=== PATIENT | male | born 1965 | race Caucasian/White ===

== ENCOUNTER 2016-11-30 09:11 | Inpatient (IN) | payer OTHER ==
--- NOTE | 2016-11-30 10:42 | C.PDOC ---
History Of Present Illness 51 year old male presents to the ED after being sent by his PMD for possible active TB. Patient has been seen several times by his PMD for cough and easy fatigue and had a cxr that showed left upper lobe lesions and a CT showing infiltrate with cavities. Patient denies night sweats, change in appetite, but has lost weight, is easly fatigued and cough continues Time Seen by Provider: 11/30/16 09:48 Chief Complaint (Nursing): Cough, Cold, Congestion History Per: Patient History/Exam Limitations: language barrier Onset/Duration Of Symptoms: Days Current Symptoms Are (Timing): Still Present Severity: Mild Past Medical History Reviewed: Historical Data, Nursing Documentation, Vital Signs Vital Signs: Last Vital Signs Temp 97.4 F L 12/01/16 07:53 Pulse 94 H 12/01/16 07:53 Resp 20 12/01/16 07:53 BP 124/78 12/01/16 11:00 Pulse Ox 96 12/01/16 07:53 - Medical History PMH: No Chronic Diseases Other Surgeries: as child ?? Family History: States: Unknown Family Hx - Social History Hx Alcohol Use: No Hx Substance Use: No Review Of Systems Except As Marked, All Systems Reviewed And Found Negative. Constitutional: Positive for: Other (+Easy fatigue). Negative for: Fever, Chills, Sweats, Weight loss Cardiovascular: Negative for: Chest Pain Respiratory: Positive for: Cough. Negative for: Shortness of Breath Physical Exam - Physical Exam Appears: Non-toxic, No Acute Distress Skin: Normal Color, Warm, Dry Head: Atraumatic, Normacephalic Eye(s): bilateral: Normal Inspection Oral Mucosa: Moist Chest: Symmetrical, No Deformity Cardiovascular: Rhythm Regular, No Murmur Respiratory: Normal Breath Sounds, No Rales, No Rhonchi, No Wheezing Gastrointestinal/Abdominal: Soft, No Tenderness, No Distention Extremity: Normal ROM Neurological/Psych: Oriented x3, Normal Speech, Normal Cognition ED Course And Treatment - Laboratory Results Result Diagrams: 12/01/16 07:37 12/01/16 07:37 ECG: Interpreted By Me, Viewed By Me ECG Rhythm: Sinus Tachycardia Rate From EC O2 Sat by Pulse Oximetry: 98 (Room air) Pulse Ox Interpretation: Normal - Radiology CXR: Interpreted by Me CXR Interpretation: Yes: Infiltrates, Other (RADHA cavity) Progress Note: EKG, CXR, Blood work, and Urinalysis ordered and reviewed. Case discussed with Dr. Huber (Hospitalist) who agreed with plan and admission. 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 Provider Attestation: All medical record entries made by the Scribe were at my direction and personally dictated by me. I have reviewed the chart and agree that the record accurately reflects my personal performance of the history, physical exam, medical decision making, and the department course for this patient. I have also personally directed, reviewed, and agree with the discharge instructions and disposition.
[2016-11-30 11:01] LABS: BASO % 0.3 % (0.0-2.0); EOS # 0.2 K/uL (0.0-0.7); EOS % 1.8 % (0.0-4.0); HEMATOCRIT 40.2 % (35.0-51.0); LYMPH # 0.9 K/uL (1.0-4.3); LYMPH % 9.5 % (20.0-40.0); MEAN CELL VOLUME 69.7 fL (80.0-94.0); MEAN CORPUSCULAR HEMOGLOBIN 22.3 pg (27.0-31.0); MEAN PLATELET VOLUME 7.2 fL (7.2-11.7); MONO # 1.2 K/uL (0.0-0.8); MONO % 12.8 % (0.0-10.0); PLATELET COUNT 330 K/uL (130-400); RED CELL DISTRIBUTION WIDTH 16.9 % (11.5-14.5); WHITE BLOOD COUNT 9.2 K/uL (4.8-10.8)
[2016-11-30 11:07] LABS: RBC URINE < 1 /hpf (0-3); URINE BILIRUBIN NEGATIVE (NEGATIVE); URINE BLOOD NEGATIVE (NEGATIVE); URINE COLOR Yellow (YELLOW); URINE GLUCOSE (UA) 3+ mg/dL (Normal); URINE KETONE NEGATIVE (NEGATIVE); URINE LEUKOCYTE ESTERASE NEG Leu/uL (Negative); URINE PROTEIN NEGATIVE (NEGATIVE); URINE UROBILINOGEN NORMAL mg/dL (0.2-1.0); WBC URINE 1 /hpf (0-5)
[2016-11-30 11:15] LABS: CHLORIDE 92 mmol/L (98-107)
[2016-11-30 11:16] LABS: SODIUM 129 mmol/L (132-148)
[2016-11-30 11:18] LABS: CARBON DIOXIDE 27 mmol/L (22-30); GFR AFRICAN-AMERICAN > 60
[2016-11-30 11:19] LABS: ALB/GLOB RATIO 0.8 (1.0-2.1); ALKALINE PHOSPHATASE 113 U/L (38-126); ALT/SGPT 40 U/L (21-72); AST/SGOT 24 U/L (17-59); BILIRUBIN,TOTAL 0.5 mg/dL (0.2-1.3); BLOOD UREA NITROGEN 11 mg/dL (9-20); CALCIUM 9.2 mg/dl (8.6-10.4); GLUCOSE,RANDOM 233 mg/dL (75-110); TOTAL PROTEIN 7.4 g/dL (6.3-8.3)
--- NOTE | 2016-11-30 11:37 | RAD ---
HISTORY: admitted to r/o active TB COMPARISON: No prior. TECHNIQUE: Chest PA and lateral FINDINGS: LUNGS: Extensive left upper lobe infiltrate with a likely cavitary component. There is an overall miliary appearance to this infiltrate. Parabronchial thickening noted. PLEURA: No significant pleural effusion identified. No pneumothorax apparent. CARDIOVASCULAR: Normal. OSSEOUS STRUCTURES: No significant abnormalities. VISUALIZED UPPER ABDOMEN: Normal. OTHER FINDINGS: None. IMPRESSION: Cavitary left upper lobe infiltrate/mass. CT scan may be beneficial in further assessment of this process primarily affecting the posterior segment. The cavitary comes/cystic component is best seen on the lateral view measuring 5.2 x 6.4 cm.
[2016-11-30 12:09] LABS: EOSINOPHIL 1 % (0-4); NEUTROPHIL 81 % (50-75); TOTAL CELLS COUNTED 100
--- NOTE | 2016-11-30 13:21 | CP.PCM.HP ---
<Reyna Huber V - Last Filed: 11/30/16 18:20> Meds Allergies/Adverse Reactions: Allergies Allergy/AdvReac Type Severity Reaction Status Date / Time No Known Allergies Allergy Verified 11/30/16 09:48 Results - Vital Signs Recent Vital Signs: Last Vital Signs Temp 98.4 F 11/30/16 15:15 Pulse 109 H 11/30/16 15:15 Resp 20 11/30/16 15:15 BP 141/90 11/30/16 15:15 Pulse Ox 97 11/30/16 15:15 - Labs Result Diagrams: 11/30/16 10:53 11/30/16 10:53 Labs: Laboratory Results - last 24 hr 11/30/16 11/30/16 10:53 16:28 WBC 9.2 RBC 5.76 Hgb 12.8 Hct 40.2 MCV 69.7 L MCH 22.3 L MCHC 32.0 L RDW 16.9 H Plt Count 330 MPV 7.2 Neut % (Auto) 75.6 H Lymph % (Auto) 9.5 L Villalba % (Auto) 12.8 H Eos % (Auto) 1.8 Baso % (Auto) 0.3 Neut # 7.0 Lymph # 0.9 L Villalba # 1.2 H Eos # 0.2 Baso # 0.0 Neutrophils % (Manual) 81 H Band Neutrophils % 2 Lymphocytes % (Manual) 11 L Monocytes % (Manual) 5 Eosinophils % (Manual) 1 Platelet Estimate Normal Polychromasia Slight Hypochromasia (manual) Slight Anisocytosis (manual) Slight Tear Drop Cells Slight Coalfield Cells Slight PT 13.0 H INR 1.2 APTT 29 Sodium 129 L Potassium 4.0 Chloride 92 L Carbon Dioxide 27 Anion Gap 14 BUN 11 Creatinine 0.6 L Est GFR ( Amer) > 60 Est GFR (Non-Af Amer) > 60 Random Glucose 233 H Calcium 9.2 Total Bilirubin 0.5 AST 24 ALT 40 Alkaline Phosphatase 113 Total Protein 7.4 Albumin 3.4 L Globulin 4.1 H Albumin/Globulin Ratio 0.8 L Urine Color Yellow Urine Clarity Clear Urine pH 7.0 Ur Specific [place] 1.008 Urine Protein Negative Urine Glucose (UA) 3+ H Urine Ketones Negative Urine Blood Negative Urine Nitrate Negative Urine Bilirubin Negative Urine Urobilinogen Normal Ur Leukocyte Esterase Neg Urine WBC (Auto) 1 Urine RBC (Auto) < 1 Attending/Attestation - Attestation I have personally seen and examined this patient.: Yes I have fully participated in the care of the patient.: Yes I have reviewed all pertinent clinical information: Yes Notes (Text): Patient seen, evaluated and case discussed with day-time resident. Patient seen in Bed 9 in the [facility] ED approximately 1:10PM on 11/30/16. Patient came into ED per recommendation by his PMD, Dr Johan Cardoso, after have persistent dry, nonproductive cough for the past 4 weeks. Patient also reports subjective fevers, and associated unintentional weight loss about 40lbs over the past four months. Patient denies recent travel, denies incarceation, denies intermediate designer steroid use, denies history of HIV, denies recent travel, patient is from [place], denies Bcg vaccine. Patient has had family history of tuberculosis; patient reports he completed chest xray and CT Chest per outpatient; noting left upper lobe cavitation. Discussed with patient's PMD: Dr Johan Cardoso for confirmation; concern between TB vs lung cancer. Patient placed on Airborne isolation. Pulmonary consult: Dr. Frazier-->notified -->for bronchoscopy tomorrow; notified CD in chart for patient's CT chest Infectious consult: Dr Espinal pending recommendations. Patient ordered for PPD, Quantaferon, and airborne isolation. Patient has history of diabetes, will hold glipizide, monitor accuchecks QAC and HS, start vegetarian diet, patient to be NPO for bronchoscopy tomorrow. <Darien Drake - Last Filed: 11/30/16 22:29> History of Present Illness - History of Present Illness History of Present Illness: CC: "Cough" HPI: 51 year old male presents to the ED after being sent by his PMD for possible active TB. Patient has been seen several times by his PMD for cough and easy fatigue for the past month. The cough progressively got worse and CXR showed left upper lobe lesions. CT showed infiltrate with cavities. The PMD advised the pt to seek admission to [facility] for potentially active TB. The patient was unaware of ever being tested for TB previously. He admits to subjective fevers, fatigue, cough, LE weakness and pain. Patient denies hemoptysis, night sweats, weight loss, abdominal pain, change in appetite, n/v, LE edema, or any additional complaints at this time. PMHx: DM2, HTN PSHx: 1 minor surgery during childhood, patient could not recall Meds: home meds will be brought in by his family friend Allergies: NKDA FamHx: Father of TB when the pt was 5 years old SocHx: Emigrated to the [place] about 5-9 years ago and has been working on-and-off as a manager sas. He chews tobacco and previously drank alcohol but has not in some time. PMD: Johan Cardoso Present on Admission - Present on Admission Any Indicators Present on Admission: No Review of Systems - Constitutional Constitutional: Fever, Weakness (legs). absent: Chills, Headache - EENT Eyes: absent: Blind Spots, Blurred Vision, Change in Vision Ears: absent: Decreased Hearing, Ear Discharge Nose/Mouth/Throat: absent: Nasal Congestion, Nasal Discharge - Cardiovascular Cardiovascular: absent: Chest Pain, Chest Pain at Rest, Dyspnea - Respiratory Respiratory: Cough. absent: Dyspnea, Hemoptysis, Pain with Coughing - Gastrointestinal Gastrointestinal: absent: Abdominal Pain, Hematemesis, Hematochezia, Nausea, Vomiting - Genitourinary Genitourinary: absent: Difficulty Urinating, Dysuria - Musculoskeletal Musculoskeletal: absent: Arthralgias, Numbness, Tingling - Integumentary Integumentary: absent: Alopecia, Bleeding Lesions, Change in Hair - Neurological Neurological: Weakness. absent: Abnormal Hearing, Abnormal Movements, Tingling , Tremor - Psychiatric Psychiatric: absent: Anhedonia, Anxiety, Depression - Hematologic/Lymphatic Hematologic: absent: Easy Bleeding, Easy Bruising Past Patient History - Past Social History Smoking Status: Never Smoked - ENDOCRINE/METABOLIC Hx Endocrine Disorders: Yes Hx Diabetes Mellitus Type 2: Yes - PSYCHIATRIC Hx Substance Use: No - SURGICAL HISTORY Hx Surgeries: Yes Other/Comment: CHILDHOOD SX..PT CANNOT REMEMBER WHAT - ANESTHESIA Hx Anesthesia: No Physical Exam - Constitutional Appears: Non-toxic, No Acute Distress - Head Exam Head Exam: ATRAUMATIC, NORMAL INSPECTION - Eye Exam Eye Exam: EOMI, Normal appearance - ENT Exam ENT Exam: Normal Oropharynx - Respiratory Exam Respiratory Exam: Clear to Auscultation Bilateral, NORMAL BREATHING PATTERN. absent: Wheezes - Cardiovascular Exam Cardiovascular Exam: REGULAR RHYTHM, +S1, +S2. absent: JVD - GI/Abdominal Exam GI & Abdominal Exam: Normal Bowel Sounds, Soft. absent: Tenderness - Extremities Exam Extremities exam: Positive for: normal inspection, tenderness (mild to palp). Negative for: pedal edema - Neurological Exam Neurological exam: Alert, Oriented x3 - Psychiatric Exam Psychiatric exam: Normal Affect, Normal Mood - Skin Skin Exam: Dry, Intact, Normal Color, Warm Results - Vital Signs Recent Vital Signs: Last Vital Signs Temp 98.5 F 11/30/16 12:40 Pulse 98 H 11/30/16 12:40 Resp 18 11/30/16 12:40 BP 124/84 11/30/16 12:40 Pulse Ox 100 11/30/16 12:40 - Labs Result Diagrams: 11/30/16 10:53 11/30/16 10:53 Labs: Laboratory Results - last 24 hr 11/30/16 10:53 WBC 9.2 RBC 5.76 Hgb 12.8 Hct 40.2 MCV 69.7 L MCH 22.3 L MCHC 32.0 L RDW 16.9 H Plt Count 330 MPV 7.2 Neut % (Auto) 75.6 H Lymph % (Auto) 9.5 L Villalba % (Auto) 12.8 H Eos % (Auto) 1.8 Baso % (Auto) 0.3 Neut # 7.0 Lymph # 0.9 L Villalba # 1.2 H Eos # 0.2 Baso # 0.0 Neutrophils % (Manual) 81 H Band Neutrophils % 2 Lymphocytes % (Manual) 11 L Monocytes % (Manual) 5 Eosinophils % (Manual) 1 Platelet Estimate Normal Polychromasia Slight Hypochromasia (manual) Slight Anisocytosis (manual) Slight Tear Drop Cells Slight Coalfield Cells Slight Sodium 129 L Potassium 4.0 Chloride 92 L Carbon Dioxide 27 Anion Gap 14 BUN 11 Creatinine 0.6 L Est GFR ( Amer) > 60 Est GFR (Non-Af Amer) > 60 Random Glucose 233 H Calcium 9.2 Total Bilirubin 0.5 AST 24 ALT 40 Alkaline Phosphatase 113 Total Protein 7.4 Albumin 3.4 L Globulin 4.1 H Albumin/Globulin Ratio 0.8 L Urine Color Yellow Urine Clarity Clear Urine pH 7.0 Ur Specific [place] 1.008 Urine Protein Negative Urine Glucose (UA) 3+ H Urine Ketones Negative Urine Blood Negative Urine Nitrate Negative Urine Bilirubin Negative Urine Urobilinogen Normal Ur Leukocyte Esterase Neg Urine WBC (Auto) 1 Urine RBC (Auto) < 1 Assessment & Plan - Assessment and Plan (Free Text) Assessment: Tuberculosis, active -Note: Disk containing CT + CXR images is in the physical chart. -Cavitary left upper lobe infiltrate/mass. CT scan may be beneficial in further assessment of this process primarily affecting the posterior segment. The cavitary comes/cystic component is best seen on the lateral view measuring 5.2 x 6.4 cm. -ID consult, Dr. Espinal -Pulm Consult, Dr. Frazier -> plan for bronchoscopy 12/01 AM. NPO AM. -Continue Mucinex 600mg PO BID; Singulair 10mg PO HS; Duonebs RQ6 PRN -f/u AFB x3; PPD; HIV; Quant Gold; Diabetes f/u A1c; FLP; Glucose 233 on admission ISS Hold Home med: Glimepiride 2mg daily Hypertension BP WNL on admission Continue home Enalapril 5mg PO d Microcytic Anemia MCV 69.7 f/u Fe; TIBC; ferritin, B12, folate, reticulcyte count, haptoglobin, hemoglobinopathies Prophylaxis -respiratory isolation NS 0.9 at 100cc/hr Vegetarian Diet, carb consistent, low sodium Pepcid 20mg PO d Heparin 5k units SC q8H (hold in AM prior to procedure) SCDs - Date & Time Date: 11/30/16 Time: 13:30
[2016-11-30] MEDS ORDERED: Albuterol-Ipratrop 3 mg / 0.5 (3 ml) UD INH PRN (15:35)
[2016-11-30] MEDS ORDERED: Tuberculin 5 Units/0.1 ml Inj ID ONE (16:30)
[2016-11-30 16:42] LABS: INR 1.2
[2016-11-30] MEDS: guaiFENesin 600 mg ER Tab PO SCH (17:50)
[2016-11-30] MEDS: Sodium Chloride 0.9% 1,000 ML IV SCH (17:55)
[2016-11-30] MEDS: (Novolog) Insulin Aspart, Recombinant 100 u/ml 10 ml vial SC SCH (21:32)
[2016-12-01] MEDS: Sodium Chloride 0.9% 1,000 ML IV SCH ×2 (04:00→14:37)
[2016-12-01 07:46] LABS: BASO % 0.4 % (0.0-2.0); EOS # 0.2 K/uL (0.0-0.7); EOS % 2.1 % (0.0-4.0); HEMATOCRIT 38.3 % (35.0-51.0); LYMPH # 1.3 K/uL (1.0-4.3); LYMPH % 15.6 % (20.0-40.0); MEAN CELL VOLUME 69.4 fL (80.0-94.0); MEAN CORPUSCULAR HEMOGLOBIN 22.6 pg (27.0-31.0); MEAN CORPUSCULAR HGB CONC 32.6 g/dL (33.0-37.0); MEAN PLATELET VOLUME 7.5 fL (7.2-11.7); MONO # 1.3 K/uL (0.0-0.8); MONO % 16.3 % (0.0-10.0); RED CELL DISTRIBUTION WIDTH 16.5 % (11.5-14.5); WHITE BLOOD COUNT 8.1 K/uL (4.8-10.8)
[2016-12-01 07:51] LABS: INR 1.2
--- NOTE | 2016-12-01 07:54 | CP.PCM.PN ---
<Jose MariatristenDarien - Last Filed: 12/01/16 21:03> Subjective - Date & Time of Evaluation Date of Evaluation: 12/01/16 Time of Evaluation: 07:35 - Subjective Subjective: PGY-1 note for medicine service Pt seen and examined at bedside, chart reviewed and case discussed. No overnight events per nursing. Patient reports he is doing well this morning. Bronch cancelled for this morning as CT imaging showed clear evidence of TB. + Cough. Patient denies hemoptysis, night sweats, weight loss, abdominal pain, change in appetite, n/v, LE edema, or any additional complaints at this time. Objective - Vital Signs/Intake and Output Vital Signs (last 24 hours): Temp Pulse Resp BP Pulse Ox 98.2 F 100 H 20 127/75 95 12/01/16 06:00 12/01/16 00:00 12/01/16 00:00 12/01/16 00:00 12/01/16 00:00 Intake and Output: 12/01/16 12/01/16 06:59 18:59 Intake Total 1400 Balance 1400 - Medications Medications: Current Medications Albuterol/Ipratropium (Duoneb 3 Mg/0.5 Mg (3 Ml) Ud) 3 ml INH RQ6 PRN PRN Reason: Shortness of Breath Enalapril Maleate (Vasotec) 5 mg PO DAILY [facility] Famotidine (Pepcid) 20 mg PO DAILY [facility] Last Admin: 11/30/16 17:50 Dose: 20 mg Guaifenesin (Mucinex La) 600 mg PO BID [facility] Last Admin: 11/30/16 17:50 Dose: 600 mg Heparin Sodium (Porcine) (Heparin) 5,000 units SC Q8H [facility] Last Admin: 12/01/16 01:27 Dose: Not Given Sodium Chloride (Sodium Chloride 0.9%) 1,000 mls @ 100 mls/hr IV .Q10H [facility] Last Admin: 12/01/16 04:00 Dose: 100 mls/hr Influenza Virus Vaccine (Afluria) 45 mcg IM .ONCE ONE Stop: 12/02/16 10:01 Insulin Aspart (Novolog) 0 unit SC ACHS [facility] PRN Reason: Protocol Last Admin: 11/30/16 21:32 Dose: Not Given Montelukast Sodium (Singulair) 10 mg PO HS [facility] Last Admin: 11/30/16 21:17 Dose: 10 mg Pneumococcal Polyvalent Vaccine (Pneumovax 23 Vaccine) 0.5 ml IM .ONCE ONE Stop: 12/02/16 10:01 - Labs Labs: 12/01/16 07:37 11/30/16 10:53 PT 13.0 SECONDS (9.7-12.2) H 11/30/16 16:28 INR 1.2 11/30/16 16:28 APTT 29 SECONDS (21-34) 11/30/16 16:28 - Additional Findings Additional findings: - Constitutional Appears: Non-toxic, No Acute Distress - Head Exam Head Exam: ATRAUMATIC, NORMAL INSPECTION - Eye Exam Eye Exam: EOMI, Normal appearance - ENT Exam ENT Exam: Normal Oropharynx - Respiratory Exam Respiratory Exam: Clear to Auscultation Bilateral, NORMAL BREATHING PATTERN. absent: Wheezes - Cardiovascular Exam Cardiovascular Exam: REGULAR RHYTHM, +S1, +S2. absent: JVD - GI/Abdominal Exam GI & Abdominal Exam: Normal Bowel Sounds, Soft. absent: Tenderness - Extremities Exam Extremities exam: Positive for: normal inspection, tenderness (mild to palp). Negative for: pedal edema - Neurological Exam Neurological exam: Alert, Oriented x3 - Psychiatric Exam Psychiatric exam: Normal Affect, Normal Mood - Skin Skin Exam: Dry, Intact, Normal Color, Warm Assessment and Plan - Assessment and Plan (Free Text) Assessment: Tuberculosis, active 12/02: f/u PPD read 7pm on 12/02 and 12/03. 12/01: Blood culture negative x24hrs (pending gram stain). -Note: Disk containing CT + CXR images is in the physical chart. -Cavitary left upper lobe infiltrate/mass. CT scan may be beneficial in further assessment of this process primarily affecting the posterior segment. The cavitary comes/cystic component is best seen on the lateral view measuring 5.2 x 6.4 cm. -ID consult, Dr. Espinal -> to start quadruple therapy for TB. -Pulm Consult, Dr. Frazier -> bronchoscopy 12/01 AM cancelled, as CT imaging showed clear TB infection -Continue Mucinex 600mg PO BID; Singulair 10mg PO HS; Duonebs RQ6 PRN -f/u AFB x3; f/u PPD read 7pm on 12/02 and 3/31. f/u HIV; -f/u Quant Gold; Diabetes 12/01: Start Glipizide 10mg daily, metformin 1000mg PO BID. 12/01: LE weakness likely diabetic neuropathy -> Gabapentin 300mg PO TID A1c 12.4 FLP grossly WNL; HDL 28 L Glucose 233 on admission ISS Hold Home med: Glimepiride 2mg daily Hypertension BP WNL on admission Continue home Enalapril 5mg PO d Microcytic Anemia MCV 69.7 Ferritin 77.3, B12 950 H, folate 11.2, reticulocyte count 1.0, haptoglobin , f/u hemoglobinopathies f/u Fe, TIBC Prophylaxis -respiratory isolation NS 0.9 at 100cc/hr Vegetarian Diet, carb consistent, low sodium Pepcid 20mg PO d Heparin 5k units SC q8H (hold in AM prior to procedure) SCDs <Reyna Huber V - Last Filed: 12/21/16 13:27> Objective - Vital Signs/Intake and Output Vital Signs (last 24 hours): Temp Pulse Resp BP Pulse Ox 98.8 F 94 H 20 119/75 96 12/03/16 00:00 12/03/16 00:00 12/03/16 00:00 12/03/16 00:00 12/03/16 00:00 Intake and Output: 12/02/16 12/03/16 18:59 06:59 Intake Total 1380 Balance 1380 - Medications Medications: Current Medications Albuterol/Ipratropium (Duoneb 3 Mg/0.5 Mg (3 Ml) Ud) 3 ml INH RQ6 PRN PRN Reason: Shortness of Breath Ascorbic Acid (Vitamin C 500 Mg Tab) 500 mg PO DAILY [facility] Last Admin: 12/02/16 12:09 Dose: 500 mg Enalapril Maleate (Vasotec) 5 mg PO DAILY [facility] Last Admin: 12/02/16 09:09 Dose: 5 mg Ethambutol HCl (Myambutol) 1,200 mg PO DAILY [facility] Last Admin: 12/02/16 09:10 Dose: 1,200 mg Famotidine (Pepcid) 20 mg PO DAILY [facility] Last Admin: 12/02/16 09:09 Dose: 20 mg Ferrous Sulfate (Feosol) 325 mg PO DAILY [facility] Last Admin: 12/02/16 12:09 Dose: 325 mg Gabapentin (Neurontin) 300 mg PO TID [facility] Last Admin: 12/02/16 17:36 Dose: 300 mg Glipizide (Glucotrol) 10 mg PO ACB [facility] Last Admin: 12/02/16 09:34 Dose: 10 mg Guaifenesin (Mucinex La) 600 mg PO BID [facility] Last Admin: 12/02/16 17:36 Dose: 600 mg Heparin Sodium (Porcine) (Heparin) 5,000 units SC Q8H [facility] Last Admin: 12/01/16 01:27 Dose: Not Given Sodium Chloride (Sodium Chloride 0.9%) 1,000 mls @ 125 mls/hr IV .Q8H [facility] Last Admin: 12/02/16 20:48 Dose: 125 mls/hr Insulin Aspart (Novolog) 0 unit SC ACHS [facility] PRN Reason: Protocol Last Admin: 12/02/16 21:24 Dose: Not Given Isoniazid (Niazid) 300 mg PO DAILY [facility] Last Admin: 12/02/16 09:10 Dose: 300 mg Metformin HCl (Glucophage) 1,000 mg PO BID [facility] Last Admin: 12/02/16 17:37 Dose: 1,000 mg Montelukast Sodium (Singulair) 10 mg PO HS [facility] Last Admin: 12/02/16 21:20 Dose: 10 mg Ondansetron HCl (Zofran Tab) 4 mg PO Q6 PRN PRN Reason: Nausea/Vomiting Last Admin: 12/02/16 20:48 Dose: 4 mg Pyrazinamide (Pyrazinamide) 1,000 mg PO DAILY [facility] Last Admin: 12/02/16 09:11 Dose: 1,000 mg Pyridoxine HCl (Vitamin B6) 100 mg PO DAILY [facility] Last Admin: 12/02/16 09:11 Dose: 100 mg Rifampin (Rifampin Cap) 600 mg PO DAILY [facility] Last Admin: 12/02/16 09:11 Dose: 600 mg - Labs Labs: 12/02/16 07:06 12/02/16 07:06 PT 13.6 SECONDS (9.7-12.2) H 12/01/16 07:37 INR 1.2 12/01/16 07:37 APTT 28 SECONDS (21-34) 12/01/16 07:37 Attending/Attestation - Attestation I have personally seen and examined this patient.: Yes I have fully participated in the care of the patient.: Yes I have reviewed all pertinent clinical information, including history, physical exam and plan: Yes Notes (Text): This is late computer entry for 12/01/16. Patient seen, examined, and case discussed with day-time resident. Per discussion with pulm, bronchoscopy cancelled this morning, reports this is likely tuberculosis and recommended to start TB medications. Patient is pending PPD, quantaferon results. Per infectious disease, recommended for quadruple therapy. Patient's hgba1c is 12.4, reflecting uncontrolled diabetes, patient started on Metformin 1000mg PO bid and Glipizide 10mg PO daily Assessment/Plan 1) Tuberculosis, active * Consult Infectious Disease (Dr. Espinal) on board * Consult Pulmonary (Dr. Frazier ) on board * Bronchoscopy cancelled; discussed with pulm, patient should initiate therapy for TB * Chest xray (11/30): Cavitary left upper lobe infiltrate/mass. CT scan may be beneficial in further assessment of this process primarily affecting the posterior segment. The cavitary comes/cystic component is best seen on the lateral view measuring 5.2 x 6.4 cm. * Patient as completed CT Chest outpatient (prior CT is included in the chart; CD) * Patient ordered for PPD, HIV, Quantaferon, AFB sputum * Blood culture (11/30): no growth negative for 24 hours * Ordered for PPD 2) Cough * Mucinex 600mg PO bid * Singuliar 10mg POqHS * Duonebs RQ6 PRN 3) Diabetes type 2 * Uncontrolled * [id number]: 12.4 * Patient started on Metformin 1000mg PO bid and Glipizide 10mg PO daily * Note: patient has peripheral neuropathy prior to starting TB therapy; patient started on Gabapentin 300mg PO tid * Regular insulin sliding scale subq * Monitor accuechecks QAC and HS * Enalapril 5mg PO daily 4) Hypertension * Monitor vial signs * Enalapril 5mg PO daily 5) Low MCV * MCV 69.7, Ferritin 77.3, B12 950 H, folate 11.2, reticulocyte count 1.0, haptoglobin, hemoglobinpathy 6) Hyponatremia * monitor * NS 100cc/hr * no neurologic deficit * continue monitor 7) Prophylaxis * NS 100cc/hr * Vegetarian Diet, carb consistent, low sodium * Pepcid 20mg PO daily * Heparin 5k units SC q8H (hold in AM prior to procedure) * SCDs
[2016-12-01] MEDS: (Novolog) Insulin Aspart, Recombinant 100 u/ml 10 ml vial SC SCH ×4 (08:00→21:33)
[2016-12-01 08:07] LABS: CHLORIDE 94 mmol/L (98-107)
[2016-12-01 08:08] LABS: SODIUM 131 mmol/L (132-148)
[2016-12-01 08:09] LABS: CHOLESTEROL 157 mg/dL (0-199)
[2016-12-01 08:10] LABS: ALB/GLOB RATIO 0.9 (1.0-2.1); ALKALINE PHOSPHATASE 109 U/L (38-126); AST/SGOT 23 U/L (17-59); BILIRUBIN,TOTAL 0.4 mg/dL (0.2-1.3); BLOOD UREA NITROGEN 8 mg/dL (9-20); CARBON DIOXIDE 24 mmol/L (22-30); GFR AFRICAN-AMERICAN > 60; GLUCOSE,RANDOM 175 mg/dL (75-110); TOTAL PROTEIN 6.9 g/dL (6.3-8.3)
[2016-12-01 08:11] LABS: ALT/SGPT 28 U/L (21-72); CALCIUM 8.6 mg/dl (8.6-10.4); MAGNESIUM 1.9 mg/dL (1.6-2.3); PHOSPHOROUS 4.3 mg/dL (2.5-4.5)
[2016-12-01 09:17] LABS: FOLATE 11.2 ng/mL
--- NOTE | 2016-12-01 10:10 | CP.PCM.CON ---
History of Present Illness - History of Present Illness History of Present Illness: Patient is a 51 year old male with PMH of DM2 and HTN who presented to the ED on 11/30/16 with chief complaint of cough. Pt reported that he was recommended by his PMD, Dr. Johan Cardoso to come in to the ER for possible active TB. Pt also reported that he had persistent dry, non productive cough, subjective fevers, and unintentional weight loss of 40 lbs in the past 4 weeks. Pt's cough had progressively gotten worse over the past 4 weeks, and pt had outpatient Chest X-ray done with showed left upper lobe cavitation and outpatient CT showed infiltrate with cavities. Pulm was consulted for active TB vs lung cancer. Pt seen and examined in isolation room at bedside. Pt continues to complain of boughts of non productive coughs today as well some malaise. Pt denies hemoptysis, night sweats, CP, phlegm, N/V, and also could not recall being tested for TB in the past. Pt states that he emigrated to the [place] 5[place]9 years ago, and admitted to a family history of TB with his father passing away from TB when pt was 5 years old. Social History: Admits to chewing tobacco Review of Systems - Constitutional Constitutional: Malaise (Some), Weight Loss, Weakness. absent: Chills, Excessive Sweating, Fever, Night Sweats - Cardiovascular Cardiovascular: absent: Chest Pain, Dyspnea on Exertion, Edema, Palpitations, Pedal Edema - Respiratory Respiratory: Cough (Dry). absent: Dyspnea, Hemoptysis, Dyspnea on Exertion, Wheezing, Pain on Inspiration, Chest Congestion, Excessive Mucous Production, Change in Mucous Color Past Patient History - Past Medical History & Family History Past Medical History?: Yes - Past Social History Smoking Status: Never Smoked - CARDIAC Hx Hypertension: Yes - ENDOCRINE/METABOLIC Hx Endocrine Disorders: Yes Hx Diabetes Mellitus Type 2: Yes - MUSCULOSKELETAL/RHEUMATOLOGICAL Hx Falls: No - PSYCHIATRIC Hx Substance Use: No - SURGICAL HISTORY Hx Surgeries: Yes Other/Comment: CHILDHOOD SX..PT CANNOT REMEMBER WHAT - ANESTHESIA Hx Anesthesia: No Meds Allergies/Adverse Reactions: Allergies Allergy/AdvReac Type Severity Reaction Status Date / Time No Known Allergies Allergy Verified 11/30/16 09:48 - Medications Medications: Current Medications Albuterol/Ipratropium (Duoneb 3 Mg/0.5 Mg (3 Ml) Ud) 3 ml INH RQ6 PRN PRN Reason: Shortness of Breath Enalapril Maleate (Vasotec) 5 mg PO DAILY [facility] Famotidine (Pepcid) 20 mg PO DAILY [facility] Last Admin: 11/30/16 17:50 Dose: 20 mg Guaifenesin (Mucinex La) 600 mg PO BID [facility] Last Admin: 11/30/16 17:50 Dose: 600 mg Heparin Sodium (Porcine) (Heparin) 5,000 units SC Q8H [facility] Last Admin: 12/01/16 01:27 Dose: Not Given Sodium Chloride (Sodium Chloride 0.9%) 1,000 mls @ 100 mls/hr IV .Q10H [facility] Last Admin: 12/01/16 04:00 Dose: 100 mls/hr Influenza Virus Vaccine (Afluria) 45 mcg IM .ONCE ONE Stop: 12/02/16 10:01 Insulin Aspart (Novolog) 0 unit SC ACHS [facility] PRN Reason: Protocol Last Admin: 12/01/16 08:00 Dose: Not Given Montelukast Sodium (Singulair) 10 mg PO HS [facility] Last Admin: 11/30/16 21:17 Dose: 10 mg Pneumococcal Polyvalent Vaccine (Pneumovax 23 Vaccine) 0.5 ml IM .ONCE ONE Stop: 12/02/16 10:01 Physical Exam - Constitutional Appears: Non-toxic, No Acute Distress - Head Exam Head Exam: ATRAUMATIC, NORMOCEPHALIC - Eye Exam Eye Exam: Normal appearance Pupil Exam: NORMAL ACCOMODATION - ENT Exam ENT Exam: Mucous Membranes Moist - Respiratory Exam Respiratory Exam: Clear to Auscultation Bilateral, NORMAL BREATHING PATTERN. absent: Rales, Rhonchi, Wheezes - Cardiovascular Exam Cardiovascular Exam: REGULAR RHYTHM, +S1, +S2 - Neurological Exam Neurological exam: Alert, CN II-XII Intact, Oriented x3 - Psychiatric Exam Psychiatric exam: Normal Affect, Normal Mood - Skin Skin Exam: Dry, Intact, Normal Color Results - Vital Signs Recent Vital Signs: Last Vital Signs Temp 97.4 F L 12/01/16 07:53 Pulse 94 H 12/01/16 07:53 Resp 20 12/01/16 07:53 BP 124/78 12/01/16 07:53 Pulse Ox 96 12/01/16 07:53 - Labs Result Diagrams: 12/01/16 07:37 12/01/16 07:37 Labs: Laboratory Results - last 24 hr 11/30/16 11/30/16 11/30/16 10:53 16:28 16:34 WBC 9.2 RBC 5.76 Hgb 12.8 Hct 40.2 MCV 69.7 L MCH 22.3 L MCHC 32.0 L RDW 16.9 H Plt Count 330 MPV 7.2 Neut % (Auto) 75.6 H Lymph % (Auto) 9.5 L [place] % (Auto) 12.8 H Eos % (Auto) 1.8 Baso % (Auto) 0.3 Neut # 7.0 Lymph # 0.9 L [place] # 1.2 H Eos # 0.2 Baso # 0.0 Neutrophils % (Manual) 81 H Band Neutrophils % 2 Lymphocytes % (Manual) 11 L Monocytes % (Manual) 5 Eosinophils % (Manual) 1 Platelet Estimate Normal Polychromasia Slight Hypochromasia (manual) Slight Anisocytosis (manual) Slight Tear Drop Cells Slight [place] Cells Slight Retic Count PT 13.0 H INR 1.2 APTT 29 Sodium 129 L Potassium 4.0 Chloride 92 L Carbon Dioxide 27 Anion Gap 14 BUN 11 Creatinine 0.6 L Est GFR ( Amer) > 60 Est GFR (Non-Af Amer) > 60 POC Glucose (mg/dL) 164 H Random Glucose 233 H Hemoglobin A1c Calcium 9.2 Phosphorus Magnesium % Saturation Ferritin Total Bilirubin 0.5 AST 24 ALT 40 Alkaline Phosphatase 113 Total Protein 7.4 Albumin 3.4 L Globulin 4.1 H Albumin/Globulin Ratio 0.8 L Triglycerides Cholesterol LDL Cholesterol Direct HDL Cholesterol Vitamin B12 Folate Urine Color Yellow Urine Clarity Clear Urine pH 7.0 Ur Specific [place] 1.008 Urine Protein Negative Urine Glucose (UA) 3+ H Urine Ketones Negative Urine Blood Negative Urine Nitrate Negative Urine Bilirubin Negative Urine Urobilinogen Normal Ur Leukocyte Esterase Neg Urine WBC (Auto) 1 Urine RBC (Auto) < 1 11/30/16 12/01/16 12/01/16 21:28 07:24 07:37 WBC 8.1 RBC 5.52 Hgb 12.5 Hct 38.3 MCV 69.4 L MCH 22.6 L MCHC 32.6 L RDW 16.5 H Plt Count 311 MPV 7.5 Neut % (Auto) 65.6 Lymph % (Auto) 15.6 L [place] % (Auto) 16.3 H Eos % (Auto) 2.1 Baso % (Auto) 0.4 Neut # 5.3 Lymph # 1.3 [place] # 1.3 H Eos # 0.2 Baso # 0.0 Neutrophils % (Manual) Band Neutrophils % Lymphocytes % (Manual) Monocytes % (Manual) Eosinophils % (Manual) Platelet Estimate Polychromasia Hypochromasia (manual) Anisocytosis (manual) Tear Drop Cells [place] Cells Retic Count 1.0 PT 13.6 H INR 1.2 APTT 28 Sodium 131 L Potassium 4.0 Chloride 94 L Carbon Dioxide 24 Anion Gap 16 BUN 8 L Creatinine 0.6 L Est GFR ( Amer) > 60 Est GFR (Non-Af Amer) > 60 POC Glucose (mg/dL) 246 H 191 H Random Glucose 175 H Hemoglobin A1c 12.4 H Calcium 8.6 Phosphorus 4.3 Magnesium 1.9 % Saturation 12 L Ferritin 77.3 Total Bilirubin 0.4 AST 23 ALT 28 Alkaline Phosphatase 109 Total Protein 6.9 Albumin 3.2 L Globulin 3.7 Albumin/Globulin Ratio 0.9 L Triglycerides 116 Cholesterol 157 LDL Cholesterol Direct 93 HDL Cholesterol 28 L Vitamin B12 950 H Folate 11.2 Urine Color Urine Clarity Urine pH Ur Specific [place] Urine Protein Urine Glucose (UA) Urine Ketones Urine Blood Urine Nitrate Urine Bilirubin Urine Urobilinogen Ur Leukocyte Esterase Urine WBC (Auto) Urine RBC (Auto) Assessment & Plan (1) Tuberculosis Assessment and Plan: Chest X-ray on 12/01/16 showed left upper lobe cavitary measuring 5.4 X 6.4 cm. Extensive left upper lobe infiltrate, miliary appearance. See full report for details. Likely TB as opposed to lung malignancy. Bronchoscopy at this time not needed. Consider TB medications as per ID recommendations Follow up with sputum cultures Continue to monitor for worsening of symptoms including hemoptysis, SOB, and fever. Status: Acute
--- NOTE | 2016-12-01 10:49 | CARD ---
APPROVED REPORT EKG Measurement Heart [id number] <Conclusion> Sinus tachycardia Otherwise normal ECG
[2016-12-01] MEDS: guaiFENesin 600 mg ER Tab PO SCH ×2 (11:00→18:11)
--- NOTE | 2016-12-01 19:23 | CP.PCM.CON ---
History of Present Illness - History of Present Illness History of Present Illness: 51 year old male presented to the ED on 11/30/16 with chief complaint of cough. he was recommended by his PMD, Dr. Johan Cardoso to come in to the ER for possible active TB. Pt also reported that he had persistent dry, non productive cough, subjective fevers, and unintentional weight loss of 40 lbs in the past 4 weeks. Chest X-ray done with showed left upper lobe cavitation and outpatient CT showed infiltrate with cavities. Pt states that he emig[place] ago, and admitted to a family history of TB with his father passing away from TB when pt was 5 years old. Social History: Admits to chewing tobacco Review of Systems - Constitutional Constitutional: As Per HPI - EENT Eyes: absent: As Per HPI, Blind Spots, Blurred Vision, Change in Vision, Decreased Night Vision, Diplopia, Discharge, Dry Eye, Exophthalmos, Floaters, Irritation, Itchy Eyes, Loss of Peripheral Vision, Pain, Photophobia, Requires Corrective Lenses, Sees Flashes, Spots in Vision, Tunnel Vision, Other Visual Disturbances, Loss of Vision, Other Ears: absent: As Per HPI, Decreased Hearing, Ear Discharge, Ear Pain, Tinnitus, Abnormal Hearing, Disequilibrium, Dizziness, Other Nose/Mouth/Throat: absent: As Per HPI, Epistaxis, Nasal Congestion, Nasal Discharge, Nasal Obstruction, Nasal Trauma, Nose Pain, Post Nasal Drip, Sinus Pain, Sinus Pressure, Bleeding Gums, Change in Voice, Dental Pain, Dry Mouth, Dysphagia, Halitosis, Hoarsness, Lip Swelling, Mouth Lesions, Mouth Pain, Odynophagia, Sore Throat, Throat Swelling, Tongue Swelling, Facial Pain, Neck Pain, Neck Mass, Other - Cardiovascular Cardiovascular: absent: As Per HPI, Acrocyanosis, Chest Pain, Chest Pain at Rest , Chest Pain with Activity, Claudication, Diaphoresis, Dyspnea, Dyspnea on Exertion, Edema, Irregular Heart Rhythm, Pain Radiating to Arm/Neck/Jaw, Leg Edema, Leg Ulcers, Lightheadedness, Orthopnea, Palpitations, Paroxysmal Nocturnal Dyspnea, Pedal Edema, Radiating Pain, Rapid Heart Rate, Slow Heart Rate, Syncope, Other - Respiratory Respiratory: As Per HPI, Cough. absent: Hemoptysis - Gastrointestinal Gastrointestinal: absent: As Per HPI, Abdominal Pain, Belching, Bloating, Change in Bowel Habits, Change in Stool Character, Coffee Ground Emesis, Constipation, Cramping, Diarrhea, Dyspepsia, Dysphagia, Early Satiety, Excessive Flatus, Fecal Incontinence, Heartburn, Hematemesis, Hematochezia, Loose Stools, Melena, Nausea, Odynophagia, Temesmus, Vomiting, Other - Genitourinary Genitourinary: absent: As Per HPI, Change in Urinary Stream, Difficulty Urinating, Dysuria, Flank Pain, Hematuria, Pyuria, Nocturia, Urinary Incontinence, Urinary Frequency, Urinary Hesitance, Urinary Urgency, Voiding Freq/Small Amts, Freq UTI, Hx Renal/Bladder Calculi, Hx /Renal Surgery, Bladder Distension, Other - Musculoskeletal Musculoskeletal: absent: As Per HPI, Abnormal Gait, Arthralgias, Atrophy, Back Pain, Deformity, Joint Swelling, Limited Range of Motion, Loss of Height, Muscle Cramps, Muscle Weakness, Myalgias, Neck Pain, Numbness, Radiating Pain into Limb, Stiffness, Tingling, Other - Integumentary Integumentary: absent: As Per HPI, Acne, Alopecia, Bleeding Lesions, Change in Hair, Change in Nails, Change in Pigmentation, Changing Lesions, Dry Skin, Erythema, Furuncle, Hirsutism, Lesions, New Lesions, Non-Healing Lesions, Photosensitivity, Pruritus, Rash, Skin Pain, Skin Ulcer, Sores, Striae, Swelling , Unusual Bruising, Wounds, Jaundice, Other - Neurological Neurological: absent: As Per HPI, Abnormal Gait, Abnormal Hearing, Abnormal Movements, Abnormal Speech, Behavioral Changes, Burning Sensations, Confusion, Convulsions, Disequilibrium, Dizziness, Numbness, Focal Weakness, Frequent Falls , Headaches, Lack of Coordination, Loss of Vision, Memory Loss, Paresthesias, Radicular Pain, Restless Legs, Sensory Deficit, Syncope, Tingling, Tremor, Vertigo, Weakness, Other Visual Disturbances, Other - Psychiatric Psychiatric: absent: As Per HPI, Abnormal Sleep Pattern, Anhedonia, Anxiety, Auditory Hallucinations, Behavioral Changes, Change in Appetite, Change in Libido, Confusion, Depression, Difficulty Concentrating, Hallucinations, Homicidal Ideation, Hopelessness, Irritability, Memory Loss, Mood Swings, Panic Attacks, Paranoia, Suicidal Ideation, Visual Hallucinations, Tactile Hallucinations, Other - Hematologic/Lymphatic Hematologic: absent: As Per HPI, Easy Bleeding, Easy Bruising, Lymphadenopathy, Other Past Patient History - Past Medical History & Family History Past Medical History?: Yes - Past Social History Smoking Status: Never Smoked - CARDIAC Hx Hypertension: Yes - ENDOCRINE/METABOLIC Hx Endocrine Disorders: Yes Hx Diabetes Mellitus Type 2: Yes - MUSCULOSKELETAL/RHEUMATOLOGICAL Hx Falls: No - PSYCHIATRIC Hx Substance Use: No - SURGICAL HISTORY Hx Surgeries: Yes Other/Comment: CHILDHOOD SX..PT CANNOT REMEMBER WHAT - ANESTHESIA Hx Anesthesia: No Meds Allergies/Adverse Reactions: Allergies Allergy/AdvReac Type Severity Reaction Status Date / Time No Known Allergies Allergy Verified 11/30/16 09:48 - Medications Medications: Current Medications Albuterol/Ipratropium (Duoneb 3 Mg/0.5 Mg (3 Ml) Ud) 3 ml INH RQ6 PRN PRN Reason: Shortness of Breath Enalapril Maleate (Vasotec) 5 mg PO DAILY [facility] Last Admin: 12/01/16 11:00 Dose: 5 mg Famotidine (Pepcid) 20 mg PO DAILY [facility] Last Admin: 12/01/16 11:00 Dose: 20 mg Gabapentin (Neurontin) 300 mg PO TID [facility] Last Admin: 12/01/16 18:11 Dose: 300 mg Glipizide (Glucotrol) 10 mg PO ACB [facility] Guaifenesin (Mucinex La) 600 mg PO BID [facility] Last Admin: 12/01/16 18:11 Dose: 600 mg Heparin Sodium (Porcine) (Heparin) 5,000 units SC Q8H [facility] Last Admin: 12/01/16 01:27 Dose: Not Given Sodium Chloride (Sodium Chloride 0.9%) 1,000 mls @ 100 mls/hr IV .Q10H [facility] Last Admin: 12/01/16 14:37 Dose: 100 mls/hr Influenza Virus Vaccine (Afluria) 45 mcg IM .ONCE ONE Stop: 12/02/16 10:01 Insulin Aspart (Novolog) 0 unit SC ACHS [facility] PRN Reason: Protocol Last Admin: 12/01/16 18:11 Dose: 1 unit Metformin HCl (Glucophage) 1,000 mg PO BID [facility] Last Admin: 12/01/16 18:11 Dose: 1,000 mg Montelukast Sodium (Singulair) 10 mg PO HS [facility] Last Admin: 11/30/16 21:17 Dose: 10 mg Pneumococcal Polyvalent Vaccine (Pneumovax 23 Vaccine) 0.5 ml IM .ONCE ONE Stop: 12/02/16 10:01 Physical Exam - Constitutional Appears: Non-toxic, Chronically Ill - Head Exam Head Exam: NORMOCEPHALIC - Eye Exam Eye Exam: PERRL. absent: Scleral icterus - ENT Exam ENT Exam: Mucous Membranes Dry, Normal External Ear Exam, Normal Oropharynx - Neck Exam Neck exam: Negative for: Lymphadenopathy, Thyromegaly - Respiratory Exam Respiratory Exam: Decreased Breath Sounds, Prolonged Expiratory Phase, Rhonchi - Cardiovascular Exam Cardiovascular Exam: REGULAR RHYTHM, +S1, +S2. absent: Systolic Murmur - GI/Abdominal Exam GI & Abdominal Exam: Diminished Bowel Sounds, Soft. absent: Tenderness - Rectal Exam Rectal Exam: Deferred - Exam Exam: NORMAL INSPECTION - Extremities Exam Extremities exam: Positive for: pedal pulses present. Negative for: calf tenderness, pedal edema, tenderness - Back Exam Back exam: absent: CVA tenderness (L), CVA tenderness (R), paraspinal tenderness - Neurological Exam Neurological exam: Alert, CN II-XII Intact, Oriented x3, Reflexes Normal - Psychiatric Exam Psychiatric exam: Normal Mood - Skin Skin Exam: Dry Results - Vital Signs Recent Vital Signs: Last Vital Signs Temp 99.4 F 12/01/16 15:10 Pulse 97 H 12/01/16 15:10 Resp 20 12/01/16 15:10 BP 130/81 12/01/16 15:10 Pulse Ox 98 12/01/16 15:23 - Labs Result Diagrams: 12/01/16 07:37 12/01/16 07:37 Labs: Laboratory Results - last 24 hr 11/30/16 11/30/16 12/01/16 16:34 21:28 07:24 WBC RBC Hgb Hct MCV MCH MCHC RDW Plt Count MPV Neut % (Auto) Lymph % (Auto) [place] % (Auto) Eos % (Auto) Baso % (Auto) Neut # Lymph # [place] # Eos # Baso # Retic Count PT INR APTT Sodium Potassium Chloride Carbon Dioxide Anion Gap BUN Creatinine Est GFR ( Amer) Est GFR (Non-Af Amer) POC Glucose (mg/dL) 164 H 246 H 191 H Random Glucose Hemoglobin A1c Calcium Phosphorus Magnesium % Saturation Ferritin Total Bilirubin AST ALT Alkaline Phosphatase Total Protein Albumin Globulin Albumin/Globulin Ratio Triglycerides Cholesterol LDL Cholesterol Direct HDL Cholesterol Vitamin B12 Folate 12/01/16 12/01/16 12/01/16 07:37 11:19 16:38 WBC 8.1 RBC 5.52 Hgb 12.5 Hct 38.3 MCV 69.4 L MCH 22.6 L MCHC 32.6 L RDW 16.5 H Plt Count 311 MPV 7.5 Neut % (Auto) 65.6 Lymph % (Auto) 15.6 L [place] % (Auto) 16.3 H Eos % (Auto) 2.1 Baso % (Auto) 0.4 Neut # 5.3 Lymph # 1.3 [place] # 1.3 H Eos # 0.2 Baso # 0.0 Retic Count 1.0 PT 13.6 H INR 1.2 APTT 28 Sodium 131 L Potassium 4.0 Chloride 94 L Carbon Dioxide 24 Anion Gap 16 BUN 8 L Creatinine 0.6 L Est GFR ( Amer) > 60 Est GFR (Non-Af Amer) > 60 POC Glucose (mg/dL) 151 H 191 H Random Glucose 175 H Hemoglobin A1c 12.4 H Calcium 8.6 Phosphorus 4.3 Magnesium 1.9 % Saturation 12 L Ferritin 77.3 Total Bilirubin 0.4 AST 23 ALT 28 Alkaline Phosphatase 109 Total Protein 6.9 Albumin 3.2 L Globulin 3.7 Albumin/Globulin Ratio 0.9 L Triglycerides 116 Cholesterol 157 LDL Cholesterol Direct 93 HDL Cholesterol 28 L Vitamin B12 950 H Folate 11.2 Assessment & Plan (1) Pulmonary tuberculosis with cavitation Status: Acute (2) Tuberculosis Status: Acute (3) Pneumonia Status: Acute (4) Diabetes Status: Acute - Assessment and Plan (Free Text) Assessment: start tb meds pulm follow up
[2016-12-02 02:29] LABS: HEMATOCRIT 39.2 % (38.5-50.0); HEMOGLOBIN 12.6 g/dL (13.2-17.1); RDW 17.2 % (11.0-15.0)
[2016-12-02 07:41] LABS: BASO % 0.2 % (0.0-2.0); EOS # 0.1 K/uL (0.0-0.7); EOS % 1.6 % (0.0-4.0); HEMATOCRIT 37.6 % (35.0-51.0); LYMPH % 12.3 % (20.0-40.0); MEAN CELL VOLUME 69.7 fL (80.0-94.0); MEAN CORPUSCULAR HEMOGLOBIN 22.2 pg (27.0-31.0); MEAN CORPUSCULAR HGB CONC 31.8 g/dL (33.0-37.0); MEAN PLATELET VOLUME 7.4 fL (7.2-11.7); MONO # 1.3 K/uL (0.0-0.8); MONO % 15.5 % (0.0-10.0); RED CELL DISTRIBUTION WIDTH 16.7 % (11.5-14.5); WHITE BLOOD COUNT 8.4 K/uL (4.8-10.8)
--- NOTE | 2016-12-02 07:57 | CP.PCM.PN ---
<Darien Drake - Last Filed: 12/02/16 22:40> Subjective - Date & Time of Evaluation Date of Evaluation: 12/02/16 Time of Evaluation: 07:10 - Subjective Subjective: PGY-1 note for medicine service Pt seen and examined at bedside, chart reviewed and case discussed. No overnight events per nursing. Patient reports mild headache, otherwise doing well. +Cough persists. Reports LE pain decreased with gabapentin. Patient denies hemoptysis, night sweats, weight loss, abdominal pain, change in appetite , n/v, LE edema, or any additional complaints at this time. Objective - Vital Signs/Intake and Output Vital Signs (last 24 hours): Temp Pulse Resp BP Pulse Ox 98.6 F 94 H 20 133/78 96 12/02/16 07:25 12/02/16 07:25 12/02/16 07:25 12/02/16 07:25 12/02/16 07:25 - Medications Medications: Current Medications Albuterol/Ipratropium (Duoneb 3 Mg/0.5 Mg (3 Ml) Ud) 3 ml INH RQ6 PRN PRN Reason: Shortness of Breath Enalapril Maleate (Vasotec) 5 mg PO DAILY [facility] Last Admin: 12/01/16 11:00 Dose: 5 mg Ethambutol HCl (Myambutol) 1,200 mg PO DAILY [facility] Famotidine (Pepcid) 20 mg PO DAILY [facility] Last Admin: 12/01/16 11:00 Dose: 20 mg Gabapentin (Neurontin) 300 mg PO TID [facility] Last Admin: 12/01/16 18:11 Dose: 300 mg Glipizide (Glucotrol) 10 mg PO ACB [facility] Guaifenesin (Mucinex La) 600 mg PO BID [facility] Last Admin: 12/01/16 18:11 Dose: 600 mg Heparin Sodium (Porcine) (Heparin) 5,000 units SC Q8H [facility] Last Admin: 12/01/16 01:27 Dose: Not Given Sodium Chloride (Sodium Chloride 0.9%) 1,000 mls @ 100 mls/hr IV .Q10H [facility] Last Admin: 12/02/16 00:00 Dose: 100 mls/hr Influenza Virus Vaccine (Afluria) 45 mcg IM .ONCE ONE Stop: 12/02/16 10:01 Insulin Aspart (Novolog) 0 unit SC ACHS [facility] PRN Reason: Protocol Last Admin: 12/01/16 21:33 Dose: Not Given Isoniazid (Niazid) 300 mg PO DAILY [facility] Metformin HCl (Glucophage) 1,000 mg PO BID [facility] Last Admin: 12/01/16 18:11 Dose: 1,000 mg Montelukast Sodium (Singulair) 10 mg PO HS [facility] Last Admin: 12/01/16 22:24 Dose: 10 mg Pneumococcal Polyvalent Vaccine (Pneumovax 23 Vaccine) 0.5 ml IM .ONCE ONE Stop: 12/02/16 10:01 Pyrazinamide (Pyrazinamide) 1,000 mg PO DAILY [facility] Pyridoxine HCl (Vitamin B6) 100 mg PO DAILY [facility] Rifampin (Rifampin Cap) 600 mg PO DAILY [facility] - Labs Labs: 12/02/16 07:06 12/01/16 07:37 PT 13.6 SECONDS (9.7-12.2) H 12/01/16 07:37 INR 1.2 12/01/16 07:37 APTT 28 SECONDS (21-34) 12/01/16 07:37 - Additional Findings Additional findings: - Constitutional Appears: Non-toxic, No Acute Distress - Head Exam Head Exam: ATRAUMATIC, NORMAL INSPECTION +headache - Eye Exam Eye Exam: EOMI, Normal appearance - ENT Exam ENT Exam: Normal Oropharynx - Respiratory Exam Respiratory Exam: Clear to Auscultation Bilateral, NORMAL BREATHING PATTERN. absent: Wheezes - Cardiovascular Exam Cardiovascular Exam: REGULAR RHYTHM, +S1, +S2. absent: JVD - GI/Abdominal Exam GI & Abdominal Exam: Normal Bowel Sounds, Soft. absent: Tenderness - Extremities Exam Extremities exam: Positive for: normal inspection, tenderness (mild to palp). Negative for: pedal edema - Neurological Exam Neurological exam: Alert, Oriented x3 - Psychiatric Exam Psychiatric exam: Normal Affect, Normal Mood - Skin Skin Exam: Dry, Intact, Normal Color, Warm Assessment and Plan - Assessment and Plan (Free Text) Assessment: Tuberculosis, active 12/02: f/u PPD read 7pm on 12/02 and 12/03. f/u AFB x3 - 1+ AFB seen in stain (x2) , pending culture 12/01: Blood culture negative x24hrs (pending gram stain). -Note: Disk containing CT + CXR images is in the physical chart. -Cavitary left upper lobe infiltrate/mass. CT scan may be beneficial in further assessment of this process primarily affecting the posterior segment. The cavitary comes/cystic component is best seen on the lateral view measuring 5.2 x 6.4 cm. -ID consult, Dr. Espinal -> to start quadruple therapy for TB. ethambutol 1200mg PO daily isoniazide 300mg PO daily Prazinamide 1000mg PO daily Pyridoxine 100mg PO daily Rifampin 600mg PO daily -Pulm Consult, Dr. Frazier -> bronchoscopy 12/[address], [address] imaging showed clear TB infection -Continue Mucinex 600mg PO BID; Singulair 10mg PO HS; Duonebs RQ6 PRN HIV negative -Quant Gold - negative Diabetes 12/02: Doing well on DM regimen and Gabapentin for neuropathic pain 12/01: Start Glipizide 10mg daily, metformin 1000mg PO BID. 12/01: LE weakness likely diabetic neuropathy -> Gabapentin 300mg PO TID A1c 12.4 FLP grossly WNL; HDL 28 L Glucose 233 on admission ISS Hold Home med: Glimepiride 2mg daily Hypertension BP WNL on admission Continue home Enalapril 5mg PO d Microcytic Anemia 12/02: Feosol 325mg PO daily + Vit C 500mg PO daily MCV 69.7 Ferritin 77.3, B12 950 H, folate 11.2, reticulocyte count 1.0, haptoglobin , f/u hemoglobinopathy inerpretation - Pending Fe 28 L, TIBC 243 L, %Sat 12 L Prophylaxis -respiratory isolation NS 0.9 at 100cc/hr Vegetarian Diet, carb consistent, low sodium Pepcid 20mg PO d Heparin 5k units SC q8H (hold in AM prior to procedure) SCDs <Reyna Huber V - Last Filed: 12/21/16 13:34> Objective - Vital Signs/Intake and Output Vital Signs (last 24 hours): Temp Pulse Resp BP Pulse Ox 97.9 F 110 H 20 140/90 97 12/21/16 07:38 12/21/16 07:38 12/21/16 07:38 12/21/16 07:38 12/21/16 07:38 - Medications Medications: Current Medications Acetaminophen (Tylenol 325mg Tab) 650 mg PO Q6 PRN PRN Reason: Headache Last Admin: 12/04/16 20:53 Dose: 650 mg Benzocaine/Menthol (Cepacol Sore Throat) 1 liz MT BID PRN PRN Reason: Sore Throat Last Admin: 12/16/16 09:13 Dose: 1 liz Enoxaparin Sodium (Lovenox) 40 mg SC DAILY [facility] Last Admin: 12/21/16 10:35 Dose: 40 mg Ethambutol HCl (Myambutol) 1,200 mg PO DAILY [facility] Last Admin: 12/21/16 10:34 Dose: 1,200 mg Famotidine (Pepcid) 20 mg PO 0800 [facility] Last Admin: 12/21/16 08:43 Dose: 20 mg Ferric Sodium Gluconate Complex (Ferrlecit) 125 mg IVPB DAILY [facility] Stop: 12/23/16 10:01 Last Admin: 12/21/16 10:36 Dose: Not Given Gabapentin (Neurontin) 300 mg PO TID [facility] Last Admin: 12/21/16 10:35 Dose: 300 mg Guaifenesin (Mucinex La) 600 mg PO 0800,2000 [facility] Last Admin: 12/21/16 08:43 Dose: 600 mg Insulin Aspart (Novolog) 0 unit SC ACHS [facility] PRN Reason: Protocol Last Admin: 12/21/16 12:43 Dose: 1 unit Isoniazid (Niazid) 300 mg PO DAILY [facility] Last Admin: 12/21/16 10:35 Dose: 300 mg Losartan Potassium (Cozaar) 25 mg PO DAILY [facility] Last Admin: 12/21/16 10:35 Dose: 25 mg Metformin HCl (Glucophage) 1,000 mg PO 0800,1800 [facility] Last Admin: 12/21/16 08:43 Dose: 1,000 mg Metoprolol Tartrate (Lopressor) 25 mg PO BID [facility] Last Admin: 12/20/16 17:36 Dose: 25 mg Montelukast Sodium (Singulair) 10 mg PO HS [facility] Last Admin: 12/20/16 22:03 Dose: 10 mg Ondansetron HCl (Zofran Inj) 4 mg IVP Q6H PRN PRN Reason: Nausea/Vomiting Last Admin: 12/06/16 12:52 Dose: 4 mg Ondansetron HCl (Zofran Tab) 4 mg PO Q6 PRN Last Admin: 12/19/16 07:54 Dose: 4 mg Pyrazinamide (Pyrazinamide) 1,500 mg PO DAILY [facility] Last Admin: 12/21/16 10:33 Dose: 1,500 mg Pyridoxine HCl (Vitamin B6) 100 mg PO DAILY [facility] Last Admin: 12/21/16 10:35 Dose: 100 mg Rifampin (Rifampin Cap) 600 mg PO DAILY [facility] Last Admin: 12/21/16 10:35 Dose: 600 mg - Labs Labs: 12/20/16 10:58 12/20/16 10:58 PT 13.6 SECONDS (9.7-12.2) H 12/01/16 07:37 INR 1.2 12/01/16 07:37 APTT 28 SECONDS (21-34) 12/01/16 07:37 Attending/Attestation - Attestation I have personally seen and examined this patient.: Yes I have fully participated in the care of the patient.: Yes I have reviewed all pertinent clinical information, including history, physical exam and plan: Yes Notes (Text): This is late computer entry for 12/02/16. Patient seen, examined, and case discussed with day-time resident. Assessment/Plan 1) Tuberculosis, active * Consult Infectious Disease (Dr. Espinal) on board * Consult Pulmonary (Dr. Frazier ) on board * Bronchoscopy cancelled; discussed with pulm, patient should initiate therapy for TB * Chest xray (11/30): Cavitary left upper lobe infiltrate/mass. CT scan may be beneficial in further assessment of this process primarily affecting the posterior segment. The cavitary comes/cystic component is best seen on the lateral view measuring 5.2 x 6.4 cm. * Patient as completed CT Chest outpatient (prior CT is included in the chart; CD) * Patient ordered for PPD, HIV, Quantaferon, f/o AFB sputum * Blood culture (11/30): no growth negative for 24 hours * Ordered for PPD * Start on anti-TB therapy (12/02/16) -Isoniazid 300 mg PO DAILY -Pyrazinamide (Pyrazinamide) 1,000 mg PO DAILY -Pyridoxine HCl (Vitamin B6) 100 mg PO DAILY -Rifampin (Rifampin Cap) 600 mg PO DAILY -Etambutol [id number] PO daily 2) Cough * Mucinex 600mg PO bid * Singuliar 10mg POqHS * Duonebs RQ6 PRN 3) Diabetes type 2 * Uncontrolled * Gqiihihiard0w: 12.4 * Patient started on Metformin 1000mg PO bid and Glipizide 10mg PO daily * Note: patient has peripheral neuropathy prior to starting TB therapy; patient started on Gabapentin 300mg PO tid * Regular insulin sliding scale subq * Monitor accuechecks QAC and HS * Enalapril 5mg PO daily 4) Hypertension * Monitor vial signs * Enalapril 5mg PO daily 5) Low MCV * MCV 69.7, Ferritin 77.3, B12 950 H, folate 11.2, reticulocyte count 1.0, haptoglobin, hemoglobinpathy * Started on PO iron supplmentation and Vitamin C 500mg PO daily 6) Hyponatremia * monitor * NS 100cc/hr * no neurologic deficit * continue monitor 7) Prophylaxis * NS 100cc/hr * Vegetarian Diet, carb consistent, low sodium * Pepcid 20mg PO daily * Heparin 5k units SC q8H * SCDs b/l * Respiratory isolation
[2016-12-02 08:13] LABS: CHLORIDE 93 mmol/L (98-107); POTASSIUM 3.8 mmol/L (3.6-5.2); SODIUM 129 mmol/L (132-148)
[2016-12-02 08:15] LABS: ALB/GLOB RATIO 0.9 (1.0-2.1); ALKALINE PHOSPHATASE 96 U/L (38-126); ALT/SGPT 28 U/L (21-72); AST/SGOT 18 U/L (17-59); BILIRUBIN,TOTAL 0.4 mg/dL (0.2-1.3); BLOOD UREA NITROGEN 6 mg/dL (9-20); CARBON DIOXIDE 23 mmol/L (22-30); GFR AFRICAN-AMERICAN > 60; GLUCOSE,RANDOM 155 mg/dL (75-110); TOTAL PROTEIN 6.6 g/dL (6.3-8.3)
[2016-12-02 08:16] LABS: CALCIUM 8.4 mg/dl (8.6-10.4); MAGNESIUM 1.9 mg/dL (1.6-2.3); PHOSPHOROUS 3.9 mg/dL (2.5-4.5)
[2016-12-02 08:16] LABS: IRON 28 ug/dL (49-181)
[2016-12-02] MEDS: (Novolog) Insulin Aspart, Recombinant 100 u/ml 10 ml vial SC SCH ×4 (08:30→21:24)
[2016-12-02] MEDS: guaiFENesin 600 mg ER Tab PO SCH ×2 (09:09→17:36)
[2016-12-02] MEDS: Pyridoxine 100 mg Tab PO SCH (09:11)
[2016-12-02] MEDS ORDERED: Pneumococcal 23-Valent Vaccine IM ONE (10:00)
[2016-12-02] MEDS ORDERED: Influenza Virus Vaccine 45 mcg/0.5 ml Syr IM ONE (10:00)
[2016-12-02] MEDS: Sodium Chloride 0.9% 1,000 ML IV SCH ×4 (10:20→20:48)
--- NOTE | 2016-12-03 03:15 | CP.PCM.PN ---
Subjective - Date & Time of Evaluation Date of Evaluation: 12/03/16 Time of Evaluation: 01:45 - Subjective Subjective: House Doctor Note: PPD on right forearm was not raised or indurated as of 12/03/16 1:45 am. Joanne Perez DO- PGY 2 Objective - Vital Signs/Intake and Output Vital Signs (last 24 hours): Temp Pulse Resp BP Pulse Ox 98.8 F 94 H 20 119/75 96 12/03/16 00:00 12/03/16 00:00 12/03/16 00:00 12/03/16 00:00 12/03/16 00:00 Intake and Output: 12/02/16 12/03/16 18:59 06:59 Intake Total 1380 Balance 1380 - Medications Medications: Current Medications Albuterol/Ipratropium (Duoneb 3 Mg/0.5 Mg (3 Ml) Ud) 3 ml INH RQ6 PRN PRN Reason: Shortness of Breath Ascorbic Acid (Vitamin C 500 Mg Tab) 500 mg PO DAILY [facility] Last Admin: 12/02/16 12:09 Dose: 500 mg Enalapril Maleate (Vasotec) 5 mg PO DAILY [facility] Last Admin: 12/02/16 09:09 Dose: 5 mg Ethambutol HCl (Myambutol) 1,200 mg PO DAILY [facility] Last Admin: 12/02/16 09:10 Dose: 1,200 mg Famotidine (Pepcid) 20 mg PO DAILY [facility] Last Admin: 12/02/16 09:09 Dose: 20 mg Ferrous Sulfate (Feosol) 325 mg PO DAILY [facility] Last Admin: 12/02/16 12:09 Dose: 325 mg Gabapentin (Neurontin) 300 mg PO TID [facility] Last Admin: 12/02/16 17:36 Dose: 300 mg Glipizide (Glucotrol) 10 mg PO ACB [facility] Last Admin: 12/02/16 09:34 Dose: 10 mg Guaifenesin (Mucinex La) 600 mg PO BID [facility] Last Admin: 12/02/16 17:36 Dose: 600 mg Heparin Sodium (Porcine) (Heparin) 5,000 units SC Q8H [facility] Last Admin: 12/01/16 01:27 Dose: Not Given Sodium Chloride (Sodium Chloride 0.9%) 1,000 mls @ 125 mls/hr IV .Q8H [facility] Last Admin: 12/02/16 20:48 Dose: 125 mls/hr Insulin Aspart (Novolog) 0 unit SC ACHS [facility] PRN Reason: Protocol Last Admin: 12/02/16 21:24 Dose: Not Given Isoniazid (Niazid) 300 mg PO DAILY [facility] Last Admin: 12/02/16 09:10 Dose: 300 mg Metformin HCl (Glucophage) 1,000 mg PO BID [facility] Last Admin: 12/02/16 17:37 Dose: 1,000 mg Montelukast Sodium (Singulair) 10 mg PO HS [facility] Last Admin: 12/02/16 21:20 Dose: 10 mg Ondansetron HCl (Zofran Tab) 4 mg PO Q6 PRN PRN Reason: Nausea/Vomiting Last Admin: 12/02/16 20:48 Dose: 4 mg Pyrazinamide (Pyrazinamide) 1,000 mg PO DAILY [facility] Last Admin: 12/02/16 09:11 Dose: 1,000 mg Pyridoxine HCl (Vitamin B6) 100 mg PO DAILY [facility] Last Admin: 12/02/16 09:11 Dose: 100 mg Rifampin (Rifampin Cap) 600 mg PO DAILY [facility] Last Admin: 12/02/16 09:11 Dose: 600 mg - Labs Labs: 12/02/16 07:06 12/02/16 07:06 PT 13.6 SECONDS (9.7-12.2) H 12/01/16 07:37 INR 1.2 12/01/16 07:37 APTT 28 SECONDS (21-34) 12/01/16 07:37
[2016-12-03 07:02] LABS: HEMOGLOBIN F <1.0 Percent (<2.0)
[2016-12-03 07:20] LABS: BASO % 0.1 % (0.0-2.0); EOS # 0.1 K/uL (0.0-0.7); EOS % 1.5 % (0.0-4.0); HEMATOCRIT 38.2 % (35.0-51.0); LYMPH # 1.2 K/uL (1.0-4.3); LYMPH % 12.8 % (20.0-40.0); MEAN CELL VOLUME 69.4 fL (80.0-94.0); MEAN CORPUSCULAR HEMOGLOBIN 22.5 pg (27.0-31.0); MEAN CORPUSCULAR HGB CONC 32.4 g/dL (33.0-37.0); MEAN PLATELET VOLUME 7.3 fL (7.2-11.7); MONO # 1.4 K/uL (0.0-0.8); MONO % 14.8 % (0.0-10.0); NRBC % 0.1 % (0.0-2.0); RED CELL DISTRIBUTION WIDTH 16.6 % (11.5-14.5); WHITE BLOOD COUNT 9.1 K/uL (4.8-10.8)
[2016-12-03 07:43] LABS: CHLORIDE 96 mmol/L (98-107)
[2016-12-03 07:44] LABS: POTASSIUM 4.1 mmol/L (3.6-5.2); SODIUM 134 mmol/L (132-148)
[2016-12-03 07:46] LABS: ALB/GLOB RATIO 0.9 (1.0-2.1); ALKALINE PHOSPHATASE 116 U/L (38-126); AST/SGOT 26 U/L (17-59); BILIRUBIN,TOTAL 0.8 mg/dL (0.2-1.3); BLOOD UREA NITROGEN 7 mg/dL (9-20); CARBON DIOXIDE 24 mmol/L (22-30); GFR AFRICAN-AMERICAN > 60; GLUCOSE,RANDOM 120 mg/dL (75-110); TOTAL PROTEIN 6.7 g/dL (6.3-8.3)
[2016-12-03 07:47] LABS: ALT/SGPT 33 U/L (21-72); CALCIUM 8.1 mg/dl (8.6-10.4); MAGNESIUM 1.8 mg/dL (1.6-2.3); PHOSPHOROUS 4.2 mg/dL (2.5-4.5)
--- NOTE | 2016-12-03 07:55 | CP.PCM.PN ---
<Darien Drake - Last Filed: 12/04/16 00:07> Subjective - Date & Time of Evaluation Date of Evaluation: 12/03/16 Time of Evaluation: 07:10 - Subjective Subjective: PGY-1 medicine progress note on Dr. Coronado service Patient seen and examined at bedside, chart reviewed and case discussed. Patient overall feels better today. His cough is still present but he reports that is better than it was yesterday. Patient with mild nausea and one episode of vomit (likely due to PO medication). Pt denies f/c, headache, hemoptysis, SOB , night sweats, abdominal pain, dysuria, or any additional complaints. Objective - Vital Signs/Intake and Output Vital Signs (last 24 hours): Temp Pulse Resp BP Pulse Ox 98.8 F 94 H 20 119/75 96 12/03/16 00:00 12/03/16 03:26 12/03/16 00:00 12/03/16 00:00 12/03/16 00:00 Intake and Output: 12/03/16 12/03/16 06:59 18:59 Intake Total 920 Balance 920 - Medications Medications: Current Medications Albuterol/Ipratropium (Duoneb 3 Mg/0.5 Mg (3 Ml) Ud) 3 ml INH RQ6 PRN PRN Reason: Shortness of Breath Ascorbic Acid (Vitamin C 500 Mg Tab) 500 mg PO DAILY [facility] Last Admin: 12/02/16 12:09 Dose: 500 mg Enalapril Maleate (Vasotec) 5 mg PO DAILY [facility] Last Admin: 12/02/16 09:09 Dose: 5 mg Ethambutol HCl (Myambutol) 1,200 mg PO DAILY [facility] Last Admin: 12/02/16 09:10 Dose: 1,200 mg Famotidine (Pepcid) 20 mg PO DAILY [facility] Last Admin: 12/02/16 09:09 Dose: 20 mg Ferrous Sulfate (Feosol) 325 mg PO DAILY [facility] Last Admin: 12/02/16 12:09 Dose: 325 mg Gabapentin (Neurontin) 300 mg PO TID [facility] Last Admin: 12/02/16 17:36 Dose: 300 mg Glipizide (Glucotrol) 10 mg PO ACB [facility] Last Admin: 12/02/16 09:34 Dose: 10 mg Guaifenesin (Mucinex La) 600 mg PO BID [facility] Last Admin: 12/02/16 17:36 Dose: 600 mg Heparin Sodium (Porcine) (Heparin) 5,000 units SC Q8H [facility] Last Admin: 12/01/16 01:27 Dose: Not Given Sodium Chloride (Sodium Chloride 0.9%) 1,000 mls @ 125 mls/hr IV .Q8H [facility] Last Admin: 12/02/16 20:48 Dose: 125 mls/hr Insulin Aspart (Novolog) 0 unit SC ACHS [facility] PRN Reason: Protocol Last Admin: 12/02/16 21:24 Dose: Not Given Isoniazid (Niazid) 300 mg PO DAILY [facility] Last Admin: 12/02/16 09:10 Dose: 300 mg Metformin HCl (Glucophage) 1,000 mg PO BID [facility] Last Admin: 12/02/16 17:37 Dose: 1,000 mg Montelukast Sodium (Singulair) 10 mg PO HS [facility] Last Admin: 12/02/16 21:20 Dose: 10 mg Ondansetron HCl (Zofran Tab) 4 mg PO Q6 PRN PRN Reason: Nausea/Vomiting Last Admin: 12/02/16 20:48 Dose: 4 mg Pyrazinamide (Pyrazinamide) 1,000 mg PO DAILY [facility] Last Admin: 12/02/16 09:11 Dose: 1,000 mg Pyridoxine HCl (Vitamin B6) 100 mg PO DAILY [facility] Last Admin: 12/02/16 09:11 Dose: 100 mg Rifampin (Rifampin Cap) 600 mg PO DAILY [facility] Last Admin: 12/02/16 09:11 Dose: 600 mg - Labs Labs: 12/03/16 07:01 12/02/16 07:06 PT 13.6 SECONDS (9.7-12.2) H 12/01/16 07:37 INR 1.2 12/01/16 07:37 APTT 28 SECONDS (21-34) 12/01/16 07:37 - Additional Findings Additional findings: - Constitutional Appears: Non-toxic, No Acute Distress - Head Exam Head Exam: ATRAUMATIC, NORMAL INSPECTION +headache - Eye Exam Eye Exam: EOMI, Normal appearance - ENT Exam ENT Exam: Normal Oropharynx - Respiratory Exam Respiratory Exam: Clear to Auscultation Bilateral, NORMAL BREATHING PATTERN. absent: Wheezes - Cardiovascular Exam Cardiovascular Exam: REGULAR RHYTHM, +S1, +S2. absent: JVD - GI/Abdominal Exam GI & Abdominal Exam: Normal Bowel Sounds, Soft. absent: Tenderness - Extremities Exam Extremities exam: Positive for: normal inspection, tenderness (mild to palp). Negative for: pedal edema - Neurological Exam Neurological exam: Alert, Oriented x3 - Psychiatric Exam Psychiatric exam: Normal Affect, Normal Mood - Skin Skin Exam: Dry, Intact, Normal Color, Warm Assessment and Plan - Assessment and Plan (Free Text) Assessment: Tuberculosis, active 12/03: f/u PPD#2 (read 7pm 12/03); AFB x3 with 1+ or 2+ acid fast bacilli seen in stain (PENDING CULTURE) 12/02: f/u PPD#1 Negative (read 7pm 12/02) and 12/03. 12/01: Blood culture negative x24hrs (pending gram stain). -HIV negative -Quant Gold - negative -Note: Disk containing CT + CXR images is in the physical chart. -Cavitary left upper lobe infiltrate/mass. CT scan may be beneficial in further assessment of this process primarily affecting the posterior segment. The cavitary comes/cystic component is best seen on the lateral view measuring 5.2 x 6.4 cm. -ID consult, Dr. Espinal -> to start quadruple therapy for TB. ethambutol 1200mg PO daily (started 12/02) isoniazide 300mg PO daily (started 12/02) Prazinamide 1000mg PO daily (started 12/02) Pyridoxine 100mg PO daily (started 12/02) Rifampin 600mg PO daily (started 12/02) -Pulm Consult, Dr. Frazier -> bronchoscopy 12/[address], [address] imaging showed clear TB infection -Continue Mucinex 600mg PO BID; Singulair 10mg PO HS; Duonebs RQ6 PRN Diabetes 12/02-12/03: Doing well on DM regimen and Gabapentin 300mg PO TID for neuropathic pain 12/01: Start Glipizide 10mg daily, metformin 1000mg PO BID. 12/01: LE weakness likely diabetic neuropathy -> Gabapentin 300mg PO TID A1c 12.4 FLP grossly WNL; HDL 28 L Glucose 233 on admission ISS Hold Home med: Glimepiride 2mg daily Alpha Thalassemia 12/03: Stopped Feosol and Vit C because not dealing with microcytic anemia. New finding of possible Alpha-thalassemia. 12/02: Feosol 325mg PO daily + Vit C 500mg PO daily -Thalassemia vs Microcytic anemia MCV 69.7 Ferritin 77.3, B12 950 H, folate 11.2, reticulocyte count 1.0 hemoglobinopathy inerpretation - possible Alpha-thalassemia. Fe 28 L, TIBC 243 L, %Sat 12 L haptoglobin 501 H Hypertension BP WNL on admission Continue home Enalapril 5mg PO d Prophylaxis -respiratory isolation NS 0.9 at 100cc/hr Vegetarian Diet, carb consistent, low sodium Pepcid 20mg PO d Heparin 5k units SC q8H (hold in AM prior to procedure) SCDs <Reyna Huber V - Last Filed: 12/21/16 13:39> Objective - Vital Signs/Intake and Output Vital Signs (last 24 hours): Temp Pulse Resp BP Pulse Ox 97.9 F 110 H 20 140/90 97 12/21/16 07:38 12/21/16 07:38 12/21/16 07:38 12/21/16 07:38 12/21/16 07:38 - Medications Medications: Current Medications Acetaminophen (Tylenol 325mg Tab) 650 mg PO Q6 PRN PRN Reason: Headache Last Admin: 12/04/16 20:53 Dose: 650 mg Benzocaine/Menthol (Cepacol Sore Throat) 1 liz MT BID PRN PRN Reason: Sore Throat Last Admin: 12/16/16 09:13 Dose: 1 liz Enoxaparin Sodium (Lovenox) 40 mg SC DAILY [facility] Last Admin: 12/21/16 10:35 Dose: 40 mg Ethambutol HCl (Myambutol) 1,200 mg PO DAILY [facility] Last Admin: 12/21/16 10:34 Dose: 1,200 mg Famotidine (Pepcid) 20 mg PO 0800 [facility] Last Admin: 12/21/16 08:43 Dose: 20 mg Ferric Sodium Gluconate Complex (Ferrlecit) 125 mg IVPB DAILY [facility] Stop: 12/23/16 10:01 Last Admin: 12/21/16 10:36 Dose: Not Given Gabapentin (Neurontin) 300 mg PO TID [facility] Last Admin: 12/21/16 10:35 Dose: 300 mg Guaifenesin (Mucinex La) 600 mg PO 0800,2000 [facility] Last Admin: 12/21/16 08:43 Dose: 600 mg Insulin Aspart (Novolog) 0 unit SC ACHS [facility] PRN Reason: Protocol Last Admin: 12/21/16 12:43 Dose: 1 unit Isoniazid (Niazid) 300 mg PO DAILY [facility] Last Admin: 12/21/16 10:35 Dose: 300 mg Losartan Potassium (Cozaar) 25 mg PO DAILY [facility] Last Admin: 12/21/16 10:35 Dose: 25 mg Metformin HCl (Glucophage) 1,000 mg PO 0800,1800 [facility] Last Admin: 12/21/16 08:43 Dose: 1,000 mg Metoprolol Tartrate (Lopressor) 25 mg PO BID [facility] Last Admin: 12/20/16 17:36 Dose: 25 mg Montelukast Sodium (Singulair) 10 mg PO HS [facility] Last Admin: 12/20/16 22:03 Dose: 10 mg Ondansetron HCl (Zofran Inj) 4 mg IVP Q6H PRN PRN Reason: Nausea/Vomiting Last Admin: 12/06/16 12:52 Dose: 4 mg Ondansetron HCl (Zofran Tab) 4 mg PO Q6 PRN Last Admin: 12/19/16 07:54 Dose: 4 mg Pyrazinamide (Pyrazinamide) 1,500 mg PO DAILY [facility] Last Admin: 12/21/16 10:33 Dose: 1,500 mg Pyridoxine HCl (Vitamin B6) 100 mg PO DAILY [facility] Last Admin: 12/21/16 10:35 Dose: 100 mg Rifampin (Rifampin Cap) 600 mg PO DAILY [facility] Last Admin: 12/21/16 10:35 Dose: 600 mg - Labs Labs: 12/20/16 10:58 12/20/16 10:58 PT 13.6 SECONDS (9.7-12.2) H 12/01/16 07:37 INR 1.2 12/01/16 07:37 APTT 28 SECONDS (21-34) 12/01/16 07:37 Attending/Attestation - Attestation I have personally seen and examined this patient.: Yes I have fully participated in the care of the patient.: Yes I have reviewed all pertinent clinical information, including history, physical exam and plan: Yes Notes (Text): This is a late computer entry for 12/03/16. Patient see, examined, and case discussed with day time resident. Patient reporting he is nauseous but he has receiving too many medications at the same time. Patient is used to taking 2 meds at home. Will attempt to spread out his medications. Patient does not have headache, no tenderness to scalp. Assessment/Plan 1) Tuberculosis, active * Consult Infectious Disease (Dr. Espinal) on board * Consult Pulmonary (Dr. Frazier ) on board * Bronchoscopy cancelled; discussed with pulm, patient should initiate therapy for TB * Chest xray (11/30): Cavitary left upper lobe infiltrate/mass. CT scan may be beneficial in further assessment of this process primarily affecting the posterior segment. The cavitary comes/cystic component is best seen on the lateral view measuring 5.2 x 6.4 cm. * Patient as completed CT Chest outpatient (prior CT is included in the chart; CD) * Patient ordered for PPD (12/02: negative; f/u 12/03, HIV-negative, Quantaferon: negative * AFB sputum: showing acid fast bacill thus far * Blood culture (11/30): no growth negative for 24 hours * Ordered for PPD * Start on anti-TB therapy (12/02/16) -Isoniazid 300 mg PO DAILY -Pyrazinamide (Pyrazinamide) 1,000 mg PO DAILY -Pyridoxine HCl (Vitamin B6) 100 mg PO DAILY -Rifampin (Rifampin Cap) 600 mg PO DAILY -Etambutol 62318pl PO daily 2) Cough * Mucinex 600mg PO bid * Singuliar 10mg POqHS * Duonebs RQ6 PRN 3) Diabetes type 2 * Uncontrolled * [id number]: 12.4 * Patient started on Metformin 1000mg PO bid and Glipizide 10mg PO daily * Note: patient has peripheral neuropathy prior to starting TB therapy; patient started on Gabapentin 300mg PO tid * Regular insulin sliding scale subq * Monitor accuechecks QAC and HS * Enalapril 5mg PO daily 4) Hypertension * Monitor vial signs * Enalapril 5mg PO daily 5) Alpha thalasemia * MCV 69.7, Ferritin 77.3, B12 950 H, folate 11.2, reticulocyte count 1.0, haptoglobin, * Started on PO iron supplmentation and Vitamin C 500mg PO daily 6) Hyponatremia * monitor * NS 100cc/hr * no neurologic deficit * continue monitor 7) Prophylaxis * NS 100cc/hr * Vegetarian Diet, carb consistent, low sodium * Pepcid 20mg PO daily * Heparin 5k units SC q8H * SCDs b/l * Respiratory isolation
[2016-12-03] MEDS: (Novolog) Insulin Aspart, Recombinant 100 u/ml 10 ml vial SC SCH ×4 (08:10→21:33)
[2016-12-03] MEDS: Pyridoxine 100 mg Tab PO SCH (09:19)
[2016-12-03] MEDS: guaiFENesin 600 mg ER Tab PO SCH ×2 (09:20→17:27)
[2016-12-03] MEDS: Sodium Chloride 0.9% 1,000 ML IV SCH ×2 (10:20→17:32)
--- NOTE | 2016-12-03 11:47 | CP.PCM.PN ---
Subjective - Date & Time of Evaluation Date of Evaluation: 12/03/16 Time of Evaluation: 10:45 - Subjective Subjective: Pt seen and examined at bedside. Isolation with droplet precautions instituted due to CXR and positive sputum samples consistent with TB. Pt denies hemoptosis , SOB, night sweats, and abnormal changes in weight. Pt is afebrial. Pt complains of a small headache. Objective - Vital Signs/Intake and Output Vital Signs (last 24 hours): Temp Pulse Resp BP Pulse Ox 98.5 F 99 H 20 133/88 98 12/03/16 08:00 12/03/16 08:00 12/03/16 08:00 12/03/16 09:19 12/03/16 08:00 Intake and Output: 12/03/16 12/03/16 06:59 18:59 Intake Total 920 Balance 920 - Medications Medications: Current Medications Albuterol/Ipratropium (Duoneb 3 Mg/0.5 Mg (3 Ml) Ud) 3 ml INH RQ6 PRN PRN Reason: Shortness of Breath Ascorbic Acid (Vitamin C 500 Mg Tab) 500 mg PO DAILY [facility] Last Admin: 12/03/16 09:20 Dose: 500 mg Enalapril Maleate (Vasotec) 5 mg PO DAILY [facility] Last Admin: 12/03/16 09:19 Dose: 5 mg Ethambutol HCl (Myambutol) 1,200 mg PO DAILY [facility] Last Admin: 12/03/16 09:18 Dose: 1,200 mg Famotidine (Pepcid) 20 mg PO DAILY [facility] Last Admin: 12/03/16 09:18 Dose: 20 mg Ferrous Sulfate (Feosol) 325 mg PO DAILY [facility] Last Admin: 12/03/16 09:18 Dose: 325 mg Gabapentin (Neurontin) 300 mg PO TID [facility] Last Admin: 12/03/16 09:20 Dose: 300 mg Glipizide (Glucotrol) 10 mg PO ACB [facility] Last Admin: 12/03/16 08:28 Dose: 10 mg Guaifenesin (Mucinex La) 600 mg PO BID [facility] Last Admin: 12/03/16 09:20 Dose: 600 mg Heparin Sodium (Porcine) (Heparin) 5,000 units SC Q8H [facility] Last Admin: 12/03/16 10:10 Dose: 5,000 units Sodium Chloride (Sodium Chloride 0.9%) 1,000 mls @ 125 mls/hr IV .Q8H [facility] Last Admin: 12/03/16 10:20 Dose: 125 mls/hr Insulin Aspart (Novolog) 0 unit SC ACHS [facility] PRN Reason: Protocol Last Admin: 12/03/16 08:10 Dose: Not Given Isoniazid (Niazid) 300 mg PO DAILY [facility] Last Admin: 12/03/16 09:19 Dose: 300 mg Metformin HCl (Glucophage) 1,000 mg PO BID [facility] Last Admin: 12/03/16 09:20 Dose: 1,000 mg Montelukast Sodium (Singulair) 10 mg PO HS [facility] Last Admin: 12/02/16 21:20 Dose: 10 mg Ondansetron HCl (Zofran Tab) 4 mg PO Q6 PRN PRN Reason: Nausea/Vomiting Last Admin: 12/02/16 20:48 Dose: 4 mg Pyrazinamide (Pyrazinamide) 1,000 mg PO DAILY [facility] Last Admin: 12/03/16 09:20 Dose: 1,000 mg Pyridoxine HCl (Vitamin B6) 100 mg PO DAILY [facility] Last Admin: 12/03/16 09:19 Dose: 100 mg Rifampin (Rifampin Cap) 600 mg PO DAILY [facility] Last Admin: 12/03/16 09:19 Dose: 600 mg - Labs Labs: 12/03/16 07:01 12/03/16 07:01 PT 13.6 SECONDS (9.7-12.2) H 12/01/16 07:37 INR 1.2 12/01/16 07:37 APTT 28 SECONDS (21-34) 12/01/16 07:37 - Constitutional Appears: Well, No Acute Distress - Head Exam Head Exam: ATRAUMATIC, NORMOCEPHALIC - Respiratory Exam Respiratory Exam: Decreased Breath Sounds (L and R upper lobes, other lobes clear to auscultation), NORMAL BREATHING PATTERN. absent: Clear to Ausculation Bilateral - Cardiovascular Exam Cardiovascular Exam: +S1, +S2. absent: Murmur - Neurological Exam Neurological Exam: Alert, Awake, Oriented x3 - Psychiatric Exam Psychiatric exam: Normal Affect, Normal Mood - Skin Skin Exam: Dry, Intact, Normal Color, Warm Assessment and Plan (1) Tuberculosis Assessment & Plan: Chest X-ray on 03/28/17 showed left upper lobe cavitary measuring 5.4 X 6.4 cm. Extensive left upper lobe infiltrate, miliary appearance. See full report for details. Likely TB as opposed to lung malignancy. Serial AFB ordered showing rare 1+ acid fast bacilli (1) 11/30/2016 and (2) 12/01/2016; cultures pending will follow results. TB medications as per ID recommendations: ID consult, Dr. Espinal -> to start quadruple therapy for TB. ethambutol 1200mg PO daily isoniazide 300mg PO daily Prazinamide 1000mg PO daily Pyridoxine 100mg PO daily Rifampin 600mg PO daily Continue to monitor for worsening of symptoms including hemoptysis, SOB, and fever. Status: Acute
--- NOTE | 2016-12-03 17:58 | CP.PCM.PN ---
Subjective - Date & Time of Evaluation Date of Evaluation: 12/03/16 Time of Evaluation: 07:00 - Subjective Subjective: started on tb meds tolerating so far no hemoptysis still awaiting smears Objective - Vital Signs/Intake and Output Vital Signs (last 24 hours): Temp Pulse Resp BP Pulse Ox 98.3 F 99 H 20 119/78 95 12/03/16 15:03 12/03/16 15:03 12/03/16 15:03 12/03/16 15:03 12/03/16 15:03 Intake and Output: 12/03/16 12/03/16 06:59 18:59 Intake Total 920 1300 Balance 920 1300 - Medications Medications: Current Medications Albuterol/Ipratropium (Duoneb 3 Mg/0.5 Mg (3 Ml) Ud) 3 ml INH RQ6 PRN PRN Reason: Shortness of Breath Enalapril Maleate (Vasotec) 5 mg PO DAILY [facility] Last Admin: 12/03/16 09:19 Dose: 5 mg Ethambutol HCl (Myambutol) 1,200 mg PO DAILY [facility] Last Admin: 12/03/16 09:18 Dose: 1,200 mg Famotidine (Pepcid) 20 mg PO DAILY [facility] Last Admin: 12/03/16 09:18 Dose: 20 mg Gabapentin (Neurontin) 300 mg PO TID [facility] Last Admin: 12/03/16 17:26 Dose: 300 mg Glipizide (Glucotrol) 10 mg PO ACB [facility] Last Admin: 12/03/16 08:28 Dose: 10 mg Guaifenesin (Mucinex La) 600 mg PO BID [facility] Last Admin: 12/03/16 17:27 Dose: 600 mg Heparin Sodium (Porcine) (Heparin) 5,000 units SC Q8H [facility] Last Admin: 12/03/16 17:26 Dose: 5,000 units Sodium Chloride (Sodium Chloride 0.9%) 1,000 mls @ 125 mls/hr IV .Q8H [facility] Last Admin: 12/03/16 17:32 Dose: 125 mls/hr Insulin Aspart (Novolog) 0 unit SC ACHS [facility] PRN Reason: Protocol Last Admin: 12/03/16 17:18 Dose: Not Given Isoniazid (Niazid) 300 mg PO DAILY [facility] Last Admin: 03/31/17 09:19 Dose: 300 mg Metformin HCl (Glucophage) 1,000 mg PO BID [facility] Last Admin: 12/03/16 17:26 Dose: 1,000 mg Montelukast Sodium (Singulair) 10 mg PO HS [facility] Last Admin: 12/02/16 21:20 Dose: 10 mg Ondansetron HCl (Zofran Tab) 4 mg PO Q6 PRN PRN Reason: Nausea/Vomiting Last Admin: 12/02/16 20:48 Dose: 4 mg Pyrazinamide (Pyrazinamide) 1,000 mg PO DAILY [facility] Last Admin: 12/03/16 09:20 Dose: 1,000 mg Pyridoxine HCl (Vitamin B6) 100 mg PO DAILY [facility] Last Admin: 12/03/16 09:19 Dose: 100 mg Rifampin (Rifampin Cap) 600 mg PO DAILY [facility] Last Admin: 12/03/16 09:19 Dose: 600 mg - Labs Labs: 12/03/16 07:01 12/03/16 07:01 PT 13.6 SECONDS (9.7-12.2) H 12/01/16 07:37 INR 1.2 12/01/16 07:37 APTT 28 SECONDS (21-34) 12/01/16 07:37 - Constitutional Appears: Non-toxic, Chronically Ill - Head Exam Head Exam: NORMOCEPHALIC - Eye Exam Eye Exam: absent: Scleral icterus - ENT Exam ENT Exam: Mucous Membranes Dry - Neck Exam Neck Exam: absent: Lymphadenopathy - Respiratory Exam Respiratory Exam: Decreased Breath Sounds, Clear to Ausculation Bilateral - Cardiovascular Exam Cardiovascular Exam: REGULAR RHYTHM, +S1, +S2 - GI/Abdominal Exam GI & Abdominal Exam: Distended, Soft. absent: Tenderness - Rectal Exam Rectal Exam: Deferred - Exam Exam: NORMAL INSPECTION - Extremities Exam Extremities Exam: absent: Pedal Edema - Back Exam Back Exam: absent: CVA tenderness (L), CVA tenderness (R) - Neurological Exam Neurological Exam: Alert, Awake, Oriented x3 Assessment and Plan (1) Pulmonary tuberculosis with cavitation Status: Acute (2) Tuberculosis Status: Acute (3) Pneumonia Status: Acute (4) Diabetes Status: Acute
[2016-12-04] MEDS: Sodium Chloride 0.9% 1,000 ML IV SCH ×2 (01:09→11:00)
--- NOTE | 2016-12-04 07:43 | CP.PCM.PN ---
<TiffaniKarla - Last Filed: 12/04/16 11:54> Subjective - Date & Time of Evaluation Date of Evaluation: 12/04/16 Time of Evaluation: 09:00 - Subjective Subjective: PGY1 Medicine Note for Dr. Huber Patient seen and examined at bedside. Patient had no acute events overnight and had no acute complaints this morning. He continues to report some coughing but denies any blood in sputum. Patient denied any chest pain, palpitations, SOB, abdominal pain, nausea, vomiting, bowel/bladder complaints. Patient was complaining of some pain in his left arm secondary to IV and was requesting to take it out- patient agreed to warm compresses. He is eating well and reports feeling better. Objective - Vital Signs/Intake and Output Vital Signs (last 24 hours): Temp Pulse Resp BP Pulse Ox 98.9 F 100 H 20 125/81 96 12/04/16 00:17 12/04/16 00:17 12/04/16 00:17 12/04/16 00:17 12/04/16 00:17 Intake and Output: 12/04/16 12/04/16 06:59 18:59 Intake Total 1300 Balance 1300 - Medications Medications: Current Medications Albuterol/Ipratropium (Duoneb 3 Mg/0.5 Mg (3 Ml) Ud) 3 ml INH RQ6 PRN PRN Reason: Shortness of Breath Enalapril Maleate (Vasotec) 5 mg PO DAILY [facility] Last Admin: 12/03/16 09:19 Dose: 5 mg Ethambutol HCl (Myambutol) 1,200 mg PO DAILY [facility] Last Admin: 12/03/16 09:18 Dose: 1,200 mg Famotidine (Pepcid) 20 mg PO DAILY [facility] Last Admin: 12/03/16 09:18 Dose: 20 mg Gabapentin (Neurontin) 300 mg PO TID [facility] Last Admin: 12/03/16 17:26 Dose: 300 mg Glipizide (Glucotrol) 10 mg PO ACB [facility] Last Admin: 12/03/16 08:28 Dose: 10 mg Guaifenesin (Mucinex La) 600 mg PO BID [facility] Last Admin: 12/03/16 17:27 Dose: 600 mg Heparin Sodium (Porcine) (Heparin) 5,000 units SC Q8H [facility] Last Admin: 12/04/16 01:06 Dose: 5,000 units Sodium Chloride (Sodium Chloride 0.9%) 1,000 mls @ 125 mls/hr IV .Q8H [facility] Last Admin: 12/04/16 01:09 Dose: 125 mls/hr Insulin Aspart (Novolog) 0 unit SC ACHS [facility] PRN Reason: Protocol Last Admin: 12/03/16 21:33 Dose: Not Given Isoniazid (Niazid) 300 mg PO DAILY [facility] Last Admin: 12/03/16 09:19 Dose: 300 mg Metformin HCl (Glucophage) 1,000 mg PO BID [facility] Last Admin: 12/03/16 17:26 Dose: 1,000 mg Montelukast Sodium (Singulair) 10 mg PO HS [facility] Last Admin: 12/03/16 21:37 Dose: 10 mg Ondansetron HCl (Zofran Tab) 4 mg PO Q6 PRN PRN Reason: Nausea/Vomiting Last Admin: 12/02/16 20:48 Dose: 4 mg Pyrazinamide (Pyrazinamide) 1,000 mg PO DAILY [facility] Last Admin: 12/03/16 09:20 Dose: 1,000 mg Pyridoxine HCl (Vitamin B6) 100 mg PO DAILY [facility] Last Admin: 12/03/16 09:19 Dose: 100 mg Rifampin (Rifampin Cap) 600 mg PO DAILY [facility] Last Admin: 12/03/16 09:19 Dose: 600 mg - Labs Labs: 12/03/16 07:01 12/03/16 07:01 PT 13.6 SECONDS (9.7-12.2) H 12/01/16 07:37 INR 1.2 12/01/16 07:37 APTT 28 SECONDS (21-34) 12/01/16 07:37 - Constitutional Appears: Non-toxic, No Acute Distress - Head Exam Head Exam: NORMAL INSPECTION - Eye Exam Eye Exam: Normal appearance. absent: Conjunctival injection, Scleral icterus Pupil Exam: NORMAL ACCOMODATION - ENT Exam ENT Exam: Mucous Membranes Moist - Neck Exam Neck Exam: Normal Inspection. absent: Tenderness - Respiratory Exam Respiratory Exam: Decreased Breath Sounds, NORMAL BREATHING PATTERN. absent: Accessory Muscle Use, Rales, Rhonchi, Wheezes, Respiratory Distress - Cardiovascular Exam Cardiovascular Exam: Tachycardia, REGULAR RHYTHM, +S1, +S2 - GI/Abdominal Exam GI & Abdominal Exam: Soft, Normal Bowel Sounds. absent: Firm, Guarding, Rigid, Tenderness - Extremities Exam Extremities Exam: Normal Capillary Refill, Normal Inspection. absent: Calf Tenderness - Back Exam Back Exam: NORMAL INSPECTION - Neurological Exam Neurological Exam: Alert, Awake, Normal Gait, Oriented x3 - Psychiatric Exam Psychiatric exam: Normal Affect, Normal Mood - Skin Skin Exam: Dry, Intact, Normal Color, Warm Assessment and Plan - Assessment and Plan (Free Text) Plan: Tuberculosis, active AFB x3 prelim with 1+ or 2+ acid fast bacilli seen in stain (PENDING CULTURE) 12/01: Blood culture negative x24hrs (pending gram stain). -HIV negative -Quant Gold - negative -Note: Disk containing CT + CXR images is in the physical chart. -Cavitary left upper lobe infiltrate/mass. CT scan may be beneficial in further assessment of this process primarily affecting the posterior segment. The cavitary comes/cystic component is best seen on the lateral view measuring 5.2 x 6.4 cm. -ID consult, Dr. Espinal -> to start quadruple therapy for TB. ethambutol 1200mg PO daily (started 12/02) isoniazide 300mg PO daily (started 12/02) Prazinamide 1000mg PO daily (started 12/02) Pyridoxine 100mg PO daily (started 12/02) Rifampin 600mg PO daily (started 12/02) -Pulm Consult, Dr. Frazier -> bronchoscopy 12/01 AM cancelled, as CT imaging showed clear TB infection f/u sputum studies -Continue Mucinex 600mg PO BID; Singulair 10mg PO HS; Duonebs RQ6 PRN Diabetes Metformin 1000mg PO BID Novolog RISS Neurontin 300mg PO TID A1c 12.4 FLP grossly WNL; HDL 28 L Glucose 233 on admission Alpha Thalassemia MCV 69.7 Ferritin 77.3, B12 950 H, folate 11.2, reticulocyte count 1.0 hemoglobinopathy inerpretation - possible Alpha-thalassemia. Fe 28 L, TIBC 243 L, %Sat 12 L haptoglobin 501 H Monitor outpatient Hypertension BP WNL on admission Continue home Enalapril 5mg PO d Prophylaxis respiratory isolation NS 0.9 at 50cc/hr Vegetarian Diet, carb consistent, low sodium Pepcid 20mg PO d Heparin 5k units SC q8H Zofran 4mg PO Q6 PRN SCDs DW attending Karla Nixon PGY1 <Reyna Huber V - Last Filed: 12/22/16 10:11> Objective - Vital Signs/Intake and Output Vital Signs (last 24 hours): Temp Pulse Resp BP Pulse Ox 97.4 F L 127 H 20 141/94 H 95 12/22/16 09:24 12/22/16 09:24 12/22/16 09:24 12/22/16 09:24 12/22/16 09:24 - Medications Medications: Current Medications Acetaminophen (Tylenol 325mg Tab) 650 mg PO Q6 PRN PRN Reason: Headache Last Admin: 12/04/16 20:53 Dose: 650 mg Benzocaine/Menthol (Cepacol Sore Throat) 1 liz MT BID PRN PRN Reason: Sore Throat Last Admin: 12/16/16 09:13 Dose: 1 liz Enoxaparin Sodium (Lovenox) 40 mg SC DAILY [facility] Last Admin: 12/21/16 10:35 Dose: 40 mg Ethambutol HCl (Myambutol) 1,200 mg PO DAILY [facility] Last Admin: 12/21/16 10:34 Dose: 1,200 mg Famotidine (Pepcid) 20 mg PO 0800 [facility] Last Admin: 12/22/16 08:34 Dose: 20 mg Gabapentin (Neurontin) 300 mg PO TID [facility] Last Admin: 12/21/16 17:51 Dose: 300 mg Guaifenesin (Mucinex La) 600 mg PO 0800,2000 [facility] Last Admin: 12/21/16 19:48 Dose: 600 mg Insulin Aspart (Novolog) 0 unit SC ACHS [facility] PRN Reason: Protocol Last Admin: 12/22/16 08:35 Dose: 1 unit Isoniazid (Niazid) 300 mg PO DAILY [facility] Last Admin: 12/21/16 10:35 Dose: 300 mg Losartan Potassium (Cozaar) 25 mg PO DAILY [facility] Last Admin: 12/21/16 10:35 Dose: 25 mg Metformin HCl (Glucophage) 1,000 mg PO 0800,1800 [facility] Last Admin: 12/22/16 08:34 Dose: 1,000 mg Metoprolol Tartrate (Lopressor) 25 mg PO BID [facility] Last Admin: 12/20/16 17:36 Dose: 25 mg Montelukast Sodium (Singulair) 10 mg PO HS [facility] Last Admin: 12/21/16 21:48 Dose: 10 mg Ondansetron HCl (Zofran Inj) 4 mg IVP Q6H PRN PRN Reason: Nausea/Vomiting Last Admin: 12/06/16 12:52 Dose: 4 mg Ondansetron HCl (Zofran Tab) 4 mg PO Q6 PRN Last Admin: 12/19/16 07:54 Dose: 4 mg Pyrazinamide (Pyrazinamide) 1,500 mg PO DAILY [facility] Last Admin: 12/21/16 10:33 Dose: 1,500 mg Pyridoxine HCl (Vitamin B6) 100 mg PO DAILY [facility] Last Admin: 12/21/16 10:35 Dose: 100 mg Rifampin (Rifampin Cap) 600 mg PO DAILY [facility] Last Admin: 12/21/16 10:35 Dose: 600 mg Sodium Chloride (Sodium Chloride Tab) 2 gm PO TID [facility] Stop: 12/23/16 10:01 Last Admin: 12/21/16 19:00 Dose: 2 gm - Labs Labs: 12/20/16 10:58 12/20/16 10:58 PT 13.6 SECONDS (9.7-12.2) H 12/01/16 07:37 INR 1.2 12/01/16 07:37 APTT 28 SECONDS (21-34) 12/01/16 07:37 Attending/Attestation - Attestation I have personally seen and examined this patient.: Yes I have fully participated in the care of the patient.: Yes I have reviewed all pertinent clinical information, including history, physical exam and plan: Yes Notes (Text): This is late computer entry for 12/04/16. Patient seen, examined and case discussed with day-time resident. Note: patient's PPD is positive. Right upper extremity shows indurated area. Patient has not have prior BHCG vaccine. Will follow-up AFB sputum/smears to monitor. Continue RIPE therapy. Assessment/Plan 1) Tuberculosis, active * Consult Infectious Disease (Dr. Espinal) on board * Consult Pulmonary (Dr. Frazier ) on board * Bronchoscopy cancelled; discussed with pulm, patient should initiate therapy for TB * Chest xray (11/30): Cavitary left upper lobe infiltrate/mass. CT scan may be beneficial in further assessment of this process primarily affecting the posterior segment. The cavitary comes/cystic component is best seen on the lateral view measuring 5.2 x 6.4 cm. * Patient as completed CT Chest outpatient (prior CT is included in the chart; CD) * Patient ordered for PPD (12/02: negative; f/u 12/03, HIV-negative, Quantaferon: negative * AFB sputum: showing acid fast bacill thus far * Blood culture (11/30): no growth thus far * Start on anti-TB therapy (12/02/16) -Isoniazid 300 mg PO DAILY -Pyrazinamide (Pyrazinamide) 1,000 mg PO DAILY -Pyridoxine HCl (Vitamin B6) 100 mg PO DAILY -Rifampin (Rifampin Cap) 600 mg PO DAILY -Etambutol [id number] PO daily 2) Cough * Mucinex 600mg PO bid * Singuliar 10mg POqHS * Duonebs RQ6 PRN 3) Diabetes type 2 * Uncontrolled * [id number]: 12.4 * Patient started on Metformin 1000mg PO bid and d/c Glipizide 10mg PO daily * Note: patient has peripheral neuropathy prior to starting TB therapy; patient started on Gabapentin 300mg PO tid * Regular insulin sliding scale subq * Monitor accuechecks QAC and HS * Enalapril 5mg PO daily 4) Hypertension * Monitor vial signs * Enalapril 5mg PO daily 5) Alpha thalasemia * MCV 69.7, Ferritin 77.3, B12 950 H, folate 11.2, reticulocyte count 1.0, haptoglobin, * Started on PO iron supplmentation and Vitamin C 500mg PO daily 6) Hyponatremia * monitor * NS 100cc/hr * no neurologic deficit * continue monitor 7) Prophylaxis * NS 100cc/hr * Vegetarian Diet, carb consistent, low sodium * Pepcid 20mg PO daily * Heparin 5k units SC q8H * SCDs b/l * Respiratory isolation
[2016-12-04 08:11] LABS: BASO % 0.4 % (0.0-2.0); EOS # 0.1 K/uL (0.0-0.7); EOS % 1.6 % (0.0-4.0); HEMATOCRIT 37.7 % (35.0-51.0); LYMPH # 1.1 K/uL (1.0-4.3); LYMPH % 13.5 % (20.0-40.0); MEAN CELL VOLUME 70.1 fL (80.0-94.0); MEAN CORPUSCULAR HEMOGLOBIN 22.5 pg (27.0-31.0); MEAN CORPUSCULAR HGB CONC 32.1 g/dL (33.0-37.0); MEAN PLATELET VOLUME 7.1 fL (7.2-11.7); RED CELL DISTRIBUTION WIDTH 17.2 % (11.5-14.5); WHITE BLOOD COUNT 8.4 K/uL (4.8-10.8)
[2016-12-04 08:25] LABS: CHLORIDE 96 mmol/L (98-107); POTASSIUM 3.9 mmol/L (3.6-5.2); SODIUM 131 mmol/L (132-148)
[2016-12-04 08:27] LABS: AST/SGOT 19 U/L (17-59); BILIRUBIN,TOTAL 0.4 mg/dL (0.2-1.3); CARBON DIOXIDE 22 mmol/L (22-30); GFR AFRICAN-AMERICAN > 60
[2016-12-04 08:28] LABS: ALB/GLOB RATIO 0.9 (1.0-2.1); ALKALINE PHOSPHATASE 101 U/L (38-126); ALT/SGPT 26 U/L (21-72); BLOOD UREA NITROGEN 6 mg/dL (9-20); CALCIUM 8.5 mg/dl (8.6-10.4); GLUCOSE,RANDOM 125 mg/dL (75-110); MAGNESIUM 1.9 mg/dL (1.6-2.3); PHOSPHOROUS 3.9 mg/dL (2.5-4.5); TOTAL PROTEIN 6.7 g/dL (6.3-8.3)
[2016-12-04] MEDS: (Novolog) Insulin Aspart, Recombinant 100 u/ml 10 ml vial SC SCH ×4 (08:30→21:56)
[2016-12-04] MEDS: Pyridoxine 100 mg Tab PO SCH (11:00)
[2016-12-04] MEDS: guaiFENesin 600 mg ER Tab PO SCH ×2 (11:00→17:26)
[2016-12-05 07:10] LABS: BASO % 0.2 % (0.0-2.0); EOS # 0.2 K/uL (0.0-0.7); EOS % 1.7 % (0.0-4.0); HEMATOCRIT 37.2 % (35.0-51.0); LYMPH # 1.1 K/uL (1.0-4.3); LYMPH % 11.2 % (20.0-40.0); MEAN CELL VOLUME 68.9 fL (80.0-94.0); MEAN CORPUSCULAR HEMOGLOBIN 22.4 pg (27.0-31.0); MEAN CORPUSCULAR HGB CONC 32.6 g/dL (33.0-37.0); MEAN PLATELET VOLUME 7.4 fL (7.2-11.7); MONO % 9.9 % (0.0-10.0); RED CELL DISTRIBUTION WIDTH 16.8 % (11.5-14.5); WHITE BLOOD COUNT 9.8 K/uL (4.8-10.8)
[2016-12-05 07:17] LABS: CHLORIDE 95 mmol/L (98-107)
[2016-12-05 07:18] LABS: POTASSIUM 3.6 mmol/L (3.6-5.2); SODIUM 130 mmol/L (132-148)
[2016-12-05 07:20] LABS: ALB/GLOB RATIO 0.9 (1.0-2.1); ALKALINE PHOSPHATASE 101 U/L (38-126); AST/SGOT 17 U/L (17-59); BILIRUBIN,TOTAL 0.3 mg/dL (0.2-1.3); CARBON DIOXIDE 22 mmol/L (22-30); GFR AFRICAN-AMERICAN > 60; TOTAL PROTEIN 6.7 g/dL (6.3-8.3)
[2016-12-05 07:21] LABS: ALT/SGPT 23 U/L (21-72); BLOOD UREA NITROGEN 6 mg/dL (9-20); CALCIUM 8.5 mg/dl (8.6-10.4); GLUCOSE,RANDOM 119 mg/dL (75-110); MAGNESIUM 1.8 mg/dL (1.6-2.3)
--- NOTE | 2016-12-05 07:28 | CP.PCM.PN ---
<Karla Nixon - Last Filed: 12/05/16 11:33> Subjective - Date & Time of Evaluation Date of Evaluation: 12/05/16 Time of Evaluation: 07:54 - Subjective Subjective: PGY1 Medicine Note for Dr. Huber Patient seen and examined at bedside. Patient had no acute events overnight and had no acute complaints this morning. Patient was complaining of not being able to take all his medications at the same time as it gave him some acidity and was wondering if the medications regimen could be staggered. He continues to report some coughing but denies any blood in sputum. Patient denied any fever, chills, chest pain, palpitations, SOB, abdominal pain, nausea, vomiting, bowel/ bladder complaints. He is eating well and reports feeling better. Objective - Vital Signs/Intake and Output Vital Signs (last 24 hours): Temp Pulse Resp BP Pulse Ox 98.8 F 95 H 20 130/81 98 12/05/16 00:00 12/05/16 00:00 12/05/16 00:00 12/05/16 00:00 12/05/16 00:00 Intake and Output: 12/05/16 12/05/16 06:59 18:59 Intake Total 580 Balance 580 - Medications Medications: Current Medications Acetaminophen (Tylenol 325mg Tab) 650 mg PO Q6 PRN PRN Reason: Headache Last Admin: 12/04/16 20:53 Dose: 650 mg Albuterol/Ipratropium (Duoneb 3 Mg/0.5 Mg (3 Ml) Ud) 3 ml INH RQ6 PRN PRN Reason: Shortness of Breath Enalapril Maleate (Vasotec) 5 mg PO DAILY [facility] Last Admin: 12/04/16 11:00 Dose: 5 mg Ethambutol HCl (Myambutol) 1,200 mg PO DAILY [facility] Last Admin: 12/04/16 11:00 Dose: 1,200 mg Famotidine (Pepcid) 20 mg PO DAILY [facility] Last Admin: 12/04/16 11:00 Dose: 20 mg Gabapentin (Neurontin) 300 mg PO TID [facility] Last Admin: 12/04/16 17:26 Dose: 300 mg Guaifenesin (Mucinex La) 600 mg PO BID [facility] Last Admin: 12/04/16 17:26 Dose: 600 mg Heparin Sodium (Porcine) (Heparin) 5,000 units SC Q8 [facility] Sodium Chloride (Sodium Chloride 0.9%) 1,000 mls @ 50 mls/hr IV .Q20H [facility] Last Admin: 12/04/16 11:00 Dose: 50 mls/hr Insulin Aspart (Novolog) 0 unit SC ACHS [facility] PRN Reason: Protocol Last Admin: 12/04/16 21:56 Dose: Not Given Isoniazid (Niazid) 300 mg PO DAILY [facility] Last Admin: 12/04/16 11:00 Dose: 300 mg Metformin HCl (Glucophage) 1,000 mg PO BID [facility] Last Admin: 12/04/16 17:25 Dose: 1,000 mg Montelukast Sodium (Singulair) 10 mg PO HS [facility] Last Admin: 12/04/16 21:49 Dose: 10 mg Ondansetron HCl (Zofran Inj) 4 mg IVP Q6H PRN PRN Reason: Nausea/Vomiting Pyrazinamide (Pyrazinamide) 1,000 mg PO DAILY [facility] Last Admin: 12/04/16 11:00 Dose: 1,000 mg Pyridoxine HCl (Vitamin B6) 100 mg PO DAILY [facility] Last Admin: 12/04/16 11:00 Dose: 100 mg Rifampin (Rifampin Cap) 600 mg PO DAILY [facility] Last Admin: 12/04/16 11:00 Dose: 600 mg - Labs Labs: 12/05/16 07:01 12/04/16 08:03 PT 13.6 SECONDS (9.7-12.2) H 12/01/16 07:37 INR 1.2 12/01/16 07:37 APTT 28 SECONDS (21-34) 12/01/16 07:37 - Constitutional Appears: Non-toxic, No Acute Distress - Head Exam Head Exam: NORMAL INSPECTION - Eye Exam Eye Exam: Normal appearance. absent: Conjunctival injection, Scleral icterus - ENT Exam ENT Exam: Mucous Membranes Moist - Neck Exam Neck Exam: Normal Inspection - Respiratory Exam Respiratory Exam: Decreased Breath Sounds, Clear to Ausculation Bilateral, NORMAL BREATHING PATTERN. absent: Rales, Rhonchi, Wheezes - Cardiovascular Exam Cardiovascular Exam: Tachycardia, REGULAR RHYTHM, +S1, +S2 - GI/Abdominal Exam GI & Abdominal Exam: Soft, Normal Bowel Sounds. absent: Tenderness - Extremities Exam Extremities Exam: Normal Capillary Refill, Normal Inspection. absent: Calf Tenderness, Pedal Edema - Back Exam Back Exam: NORMAL INSPECTION. absent: rash noted - Neurological Exam Neurological Exam: Alert, Awake, Normal Gait, Oriented x3 - Psychiatric Exam Psychiatric exam: Normal Affect, Normal Mood - Skin Skin Exam: Dry, Intact, Normal Color, Warm Assessment and Plan - Assessment and Plan (Free Text) Assessment: 51year old male admitted to rule out active TB Plan: Tuberculosis, active AFB x3 prelim with 1+ or 2+ acid fast bacilli seen in stain (PENDING CULTURE) 12/01: Blood culture negative x24hrs (pending gram stain). -HIV negative -Quant Gold - negative -Note: Disk containing CT + CXR images is in the physical chart. -Cavitary left upper lobe infiltrate/mass. CT scan may be beneficial in further assessment of this process primarily affecting the posterior segment. The cavitary comes/cystic component is best seen on the lateral view measuring 5.2 x 6.4 cm. -ID consult, Dr. Espinal -> to start quadruple therapy for TB. ethambutol 1200mg PO daily (started 12/02) isoniazide 300mg PO daily (started 12/02) Prazinamide 1000mg PO daily (started 12/02) Pyridoxine 100mg PO daily (started 12/02) Rifampin 600mg PO daily (started 12/02) -Pulm Consult, Dr. Frazier -> bronchoscopy 12/01 AM cancelled, as CT imaging showed clear TB infection f/u sputum studies and sputum PCR -Continue Mucinex 600mg PO BID; Singulair 10mg PO HS; Duonebs RQ6 PRN Diabetes Metformin 1000mg PO BID Novolog RISS Neurontin 300mg PO TID A1c 12.4 FLP grossly WNL; HDL 28 L Glucose 233 on admission Alpha Thalassemia MCV 69.7 Ferritin 77.3, B12 950 H, folate 11.2, reticulocyte count 1.0 hemoglobinopathy inerpretation - possible Alpha-thalassemia. Fe 28 L, TIBC 243 L, %Sat 12 L haptoglobin 501 H Monitor outpatient Hypertension BP WNL on admission Continue home Enalapril 5mg PO d Prophylaxis respiratory isolation NS 0.9 at 75cc/hr Vegetarian Diet, carb consistent, low sodium Pepcid 20mg PO d Heparin 5k units SC q8H Zofran 4mg PO Q6 PRN SCDs DW attending Karla Nixon PGY1 <Borker,Reyna V - Last Filed: 12/22/16 10:17> Objective - Vital Signs/Intake and Output Vital Signs (last 24 hours): Temp Pulse Resp BP Pulse Ox 97.4 F L 127 H 20 141/94 H 95 12/22/16 09:24 12/22/16 09:24 12/22/16 09:24 12/22/16 09:24 12/22/16 09:24 - Medications Medications: Current Medications Acetaminophen (Tylenol 325mg Tab) 650 mg PO Q6 PRN PRN Reason: Headache Last Admin: 12/04/16 20:53 Dose: 650 mg Benzocaine/Menthol (Cepacol Sore Throat) 1 liz MT BID PRN PRN Reason: Sore Throat Last Admin: 12/16/16 09:13 Dose: 1 liz Enoxaparin Sodium (Lovenox) 40 mg SC DAILY [facility] Last Admin: 12/21/16 10:35 Dose: 40 mg Ethambutol HCl (Myambutol) 1,200 mg PO DAILY [facility] Last Admin: 12/21/16 10:34 Dose: 1,200 mg Famotidine (Pepcid) 20 mg PO 0800 [facility] Last Admin: 12/22/16 08:34 Dose: 20 mg Gabapentin (Neurontin) 300 mg PO TID [facility] Last Admin: 12/21/16 17:51 Dose: 300 mg Guaifenesin (Mucinex La) 600 mg PO 0800,2000 [facility] Last Admin: 12/21/16 19:48 Dose: 600 mg Insulin Aspart (Novolog) 0 unit SC ACHS [facility] PRN Reason: Protocol Last Admin: 12/22/16 08:35 Dose: 1 unit Isoniazid (Niazid) 300 mg PO DAILY [facility] Last Admin: 12/21/16 10:35 Dose: 300 mg Losartan Potassium (Cozaar) 25 mg PO DAILY [facility] Last Admin: 12/21/16 10:35 Dose: 25 mg Metformin HCl (Glucophage) 1,000 mg PO 0800,1800 [facility] Last Admin: 12/22/16 08:34 Dose: 1,000 mg Metoprolol Tartrate (Lopressor) 25 mg PO BID [facility] Last Admin: 12/20/16 17:36 Dose: 25 mg Montelukast Sodium (Singulair) 10 mg PO HS [facility] Last Admin: 12/21/16 21:48 Dose: 10 mg Ondansetron HCl (Zofran Inj) 4 mg IVP Q6H PRN PRN Reason: Nausea/Vomiting Last Admin: 12/06/16 12:52 Dose: 4 mg Ondansetron HCl (Zofran Tab) 4 mg PO Q6 PRN Last Admin: 12/19/16 07:54 Dose: 4 mg Pyrazinamide (Pyrazinamide) 1,500 mg PO DAILY [facility] Last Admin: 12/21/16 10:33 Dose: 1,500 mg Pyridoxine HCl (Vitamin B6) 100 mg PO DAILY [facility] Last Admin: 12/21/16 10:35 Dose: 100 mg Rifampin (Rifampin Cap) 600 mg PO DAILY [facility] Last Admin: 12/21/16 10:35 Dose: 600 mg Sodium Chloride (Sodium Chloride Tab) 2 gm PO TID [facility] Stop: 12/23/16 10:01 Last Admin: 12/21/16 19:00 Dose: 2 gm - Labs Labs: 12/20/16 10:58 12/20/16 10:58 PT 13.6 SECONDS (9.7-12.2) H 12/01/16 07:37 INR 1.2 12/01/16 07:37 APTT 28 SECONDS (21-34) 12/01/16 07:37 Attending/Attestation - Attestation I have personally seen and examined this patient.: Yes I have fully participated in the care of the patient.: Yes I have reviewed all pertinent clinical information, including history, physical exam and plan: Yes Notes (Text): This is a late computer entry for 12/05/16. Patient seen, examined, and case discussed with day-time resident. Continue RIPE therapy. Will attempt to spread out his medications to help control patient's nausea. Will follow-up AFB sputum/s Discussed with pulmonary. Assessment/Plan 1) Tuberculosis, active * Consult Infectious Disease (Dr. Espinal) on board * Consult Pulmonary (Dr. Frazier ) on board * Bronchoscopy cancelled; discussed with pulm, patient should initiate therapy for TB * Chest xray (11/30): Cavitary left upper lobe infiltrate/mass. CT scan may be beneficial in further assessment of this process primarily affecting the posterior segment. The cavitary comes/cystic component is best seen on the lateral view measuring 5.2 x 6.4 cm. * Patient as completed CT Chest outpatient (prior CT is included in the chart; CD) * Patient ordered for PPD (12/02: negative; f/u 12/03: +, HIV-negative, Quantaferon: negative) * AFB sputum: showing acid fast bacill thus far * Blood culture (11/30): no growth X2 * Start on anti-TB therapy (12/02/16) -Isoniazid 300 mg PO DAILY -Pyrazinamide (Pyrazinamide) 1,000 mg PO DAILY -Pyridoxine HCl (Vitamin B6) 100 mg PO DAILY -Rifampin (Rifampin Cap) 600 mg PO DAILY -Etambutol 1200mg PO daily (note: error 1200 not [address]; listed correctlty under medication administration) 2) Cough * Mucinex 600mg PO bid * Singuliar 10mg POqHS * Duonebs RQ6 PRN 3) Diabetes type 2 * Uncontrolled * [id number]: 12.4 * Patient started on Metformin 1000mg PO bid * Note: patient has peripheral neuropathy prior to starting TB therapy; patient started on Gabapentin 300mg PO tid * Novolog insulin sliding scale subq (not regular as noted in prior notes) * Monitor accuchecks QAC and HS * Enalapril 5mg PO daily 4) Hypertension * Monitor vial signs * Enalapril 5mg PO daily 5) Alpha thalasemia * MCV 69.7, Ferritin 77.3, B12 950 H, folate 11.2, reticulocyte count 1.0, haptoglobin, * d/c iron supplementation; patient feels nauseous and reports taking too many pills; hemoglobin is stable 6) Hyponatremia * monitor * NS 50cc/hr * no neurologic deficit * continue monitor 7) Prophylaxis * NS 50cc/hr * Vegetarian Diet, carb consistent, low sodium * Pepcid 20mg PO daily * Heparin 5k units SC q8H * SCDs b/l * Respiratory isolation
[2016-12-05] MEDS: Sodium Chloride 0.9% 1,000 ML IV SCH ×2 (08:38→14:56)
[2016-12-05] MEDS: (Novolog) Insulin Aspart, Recombinant 100 u/ml 10 ml vial SC SCH ×3 (08:38→17:34)
[2016-12-05] MEDS: guaiFENesin 600 mg ER Tab PO SCH ×2 (08:48→20:23)
[2016-12-05] MEDS: Pyridoxine 100 mg Tab PO SCH (11:16)
--- NOTE | 2016-12-05 16:27 | CP.PCM.PN ---
Subjective - Date & Time of Evaluation Date of Evaluation: 12/05/16 Time of Evaluation: 09:00 - Subjective Subjective: doing shyla on po rx Objective - Vital Signs/Intake and Output Vital Signs (last 24 hours): Temp Pulse Resp BP Pulse Ox 98.1 F 102 H 20 120/79 98 12/05/16 08:00 12/05/16 08:00 12/05/16 08:00 12/05/16 14:58 12/05/16 08:00 Intake and Output: 12/05/16 12/05/16 06:59 18:59 Intake Total 580 875 Balance 580 875 - Medications Medications: Current Medications Acetaminophen (Tylenol 325mg Tab) 650 mg PO Q6 PRN PRN Reason: Headache Last Admin: 12/04/16 20:53 Dose: 650 mg Albuterol/Ipratropium (Duoneb 3 Mg/0.5 Mg (3 Ml) Ud) 3 ml INH RQ6 PRN PRN Reason: Shortness of Breath Enalapril Maleate (Vasotec) 5 mg PO 1500 [facility] Last Admin: 12/05/16 14:58 Dose: 5 mg Ethambutol HCl (Myambutol) 1,200 mg PO DAILY [facility] Last Admin: 12/05/16 11:15 Dose: 1,200 mg Famotidine (Pepcid) 20 mg PO 0800 [facility] Last Admin: 12/05/16 08:48 Dose: 20 mg Gabapentin (Neurontin) 300 mg PO TID [facility] Last Admin: 12/05/16 14:52 Dose: 300 mg Guaifenesin (Mucinex La) 600 mg PO 0800,2000 [facility] Last Admin: 12/05/16 08:48 Dose: 600 mg Heparin Sodium (Porcine) (Heparin) 5,000 units SC Q8 [facility] Last Admin: 12/05/16 14:59 Dose: 5,000 units Sodium Chloride (Sodium Chloride 0.9%) 1,000 mls @ 75 mls/hr IV .[id number] [facility] Last Admin: 12/05/16 14:56 Dose: 75 mls/hr Insulin Aspart (Novolog) 0 unit SC ACHS [facility] PRN Reason: Protocol Last Admin: 12/05/16 12:28 Dose: Not Given Isoniazid (Niazid) 300 mg PO DAILY [facility] Last Admin: 12/05/16 11:15 Dose: 300 mg Metformin HCl (Glucophage) 1,000 mg PO 0800,1800 [facility] Last Admin: 12/05/16 08:48 Dose: 1,000 mg Montelukast Sodium (Singulair) 10 mg PO HS [facility] Last Admin: 12/04/16 21:49 Dose: 10 mg Ondansetron HCl (Zofran Inj) 4 mg IVP Q6H PRN PRN Reason: Nausea/Vomiting Pyrazinamide (Pyrazinamide) 1,000 mg PO DAILY [facility] Last Admin: 12/05/16 11:16 Dose: 1,000 mg Pyridoxine HCl (Vitamin B6) 100 mg PO DAILY [facility] Last Admin: 12/05/16 11:16 Dose: 100 mg Rifampin (Rifampin Cap) 600 mg PO DAILY [facility] Last Admin: 12/05/16 11:16 Dose: 600 mg - Labs Labs: 12/05/16 07:01 12/05/16 07:01 PT 13.6 SECONDS (9.7-12.2) H 12/01/16 07:37 INR 1.2 12/01/16 07:37 APTT 28 SECONDS (21-34) 12/01/16 07:37 - Constitutional Appears: Non-toxic, Cachectic, Chronically Ill - Head Exam Head Exam: NORMOCEPHALIC - Eye Exam Eye Exam: absent: Scleral icterus - ENT Exam ENT Exam: Mucous Membranes Dry, Normal External Ear Exam - Neck Exam Neck Exam: absent: Lymphadenopathy, Thyromegaly - Respiratory Exam Respiratory Exam: Decreased Breath Sounds, Clear to Ausculation Bilateral - Cardiovascular Exam Cardiovascular Exam: REGULAR RHYTHM, +S1, +S2 - GI/Abdominal Exam GI & Abdominal Exam: Distended, Soft. absent: Tenderness - Rectal Exam Rectal Exam: Deferred - Exam Exam: NORMAL INSPECTION - Extremities Exam Extremities Exam: absent: Calf Tenderness, Pedal Edema - Back Exam Back Exam: absent: CVA tenderness (L), CVA tenderness (R) - Neurological Exam Neurological Exam: Alert, Awake, Oriented x3 Assessment and Plan (1) Pulmonary tuberculosis with cavitation Status: Acute (2) Tuberculosis Status: Acute (3) Pneumonia Status: Acute (4) Diabetes Status: Acute
[2016-12-06] MEDS: Sodium Chloride 0.9% 1,000 ML IV SCH ×2 (01:00→17:01)
[2016-12-06 07:33] LABS: BASO % 0.2 % (0.0-2.0); EOS # 0.1 K/uL (0.0-0.7); EOS % 1.3 % (0.0-4.0); HEMATOCRIT 36.9 % (35.0-51.0); LYMPH % 11.2 % (20.0-40.0); MEAN CORPUSCULAR HEMOGLOBIN 22.3 pg (27.0-31.0); MEAN CORPUSCULAR HGB CONC 32.3 g/dL (33.0-37.0); MEAN PLATELET VOLUME 7.4 fL (7.2-11.7); MONO # 0.8 K/uL (0.0-0.8); MONO % 8.6 % (0.0-10.0); RED CELL DISTRIBUTION WIDTH 16.9 % (11.5-14.5); WHITE BLOOD COUNT 8.9 K/uL (4.8-10.8)
[2016-12-06 07:44] LABS: CHLORIDE 95 mmol/L (98-107); POTASSIUM 3.4 mmol/L (3.6-5.2); SODIUM 131 mmol/L (132-148)
[2016-12-06 07:46] LABS: AST/SGOT 24 U/L (17-59); BILIRUBIN,TOTAL 0.5 mg/dL (0.2-1.3); CARBON DIOXIDE 20 mmol/L (22-30); GFR AFRICAN-AMERICAN > 60
[2016-12-06 07:47] LABS: ALB/GLOB RATIO 0.9 (1.0-2.1); ALKALINE PHOSPHATASE 105 U/L (38-126); ALT/SGPT 27 U/L (21-72); BLOOD UREA NITROGEN 6 mg/dL (9-20); CALCIUM 8.5 mg/dl (8.6-10.4); GLUCOSE,RANDOM 112 mg/dL (75-110); MAGNESIUM 1.8 mg/dL (1.6-2.3); PHOSPHOROUS 3.9 mg/dL (2.5-4.5); TOTAL PROTEIN 6.8 g/dL (6.3-8.3)
[2016-12-06] MEDS: (Novolog) Insulin Aspart, Recombinant 100 u/ml 10 ml vial SC SCH ×3 (08:48→17:00)
[2016-12-06] MEDS: guaiFENesin 600 mg ER Tab PO SCH ×2 (09:42→20:08)
[2016-12-06] MEDS: Pyridoxine 100 mg Tab PO SCH (09:43)
--- NOTE | 2016-12-06 11:35 | CP.PCM.PN ---
<Darien Drake - Last Filed: 12/06/16 19:13> Subjective - Date & Time of Evaluation Date of Evaluation: 12/06/16 Time of Evaluation: 07:25 - Subjective Subjective: PGY-1 medicine note - Dr. Mora service Patient seen and examined at bedside, chart reviewed and case discussed. Patient overall feels better today. His cough is still producing yellow sputum but he reports that it is better than it was yesterday (denies blood in sputum) . He reports no nausea today although he notes that he did throw up yesterday after eating some fruit salad (he has trouble tolerating acidic fruits). Patient denies fever, chills, headache, diarrhea, dysuria or any additional acute complaints at this time. Objective - Vital Signs/Intake and Output Vital Signs (last 24 hours): Temp Pulse Resp BP Pulse Ox 98.0 F 106 H 20 125/83 97 12/06/16 08:00 12/06/16 08:00 12/06/16 08:00 12/06/16 08:00 12/06/16 08:00 Intake and Output: 12/06/16 12/06/16 06:59 18:59 Intake Total 1000 780 Balance 1000 780 - Medications Medications: Current Medications Acetaminophen (Tylenol 325mg Tab) 650 mg PO Q6 PRN PRN Reason: Headache Last Admin: 12/04/16 20:53 Dose: 650 mg Albuterol/Ipratropium (Duoneb 3 Mg/0.5 Mg (3 Ml) Ud) 3 ml INH RQ6 PRN PRN Reason: Shortness of Breath Enalapril Maleate (Vasotec) 5 mg PO 1500 [facility] Last Admin: 12/05/16 14:58 Dose: 5 mg Ethambutol HCl (Myambutol) 1,200 mg PO DAILY [facility] Last Admin: 12/06/16 09:42 Dose: 1,200 mg Famotidine (Pepcid) 20 mg PO 0800 [facility] Last Admin: 12/06/16 09:42 Dose: 20 mg Gabapentin (Neurontin) 300 mg PO TID [facility] Last Admin: 12/06/16 09:42 Dose: 300 mg Guaifenesin (Mucinex La) 600 mg PO 0800,2000 [facility] Last Admin: 12/06/16 09:42 Dose: 600 mg Heparin Sodium (Porcine) (Heparin) 5,000 units SC Q8 [facility] Last Admin: 12/06/16 06:07 Dose: 5,000 units Sodium Chloride (Sodium Chloride 0.9%) 1,000 mls @ 75 mls/hr IV .[id number] [facility] Last Admin: 12/06/16 01:00 Dose: 75 mls/hr Insulin Aspart (Novolog) 0 unit SC ACHS [facility] PRN Reason: Protocol Last Admin: 12/06/16 08:48 Dose: Not Given Isoniazid (Niazid) 300 mg PO DAILY [facility] Last Admin: 12/06/16 09:43 Dose: 300 mg Metformin HCl (Glucophage) 1,000 mg PO 0800,1800 [facility] Last Admin: 12/06/16 09:42 Dose: 1,000 mg Montelukast Sodium (Singulair) 10 mg PO HS [facility] Last Admin: 12/05/16 22:13 Dose: 10 mg Ondansetron HCl (Zofran Inj) 4 mg IVP Q6H PRN PRN Reason: Nausea/Vomiting Last Admin: 12/05/16 20:23 Dose: 4 mg Pyrazinamide (Pyrazinamide) 1,000 mg PO DAILY [facility] Last Admin: 12/06/16 09:43 Dose: 1,000 mg Pyridoxine HCl (Vitamin B6) 100 mg PO DAILY [facility] Last Admin: 12/06/16 09:43 Dose: 100 mg Rifampin (Rifampin Cap) 600 mg PO DAILY [facility] Last Admin: 12/06/16 09:43 Dose: 600 mg - Labs Labs: 12/06/16 07:24 12/06/16 07:24 PT 13.6 SECONDS (9.7-12.2) H 12/01/16 07:37 INR 1.2 12/01/16 07:37 APTT 28 SECONDS (21-34) 12/01/16 07:37 - Additional Findings Additional findings: - Constitutional Appears: Non-toxic, No Acute Distress - Head Exam Head Exam: NORMAL INSPECTION - Eye Exam Eye Exam: Normal appearance. absent: Conjunctival injection, Scleral icterus - ENT Exam ENT Exam: Mucous Membranes Moist - Neck Exam Neck Exam: Normal Inspection - Respiratory Exam Respiratory Exam: Decreased Breath Sounds, Clear to Ausculation Bilateral, NORMAL BREATHING PATTERN. absent: Rales, Rhonchi, Wheezes - Cardiovascular Exam Cardiovascular Exam: Tachycardia, REGULAR RHYTHM, +S1, +S2 - GI/Abdominal Exam GI & Abdominal Exam: Soft, Normal Bowel Sounds. absent: Tenderness - Extremities Exam Extremities Exam: Normal Capillary Refill, Normal Inspection. absent: Calf Tenderness, Pedal Edema - Back Exam Back Exam: NORMAL INSPECTION. absent: rash noted - Neurological Exam Neurological Exam: Alert, Awake, Normal Gait, Oriented x3 - Psychiatric Exam Psychiatric exam: Normal Affect, Normal Mood - Skin Skin Exam: Dry, Intact, Normal Color, Warm Assessment and Plan - Assessment and Plan (Free Text) Assessment: 51year old male admitted to rule out active TB Plan: Tuberculosis, active 12/06: AFB x4 prelim with 1+ or 2+ acid fast bacilli seen in stain (PENDING CULTURE) 12/01: Blood culture negative x24hrs (pending gram stain). -HIV negative -Quant Gold - negative -Note: Disk containing CT + CXR images is in the physical chart. -Cavitary left upper lobe infiltrate/mass. CT scan may be beneficial in further assessment of this process primarily affecting the posterior segment. The cavitary comes/cystic component is best seen on the lateral view measuring 5.2 x 6.4 cm. -ID consult, Dr. Espinal -> Continue quadruple therapy for TB. ethambutol 1200mg PO daily (started 12/02) isoniazide 300mg PO daily (started 12/02) Prazinamide 1000mg PO daily (started 12/02) Pyridoxine 100mg PO daily (started 12/02) Rifampin 600mg PO daily (started 12/02) -Pulm Consult, Dr. Frazier -> bronchoscopy 12/[address], [address] imaging showed clear TB infection f/u sputum studies and sputum PCR -Continue Mucinex 600mg PO BID; Singulair 10mg PO HS; Duonebs RQ6 PRN Diabetes 12/06: glucose WNL, continue current regimen Metformin 1000mg PO BID Novolog RISS Neurontin 300mg PO TID A1c 12.4 FLP grossly WNL; HDL 28 L Glucose 233 on admission Alpha Thalassemia MCV 69.7 Ferritin 77.3, B12 950 H, folate 11.2, reticulocyte count 1.0 hemoglobinopathy inerpretation - possible Alpha-thalassemia. Fe 28 L, TIBC 243 L, %Sat 12 L haptoglobin 501 H Monitor outpatient Hypertension 12/06: BP WNL, continue to monitor BP WNL on admission Continue home Enalapril 5mg PO d Prophylaxis respiratory isolation NS 0.9 at 75cc/hr Vegetarian Diet, carb consistent, low sodium Pepcid 20mg PO d Heparin 5k units SC q8H Zofran 4mg PO Q6 PRN SCD[facility] <Darien Armendariz H - Last Filed: 12/07/16 07:38> Objective - Vital Signs/Intake and Output Vital Signs (last 24 hours): Temp Pulse Resp BP Pulse Ox 98.2 F 99 H 20 132/82 96 12/07/16 00:05 12/07/16 00:05 12/07/16 00:05 12/07/16 00:05 12/07/16 00:05 Intake and Output: 12/07/16 12/07/16 06:59 18:59 Intake Total 1080 Balance 1080 - Medications Medications: Current Medications Acetaminophen (Tylenol 325mg Tab) 650 mg PO Q6 PRN PRN Reason: Headache Last Admin: 12/04/16 20:53 Dose: 650 mg Albuterol/Ipratropium (Duoneb 3 Mg/0.5 Mg (3 Ml) Ud) 3 ml INH RQ6 PRN PRN Reason: Shortness of Breath Enalapril Maleate (Vasotec) 5 mg PO 1500 [facility] Last Admin: 12/05/16 14:58 Dose: 5 mg Ethambutol HCl (Myambutol) 1,200 mg PO DAILY [facility] Last Admin: 12/06/16 09:42 Dose: 1,200 mg Famotidine (Pepcid) 20 mg PO 0800 [facility] Last Admin: 12/06/16 09:42 Dose: 20 mg Gabapentin (Neurontin) 300 mg PO TID [facility] Last Admin: 12/06/16 17:00 Dose: 300 mg Guaifenesin (Mucinex La) 600 mg PO 0800,2000 [facility] Last Admin: 12/06/16 20:08 Dose: 600 mg Heparin Sodium (Porcine) (Heparin) 5,000 units SC Q8 [facility] Last Admin: 12/07/16 05:46 Dose: 5,000 units Sodium Chloride (Sodium Chloride 0.9%) 1,000 mls @ 75 mls/hr IV .[id number] [facility] Last Admin: 12/07/16 05:46 Dose: 75 mls/hr Insulin Aspart (Novolog) 0 unit SC ACHS [facility] PRN Reason: Protocol Last Admin: 12/06/16 17:00 Dose: 1 unit Isoniazid (Niazid) 300 mg PO DAILY [facility] Last Admin: 12/06/16 09:43 Dose: 300 mg Metformin HCl (Glucophage) 1,000 mg PO 0800,1800 [facility] Last Admin: 12/06/16 17:00 Dose: 1,000 mg Montelukast Sodium (Singulair) 10 mg PO HS [facility] Last Admin: 12/06/16 21:43 Dose: 10 mg Ondansetron HCl (Zofran Inj) 4 mg IVP Q6H PRN PRN Reason: Nausea/Vomiting Last Admin: 12/06/16 12:52 Dose: 4 mg Pyrazinamide (Pyrazinamide) 1,000 mg PO DAILY [facility] Last Admin: 12/06/16 09:43 Dose: 1,000 mg Pyridoxine HCl (Vitamin B6) 100 mg PO DAILY [facility] Last Admin: 12/06/16 09:43 Dose: 100 mg Rifampin (Rifampin Cap) 600 mg PO DAILY [facility] Last Admin: 12/06/16 09:43 Dose: 600 mg - Labs Labs: 12/06/16 07:24 12/06/16 07:24 PT 13.6 SECONDS (9.7-12.2) H 12/01/16 07:37 INR 1.2 12/01/16 07:37 APTT 28 SECONDS (21-34) 12/01/16 07:37 Attending/Attestation - Attestation I have personally seen and examined this patient.: Yes I have fully participated in the care of the patient.: Yes I have reviewed all pertinent clinical information, including history, physical exam and plan: Yes Notes (Text): Medical Attending: Patient was seen and examined by me. Agree with the above note by the resident. Reviewed previous notes. The patient currently is with airborne/contact/droplet precautions. The most recent AFBs have been positive, I also saw the PPD as well and it was very large. Currently now on therapy for TB. I explained to the patient he maybe in the hospital for quite a while. Follow LFT thank you Darien Armendariz
--- NOTE | 2016-12-06 11:54 | CP.PCM.PN ---
Subjective - Date & Time of Evaluation Date of Evaluation: 12/06/16 Time of Evaluation: 10:55 - Subjective Subjective: Pt seen and examined at bedside breathing comfortably on room air and reports doing very well. Denies chest pain and hemoptosis. Complains of productive cough 10-15 times with yellow phlegm and minor headache. Objective - Vital Signs/Intake and Output Vital Signs (last 24 hours): Temp Pulse Resp BP Pulse Ox 98.0 F 106 H 20 125/83 97 12/06/16 08:00 12/06/16 08:00 12/06/16 08:00 12/06/16 08:00 12/06/16 08:00 Intake and Output: 12/06/16 12/06/16 06:59 18:59 Intake Total 1000 780 Balance 1000 780 - Medications Medications: Current Medications Acetaminophen (Tylenol 325mg Tab) 650 mg PO Q6 PRN PRN Reason: Headache Last Admin: 12/04/16 20:53 Dose: 650 mg Albuterol/Ipratropium (Duoneb 3 Mg/0.5 Mg (3 Ml) Ud) 3 ml INH RQ6 PRN PRN Reason: Shortness of Breath Enalapril Maleate (Vasotec) 5 mg PO 1500 [facility] Last Admin: 12/05/16 14:58 Dose: 5 mg Ethambutol HCl (Myambutol) 1,200 mg PO DAILY [facility] Last Admin: 12/06/16 09:42 Dose: 1,200 mg Famotidine (Pepcid) 20 mg PO 0800 [facility] Last Admin: 12/06/16 09:42 Dose: 20 mg Gabapentin (Neurontin) 300 mg PO TID [facility] Last Admin: 12/06/16 09:42 Dose: 300 mg Guaifenesin (Mucinex La) 600 mg PO 0800,2000 [facility] Last Admin: 12/06/16 09:42 Dose: 600 mg Heparin Sodium (Porcine) (Heparin) 5,000 units SC Q8 [facility] Last Admin: 12/06/16 06:07 Dose: 5,000 units Sodium Chloride (Sodium Chloride 0.9%) 1,000 mls @ 75 mls/hr IV .[id number] [facility] Last Admin: 12/06/16 01:00 Dose: 75 mls/hr Insulin Aspart (Novolog) 0 unit SC ACHS [facility] PRN Reason: Protocol Last Admin: 12/06/16 08:48 Dose: Not Given Isoniazid (Niazid) 300 mg PO DAILY [facility] Last Admin: 12/06/16 09:43 Dose: 300 mg Metformin HCl (Glucophage) 1,000 mg PO 0800,1800 [facility] Last Admin: 12/06/16 09:42 Dose: 1,000 mg Montelukast Sodium (Singulair) 10 mg PO HS [facility] Last Admin: 12/05/16 22:13 Dose: 10 mg Ondansetron HCl (Zofran Inj) 4 mg IVP Q6H PRN PRN Reason: Nausea/Vomiting Last Admin: 12/05/16 20:23 Dose: 4 mg Pyrazinamide (Pyrazinamide) 1,000 mg PO DAILY [facility] Last Admin: 12/06/16 09:43 Dose: 1,000 mg Pyridoxine HCl (Vitamin B6) 100 mg PO DAILY [facility] Last Admin: 12/06/16 09:43 Dose: 100 mg Rifampin (Rifampin Cap) 600 mg PO DAILY [facility] Last Admin: 12/06/16 09:43 Dose: 600 mg - Labs Labs: 12/06/16 07:24 12/06/16 07:24 PT 13.6 SECONDS (9.7-12.2) H 12/01/16 07:37 INR 1.2 12/01/16 07:37 APTT 28 SECONDS (21-34) 12/01/16 07:37 - Constitutional Appears: Well, No Acute Distress - Head Exam Head Exam: ATRAUMATIC, NORMOCEPHALIC - Respiratory Exam Respiratory Exam: Decreased Breath Sounds (upper lobes), NORMAL BREATHING PATTERN - Cardiovascular Exam Cardiovascular Exam: +S1, +S2. absent: Murmur - Neurological Exam Neurological Exam: Alert, Awake, Oriented x3 - Psychiatric Exam Psychiatric exam: Normal Affect, Normal Mood - Skin Skin Exam: Dry, Intact, Normal Color, Warm Assessment and Plan (1) Tuberculosis Assessment & Plan: Chest X-ray on 11/30/16 showed left upper lobe cavitary measuring 5.4 X 6.4 cm. Extensive left upper lobe infiltrate, miliary appearance. See full report for details. Likely TB as opposed to lung malignancy. Serial AFB ordered showing rare 1+ acid fast bacilli (1) 11/30/2016 and (2) 12/01/2016; will follow culture results for sensitivities. Continue TB medications as per ID recommendations: ID consult, Dr. Espinal -> to start quadruple therapy for TB. ethambutol 1200mg PO daily isoniazide 300mg PO daily Prazinamide 1000mg PO daily Pyridoxine 100mg PO daily Rifampin 600mg PO daily Continue to monitor for worsening of symptoms including hemoptysis, SOB, and fever. Status: Acute
[2016-12-07] MEDS: Sodium Chloride 0.9% 1,000 ML IV SCH ×4 (03:30→16:55)
--- NOTE | 2016-12-07 07:55 | CP.PCM.PN ---
<Darien Drake - Last Filed: 12/07/16 17:09> Subjective - Date & Time of Evaluation Date of Evaluation: 12/07/16 Time of Evaluation: 07:10 - Subjective Subjective: PGY-1 Medicine note - Dr. Mora service Patient seen and examined at bedside, chart reviewed and case discussed. No overnight events per nursing. Patient overall continues to feel better. His cough is still producing yellow sputum but he reports that it is better than it was yesterday. He vomited again today but noticed no blood in it. Patient denies fever, chills, headache, diarrhea, dysuria or any additional acute complaints at this time. Objective - Vital Signs/Intake and Output Vital Signs (last 24 hours): Temp Pulse Resp BP Pulse Ox 98.2 F 99 H 20 132/82 96 12/07/16 00:05 12/07/16 00:05 12/07/16 00:05 12/07/16 00:05 12/07/16 00:05 Intake and Output: 12/07/16 12/07/16 06:59 18:59 Intake Total 1080 840 Balance 1080 840 - Medications Medications: Current Medications Acetaminophen (Tylenol 325mg Tab) 650 mg PO Q6 PRN PRN Reason: Headache Last Admin: 12/04/16 20:53 Dose: 650 mg Albuterol/Ipratropium (Duoneb 3 Mg/0.5 Mg (3 Ml) Ud) 3 ml INH RQ6 PRN PRN Reason: Shortness of Breath Enalapril Maleate (Vasotec) 5 mg PO 1500 [facility] Last Admin: 12/05/16 14:58 Dose: 5 mg Ethambutol HCl (Myambutol) 1,200 mg PO DAILY [facility] Last Admin: 12/06/16 09:42 Dose: 1,200 mg Famotidine (Pepcid) 20 mg PO 0800 [facility] Last Admin: 12/06/16 09:42 Dose: 20 mg Gabapentin (Neurontin) 300 mg PO TID [facility] Last Admin: 12/06/16 17:00 Dose: 300 mg Guaifenesin (Mucinex La) 600 mg PO 0800,2000 [facility] Last Admin: 12/06/16 20:08 Dose: 600 mg Heparin Sodium (Porcine) (Heparin) 5,000 units SC Q8 [facility] Last Admin: 12/07/16 05:46 Dose: 5,000 units Sodium Chloride (Sodium Chloride 0.9%) 1,000 mls @ 75 mls/hr IV .[id number] [facility] Last Admin: 12/07/16 05:46 Dose: 75 mls/hr Insulin Aspart (Novolog) 0 unit SC ACHS [facility] PRN Reason: Protocol Last Admin: 12/06/16 17:00 Dose: 1 unit Isoniazid (Niazid) 300 mg PO DAILY [facility] Last Admin: 12/06/16 09:43 Dose: 300 mg Metformin HCl (Glucophage) 1,000 mg PO 0800,1800 [facility] Last Admin: 12/06/16 17:00 Dose: 1,000 mg Montelukast Sodium (Singulair) 10 mg PO HS [facility] Last Admin: 12/06/16 21:43 Dose: 10 mg Ondansetron HCl (Zofran Inj) 4 mg IVP Q6H PRN PRN Reason: Nausea/Vomiting Last Admin: 12/06/16 12:52 Dose: 4 mg Pyrazinamide (Pyrazinamide) 1,000 mg PO DAILY [facility] Last Admin: 12/06/16 09:43 Dose: 1,000 mg Pyridoxine HCl (Vitamin B6) 100 mg PO DAILY [facility] Last Admin: 12/06/16 09:43 Dose: 100 mg Rifampin (Rifampin Cap) 600 mg PO DAILY [facility] Last Admin: 12/06/16 09:43 Dose: 600 mg - Labs Labs: 12/06/16 07:24 12/06/16 07:24 PT 13.6 SECONDS (9.7-12.2) H 12/01/16 07:37 INR 1.2 12/01/16 07:37 APTT 28 SECONDS (21-34) 12/01/16 07:37 - Additional Findings Additional findings: - Constitutional Appears: Non-toxic, No Acute Distress - Head Exam Head Exam: NORMAL INSPECTION - Eye Exam Eye Exam: Normal appearance. absent: Conjunctival injection, Scleral icterus - ENT Exam ENT Exam: Mucous Membranes Moist - Neck Exam Neck Exam: Normal Inspection - Respiratory Exam Respiratory Exam: Clear to Ausculation Bilateral, NORMAL BREATHING PATTERN. absent: Rales, Rhonchi, Wheezes - Cardiovascular Exam Cardiovascular Exam: REGULAR RHYTHM, +S1, +S2 - GI/Abdominal Exam GI & Abdominal Exam: Soft, Normal Bowel Sounds. absent: Tenderness - Extremities Exam Extremities Exam: Normal Capillary Refill, Normal Inspection. absent: Calf Tenderness, Pedal Edema - Back Exam Back Exam: NORMAL INSPECTION. absent: rash noted - Neurological Exam Neurological Exam: Alert, Awake, Normal Gait, Oriented x3 - Psychiatric Exam Psychiatric exam: Normal Affect, Normal Mood - Skin Skin Exam: Dry, Intact, Normal Color, Warm Assessment and Plan - Assessment and Plan (Free Text) Assessment: 51year old male admitted to rule out active TB Plan: Tuberculosis, active 12/07: f/u daily AFB cultures until 3 negative cultures result. - Mycobacterial Sputum Cultures 12/06 AFB: 2+ acid fast bacilli 12/04 AFB: 2+ acid fast bacilli 12/02 AFB: 2+ acid fast bacilli 12/01 AFB: 1+ acid fast bacilli 11/30 AFB: 1+ acid fast bacilli -ID consult, Dr. Espinal -> Continue quadruple therapy for TB. ethambutol 1200mg PO daily (started 12/02) isoniazide 300mg PO daily (started 12/02) Prazinamide 1000mg PO daily (started 12/02) Pyridoxine 100mg PO daily (started 12/02) Rifampin 600mg PO daily (started 12/02) -Monitor LFT's: WNL 11/30 - 12/07 -HIV negative -Quant Gold - negative -Note: Disk containing CT + CXR images is in the physical chart. -Cavitary left upper lobe infiltrate/mass. CT scan may be beneficial in further assessment of this process primarily affecting the posterior segment. The cavitary comes/cystic component is best seen on the lateral view measuring 5.2 x 6.4 cm. -Pulm Consult, Dr. 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 Fe 28 L, TIBC 243 L, %Sat 12 L haptoglobin 501 H Monitor outpatient Electrolyte Imbalance Hypokalemia, K3.5 - monitor/replete Hypertension 12/06: BP WNL, continue to monitor BP WNL on admission Continue home Enalapril 5mg PO d Prophylaxis respiratory isolation NS 0.9 at 75cc/hr Vegetarian Diet, carb consistent, low sodium Pepcid 20mg PO d Heparin 5k units SC q8H Zofran 4mg PO Q6 PRN [facility]CD[facility] <Darien Armendariz H - Last Filed: 12/07/16 18:34> Objective - Vital Signs/Intake and Output Vital Signs (last 24 hours): Temp Pulse Resp BP Pulse Ox 97.3 F L 120 H 20 122/73 97 12/07/16 16:00 12/07/16 16:00 12/07/16 16:00 12/07/16 16:00 12/07/16 16:00 Intake and Output: 12/07/16 12/07/16 06:59 18:59 Intake Total 1080 840 Balance 1080 840 - Medications Medications: Current Medications Acetaminophen (Tylenol 325mg Tab) 650 mg PO Q6 PRN PRN Reason: Headache Last Admin: 12/04/16 20:53 Dose: 650 mg Albuterol/Ipratropium (Duoneb 3 Mg/0.5 Mg (3 Ml) Ud) 3 ml INH RQ6 PRN PRN Reason: Shortness of Breath Enalapril Maleate (Vasotec) 5 mg PO 1500 [facility] Last Admin: 12/07/16 14:09 Dose: 5 mg Ethambutol HCl (Myambutol) 1,200 mg PO DAILY [facility] Last Admin: 12/07/16 09:16 Dose: 1,200 mg Famotidine (Pepcid) 20 mg PO 0800 [facility] Last Admin: 12/07/16 08:47 Dose: 20 mg Gabapentin (Neurontin) 300 mg PO TID [facility] Last Admin: 12/07/16 14:08 Dose: 300 mg Guaifenesin (Mucinex La) 600 mg PO 0800,2000 [facility] Last Admin: 12/07/16 08:46 Dose: 600 mg Heparin Sodium (Porcine) (Heparin) 5,000 units SC Q8 [facility] Last Admin: 12/07/16 14:08 Dose: 5,000 units Sodium Chloride (Sodium Chloride 0.9%) 1,000 mls @ 75 mls/hr IV .[id number] [facility] Last Admin: 12/07/16 05:46 Dose: 75 mls/hr Potassium Chloride (Potassium Chloride 10 Meq/100 Ml) 100 mls @ 100 mls/hr IVPB Q3H [facility] Stop: 12/07/16 21:44 Last Admin: 12/07/16 14:48 Dose: 100 mls/hr Insulin Aspart (Novolog) 0 unit SC ACHS [facility] PRN Reason: Protocol Last Admin: 12/07/16 14:08 Dose: Not Given Isoniazid (Niazid) 300 mg PO DAILY [facility] Last Admin: 12/07/16 09:17 Dose: 300 mg Metformin HCl (Glucophage) 1,000 mg PO 0800,1800 [facility] Last Admin: 12/07/16 08:46 Dose: 1,000 mg Montelukast Sodium (Singulair) 10 mg PO HS [facility] Last Admin: 12/06/16 21:43 Dose: 10 mg Ondansetron HCl (Zofran Inj) 4 mg IVP Q6H PRN PRN Reason: Nausea/Vomiting Last Admin: 12/06/16 12:52 Dose: 4 mg Pyrazinamide (Pyrazinamide) 1,000 mg PO DAILY [facility] Last Admin: 12/07/16 09:16 Dose: 1,000 mg Pyridoxine HCl (Vitamin B6) 100 mg PO DAILY [facility] Last Admin: 12/07/16 09:17 Dose: 100 mg Rifampin (Rifampin Cap) 600 mg PO DAILY [facility] Last Admin: 12/07/16 09:15 Dose: 600 mg - Labs Labs: 12/07/16 11:06 12/07/16 11:06 PT 13.6 SECONDS (9.7-12.2) H 12/01/16 07:37 INR 1.2 12/01/16 07:37 APTT 28 SECONDS (21-34) 12/01/16 07:37 Attending/Attestation - Attestation I have personally seen and examined this patient.: Yes I have fully participated in the care of the patient.: Yes I have reviewed all pertinent clinical information, including history, physical exam and plan: Yes Notes (Text): 12/07/16 18:33 Medical Attending: Patient was seen and examined by me. Agree with the above note by the resident. Need to follow LFT, also recent AFB studies have been positive. thank you
[2016-12-07] MEDS: (Novolog) Insulin Aspart, Recombinant 100 u/ml 10 ml vial SC SCH ×4 (08:32→22:00)
[2016-12-07] MEDS: guaiFENesin 600 mg ER Tab PO SCH ×2 (08:46→20:05)
[2016-12-07] MEDS: Pyridoxine 100 mg Tab PO SCH (09:17)
[2016-12-07 11:19] LABS: BASO % 0.3 % (0.0-2.0); EOS # 0.1 K/uL (0.0-0.7); HEMATOCRIT 36.5 % (35.0-51.0); LYMPH # 1.1 K/uL (1.0-4.3); LYMPH % 14.9 % (20.0-40.0); MEAN CELL VOLUME 69.3 fL (80.0-94.0); MEAN CORPUSCULAR HEMOGLOBIN 22.6 pg (27.0-31.0); MEAN CORPUSCULAR HGB CONC 32.6 g/dL (33.0-37.0); MEAN PLATELET VOLUME 7.5 fL (7.2-11.7); MONO # 0.7 K/uL (0.0-0.8); MONO % 9.2 % (0.0-10.0); NRBC % 0.1 % (0.0-2.0); RED CELL DISTRIBUTION WIDTH 16.8 % (11.5-14.5); WHITE BLOOD COUNT 7.4 K/uL (4.8-10.8)
[2016-12-07 11:24] LABS: CHLORIDE 93 mmol/L (98-107)
[2016-12-07 11:25] LABS: POTASSIUM 3.5 mmol/L (3.6-5.2); SODIUM 129 mmol/L (132-148)
[2016-12-07 11:27] LABS: ALB/GLOB RATIO 0.9 (1.0-2.1); AST/SGOT 28 U/L (17-59); BILIRUBIN,TOTAL 0.4 mg/dL (0.2-1.3); CARBON DIOXIDE 23 mmol/L (22-30); GFR AFRICAN-AMERICAN > 60; TOTAL PROTEIN 6.6 g/dL (6.3-8.3)
[2016-12-07 11:28] LABS: ALKALINE PHOSPHATASE 105 U/L (38-126); ALT/SGPT 38 U/L (21-72); BLOOD UREA NITROGEN 4 mg/dL (9-20); CALCIUM 8.6 mg/dl (8.6-10.4); GLUCOSE,RANDOM 179 mg/dL (75-110); MAGNESIUM 1.9 mg/dL (1.6-2.3); PHOSPHOROUS 3.2 mg/dL (2.5-4.5)
--- NOTE | 2016-12-07 14:41 | CP.PCM.PN ---
Subjective - Date & Time of Evaluation Date of Evaluation: 12/07/16 Time of Evaluation: 13:50 - Subjective Subjective: Pt seen and examined at bedside breathing comfortably on room air and reports doing very well, better than yesterday. Denies SOB, chest pain, congestion, and hemoptosis. Complains of minimal productive cough phlegm production unchanged from the previous day. Objective - Vital Signs/Intake and Output Vital Signs (last 24 hours): Temp Pulse Resp BP Pulse Ox 98.1 F 99 H 18 130/80 97 12/07/16 07:00 12/07/16 08:10 12/07/16 07:00 12/07/16 14:09 12/07/16 07:00 Intake and Output: 12/07/16 12/07/16 06:59 18:59 Intake Total 1080 840 Balance 1080 840 - Medications Medications: Current Medications Acetaminophen (Tylenol 325mg Tab) 650 mg PO Q6 PRN PRN Reason: Headache Last Admin: 12/04/16 20:53 Dose: 650 mg Albuterol/Ipratropium (Duoneb 3 Mg/0.5 Mg (3 Ml) Ud) 3 ml INH RQ6 PRN PRN Reason: Shortness of Breath Enalapril Maleate (Vasotec) 5 mg PO 1500 [facility] Last Admin: 12/07/16 14:09 Dose: 5 mg Ethambutol HCl (Myambutol) 1,200 mg PO DAILY [facility] Last Admin: 12/07/16 09:16 Dose: 1,200 mg Famotidine (Pepcid) 20 mg PO 0800 [facility] Last Admin: 12/07/16 08:47 Dose: 20 mg Gabapentin (Neurontin) 300 mg PO TID [facility] Last Admin: 12/07/16 14:08 Dose: 300 mg Guaifenesin (Mucinex La) 600 mg PO 0800,2000 [facility] Last Admin: 12/07/16 08:46 Dose: 600 mg Heparin Sodium (Porcine) (Heparin) 5,000 units SC Q8 [facility] Last Admin: 12/07/16 14:08 Dose: 5,000 units Sodium Chloride (Sodium Chloride 0.9%) 1,000 mls @ 75 mls/hr IV .[id number] [facility] Last Admin: 12/07/16 05:46 Dose: 75 mls/hr Insulin Aspart (Novolog) 0 unit SC ACHS [facility] PRN Reason: Protocol Last Admin: 12/07/16 14:08 Dose: Not Given Isoniazid (Niazid) 300 mg PO DAILY [facility] Last Admin: 12/07/16 09:17 Dose: 300 mg Metformin HCl (Glucophage) 1,000 mg PO 0800,1800 [facility] Last Admin: 12/07/16 08:46 Dose: 1,000 mg Montelukast Sodium (Singulair) 10 mg PO HS [facility] Last Admin: 12/06/16 21:43 Dose: 10 mg Ondansetron HCl (Zofran Inj) 4 mg IVP Q6H PRN PRN Reason: Nausea/Vomiting Last Admin: 12/06/16 12:52 Dose: 4 mg Pyrazinamide (Pyrazinamide) 1,000 mg PO DAILY [facility] Last Admin: 12/07/16 09:16 Dose: 1,000 mg Pyridoxine HCl (Vitamin B6) 100 mg PO DAILY [facility] Last Admin: 12/07/16 09:17 Dose: 100 mg Rifampin (Rifampin Cap) 600 mg PO DAILY [facility] Last Admin: 12/07/16 09:15 Dose: 600 mg - Labs Labs: 12/07/16 11:06 12/07/16 11:06 PT 13.6 SECONDS (9.7-12.2) H 12/01/16 07:37 INR 1.2 12/01/16 07:37 APTT 28 SECONDS (21-34) 12/01/16 07:37 - Constitutional Appears: Well, No Acute Distress - Head Exam Head Exam: ATRAUMATIC, NORMOCEPHALIC - Respiratory Exam Respiratory Exam: Decreased Breath Sounds (apex of lungs), Clear to Ausculation Bilateral, NORMAL BREATHING PATTERN - Cardiovascular Exam Cardiovascular Exam: +S1, +S2. absent: Murmur - Neurological Exam Neurological Exam: Alert, Awake, Oriented x3 - Psychiatric Exam Psychiatric exam: Normal Affect, Normal Mood - Skin Skin Exam: Dry, Intact, Normal Color, Warm Assessment and Plan (1) Tuberculosis Assessment & Plan: Chest X-ray on 11/30/16 showed left upper lobe cavitary measuring 5.4 X 6.4 cm. Extensive left upper lobe infiltrate, miliary appearance. See full report for details. Likely TB as opposed to lung malignancy. Serial AFB ordered showing rare 1+ acid fast bacilli (1) 11/30/2016, (2) 2016 Serial AFB ordered showing 2+ acid fast bacilli (3)12/02/2016, and (4)12/04/2016 Continue TB medications as per ID recommendations: ID consult, Dr. Espinal -> to start quadruple therapy for TB. ethambutol 1200mg PO daily isoniazide 300mg PO daily Prazinamide 1000mg PO daily Pyridoxine 100mg PO daily Rifampin 600mg PO daily Continue current management and follow-up as needed. Status: Acute
[2016-12-07] MEDS: Potassium Chloride 10 mEq 100 ML IVPB SCH ×3 (14:48→20:45)
[2016-12-08] MEDS: Sodium Chloride 0.9% 1,000 ML IV SCH (05:37)
[2016-12-08 06:40] LABS: BASO % 0.2 % (0.0-2.0); EOS # 0.2 K/uL (0.0-0.7); EOS % 3.6 % (0.0-4.0); HEMATOCRIT 36.5 % (35.0-51.0); LYMPH # 1.3 K/uL (1.0-4.3); LYMPH % 19.3 % (20.0-40.0); MEAN CELL VOLUME 68.9 fL (80.0-94.0); MEAN CORPUSCULAR HEMOGLOBIN 22.2 pg (27.0-31.0); MEAN CORPUSCULAR HGB CONC 32.2 g/dL (33.0-37.0); MEAN PLATELET VOLUME 7.2 fL (7.2-11.7); MONO # 0.7 K/uL (0.0-0.8); MONO % 10.9 % (0.0-10.0); RED CELL DISTRIBUTION WIDTH 16.8 % (11.5-14.5); WHITE BLOOD COUNT 6.6 K/uL (4.8-10.8)
[2016-12-08 06:54] LABS: CHLORIDE 96 mmol/L (98-107); SODIUM 134 mmol/L (132-148)
[2016-12-08 06:55] LABS: POTASSIUM 3.9 mmol/L (3.6-5.2)
[2016-12-08 06:56] LABS: GFR AFRICAN-AMERICAN > 60
[2016-12-08 06:57] LABS: ALB/GLOB RATIO 0.8 (1.0-2.1); ALKALINE PHOSPHATASE 127 U/L (38-126); AST/SGOT 27 U/L (17-59); BILIRUBIN,TOTAL 0.5 mg/dL (0.2-1.3); BLOOD UREA NITROGEN 4 mg/dL (9-20); CARBON DIOXIDE 23 mmol/L (22-30); GLUCOSE,RANDOM 136 mg/dL (75-110); PHOSPHOROUS 3.8 mg/dL (2.5-4.5); TOTAL PROTEIN 6.9 g/dL (6.3-8.3)
[2016-12-08 06:58] LABS: ALT/SGPT 36 U/L (21-72); CALCIUM 8.3 mg/dl (8.6-10.4); MAGNESIUM 1.8 mg/dL (1.6-2.3)
--- NOTE | 2016-12-08 07:27 | CP.PCM.PN ---
<Darien Drake - Last Filed: 12/08/16 15:00> Subjective - Date & Time of Evaluation Date of Evaluation: 12/08/16 Time of Evaluation: 07:30 - Subjective Subjective: PGY-1 Medicine note - Dr. Mora service Patient seen and examined at bedside, chart reviewed and case discussed. Patient overall continues to feel better. His cough is still producing yellow sputum but he reports that it is better than it was yesterday. He vomited yesterday about an hour after he took his meds but he has come to expect it. He complains of bilateral leg pain which he believes is due to his lack of ambulation. Patient denies hemoptysis, leg swelling, fever, chills, headache, diarrhea, dysuria or any additional acute complaints at this time. Objective - Vital Signs/Intake and Output Vital Signs (last 24 hours): Temp Pulse Resp BP Pulse Ox 98.1 F 110 H 20 125/81 98 12/08/16 00:00 12/08/16 00:00 12/08/16 00:00 12/08/16 00:00 12/08/16 00:00 Intake and Output: 12/08/16 12/08/16 06:59 18:59 Intake Total 1940 Balance 1940 - Medications Medications: Current Medications Acetaminophen (Tylenol 325mg Tab) 650 mg PO Q6 PRN PRN Reason: Headache Last Admin: 12/04/16 20:53 Dose: 650 mg Albuterol/Ipratropium (Duoneb 3 Mg/0.5 Mg (3 Ml) Ud) 3 ml INH RQ6 PRN PRN Reason: Shortness of Breath Enalapril Maleate (Vasotec) 5 mg PO 1500 [facility] Last Admin: 12/07/16 14:09 Dose: 5 mg Ethambutol HCl (Myambutol) 1,200 mg PO DAILY [facility] Last Admin: 12/07/16 09:16 Dose: 1,200 mg Famotidine (Pepcid) 20 mg PO 0800 [facility] Last Admin: 12/07/16 08:47 Dose: 20 mg Gabapentin (Neurontin) 300 mg PO TID [facility] Last Admin: 12/07/16 18:00 Dose: 300 mg Guaifenesin (Mucinex La) 600 mg PO 0800,2000 [facility] Last Admin: 04/04/17 20:05 Dose: 600 mg Heparin Sodium (Porcine) (Heparin) 5,000 units SC Q8 [facility] Last Admin: 12/08/16 05:37 Dose: 5,000 units Sodium Chloride (Sodium Chloride 0.9%) 1,000 mls @ 75 mls/hr IV .[id number] [facility] Last Admin: 12/08/16 05:37 Dose: 75 mls/hr Insulin Aspart (Novolog) 0 unit SC ACHS [facility] PRN Reason: Protocol Last Admin: 12/07/16 22:00 Dose: Not Given Isoniazid (Niazid) 300 mg PO DAILY [facility] Last Admin: 12/07/16 09:17 Dose: 300 mg Metformin HCl (Glucophage) 1,000 mg PO 0800,1800 [facility] Last Admin: 12/07/16 18:00 Dose: 1,000 mg Montelukast Sodium (Singulair) 10 mg PO HS [facility] Last Admin: 12/07/16 22:00 Dose: 10 mg Ondansetron HCl (Zofran Inj) 4 mg IVP Q6H PRN PRN Reason: Nausea/Vomiting Last Admin: 12/06/16 12:52 Dose: 4 mg Pyrazinamide (Pyrazinamide) 1,000 mg PO DAILY [facility] Last Admin: 12/07/16 09:16 Dose: 1,000 mg Pyridoxine HCl (Vitamin B6) 100 mg PO DAILY [facility] Last Admin: 12/07/16 09:17 Dose: 100 mg Rifampin (Rifampin Cap) 600 mg PO DAILY [facility] Last Admin: 12/07/16 09:15 Dose: 600 mg - Labs Labs: 12/08/16 06:29 12/08/16 06:29 PT 13.6 SECONDS (9.7-12.2) H 12/01/16 07:37 INR 1.2 12/01/16 07:37 APTT 28 SECONDS (21-34) 12/01/16 07:37 - Additional Findings Additional findings: - Constitutional Appears: Non-toxic, No Acute Distress - Head Exam Head Exam: NORMAL INSPECTION - Eye Exam Eye Exam: Normal appearance. absent: Conjunctival injection, Scleral icterus - ENT Exam ENT Exam: Mucous Membranes Moist - Neck Exam Neck Exam: Normal Inspection - Respiratory Exam Respiratory Exam: Clear to Ausculation Bilateral, NORMAL BREATHING PATTERN. absent: Rales, Rhonchi, Wheezes - Cardiovascular Exam Cardiovascular Exam: REGULAR RHYTHM, +S1, +S2 - GI/Abdominal Exam GI & Abdominal Exam: Soft, Normal Bowel Sounds. absent: Tenderness - Extremities Exam Extremities Exam: Normal Capillary Refill, Normal Inspection. absent: Calf Tenderness, Pedal Edema -b/l cordova tenderness to palpation - Back Exam Back Exam: NORMAL INSPECTION. absent: rash noted - Neurological Exam Neurological Exam: Alert, Awake, Normal Gait, Oriented x3 - Psychiatric Exam Psychiatric exam: Normal Affect, Normal Mood - Skin Skin Exam: Dry, Intact, Normal Color, Warm Assessment and Plan - Assessment and Plan (Free Text) Assessment: 51year old male admitted to rule out active TB Plan: Tuberculosis, active 12/08: f/u daily AFB cultures until 3 negative cultures result. Refused blood work today. - Mycobacterial Sputum Cultures 12/06 AFB: 2+ acid fast bacilli 12/04 AFB: 2+ acid fast bacilli 12/02 AFB: 2+ acid fast bacilli 12/01 AFB: 1+ acid fast bacilli 11/30 AFB: 1+ acid fast bacilli -ID consult, Dr. Espinal -> Continue quadruple therapy for TB. ethambutol 1200mg PO daily (started 12/02) isoniazide 300mg PO daily (started 12/02) Prazinamide 1500mg PO daily (started 12/02) (increased 12/08 for weight based dosing) Pyridoxine 100mg PO daily (started 12/02) Rifampin 600mg PO daily (started 12/02) -Monitor LFT's: WNL 11/30 - 12/07 -HIV negative -Quant Gold - negative -Note: Disk containing CT + CXR images is in the physical chart. -Cavitary left upper lobe infiltrate/mass. CT scan may be beneficial in further assessment of this process primarily affecting the posterior segment. The cavitary comes/cystic component is best seen on the lateral view measuring 5.2 x 6.4 cm. -Pulm Consult, Dr. Frazier -> bronchoscopy 12/01 AM cancelled, as CT imaging showed clear TB infection f/u sputum studies and sputum PCR -Continue Mucinex 600mg PO BID; Singulair 10mg PO HS; Duonebs RQ6 PRN Tachycardia -persistent tachycardia since 12/07/16 (100's-120's) -CXR 12/08- Increasing opacity of left lung with cavitation in the left apex and left apical pleural thickening. Likely infectious process. Consider fungal or atypical mycobacterial. 5 mm nodule in right apex. Consider further evaluation with computed tomography. 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 Fe 28 L, TIBC 243 L, %Sat 12 L haptoglobin 501 H Monitor outpatient Hypertension 12/08: BP WNL, continue to monitor BP WNL on admission Continue home Enalapril 5mg PO d Electrolyte Imbalance Hypokalemia, K3.5 - Resolved. Prophylaxis respiratory isolation STOP: NS 0.9 at 75cc/hr (stopped 12/08) Vegetarian Diet, carb consistent, low sodium Pepcid 20mg PO d Heparin 5k units SC q8H Zofran 4mg PO Q6 PRN SCDs <Darien Armendariz H - Last Filed: 12/08/16 15:33> Objective - Vital Signs/Intake and Output Vital Signs (last 24 hours): Temp Pulse Resp BP Pulse Ox 98.0 F 115 H 20 145/90 98 12/08/16 08:20 12/08/16 08:51 12/08/16 08:20 12/08/16 08:20 12/08/16 08:20 Intake and Output: 12/08/16 12/08/16 06:59 18:59 Intake Total 1939 Balance 194 - Medications Medications: Current Medications Acetaminophen (Tylenol 325mg Tab) 650 mg PO Q6 PRN PRN Reason: Headache Last Admin: 12/04/16 20:53 Dose: 650 mg Albuterol/Ipratropium (Duoneb 3 Mg/0.5 Mg (3 Ml) Ud) 3 ml INH RQ6 PRN PRN Reason: Shortness of Breath Enalapril Maleate (Vasotec) 5 mg PO 1500 [facility] Last Admin: 12/07/16 14:09 Dose: 5 mg Ethambutol HCl (Myambutol) 1,200 mg PO DAILY [facility] Last Admin: 12/08/16 10:33 Dose: 1,200 mg Famotidine (Pepcid) 20 mg PO 0800 [facility] Last Admin: 12/08/16 09:00 Dose: 20 mg Gabapentin (Neurontin) 300 mg PO TID [facility] Last Admin: 12/08/16 13:39 Dose: 300 mg Guaifenesin (Mucinex La) 600 mg PO 0800,2000 [facility] Last Admin: 12/08/16 09:00 Dose: 600 mg Heparin Sodium (Porcine) (Heparin) 5,000 units SC Q8 [facility] Last Admin: 12/08/16 13:38 Dose: 5,000 units Insulin Aspart (Novolog) 0 unit SC ACHS [facility] PRN Reason: Protocol Last Admin: 12/08/16 12:30 Dose: 1 unit Isoniazid (Niazid) 300 mg PO DAILY [facility] Last Admin: 12/08/16 10:34 Dose: 300 mg Metformin HCl (Glucophage) 1,000 mg PO 0800,1800 [facility] Last Admin: 12/08/16 09:00 Dose: 1,000 mg Montelukast Sodium (Singulair) 10 mg PO HS [facility] Last Admin: 12/07/16 22:00 Dose: 10 mg Ondansetron HCl (Zofran Inj) 4 mg IVP Q6H PRN PRN Reason: Nausea/Vomiting Last Admin: 12/06/16 12:52 Dose: 4 mg Pyrazinamide (Pyrazinamide) 1,500 mg PO DAILY [facility] Pyridoxine HCl (Vitamin B6) 100 mg PO DAILY [facility] Last Admin: 12/08/16 10:32 Dose: 100 mg Rifampin (Rifampin Cap) 600 mg PO DAILY [facility] Last Admin: 12/08/16 10:33 Dose: 600 mg - Labs Labs: 12/08/16 06:29 12/08/16 06:29 PT 13.6 SECONDS (9.7-12.2) H 12/01/16 07:37 INR 1.2 12/01/16 07:37 APTT 28 SECONDS (21-34) 12/01/16 07:37 Attending/Attestation - Attestation I have personally seen and examined this patient.: Yes I have fully participated in the care of the patient.: Yes I have reviewed all pertinent clinical information, including history, physical exam and plan: Yes Notes (Text): 12/08/16 15:31 Medical Attending: Patient was seen and examined by me. Agree with the above note by the resident. The patient is continuing the TB medications. The patient also was tachycardic today and a CXRAY was repeated. It appeas as if the left upper lobe is worsening, the patient will get a CT without contrast now thank you Darien Armendariz
[2016-12-08] MEDS: (Novolog) Insulin Aspart, Recombinant 100 u/ml 10 ml vial SC SCH ×4 (08:30→21:29)
[2016-12-08] MEDS: guaiFENesin 600 mg ER Tab PO SCH ×2 (09:00→21:28)
[2016-12-08] MEDS: Pyridoxine 100 mg Tab PO SCH (10:32)
--- NOTE | 2016-12-08 14:16 | RAD ---
HISTORY: tachycardia, evaluate TB mass COMPARISON: 11/30/2016 FINDINGS: LUNGS: Increasing opacity throughout left lung. There remains apparent cavitation in the left apex. There is left apical pleural thickening. There is no right-sided opacity. There is a 5 mm nodule in the right lung apex, just inferior to the 1st rib. Consider further evaluation with computed tomography. PLEURA: No significant pleural effusion identified, no pneumothorax apparent. CARDIOVASCULAR: Normal. OSSEOUS STRUCTURES: No significant abnormalities. VISUALIZED UPPER ABDOMEN: Normal. OTHER FINDINGS: None. IMPRESSION: Increasing opacity of left lung with cavitation in the left apex and left apical pleural thickening. Likely infectious process. Consider fungal or atypical mycobacterial. 5 mm nodule in right apex. Consider further evaluation with computed tomography.
--- NOTE | 2016-12-08 16:38 | CP.PCM.PN ---
Subjective - Date & Time of Evaluation Date of Evaluation: 12/08/16 Time of Evaluation: 09:00 - Subjective Subjective: PZA dose adjusted Objective - Vital Signs/Intake and Output Vital Signs (last 24 hours): Temp Pulse Resp BP Pulse Ox 98.0 F 115 H 20 145/90 98 12/08/16 08:20 12/08/16 08:51 12/08/16 08:20 12/08/16 08:20 12/08/16 08:20 Intake and Output: 12/08/16 12/08/16 06:59 18:59 Intake Total 1939 Balance 1939 - Medications Medications: Current Medications Acetaminophen (Tylenol 325mg Tab) 650 mg PO Q6 PRN PRN Reason: Headache Last Admin: 12/04/16 20:53 Dose: 650 mg Albuterol/Ipratropium (Duoneb 3 Mg/0.5 Mg (3 Ml) Ud) 3 ml INH RQ6 PRN PRN Reason: Shortness of Breath Enalapril Maleate (Vasotec) 5 mg PO 1500 [facility] Last Admin: 12/07/16 14:09 Dose: 5 mg Ethambutol HCl (Myambutol) 1,200 mg PO DAILY [facility] Last Admin: 12/08/16 10:33 Dose: 1,200 mg Famotidine (Pepcid) 20 mg PO 0800 [facility] Last Admin: 12/08/16 09:00 Dose: 20 mg Gabapentin (Neurontin) 300 mg PO TID [facility] Last Admin: 12/08/16 13:39 Dose: 300 mg Guaifenesin (Mucinex La) 600 mg PO 0800,2000 [facility] Last Admin: 12/08/16 09:00 Dose: 600 mg Heparin Sodium (Porcine) (Heparin) 5,000 units SC Q8 [facility] Last Admin: 12/08/16 13:38 Dose: 5,000 units Insulin Aspart (Novolog) 0 unit SC ACHS [facility] PRN Reason: Protocol Last Admin: 12/08/16 12:30 Dose: 1 unit Isoniazid (Niazid) 300 mg PO DAILY [facility] Last Admin: 12/08/16 10:34 Dose: 300 mg Metformin HCl (Glucophage) 1,000 mg PO 0800,1800 [facility] Last Admin: 12/08/16 09:00 Dose: 1,000 mg Montelukast Sodium (Singulair) 10 mg PO HS [facility] Last Admin: 12/07/16 22:00 Dose: 10 mg Ondansetron HCl (Zofran Inj) 4 mg IVP Q6H PRN PRN Reason: Nausea/Vomiting Last Admin: 12/06/16 12:52 Dose: 4 mg Pyrazinamide (Pyrazinamide) 1,500 mg PO DAILY [facility] Pyridoxine HCl (Vitamin B6) 100 mg PO DAILY [facility] Last Admin: 12/08/16 10:32 Dose: 100 mg Rifampin (Rifampin Cap) 600 mg PO DAILY [facility] Last Admin: 12/08/16 10:33 Dose: 600 mg - Labs Labs: 12/08/16 06:29 12/08/16 06:29 PT 13.6 SECONDS (9.7-12.2) H 12/01/16 07:37 INR 1.2 12/01/16 07:37 APTT 28 SECONDS (21-34) 12/01/16 07:37 Assessment and Plan (1) Pulmonary tuberculosis with cavitation Status: Acute (2) Tuberculosis Status: Acute (3) Pneumonia Status: Acute (4) Diabetes Status: Acute
--- NOTE | 2016-12-08 16:55 | CT ---
PROCEDURE: CT Chest without contrast HISTORY: TB - increased opacification on CXR COMPARISON: None. TECHNIQUE: Contiguous axial images were obtained through the chest without intravenous contrast enhancement. Sagittal and coronal reconstructions were performed. Radiation dose (DLP): 273.26 mGy-cm. This CT exam was performed using one or more of the following dose reduction techniques: Automated exposure control, adjustment of the mA and/or kV according to patient size, and/or use of iterative reconstruction technique. FINDINGS: LUNGS: Extensive small ill-defined nodular opacities throughout left upper lobe with areas of confluent consolidation. In left apex there is consolidation with extensive central cavitation. There are numerous small nodular opacities in the left lower lobe, particularly in the superior segment. No right-sided opacities are evident. It is likely that these small nodular opacities reflect small airways disease progressing to freeman alveolar pattern. Eight nodular opacity seen on plain chest radiograph in the right apex is not evident on the CT examination. There is a calcified granuloma in the left apex and multiple calcified granulomas in the left lower lobe. A few right-sided calcified granulomas are noted as well. . MEDIASTINUM: Unremarkable thoracic aorta. No aneurysm. Normal sized heart. Main pulmonary artery unremarkable. No vascular congestion. Mild prevascular mediastinal lymphadenopathy. Suspect left hilar lymphadenopathy though evaluation is limited by the absence of intravenous contrast administration. PLEURA: No pleural fluid. No pneumothorax. BONES: No fracture. No destructive lesion. UPPER ABDOMEN: Grossly unremarkable. OTHER FINDINGS: None. IMPRESSION: Extensive small ill-defined nodular opacities throughout left upper lobe as well as superior segment left lower lobe with areas of freeman consolidation. Extensive cavitation amidst a large area of consolidation in the left apex. Scattered calcified granulomas bilaterally. Findings may reflect granulomatous disease but also consider fungal infection or atypical mycobacterium in an immunocompromised patient.
[2016-12-09 06:49] LABS: CHLORIDE 96 mmol/L (98-107); SODIUM 131 mmol/L (132-148)
[2016-12-09 06:50] LABS: POTASSIUM 3.8 mmol/L (3.6-5.2)
[2016-12-09 06:52] LABS: ALKALINE PHOSPHATASE 129 U/L (38-126); AST/SGOT 26 U/L (17-59); BILIRUBIN,TOTAL 0.6 mg/dL (0.2-1.3); BLOOD UREA NITROGEN 3 mg/dL (9-20); CARBON DIOXIDE 20 mmol/L (22-30); GFR AFRICAN-AMERICAN > 60; GLUCOSE,RANDOM 147 mg/dL (75-110); PHOSPHOROUS 4.2 mg/dL (2.5-4.5); TOTAL PROTEIN 7.8 g/dL (6.3-8.3)
[2016-12-09 06:53] LABS: ALT/SGPT 35 U/L (21-72); BASO % 0.2 % (0.0-2.0); CALCIUM 9.2 mg/dl (8.6-10.4); EOS # 0.3 K/uL (0.0-0.7); EOS % 3.5 % (0.0-4.0); HEMATOCRIT 38.3 % (35.0-51.0); LYMPH # 1.2 K/uL (1.0-4.3); MAGNESIUM 1.8 mg/dL (1.6-2.3); MEAN CELL VOLUME 69.6 fL (80.0-94.0); MEAN CORPUSCULAR HEMOGLOBIN 22.7 pg (27.0-31.0); MEAN CORPUSCULAR HGB CONC 32.7 g/dL (33.0-37.0); MEAN PLATELET VOLUME 7.3 fL (7.2-11.7); MONO # 0.8 K/uL (0.0-0.8); MONO % 11.4 % (0.0-10.0); WHITE BLOOD COUNT 7.3 K/uL (4.8-10.8)
[2016-12-09 07:22] LABS: THYROID STIMULATING HORMONE 1.88 mIU/L (0.46-4.68)
--- NOTE | 2016-12-09 07:57 | CP.PCM.PN ---
Subjective - Date & Time of Evaluation Date of Evaluation: 12/09/16 Time of Evaluation: 07:15 - Subjective Subjective: PGY-1 Medicine note - Dr. Mora service Patient seen and examined at bedside, chart reviewed and case discussed. Patient overall continues to feel better. His cough is still producing yellow sputum but he reports that it is better than it was yesterday. He has not vomited since 12/07. He has been ambulating around his room and reports that has relieved his leg pain. Patient denies hemoptysis, leg swelling, fever, chills, headache, diarrhea, dysuria or any additional acute complaints at this time. Objective - Vital Signs/Intake and Output Vital Signs (last 24 hours): Temp Pulse Resp BP Pulse Ox 99.1 F 68 20 127/85 100 12/09/16 00:00 12/09/16 00:00 12/09/16 00:00 12/09/16 00:00 12/09/16 00:00 Intake and Output: 12/09/16 12/09/16 06:59 18:59 Intake Total 200 Balance 200 - Medications Medications: Current Medications Acetaminophen (Tylenol 325mg Tab) 650 mg PO Q6 PRN PRN Reason: Headache Last Admin: 12/04/16 20:53 Dose: 650 mg Albuterol/Ipratropium (Duoneb 3 Mg/0.5 Mg (3 Ml) Ud) 3 ml INH RQ6 PRN PRN Reason: Shortness of Breath Enalapril Maleate (Vasotec) 5 mg PO 1500 [facility] Last Admin: 12/08/16 17:54 Dose: 5 mg Ethambutol HCl (Myambutol) 1,200 mg PO DAILY [facility] Last Admin: 12/08/16 10:33 Dose: 1,200 mg Famotidine (Pepcid) 20 mg PO 0800 [facility] Last Admin: 12/08/16 09:00 Dose: 20 mg Gabapentin (Neurontin) 300 mg PO TID [facility] Last Admin: 12/08/16 17:51 Dose: 300 mg Guaifenesin (Mucinex La) 600 mg PO 0800,2000 [facility] Last Admin: 12/08/16 21:28 Dose: 600 mg Heparin Sodium (Porcine) (Heparin) 5,000 units SC Q8 [facility] Last Admin: 12/09/16 05:31 Dose: 5,000 units Insulin Aspart (Novolog) 0 unit SC ACHS [facility] PRN Reason: Protocol Last Admin: 12/08/16 21:29 Dose: Not Given Isoniazid (Niazid) 300 mg PO DAILY [facility] Last Admin: 12/08/16 10:34 Dose: 300 mg Metformin HCl (Glucophage) 1,000 mg PO 0800,1800 [facility] Last Admin: 12/08/16 17:51 Dose: 1,000 mg Montelukast Sodium (Singulair) 10 mg PO HS [facility] Last Admin: 12/08/16 21:28 Dose: 10 mg Ondansetron HCl (Zofran Inj) 4 mg IVP Q6H PRN PRN Reason: Nausea/Vomiting Last Admin: 12/06/16 12:52 Dose: 4 mg Pyrazinamide (Pyrazinamide) 1,500 mg PO DAILY [facility] Pyridoxine HCl (Vitamin B6) 100 mg PO DAILY [facility] Last Admin: 12/08/16 10:32 Dose: 100 mg Rifampin (Rifampin Cap) 600 mg PO DAILY [facility] Last Admin: 12/08/16 10:33 Dose: 600 mg - Labs Labs: 12/09/16 06:25 12/09/16 06:25 PT 13.6 SECONDS (9.7-12.2) H 12/01/16 07:37 INR 1.2 12/01/16 07:37 APTT 28 SECONDS (21-34) 12/01/16 07:37 - Additional Findings Additional findings: - Constitutional Appears: Non-toxic, No Acute Distress - Head Exam Head Exam: NORMAL INSPECTION - Eye Exam Eye Exam: Normal appearance. absent: Conjunctival injection, Scleral icterus - ENT Exam ENT Exam: Mucous Membranes Moist - Neck Exam Neck Exam: Normal Inspection - Respiratory Exam Respiratory Exam: Clear to Ausculation Bilateral, NORMAL BREATHING PATTERN. absent: Rales, Rhonchi, Wheezes - Cardiovascular Exam Cardiovascular Exam: REGULAR RHYTHM, +S1, +S2 - GI/Abdominal Exam GI & Abdominal Exam: Soft, Normal Bowel Sounds. absent: Tenderness - Extremities Exam Extremities Exam: Normal Capillary Refill, Normal Inspection. absent: Calf Tenderness, Pedal Edema -b/l cordova tenderness improved with ambulation - Back Exam Back Exam: NORMAL INSPECTION. absent: rash noted - Neurological Exam Neurological Exam: Alert, Awake, Normal Gait, Oriented x3 - Psychiatric Exam Psychiatric exam: Normal Affect, Normal Mood - Skin Skin Exam: Dry, Intact, Normal Color, Warm Assessment and Plan - Assessment and Plan (Free Text) Assessment: 51year old male admitted to rule out active TB Plan: Tuberculosis, active 12/09: AFB's collected for last 3 days, awaiting results. 12/08: f/u daily AFB cultures until 3 negative cultures result. Refused blood work today. - Mycobacterial Sputum Cultures 12/06 AFB: 2+ acid fast bacilli 12/04 AFB: 2+ acid fast bacilli 12/02 AFB: 2+ acid fast bacilli 12/01 AFB: 1+ acid fast bacilli 11/30 AFB: 1+ acid fast bacilli -ID consult, Dr. Espinal -> Continue quadruple therapy for TB. ethambutol 1200mg PO daily (started 12/02) isoniazide 300mg PO daily (started 12/02) Prazinamide 1500mg PO daily (started 12/02) (increased 12/08 for weight based dosing) Pyridoxine 100mg PO daily (started 12/02) Rifampin 600mg PO daily (started 12/02) -Monitor LFT's: WNL 11/30 - 12/09 -HIV negative -Quant Gold - negative -Note: Disk containing CT + CXR images is in the physical chart. -Cavitary left upper lobe infiltrate/mass. CT scan may be beneficial in further assessment of this process primarily affecting the posterior segment. The cavitary comes/cystic component is best seen on the lateral view measuring 5.2 x 6.4 cm. -Pulm Consult, Dr. Frazier -> bronchoscopy 12/[address], [address] imaging showed clear TB infection f/u sputum studies and sputum PCR -Continue Mucinex 600mg PO BID; Singulair 10mg PO HS; Duonebs RQ6 PRN Tachycardia 12/09: persistent tachycardia since 12/07/16 (100's-120's). -TSH + free T4 - both WNL -> r/o hyperthyroidism -CXR 12/08- Increasing opacity of left lung with cavitation in the left apex and left apical pleural thickening. Likely infectious process. Consider fungal or atypical mycobacterial. 5 mm nodule in right apex. Consider further evaluation with computed tomography. Diabetes 12/08: glucose WNL, continue current regimen Metformin 1000mg PO BID Novolog RISS Neurontin 300mg PO TID A1c 12.4 FLP grossly WNL; HDL 28 L Glucose 233 on admission Alpha Thalassemia MCV 69.7 Ferritin 77.3, B12 950 H, folate 11.2, reticulocyte count 1.0 hemoglobinopathy inerpretation - possible Alpha-thalassemia. Fe 28 L, TIBC 243 L, %Sat 12 L haptoglobin 501 H Monitor outpatient Hypertension 12/09: BP elevated 154/80. Continue to monitor. 12/08: BP WNL, continue to monitor BP WNL on admission Continue home Enalapril 5mg PO d Electrolyte Imbalance Hypokalemia, K3.5 - Resolved. Prophylaxis respiratory isolation STOP: NS 0.9 at 75cc/hr (stopped 12/08) Vegetarian Diet, carb consistent, low sodium Pepcid 20mg PO d Heparin 5k units SC q8H Zofran 4mg PO Q6 PRN SCDs
[2016-12-09] MEDS: (Novolog) Insulin Aspart, Recombinant 100 u/ml 10 ml vial SC SCH ×4 (08:31→22:14)
[2016-12-09] MEDS: guaiFENesin 600 mg ER Tab PO SCH ×2 (10:30→20:00)
[2016-12-09] MEDS: Pyridoxine 100 mg Tab PO SCH (10:32)
--- NOTE | 2016-12-10 07:34 | CP.PCM.PN ---
<Darien Drake - Last Filed: 12/10/16 20:34> Subjective - Date & Time of Evaluation Date of Evaluation: 12/10/16 Time of Evaluation: 07:05 - Subjective Subjective: PGY-1 Medicine note - Dr. Mora service Patient seen and examined at bedside, chart reviewed and case discussed. Patient overall continues to feel better. His cough is still producing yellow and occasionally white sputum but he reports that it is improved. He has not vomited since 12/07. He is concerned about recent unintentional weight loss. Denies hemoptysis, leg swelling, fever, chills, headache, diarrhea, dysuria or any additional acute complaints at this time. Objective - Vital Signs/Intake and Output Vital Signs (last 24 hours): Temp Pulse Resp BP Pulse Ox 98.7 F 110 H 20 113/77 97 12/10/16 00:00 12/10/16 00:00 12/10/16 00:00 12/10/16 00:00 12/10/16 00:00 Intake and Output: 12/10/16 12/10/16 06:59 18:59 Intake Total 540 Balance 540 - Medications Medications: Current Medications Acetaminophen (Tylenol 325mg Tab) 650 mg PO Q6 PRN PRN Reason: Headache Last Admin: 12/04/16 20:53 Dose: 650 mg Albuterol/Ipratropium (Duoneb 3 Mg/0.5 Mg (3 Ml) Ud) 3 ml INH RQ6 PRN PRN Reason: Shortness of Breath Enalapril Maleate (Vasotec) 5 mg PO 1500 [facility] Last Admin: 12/09/16 15:04 Dose: 5 mg Ethambutol HCl (Myambutol) 1,200 mg PO DAILY [facility] Last Admin: 12/09/16 10:29 Dose: 1,200 mg Famotidine (Pepcid) 20 mg PO 0800 [facility] Last Admin: 12/09/16 08:32 Dose: 20 mg Gabapentin (Neurontin) 300 mg PO TID [facility] Last Admin: 12/09/16 17:21 Dose: 300 mg Guaifenesin (Mucinex La) 600 mg PO 0800,2000 [facility] Last Admin: 12/09/16 20:00 Dose: 600 mg Heparin Sodium (Porcine) (Heparin) 5,000 units SC Q8 [facility] Last Admin: 12/10/16 05:33 Dose: 5,000 units Insulin Aspart (Novolog) 0 unit SC ACHS [facility] PRN Reason: Protocol Last Admin: 12/09/16 22:14 Dose: Not Given Isoniazid (Niazid) 300 mg PO DAILY [facility] Last Admin: 12/09/16 10:30 Dose: 300 mg Metformin HCl (Glucophage) 1,000 mg PO 0800,1800 [facility] Last Admin: 12/09/16 17:22 Dose: 1,000 mg Montelukast Sodium (Singulair) 10 mg PO HS [facility] Last Admin: 12/09/16 22:09 Dose: 10 mg Ondansetron HCl (Zofran Inj) 4 mg IVP Q6H PRN PRN Reason: Nausea/Vomiting Last Admin: 12/06/16 12:52 Dose: 4 mg Pyrazinamide (Pyrazinamide) 1,500 mg PO DAILY [facility] Last Admin: 12/09/16 10:29 Dose: 1,500 mg Pyridoxine HCl (Vitamin B6) 100 mg PO DAILY [facility] Last Admin: 12/09/16 10:32 Dose: 100 mg Rifampin (Rifampin Cap) 600 mg PO DAILY [facility] Last Admin: 12/09/16 10:29 Dose: 600 mg - Labs Labs: 12/09/16 06:25 12/09/16 06:25 PT 13.6 SECONDS (9.7-12.2) H 12/01/16 07:37 INR 1.2 12/01/16 07:37 APTT 28 SECONDS (21-34) 12/01/16 07:37 - Additional Findings Additional findings: - Constitutional Appears: Non-toxic, No Acute Distress - Head Exam Head Exam: NORMAL INSPECTION - Eye Exam Eye Exam: Normal appearance. absent: Conjunctival injection, Scleral icterus - ENT Exam ENT Exam: Mucous Membranes Moist - Neck Exam Neck Exam: Normal Inspection - Respiratory Exam Respiratory Exam: Clear to Ausculation Bilateral, NORMAL BREATHING PATTERN. absent: Rales, Rhonchi, Wheezes - Cardiovascular Exam Cardiovascular Exam: REGULAR RHYTHM, +S1, +S2 - GI/Abdominal Exam GI & Abdominal Exam: Soft, Normal Bowel Sounds. absent: Tenderness - Extremities Exam Extremities Exam: Normal Capillary Refill, Normal Inspection. absent: Calf Tenderness, Pedal Edema - Back Exam Back Exam: NORMAL INSPECTION. absent: rash noted - Neurological Exam Neurological Exam: Alert, Awake, Normal Gait, Oriented x3 - Psychiatric Exam Psychiatric exam: Normal Affect, Normal Mood - Skin Skin Exam: Dry, Intact, Normal Color, Warm Assessment and Plan - Assessment and Plan (Free Text) Assessment: 51year old male admitted to rule out active TB Plan: Tuberculosis, active 12/09-12/10: AFB's collected for last 3 days, awaiting results. 12/08: f/u daily AFB cultures until 3 negative cultures result. Refused blood work today. - Mycobacterial Sputum Cultures 12/09 AFB: 1+ acid fast bacilli 12/06 AFB: 2+ acid fast bacilli 12/04 AFB: 2+ acid fast bacilli 12/02 AFB: 2+ acid fast bacilli 12/01 AFB: 1+ acid fast bacilli 11/30 AFB: 1+ acid fast bacilli -ID consult, Dr. Espinal -> Continue quadruple therapy for TB. 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 WILL LIKELY TAKE SEVERAL WEEKS TO CLEAR SPUTUM ethambutol 1200mg PO daily (started 12/02) isoniazide 300mg PO daily (started 12/02) Prazinamide 1500mg PO daily (started 12/02) (increased 12/08 for weight based dosing) Pyridoxine 100mg PO daily (started 12/02) Rifampin 600mg PO daily (started 12/02) -Monitor LFT's: WNL 11/30 - 12/10 -HIV negative -Quant Gold - negative -Note: Disk containing CT + CXR images is in the physical chart. -Cavitary left upper lobe infiltrate/mass. CT scan may be beneficial in further assessment of this process primarily affecting the posterior segment. The cavitary comes/cystic component is best seen on the lateral view measuring 5.2 x 6.4 cm. -Pulm Consult, Dr. Frazier -> bronchoscopy 12/01 AM cancelled, [address] imaging showed clear TB infection f/u sputum studies and sputum PCR -Continue Mucinex 600mg PO BID; Singulair 10mg PO HS; Duonebs RQ6 PRN Tachycardia 12/10: tachycardia persists, however in low 100's today. 12/09: persistent tachycardia since 12/07/16 (100's-120's). -TSH + free T4 - both WNL -> r/o hyperthyroidism -CXR 12/08- Increasing opacity of left lung with cavitation in the left apex and left apical pleural thickening. Likely infectious process. Consider fungal or atypical mycobacterial. 5 mm nodule in right apex. Consider further evaluation with computed tomography. Diabetes 12/08-12/10: glucose WNL, continue current regimen Metformin 1000mg PO BID Novolog RISS Neurontin 300mg PO TID A1c 12.4 FLP grossly WNL; HDL 28 L Glucose 233 on admission Alpha Thalassemia MCV 69.7 Ferritin 77.3, B12 950 H, folate 11.2, reticulocyte count 1.0 hemoglobinopathy inerpretation - possible Alpha-thalassemia. Fe 28 L, TIBC 243 L, %Sat 12 L haptoglobin 501 H Monitor outpatient Hypertension 12/10: BP WNL 12/09: BP elevated 154/80. Continue to monitor. 12/08: BP WNL, continue to monitor BP WNL on admission Continue home Enalapril 5mg PO d Electrolyte Imbalance Hypokalemia, K3.5 - Resolved. Prophylaxis respiratory isolation STOP: NS 0.9 at 75cc/hr (stopped 12/08) Vegetarian Diet, carb consistent, low sodium Pepcid 20mg PO d Heparin 5k units SC q8H Zofran 4mg PO Q6 PRN SCDs <KalaPeter H - Last Filed: 12/11/16 08:08> Objective - Vital Signs/Intake and Output Vital Signs (last 24 hours): Temp Pulse Resp BP Pulse Ox 98.6 F 128 H 20 130/90 98 12/11/16 08:05 12/11/16 08:05 12/11/16 08:05 12/11/16 08:05 12/11/16 08:05 Intake and Output: 12/11/16 12/11/16 06:59 18:59 Intake Total 300 240 Balance 300 240 - Medications Medications: Current Medications Acetaminophen (Tylenol 325mg Tab) 650 mg PO Q6 PRN PRN Reason: Headache Last Admin: 12/04/16 20:53 Dose: 650 mg Albuterol/Ipratropium (Duoneb 3 Mg/0.5 Mg (3 Ml) Ud) 3 ml INH RQ6 PRN PRN Reason: Shortness of Breath Enalapril Maleate (Vasotec) 5 mg PO 1500 [facility] Last Admin: 12/10/16 15:10 Dose: 5 mg Ethambutol HCl (Myambutol) 1,200 mg PO DAILY [facility] Last Admin: 12/10/16 10:34 Dose: 1,200 mg Famotidine (Pepcid) 20 mg PO 0800 [facility] Last Admin: 12/10/16 10:35 Dose: 20 mg Gabapentin (Neurontin) 300 mg PO TID [facility] Last Admin: 12/10/16 18:00 Dose: 300 mg Guaifenesin (Mucinex La) 600 mg PO 0800,2000 [facility] Last Admin: 12/10/16 20:00 Dose: 600 mg Heparin Sodium (Porcine) (Heparin) 5,000 units SC Q8 [facility] Last Admin: 12/11/16 05:30 Dose: 5,000 units Insulin Aspart (Novolog) 0 unit SC ACHS [facility] PRN Reason: Protocol Last Admin: 12/10/16 21:52 Dose: Not Given Isoniazid (Niazid) 300 mg PO DAILY [facility] Last Admin: 12/10/16 10:35 Dose: 300 mg Metformin HCl (Glucophage) 1,000 mg PO 0800,1800 [facility] Last Admin: 12/10/16 18:30 Dose: 1,000 mg Montelukast Sodium (Singulair) 10 mg PO HS [facility] Last Admin: 12/10/16 21:51 Dose: 10 mg Ondansetron HCl (Zofran Inj) 4 mg IVP Q6H PRN PRN Reason: Nausea/Vomiting Last Admin: 12/06/16 12:52 Dose: 4 mg Pyrazinamide (Pyrazinamide) 1,500 mg PO DAILY [facility] Last Admin: 12/10/16 10:34 Dose: 1,500 mg Pyridoxine HCl (Vitamin B6) 100 mg PO DAILY [facility] Last Admin: 12/10/16 10:33 Dose: 100 mg Rifampin (Rifampin Cap) 600 mg PO DAILY [facility] Last Admin: 12/10/16 10:35 Dose: 600 mg - Labs Labs: 12/11/16 07:18 12/10/16 07:51 PT 13.6 SECONDS (9.7-12.2) H 12/01/16 07:37 INR 1.2 12/01/16 07:37 APTT 28 SECONDS (21-34) 12/01/16 07:37 Attending/Attestation - Attestation I have personally seen and examined this patient.: Yes I have fully participated in the care of the patient.: Yes I have reviewed all pertinent clinical information, including history, physical exam and plan: Yes
[2016-12-10 07:59] LABS: BASO # 0.1 K/uL (0.0-0.2); BASO % 0.7 % (0.0-2.0); EOS # 0.1 K/uL (0.0-0.7); EOS % 1.7 % (0.0-4.0); HEMATOCRIT 40.6 % (35.0-51.0); LYMPH # 1.2 K/uL (1.0-4.3); LYMPH % 15.8 % (20.0-40.0); MEAN CELL VOLUME 69.8 fL (80.0-94.0); MEAN CORPUSCULAR HEMOGLOBIN 22.6 pg (27.0-31.0); MEAN CORPUSCULAR HGB CONC 32.4 g/dL (33.0-37.0); MONO # 0.9 K/uL (0.0-0.8); MONO % 11.2 % (0.0-10.0); RED CELL DISTRIBUTION WIDTH 17.2 % (11.5-14.5); WHITE BLOOD COUNT 7.8 K/uL (4.8-10.8)
[2016-12-10 08:18] LABS: BLOOD UREA NITROGEN 6 mg/dL (9-20); CARBON DIOXIDE 21 mmol/L (22-30); CHLORIDE 94 mmol/L (98-107); GFR AFRICAN-AMERICAN > 60; POTASSIUM 4.1 mmol/L (3.6-5.2); SODIUM 130 mmol/L (132-148); TOTAL PROTEIN 7.6 g/dL (6.3-8.3)
[2016-12-10 08:19] LABS: CALCIUM 9.3 mg/dl (8.6-10.4); GLUCOSE,RANDOM 176 mg/dL (75-110)
[2016-12-10] MEDS: guaiFENesin 600 mg ER Tab PO SCH ×2 (08:29→20:00)
[2016-12-10] MEDS: (Novolog) Insulin Aspart, Recombinant 100 u/ml 10 ml vial SC SCH ×5 (08:30→21:52)
[2016-12-10 09:19] LABS: ALKALINE PHOSPHATASE 125 U/L (38-126); ALT/SGPT 31 U/L (21-72); AST/SGOT 23 U/L (17-59); BILIRUBIN,TOTAL 0.6 mg/dL (0.2-1.3)
[2016-12-10] MEDS: Pyridoxine 100 mg Tab PO SCH (10:33)
--- NOTE | 2016-12-10 18:28 | CP.PCM.PN ---
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 WILL LIKELY TAKE SEVERAL WEEKS TO CLEAR SPUTUM BECAUSE OF ETHNICITY MUST BE CONCERNED FOR MDR-TB , THUS THE NEED FOR ISOLATION Objective - Vital Signs/Intake and Output Vital Signs (last 24 hours): Temp Pulse Resp BP Pulse Ox 98.1 F 101 H 21 122/79 98 12/10/16 15:25 12/10/16 15:25 12/10/16 15:25 12/10/16 15:25 12/10/16 15:25 Intake and Output: 12/10/16 12/10/16 06:59 18:59 Intake Total 540 Balance 540 - Medications Medications: Current Medications Acetaminophen (Tylenol 325mg Tab) 650 mg PO Q6 PRN PRN Reason: Headache Last Admin: 12/04/16 20:53 Dose: 650 mg Albuterol/Ipratropium (Duoneb 3 Mg/0.5 Mg (3 Ml) Ud) 3 ml INH RQ6 PRN PRN Reason: Shortness of Breath Enalapril Maleate (Vasotec) 5 mg PO 1500 [facility] Last Admin: 12/09/16 15:04 Dose: 5 mg Ethambutol HCl (Myambutol) 1,200 mg PO DAILY [facility] Last Admin: 12/10/16 10:34 Dose: 1,200 mg Famotidine (Pepcid) 20 mg PO 0800 [facility] Last Admin: 12/10/16 10:35 Dose: 20 mg Gabapentin (Neurontin) 300 mg PO TID [facility] Last Admin: 12/10/16 15:08 Dose: 300 mg Guaifenesin (Mucinex La) 600 mg PO 0800,2000 [facility] Last Admin: 12/10/16 08:29 Dose: 600 mg Heparin Sodium (Porcine) (Heparin) 5,000 units SC Q8 [facility] Last Admin: 12/10/16 15:10 Dose: 5,000 units Insulin Aspart (Novolog) 0 unit SC ACHS [facility] PRN Reason: Protocol Last Admin: 12/10/16 08:32 Dose: 1 unit Isoniazid (Niazid) 300 mg PO DAILY [facility] Last Admin: 12/10/16 10:35 Dose: 300 mg Metformin HCl (Glucophage) 1,000 mg PO 0800,1800 [facility] Last Admin: 12/10/16 08:29 Dose: 1,000 mg Montelukast Sodium (Singulair) 10 mg PO HS [facility] Last Admin: 12/09/16 22:09 Dose: 10 mg Ondansetron HCl (Zofran Inj) 4 mg IVP Q6H PRN PRN Reason: Nausea/Vomiting Last Admin: 12/06/16 12:52 Dose: 4 mg Pyrazinamide (Pyrazinamide) 1,500 mg PO DAILY [facility] Last Admin: 12/10/16 10:34 Dose: 1,500 mg Pyridoxine HCl (Vitamin B6) 100 mg PO DAILY [facility] Last Admin: 12/10/16 10:33 Dose: 100 mg Rifampin (Rifampin Cap) 600 mg PO DAILY [facility] Last Admin: 12/10/16 10:35 Dose: 600 mg - Labs Labs: 12/10/16 07:51 12/10/16 07:51 PT 13.6 SECONDS (9.7-12.2) H 12/01/16 07:37 INR 1.2 12/01/16 07:37 APTT 28 SECONDS (21-34) 12/01/16 07:37 Assessment and Plan (1) Pulmonary tuberculosis with cavitation Status: Acute (2) Tuberculosis Status: Acute (3) Pneumonia Status: Acute (4) Diabetes Status: Acute
[2016-12-11 07:29] LABS: BASO % 0.2 % (0.0-2.0); EOS # 0.2 K/uL (0.0-0.7); EOS % 2.4 % (0.0-4.0); HEMATOCRIT 39.4 % (35.0-51.0); LYMPH # 1.4 K/uL (1.0-4.3); LYMPH % 19.9 % (20.0-40.0); MEAN CORPUSCULAR HEMOGLOBIN 22.8 pg (27.0-31.0); MEAN CORPUSCULAR HGB CONC 32.6 g/dL (33.0-37.0); MEAN PLATELET VOLUME 7.2 fL (7.2-11.7); MONO # 0.9 K/uL (0.0-0.8); MONO % 12.7 % (0.0-10.0); NRBC % 0.2 % (0.0-2.0); RED CELL DISTRIBUTION WIDTH 17.2 % (11.5-14.5)
[2016-12-11 07:38] LABS: MEAN CELL VOLUME 69.9 fL (80.0-94.0)
[2016-12-11 07:50] LABS: CHLORIDE 96 mmol/L (98-107)
[2016-12-11 07:51] LABS: POTASSIUM 4.1 mmol/L (3.6-5.2); SODIUM 130 mmol/L (132-148)
[2016-12-11 07:53] LABS: ALKALINE PHOSPHATASE 125 U/L (38-126); ALT/SGPT 33 U/L (21-72); AST/SGOT 20 U/L (17-59); BILIRUBIN,TOTAL 0.5 mg/dL (0.2-1.3); BLOOD UREA NITROGEN 8 mg/dL (9-20); CARBON DIOXIDE 18 mmol/L (22-30); GFR AFRICAN-AMERICAN > 60; GLUCOSE,RANDOM 167 mg/dL (75-110); PHOSPHOROUS 4.4 mg/dL (2.5-4.5); TOTAL PROTEIN 7.8 g/dL (6.3-8.3)
[2016-12-11 07:54] LABS: CALCIUM 9.7 mg/dl (8.6-10.4); MAGNESIUM 1.8 mg/dL (1.6-2.3)
[2016-12-11] MEDS: (Novolog) Insulin Aspart, Recombinant 100 u/ml 10 ml vial SC SCH ×4 (08:30→21:32)
[2016-12-11] MEDS: guaiFENesin 600 mg ER Tab PO SCH ×2 (09:00→21:00)
--- NOTE | 2016-12-11 09:23 | CP.PCM.PN ---
<Darien Drake - Last Filed: 12/11/16 22:13> Subjective - Date & Time of Evaluation Date of Evaluation: 12/11/16 Time of Evaluation: 07:05 - Subjective Subjective: PGY-1 Medicine note - Dr. Mora service Patient seen and examined at bedside, chart reviewed and case discussed. Patient overall continues to feel better. C/o mildly productive cough is improving (yellow in color). He vomited this am. Denies hemoptysis, leg swelling , fever, chills, headache, diarrhea, dysuria or any additional acute complaints at this time. Objective - Vital Signs/Intake and Output Vital Signs (last 24 hours): Temp Pulse Resp BP Pulse Ox 98.6 F 128 H 20 130/90 98 12/11/16 08:05 12/11/16 08:39 12/11/16 08:05 12/11/16 08:05 12/11/16 08:05 Intake and Output: 12/11/16 12/11/16 06:59 18:59 Intake Total 300 240 Balance 300 240 - Medications Medications: Current Medications Acetaminophen (Tylenol 325mg Tab) 650 mg PO Q6 PRN PRN Reason: Headache Last Admin: 12/04/16 20:53 Dose: 650 mg Albuterol/Ipratropium (Duoneb 3 Mg/0.5 Mg (3 Ml) Ud) 3 ml INH RQ6 PRN PRN Reason: Shortness of Breath Enalapril Maleate (Vasotec) 5 mg PO 1500 [facility] Last Admin: 12/10/16 15:10 Dose: 5 mg Ethambutol HCl (Myambutol) 1,200 mg PO DAILY [facility] Last Admin: 12/10/16 10:34 Dose: 1,200 mg Famotidine (Pepcid) 20 mg PO 0800 [facility] Last Admin: 12/10/16 10:35 Dose: 20 mg Gabapentin (Neurontin) 300 mg PO TID [facility] Last Admin: 12/10/16 18:00 Dose: 300 mg Guaifenesin (Mucinex La) 600 mg PO 0800,1999 [facility] Last Admin: 12/10/16 20:00 Dose: 600 mg Heparin Sodium (Porcine) (Heparin) 5,000 units SC Q8 [facility] Last Admin: 12/11/16 05:30 Dose: 5,000 units Insulin Aspart (Novolog) 0 unit SC ACHS [facility] PRN Reason: Protocol Last Admin: 12/10/16 21:52 Dose: Not Given Isoniazid (Niazid) 300 mg PO DAILY [facility] Last Admin: 12/10/16 10:35 Dose: 300 mg Metformin HCl (Glucophage) 1,000 mg PO 0800,1800 [facility] Last Admin: 12/10/16 18:30 Dose: 1,000 mg Montelukast Sodium (Singulair) 10 mg PO HS [facility] Last Admin: 12/10/16 21:51 Dose: 10 mg Ondansetron HCl (Zofran Inj) 4 mg IVP Q6H PRN PRN Reason: Nausea/Vomiting Last Admin: 12/06/16 12:52 Dose: 4 mg Pyrazinamide (Pyrazinamide) 1,500 mg PO DAILY [facility] Last Admin: 12/10/16 10:34 Dose: 1,500 mg Pyridoxine HCl (Vitamin B6) 100 mg PO DAILY [facility] Last Admin: 12/10/16 10:33 Dose: 100 mg Rifampin (Rifampin Cap) 600 mg PO DAILY [facility] Last Admin: 12/10/16 10:35 Dose: 600 mg - Labs Labs: 12/11/16 07:18 12/11/16 07:18 PT 13.6 SECONDS (9.7-12.2) H 12/01/16 07:37 INR 1.2 12/01/16 07:37 APTT 28 SECONDS (21-34) 12/01/16 07:37 - Additional Findings Additional findings: - Constitutional Appears: Non-toxic, No Acute Distress - Head Exam Head Exam: NORMAL INSPECTION - Eye Exam Eye Exam: Normal appearance. absent: Conjunctival injection, Scleral icterus - ENT Exam ENT Exam: Mucous Membranes Moist - Neck Exam Neck Exam: Normal Inspection - Respiratory Exam Respiratory Exam: Clear to Ausculation Bilateral, NORMAL BREATHING PATTERN. absent: Rales, Rhonchi, Wheezes - Cardiovascular Exam Cardiovascular Exam: REGULAR RHYTHM, +S1, +S2 - GI/Abdominal Exam GI & Abdominal Exam: Soft, Normal Bowel Sounds. absent: Tenderness - Extremities Exam Extremities Exam: Normal Capillary Refill, Normal Inspection. absent: Calf Tenderness, Pedal Edema - Back Exam Back Exam: NORMAL INSPECTION. absent: rash noted - Neurological Exam Neurological Exam: Alert, Awake, Normal Gait, Oriented x3 - Psychiatric Exam Psychiatric exam: Normal Affect, Normal Mood - Skin Skin Exam: Dry, Intact, Normal Color, Warm Assessment and Plan - Assessment and Plan (Free Text) Assessment: 51year old male admitted to rule out active TB Plan: Tuberculosis, active 12/09-12/11: +AFB's collected, awaiting culture results. 12/08: f/u daily AFB cultures until 3 negative cultures result. Refused blood work today. - Mycobacterial Sputum Cultures 12/10 AFB: 1+ acid fast bacilli, culture pending 12/09 AFB: 1+ acid fast bacilli, culture pending 12/06 AFB: 2+ acid fast bacilli, culture pending 12/04 AFB: 2+ acid fast bacilli, culture pending 12/02 AFB: 2+ acid fast bacilli, culture pending 12/01 AFB: 1+ acid fast bacilli, culture pending 11/30 AFB: 1+ acid fast bacilli, culture pending -ID consult, Dr. Espinal -> Continue quadruple therapy for TB. 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 WILL LIKELY TAKE SEVERAL WEEKS TO CLEAR SPUTUM ethambutol 1200mg PO daily (started 12/02) isoniazide 300mg PO daily (started 12/02) Prazinamide 1500mg PO daily (started 12/02) (increased 12/08 for weight based dosing) Pyridoxine 100mg PO daily (started 12/02) Rifampin 600mg PO daily (started 12/02) -Monitor LFT's: WNL 11/30 - 12/11 -HIV negative -Quant Gold - negative -Note: Disk containing CT + CXR images is in the physical chart. -Cavitary left upper lobe infiltrate/mass. CT scan may be beneficial in further assessment of this process primarily affecting the posterior segment. The cavitary comes/cystic component is best seen on the lateral view measuring 5.2 x 6.4 cm. -Pulm Consult, Dr. Frazier -> bronchoscopy 12/[address], [address] imaging showed clear TB infection f/u sputum studies and sputum PCR -Continue Mucinex 600mg PO BID; Singulair 10mg PO HS; Duonebs RQ6 PRN Tachycardia 12/09-12/11: persistent tachycardia since 12/07/16 (100's-120's). -TSH + free T4 - both WNL -> r/o hyperthyroidism -CXR 12/08- Increasing opacity of left lung with cavitation in the left apex and left apical pleural thickening. Likely infectious process. Consider fungal or atypical mycobacterial. 5 mm nodule in right apex. Consider further evaluation with computed tomography. Diabetes 12/08-12/11: glucose WNL, continue current regimen Metformin 1000mg PO BID Novolog RISS Neurontin 300mg PO TID A1c 12.4 FLP grossly WNL; HDL 28 L Glucose 233 on admission Alpha Thalassemia MCV 69.7 Ferritin 77.3, B12 950 H, folate 11.2, reticulocyte count 1.0 hemoglobinopathy inerpretation - possible Alpha-thalassemia. Fe 28 L, TIBC 243 L, %Sat 12 L haptoglobin 501 H Monitor outpatient Hypertension 12/10-12/11: BP WNL 12/09: BP elevated 154/80. Continue to monitor. 12/08: BP WNL, continue to monitor BP WNL on admission Continue home Enalapril 5mg PO d Electrolyte Imbalance Hypokalemia, K3.5 - Resolved. Prophylaxis respiratory isolation STOP: NS 0.9 at 75cc/hr (stopped 12/08) Vegetarian Diet, carb consistent, low sodium Pepcid 20mg PO d Heparin 5k units SC q8H Zofran 4mg PO Q6 PRN SCDs <Darien Armendariz H - Last Filed: 12/12/16 07:23> Objective - Vital Signs/Intake and Output Vital Signs (last 24 hours): Temp Pulse Resp BP Pulse Ox 98.1 F 105 H 20 114/80 97 12/11/16 23:50 12/11/16 23:50 12/11/16 23:50 12/11/16 23:50 12/11/16 23:50 Intake and Output: 12/12/16 12/12/16 06:59 18:59 Intake Total 240 Balance 240 - Medications Medications: Current Medications Acetaminophen (Tylenol 325mg Tab) 650 mg PO Q6 PRN PRN Reason: Headache Last Admin: 12/04/16 20:53 Dose: 650 mg Albuterol/Ipratropium (Duoneb 3 Mg/0.5 Mg (3 Ml) Ud) 3 ml INH RQ6 PRN PRN Reason: Shortness of Breath Enalapril Maleate (Vasotec) 5 mg PO 1500 [facility] Last Admin: 12/11/16 16:00 Dose: 5 mg Ethambutol HCl (Myambutol) 1,200 mg PO DAILY [facility] Last Admin: 12/11/16 09:53 Dose: 1,200 mg Famotidine (Pepcid) 20 mg PO 0800 [facility] Last Admin: 12/11/16 09:00 Dose: 20 mg Gabapentin (Neurontin) 300 mg PO TID [facility] Last Admin: 12/11/16 19:00 Dose: 300 mg Guaifenesin (Mucinex La) 600 mg PO 0800,2000 [facility] Last Admin: 12/11/16 21:00 Dose: 600 mg Heparin Sodium (Porcine) (Heparin) 5,000 units SC Q8 [facility] Last Admin: 12/12/16 05:54 Dose: 5,000 units Insulin Aspart (Novolog) 0 unit SC ACHS [facility] PRN Reason: Protocol Last Admin: 12/11/16 21:32 Dose: Not Given Isoniazid (Niazid) 300 mg PO DAILY [facility] Last Admin: 12/11/16 09:53 Dose: 300 mg Metformin HCl (Glucophage) 1,000 mg PO 0800,1800 [facility] Last Admin: 12/11/16 19:00 Dose: 1,000 mg Montelukast Sodium (Singulair) 10 mg PO HS [facility] Last Admin: 12/11/16 21:33 Dose: 10 mg Ondansetron HCl (Zofran Inj) 4 mg IVP Q6H PRN PRN Reason: Nausea/Vomiting Last Admin: 12/06/16 12:52 Dose: 4 mg Ondansetron HCl (Zofran Tab) 4 mg PO Q6 PRN Pyrazinamide (Pyrazinamide) 1,500 mg PO DAILY [facility] Last Admin: 12/11/16 09:52 Dose: 1,500 mg Pyridoxine HCl (Vitamin B6) 100 mg PO DAILY [facility] Last Admin: 12/11/16 09:53 Dose: 100 mg Rifampin (Rifampin Cap) 600 mg PO DAILY [facility] Last Admin: 12/11/16 09:53 Dose: 600 mg - Labs Labs: 12/12/16 05:57 12/12/16 05:57 PT 13.6 SECONDS (9.7-12.2) H 12/01/16 07:37 INR 1.2 12/01/16 07:37 APTT 28 SECONDS (21-34) 12/01/16 07:37 Attending/Attestation - Attestation I have personally seen and examined this patient.: Yes I have fully participated in the care of the patient.: Yes I have reviewed all pertinent clinical information, including history, physical exam and plan: Yes Notes (Text): 12/12/16 07:22 Medical attending: Patient was seen and examined by me, agree with the above note by medical specialist. At this time were continuing with the medical therapy for the tuberculosis. His most recent sputum AFB studies have still been positive Thank you very much, Darien Armendariz
[2016-12-11] MEDS: Pyridoxine 100 mg Tab PO SCH (09:53)
[2016-12-12 06:02] LABS: BASO % 0.3 % (0.0-2.0); EOS # 0.2 K/uL (0.0-0.7); EOS % 2.7 % (0.0-4.0); LYMPH # 1.3 K/uL (1.0-4.3); LYMPH % 17.5 % (20.0-40.0); MEAN CELL VOLUME 69.9 fL (80.0-94.0); MEAN CORPUSCULAR HEMOGLOBIN 22.8 pg (27.0-31.0); MEAN CORPUSCULAR HGB CONC 32.6 g/dL (33.0-37.0); MONO # 0.9 K/uL (0.0-0.8); MONO % 11.8 % (0.0-10.0); RED CELL DISTRIBUTION WIDTH 17.4 % (11.5-14.5); WHITE BLOOD COUNT 7.6 K/uL (4.8-10.8)
[2016-12-12 06:19] LABS: CHLORIDE 91 mmol/L (98-107); SODIUM 132 mmol/L (132-148)
[2016-12-12 06:21] LABS: AST/SGOT 25 U/L (17-59); BILIRUBIN,TOTAL 0.5 mg/dL (0.2-1.3); CARBON DIOXIDE 23 mmol/L (22-30); GFR AFRICAN-AMERICAN > 60; TOTAL PROTEIN 7.4 g/dL (6.3-8.3)
[2016-12-12 06:22] LABS: ALKALINE PHOSPHATASE 115 U/L (38-126); ALT/SGPT 29 U/L (21-72); BLOOD UREA NITROGEN 8 mg/dL (9-20); CALCIUM 9.4 mg/dl (8.6-10.4); GLUCOSE,RANDOM 156 mg/dL (75-110); MAGNESIUM 1.6 mg/dL (1.6-2.3); PHOSPHOROUS 4.5 mg/dL (2.5-4.5)
[2016-12-12] MEDS: (Novolog) Insulin Aspart, Recombinant 100 u/ml 10 ml vial SC SCH ×5 (08:09→23:31)
[2016-12-12] MEDS: guaiFENesin 600 mg ER Tab PO SCH ×2 (08:39→21:26)
[2016-12-12] MEDS: Pyridoxine 100 mg Tab PO SCH (10:12)
--- NOTE | 2016-12-12 13:39 | CP.PCM.PN ---
<Darien Drake - Last Filed: 12/12/16 16:58> Subjective - Date & Time of Evaluation Date of Evaluation: 12/12/16 Time of Evaluation: 07:15 - Subjective Subjective: PGY-1 Medicine note - Dr. Mora service Patient seen and examined at bedside, chart reviewed and case discussed. Patient feels well overall. Mildly productive cough (yellow in color). No vomiting today. Denies hemoptysis, leg swelling, fever, chills, headache, diarrhea, dysuria or any additional acute complaints at this time. Objective - Vital Signs/Intake and Output Vital Signs (last 24 hours): Temp Pulse Resp BP Pulse Ox 98.6 F 128 H 20 134/74 98 12/12/16 09:00 12/12/16 09:00 12/12/16 09:00 12/12/16 09:00 12/12/16 09:00 Intake and Output: 12/12/16 12/12/16 06:59 18:59 Intake Total 240 Balance 240 - Medications Medications: Current Medications Acetaminophen (Tylenol 325mg Tab) 650 mg PO Q6 PRN PRN Reason: Headache Last Admin: 12/04/16 20:53 Dose: 650 mg Albuterol/Ipratropium (Duoneb 3 Mg/0.5 Mg (3 Ml) Ud) 3 ml INH RQ6 PRN PRN Reason: Shortness of Breath Enalapril Maleate (Vasotec) 5 mg PO 1500 [facility] Last Admin: 12/11/16 16:00 Dose: 5 mg Ethambutol HCl (Myambutol) 1,200 mg PO DAILY [facility] Last Admin: 12/12/16 10:12 Dose: 1,200 mg Famotidine (Pepcid) 20 mg PO 0800 [facility] Last Admin: 12/12/16 08:39 Dose: 20 mg Gabapentin (Neurontin) 300 mg PO TID [facility] Last Admin: 12/12/16 10:11 Dose: 300 mg Guaifenesin (Mucinex La) 600 mg PO 0800,1999 [facility] Last Admin: 12/12/16 08:39 Dose: 600 mg Heparin Sodium (Porcine) (Heparin) 5,000 units SC Q8 [facility] Last Admin: 12/12/16 05:54 Dose: 5,000 units Insulin Aspart (Novolog) 0 unit SC ACHS [facility] PRN Reason: Protocol Last Admin: 12/12/16 12:22 Dose: 1 unit Isoniazid (Niazid) 300 mg PO DAILY [facility] Last Admin: 12/12/16 10:11 Dose: 300 mg Metformin HCl (Glucophage) 1,000 mg PO 0800,1800 [facility] Last Admin: 12/12/16 08:39 Dose: 1,000 mg Montelukast Sodium (Singulair) 10 mg PO HS [facility] Last Admin: 12/11/16 21:33 Dose: 10 mg Ondansetron HCl (Zofran Inj) 4 mg IVP Q6H PRN PRN Reason: Nausea/Vomiting Last Admin: 12/06/16 12:52 Dose: 4 mg Ondansetron HCl (Zofran Tab) 4 mg PO Q6 PRN Last Admin: 12/12/16 10:10 Dose: 4 mg Pyrazinamide (Pyrazinamide) 1,500 mg PO DAILY [facility] Last Admin: 12/12/16 10:11 Dose: 1,500 mg Pyridoxine HCl (Vitamin B6) 100 mg PO DAILY [facility] Last Admin: 12/12/16 10:12 Dose: 100 mg Rifampin (Rifampin Cap) 600 mg PO DAILY [facility] Last Admin: 12/12/16 10:13 Dose: 600 mg - Labs Labs: 12/12/16 05:57 12/12/16 05:57 PT 13.6 SECONDS (9.7-12.2) H 12/01/16 07:37 INR 1.2 12/01/16 07:37 APTT 28 SECONDS (21-34) 12/01/16 07:37 - Additional Findings Additional findings: - Constitutional Appears: Non-toxic, No Acute Distress - Head Exam Head Exam: NORMAL INSPECTION - Eye Exam Eye Exam: Normal appearance. absent: Conjunctival injection, Scleral icterus - ENT Exam ENT Exam: Mucous Membranes Moist - Neck Exam Neck Exam: Normal Inspection - Respiratory Exam Respiratory Exam: Clear to Ausculation Bilateral, NORMAL BREATHING PATTERN. absent: Rales, Rhonchi, Wheezes - Cardiovascular Exam Cardiovascular Exam: REGULAR RHYTHM, +S1, +S2 - GI/Abdominal Exam GI & Abdominal Exam: Soft, Normal Bowel Sounds. absent: Tenderness - Extremities Exam Extremities Exam: Normal Capillary Refill, Normal Inspection. absent: Calf Tenderness, Pedal Edema - Back Exam Back Exam: NORMAL INSPECTION. absent: rash noted - Neurological Exam Neurological Exam: Alert, Awake, Normal Gait, Oriented x3 - Psychiatric Exam Psychiatric exam: Normal Affect, Normal Mood - Skin Skin Exam: Dry, Intact, Normal Color, Warm Assessment and Plan - Assessment and Plan (Free Text) Assessment: 51year old male admitted to rule out active TB Plan: Tuberculosis, active 12/09-12/12: +AFB's collected, awaiting culture results. 12/08: f/u daily AFB cultures until 3 negative cultures result. Refused blood work today. - Mycobacterial Sputum Cultures 12/10 AFB: 1+ acid fast bacilli, culture pending 12/09 AFB: 1+ acid fast bacilli, culture pending 12/06 AFB: 2+ acid fast bacilli, culture pending 12/04 AFB: 2+ acid fast bacilli, culture pending 12/02 AFB: 2+ acid fast bacilli, culture pending 12/01 AFB: 1+ acid fast bacilli, culture pending 11/30 AFB: 1+ acid fast bacilli, culture pending -ID consult, Dr. Espinal -> Continue quadruple therapy for TB. 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 WILL LIKELY TAKE SEVERAL WEEKS TO CLEAR SPUTUM ethambutol 1200mg PO daily (started 12/02) isoniazide 300mg PO daily (started 12/02) Prazinamide 1500mg PO daily (started 12/02) (increased 12/08 for weight based dosing) Pyridoxine 100mg PO daily (started 12/02) Rifampin 600mg PO daily (started 12/02) -Monitor LFT's: WNL 11/30 - 12/12 -HIV negative -Quant Gold - negative -Note: Disk containing CT + CXR images is in the physical chart. -Cavitary left upper lobe infiltrate/mass. CT scan may be beneficial in further assessment of this process primarily affecting the posterior segment. The cavitary comes/cystic component is best seen on the lateral view measuring 5.2 x 6.4 cm. -Pulm Consult, Dr. Frazier -> bronchoscopy 12/01 AM cancelled, as CT imaging showed clear TB infection f/u sputum studies and sputum PCR -Continue Mucinex 600mg PO BID; Singulair 10mg PO HS; Duonebs RQ6 PRN Tachycardia 12/07-12/12: persistent tachycardia since 4/4/17 (100's-120's). Pharmacy is looking into this. Duoneb PRN is on, however patient hasn't received a recent dose. -TSH + free T4 - both WNL -> r/o hyperthyroidism -CXR 12/08- Increasing opacity of left lung with cavitation in the left apex and left apical pleural thickening. Likely infectious process. Consider fungal or atypical mycobacterial. 5 mm nodule in right apex. Consider further evaluation with computed tomography. Diabetes 12/08-12/12: glucose WNL, continue current regimen Metformin 1000mg PO BID Novolog RISS Neurontin 300mg PO TID A1c 12.4 FLP grossly WNL; HDL 28 L Glucose 233 on admission Alpha Thalassemia MCV 69.7 Ferritin 77.3, B12 950 H, folate 11.2, reticulocyte count 1.0 hemoglobinopathy inerpretation - possible Alpha-thalassemia. Fe 28 L, TIBC 243 L, %Sat 12 L haptoglobin 501 H Monitor outpatient Hypertension 12/10-12/12: BP WNL 12/09: BP elevated 154/80. Continue to monitor. 12/08: BP WNL, continue to monitor BP WNL on admission Continue home Enalapril 5mg PO d Electrolyte Imbalance Hypokalemia, K3.5 - Resolved. Prophylaxis respiratory isolation STOP: NS 0.9 at 75cc/hr (stopped 12/08) Vegetarian Diet, carb consistent, low sodium Pepcid 20mg PO d Heparin 5k units SC q8H Zofran 4mg PO Q6 PRN SCDs <Darien Armendariz H - Last Filed: 12/12/16 17:13> Objective - Vital Signs/Intake and Output Vital Signs (last 24 hours): Temp Pulse Resp BP Pulse Ox 98.0 F 109 H 20 118/79 97 12/12/16 16:00 12/12/16 16:00 12/12/16 16:00 12/12/16 16:00 12/12/16 16:00 Intake and Output: 12/12/16 12/12/16 06:59 18:59 Intake Total 240 Balance 240 - Medications Medications: Current Medications Acetaminophen (Tylenol 325mg Tab) 650 mg PO Q6 PRN PRN Reason: Headache Last Admin: 12/04/16 20:53 Dose: 650 mg Albuterol/Ipratropium (Duoneb 3 Mg/0.5 Mg (3 Ml) Ud) 3 ml INH RQ6 PRN PRN Reason: Shortness of Breath Enalapril Maleate (Vasotec) 5 mg PO 1500 [facility] Last Admin: 12/12/16 14:27 Dose: 5 mg Ethambutol HCl (Myambutol) 1,200 mg PO DAILY [facility] Last Admin: 12/12/16 10:12 Dose: 1,200 mg Famotidine (Pepcid) 20 mg PO 0800 [facility] Last Admin: 12/12/16 08:39 Dose: 20 mg Gabapentin (Neurontin) 300 mg PO TID [facility] Last Admin: 12/12/16 14:26 Dose: 300 mg Guaifenesin (Mucinex La) 600 mg PO 0800,2000 [facility] Last Admin: 12/12/16 08:39 Dose: 600 mg Heparin Sodium (Porcine) (Heparin) 5,000 units SC Q8 [facility] Last Admin: 12/12/16 14:26 Dose: 5,000 units Insulin Aspart (Novolog) 0 unit SC ACHS [facility] PRN Reason: Protocol Last Admin: 12/12/16 12:22 Dose: 1 unit Isoniazid (Niazid) 300 mg PO DAILY [facility] Last Admin: 12/12/16 10:11 Dose: 300 mg Metformin HCl (Glucophage) 1,000 mg PO 0800,1800 [facility] Last Admin: 12/12/16 08:39 Dose: 1,000 mg Montelukast Sodium (Singulair) 10 mg PO HS [facility] Last Admin: 12/11/16 21:33 Dose: 10 mg Ondansetron HCl (Zofran Inj) 4 mg IVP Q6H PRN PRN Reason: Nausea/Vomiting Last Admin: 12/06/16 12:52 Dose: 4 mg Ondansetron HCl (Zofran Tab) 4 mg PO Q6 PRN Last Admin: 12/12/16 10:10 Dose: 4 mg Pyrazinamide (Pyrazinamide) 1,500 mg PO DAILY [facility] Last Admin: 12/12/16 10:11 Dose: 1,500 mg Pyridoxine HCl (Vitamin B6) 100 mg PO DAILY [facility] Last Admin: 12/12/16 10:12 Dose: 100 mg Rifampin (Rifampin Cap) 600 mg PO DAILY [facility] Last Admin: 12/12/16 10:13 Dose: 600 mg - Labs Labs: 12/12/16 05:57 12/12/16 05:57 PT 13.6 SECONDS (9.7-12.2) H 12/01/16 07:37 INR 1.2 12/01/16 07:37 APTT 28 SECONDS (21-34) 12/01/16 07:37 Attending/Attestation - Attestation I have personally seen and examined this patient.: Yes I have fully participated in the care of the patient.: Yes I have reviewed all pertinent clinical information, including history, physical exam and plan: Yes Notes (Text): 12/12/16 17:12 Medical Attending: Patient was seen and examined by me. Agree with the above note by the resident. LFTs are within normal range, patient is afebrile and not having hemoptysis, his most recent AFB studies are all positive. He reports going to the bathroom ok, he is not thrilled about the food. At this time continue to monitor the AFB studies and LFTs. thank you Darien Armendariz
--- NOTE | 2016-12-13 08:25 | CP.PCM.PN ---
<MichaelZahira lombardi - Last Filed: 12/13/16 14:01> Subjective - Date & Time of Evaluation Date of Evaluation: 12/13/16 Time of Evaluation: 08:22 - Subjective Subjective: Patient seen and examined at bedside. Per nursing, no events overnight. Patient states he feels well. He notes nausea/emesis secondary to taking medications has improved with Zofran. He admits to intermittent coughing but denies blood in sputum. He also denies fever, chills, chest pain, palpitations, shortness of breath, abdominal pain, constipation, diarrhea, and dysuria. Patient states he has been ambulating frequently within his room. Objective - Vital Signs/Intake and Output Vital Signs (last 24 hours): Temp Pulse Resp BP Pulse Ox 98 F 105 H 20 107/75 97 12/13/16 00:00 12/13/16 00:00 12/13/16 00:00 12/13/16 00:00 12/13/16 00:00 Intake and Output: 12/13/16 12/13/16 06:59 18:59 Intake Total 200 Balance 200 - Medications Medications: Current Medications Acetaminophen (Tylenol 325mg Tab) 650 mg PO Q6 PRN PRN Reason: Headache Last Admin: 12/04/16 20:53 Dose: 650 mg Albuterol/Ipratropium (Duoneb 3 Mg/0.5 Mg (3 Ml) Ud) 3 ml INH RQ6 PRN PRN Reason: Shortness of Breath Enalapril Maleate (Vasotec) 5 mg PO 1500 [facility] Last Admin: 12/12/16 14:27 Dose: 5 mg Ethambutol HCl (Myambutol) 1,200 mg PO DAILY [facility] Last Admin: 12/12/16 10:12 Dose: 1,200 mg Famotidine (Pepcid) 20 mg PO 0800 [facility] Last Admin: 12/12/16 08:39 Dose: 20 mg Gabapentin (Neurontin) 300 mg PO TID [facility] Last Admin: 12/12/16 18:00 Dose: 300 mg Guaifenesin (Mucinex La) 600 mg PO 0800,2000 [facility] Last Admin: 12/12/16 21:26 Dose: 600 mg Heparin Sodium (Porcine) (Heparin) 5,000 units SC Q8 [facility] Last Admin: 12/13/16 05:47 Dose: 5,000 units Insulin Aspart (Novolog) 0 unit SC ACHS [facility] PRN Reason: Protocol Last Admin: 12/12/16 23:31 Dose: Not Given Isoniazid (Niazid) 300 mg PO DAILY [facility] Last Admin: 12/12/16 10:11 Dose: 300 mg Metformin HCl (Glucophage) 1,000 mg PO 0800,1800 [facility] Last Admin: 12/12/16 18:00 Dose: 1,000 mg Montelukast Sodium (Singulair) 10 mg PO HS [facility] Last Admin: 12/12/16 21:26 Dose: 10 mg Ondansetron HCl (Zofran Inj) 4 mg IVP Q6H PRN PRN Reason: Nausea/Vomiting Last Admin: 12/06/16 12:52 Dose: 4 mg Ondansetron HCl (Zofran Tab) 4 mg PO Q6 PRN Last Admin: 12/12/16 10:10 Dose: 4 mg Pyrazinamide (Pyrazinamide) 1,500 mg PO DAILY [facility] Last Admin: 12/12/16 10:11 Dose: 1,500 mg Pyridoxine HCl (Vitamin B6) 100 mg PO DAILY [facility] Last Admin: 12/12/16 10:12 Dose: 100 mg Rifampin (Rifampin Cap) 600 mg PO DAILY [facility] Last Admin: 12/12/16 10:13 Dose: 600 mg - Labs Labs: 12/12/16 05:57 12/12/16 05:57 PT 13.6 SECONDS (9.7-12.2) H 12/01/16 07:37 INR 1.2 12/01/16 07:37 APTT 28 SECONDS (21-34) 12/01/16 07:37 - Constitutional Appears: Non-toxic, No Acute Distress - Head Exam Head Exam: ATRAUMATIC, NORMAL INSPECTION, NORMOCEPHALIC - Eye Exam Eye Exam: EOMI, Normal appearance, PERRL - ENT Exam ENT Exam: Mucous Membranes Moist, Normal Exam - Neck Exam Neck Exam: Normal Inspection - Respiratory Exam Respiratory Exam: Clear to Ausculation Bilateral, NORMAL BREATHING PATTERN. absent: Rales, Rhonchi, Wheezes Additional comments: intermittent cough during examination - Cardiovascular Exam Cardiovascular Exam: +S1, +S2. absent: Tachycardia, JVD, Murmur - GI/Abdominal Exam GI & Abdominal Exam: Soft, Normal Bowel Sounds. absent: Distended, Firm, Tenderness - Extremities Exam Extremities Exam: Full ROM, Normal Inspection. absent: Pedal Edema, Tenderness - Back Exam Back Exam: NORMAL INSPECTION - Neurological Exam Neurological Exam: Alert, Awake, Normal Gait, Oriented x3 - Psychiatric Exam Psychiatric exam: Normal Affect, Normal Mood - Skin Skin Exam: Intact, Normal Color, Warm Assessment and Plan - Assessment and Plan (Free Text) Assessment: Tuberculosis, active 12/09-12/13: +AFB's collected, awaiting culture results. Labs q3D. Continue RIPE therapy. 12/08: f/u daily AFB cultures until 3 negative cultures result. Refused blood work today. - Mycobacterial Sputum Cultures 12/10 AFB: 1+ acid fast bacilli, culture pending 12/09 AFB: 1+ acid fast bacilli, culture pending 12/06 AFB: 2+ acid fast bacilli, culture pending 12/04 AFB: 2+ acid fast bacilli, culture pending 12/02 AFB: 2+ acid fast bacilli, culture pending 12/01 AFB: 1+ acid fast bacilli, culture pending 11/30 AFB: 1+ acid fast bacilli, culture pending -ID consult, Dr. Espinal -> Continue quadruple therapy for TB. 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 WILL LIKELY TAKE SEVERAL WEEKS TO CLEAR SPUTUM ethambutol 1200mg PO daily (started 12/02) isoniazide 300mg PO daily (started 12/02) Prazinamide 1500mg PO daily (started 12/02) (increased 12/08 for weight based dosing) Pyridoxine 100mg PO daily (started 12/02) Rifampin 600mg PO daily (started 12/02) -Monitor LFT's: WNL 11/30 - 12/12 -HIV negative -Quant Gold - negative -Note: Disk containing CT + CXR images is in the physical chart. -Cavitary left upper lobe infiltrate/mass. CT scan may be beneficial in further assessment of this process primarily affecting the posterior segment. The cavitary comes/cystic component is best seen on the lateral view measuring 5.2 x 6.4 cm. -Pulm Consult, Dr. Frazier -> bronchoscopy 12/[address], [address] imaging showed clear TB infection f/u sputum studies and sputum PCR -Continue Mucinex 600mg PO BID; Singulair 10mg PO HS; Duonebs RQ6 PRN Tachycardia 12/13: Pharmacy reviewed meds and noted tachycardia could be attributed to Isoniazid and Rifampin. 12/07-12/12: persistent tachycardia since 12/07/16 (100's-120's). Pharmacy is looking into this. Duoneb PRN is on, however patient hasn't received a recent dose. -TSH + free T4 - both WNL -> r/o hyperthyroidism -CXR 12/08- Increasing opacity of left lung with cavitation in the left apex and left apical pleural thickening. Likely infectious process. Consider fungal or atypical mycobacterial. 5 mm nodule in right apex. Consider further evaluation with computed tomography. Diabetes 12/13: Blood glucose 139 12/08-12/12: glucose WNL, continue current regimen Metformin 1000mg PO BID Novolog RISS Neurontin 300mg PO TID A1c 12.4 FLP grossly WNL; HDL 28 L Glucose 233 on admission Alpha Thalassemia MCV 69.7 Ferritin 77.3, B12 950 H, folate 11.2, reticulocyte count 1.0 hemoglobinopathy inerpretation - possible Alpha-thalassemia. Fe 28 L, TIBC 243 L, %Sat 12 L haptoglobin 501 H Monitor outpatient Hypertension 12/13: normotensive 12/10-12/12: BP WNL 12/09: BP elevated 154/80. Continue to monitor. 12/08: BP WNL, continue to monitor BP WNL on admission Continue home Enalapril 5mg PO d Electrolyte Imbalance Hypokalemia, K3.5 - Resolved. Will monitor Prophylaxis respiratory isolation STOP: NS 0.9 at 75cc/hr (stopped 12/08) Vegetarian Diet, carb consistent, low sodium Pepcid 20mg PO d Heparin 5k units SC q8H Zofran 4mg PO Q6 PRN SCDs <Reyna Huber V - Last Filed: 12/13/16 17:50> Objective - Vital Signs/Intake and Output Vital Signs (last 24 hours): Temp Pulse Resp BP Pulse Ox 98.1 F 106 H 20 133/86 98 12/13/16 15:15 12/13/16 16:46 12/13/16 15:15 12/13/16 15:15 12/13/16 15:15 Intake and Output: 12/13/16 12/13/16 06:59 18:59 Intake Total 200 Balance 200 - Medications Medications: Current Medications Acetaminophen (Tylenol 325mg Tab) 650 mg PO Q6 PRN PRN Reason: Headache Last Admin: 12/04/16 20:53 Dose: 650 mg Albuterol/Ipratropium (Duoneb 3 Mg/0.5 Mg (3 Ml) Ud) 3 ml INH RQ6 PRN PRN Reason: Shortness of Breath Enalapril Maleate (Vasotec) 5 mg PO 1500 [facility] Last Admin: 12/12/16 14:27 Dose: 5 mg Ethambutol HCl (Myambutol) 1,200 mg PO DAILY [facility] Last Admin: 12/13/16 09:47 Dose: 1,200 mg Famotidine (Pepcid) 20 mg PO 0800 [facility] Last Admin: 12/13/16 08:38 Dose: 20 mg Gabapentin (Neurontin) 300 mg PO TID [facility] Last Admin: 12/13/16 16:31 Dose: 300 mg Guaifenesin (Mucinex La) 600 mg PO 0800,2000 [facility] Last Admin: 12/13/16 08:38 Dose: 600 mg Heparin Sodium (Porcine) (Heparin) 5,000 units SC Q8 [facility] Last Admin: 12/13/16 16:31 Dose: 5,000 units Insulin Aspart (Novolog) 0 unit SC ACHS [facility] PRN Reason: Protocol Last Admin: 12/13/16 12:35 Dose: 1 unit Isoniazid (Niazid) 300 mg PO DAILY [facility] Last Admin: 12/13/16 09:47 Dose: 300 mg Metformin HCl (Glucophage) 1,000 mg PO 0800,1800 [facility] Last Admin: 12/13/16 08:38 Dose: 1,000 mg Montelukast Sodium (Singulair) 10 mg PO HS [facility] Last Admin: 12/12/16 21:26 Dose: 10 mg Ondansetron HCl (Zofran Inj) 4 mg IVP Q6H PRN PRN Reason: Nausea/Vomiting Last Admin: 12/06/16 12:52 Dose: 4 mg Ondansetron HCl (Zofran Tab) 4 mg PO Q6 PRN Last Admin: 12/13/16 08:41 Dose: 4 mg Pyrazinamide (Pyrazinamide) 1,500 mg PO DAILY [facility] Last Admin: 12/13/16 09:48 Dose: 1,500 mg Pyridoxine HCl (Vitamin B6) 100 mg PO DAILY [facility] Last Admin: 12/13/16 09:48 Dose: 100 mg Rifampin (Rifampin Cap) 600 mg PO DAILY [facility] Last Admin: 12/13/16 09:48 Dose: 600 mg - Labs Labs: 12/12/16 05:57 12/12/16 05:57 PT 13.6 SECONDS (9.7-12.2) H 12/01/16 07:37 INR 1.2 12/01/16 07:37 APTT 28 SECONDS (21-34) 12/01/16 07:37 Attending/Attestation - Attestation I have personally seen and examined this patient.: Yes I have fully participated in the care of the patient.: Yes I have reviewed all pertinent clinical information, including history, physical exam and plan: Yes Notes (Text): Patient seen, examined, and case discussed with day-time resident. Patient in RIPE therapy for active tuberculosis. Patient denies acute complaints except for occasional nausea. Will continue to monitor for sputum cultures No blood work collected today. Airborne precautions Assessment/Plan 1) Tuberculosis, active * Airborne precautions * Pulmonary (Dr. Frazier) on consult help appreciated * Infectious disease (Dr. Espinal) on consult help appreciated * Ethambutol 1200mg PO daily (started 12/02) Isoniazid 300mg PO daily (started 12/02) Prazinamide 1500mg PO daily (started 12/02) (increased 12/08 for weight based dosing) Pyridoxine 100mg PO daily (started 12/02) Rifampin 600mg PO daily (started 12/02) 12/08: f/u daily AFB cultures until 3 negative cultures result. Refused blood work today. - Mycobacterial Sputum Cultures 12/10 AFB: 1+ acid fast bacilli, culture pending 12/09 AFB: 1+ acid fast bacilli, culture pending 12/06 AFB: 2+ acid fast bacilli, culture pending 12/04 AFB: 2+ acid fast bacilli, culture pending 12/02 AFB: 2+ acid fast bacilli, culture pending 12/01 AFB: 1+ acid fast bacilli, culture pending 11/30 AFB: 1+ acid fast bacilli, culture pending * HIV negative * Quant Gold - negative * Note: Disk containing CT + CXR images is in the physical chart. * 12/08/16 CT Chest: extensive small ill defined nodular opacities throughout left upper lobe as well as superior segment left lower lobe with areas of freeman consultation. Extensive cavitation amidst a large area of consolidation in the left apex. Scattered calficied grandulomas bilaterally. 2)Tachycardia * Thyroid studies: within normal * 12/08/16 CT Chest: extensive small ill defined nodular opacities throughout left upper lobe as well as superior segment left lower lobe with areas of freeman consultation. Extensive cavitation amidst a large area of consolidation in the left apex. Scattered calcified grandulomas bilaterally. * likely secondary to acute infection and possible anti-tB therapy 3) Diabetes, type 2; uncontrolled with associated neuropathy * Metformin 1000mg PO bid * Novolog sliding scale sub * Neurontin 300mg PO TID * A1c 12.4 * Enalapril 5mg PO daily 4) Alpha Thalassemia * MCV 69.7 * Ferritin 77.3, B12 950 H, folate 11.2, reticulocyte count 1.0 * hemoglobinopathy inerpretation - possible Alpha-thalassemia. * Fe 28 L, TIBC 243 L, %Sat 12 L * haptoglobin 501 H * Monitor outpatient * will need iron supplementation 5) Hypertension * Enalapril 5mg PO daily 6) Electrolyte Imbalance * Monitor and replete when necessary 7) Prophylaxis * respiratory isolation * Vegetarian Diet, carb consistent, low sodium * Pepcid 20mg PO daily * Heparin 5000 units SC q8H * Zofran 4mg PO Q6 PRN * SCDs
[2016-12-13] MEDS: (Novolog) Insulin Aspart, Recombinant 100 u/ml 10 ml vial SC SCH ×4 (08:32→22:00)
[2016-12-13] MEDS: guaiFENesin 600 mg ER Tab PO SCH ×2 (08:38→20:00)
[2016-12-13] MEDS: Pyridoxine 100 mg Tab PO SCH (09:48)
[2016-12-14] MEDS: (Novolog) Insulin Aspart, Recombinant 100 u/ml 10 ml vial SC SCH ×4 (07:59→21:45)
[2016-12-14] MEDS: guaiFENesin 600 mg ER Tab PO SCH ×2 (08:01→20:00)
--- NOTE | 2016-12-14 09:24 | CP.PCM.PN ---
<MichaelZahira lombardi - Last Filed: 12/14/16 14:54> Subjective - Date & Time of Evaluation Date of Evaluation: 12/14/16 Time of Evaluation: 09:23 - Subjective Subjective: Patient seen and examined at bedside. No acute events per nursing. Patient reports new onset hoarse voice and sore throat. He is able to tolerate po intake. Patient admits to cough but denies blood in sputum. He states nausea continues to be controlled. Patient denies fever, chills, chest pain, shortness of breath, abdominal pain, nausea, vomiting, diarrhea, constipation and urinary symptoms. He admits to ambulating in room frequently. Objective - Vital Signs/Intake and Output Vital Signs (last 24 hours): Temp Pulse Resp BP Pulse Ox 98.2 F 106 H 20 129/84 99 12/14/16 00:00 12/14/16 08:32 12/14/16 00:00 12/14/16 00:00 12/14/16 00:00 Intake and Output: 12/14/16 12/14/16 06:59 18:59 Intake Total 550 Balance 550 - Medications Medications: Current Medications Acetaminophen (Tylenol 325mg Tab) 650 mg PO Q6 PRN PRN Reason: Headache Last Admin: 12/04/16 20:53 Dose: 650 mg Albuterol/Ipratropium (Duoneb 3 Mg/0.5 Mg (3 Ml) Ud) 3 ml INH RQ6 PRN PRN Reason: Shortness of Breath Enalapril Maleate (Vasotec) 5 mg PO 1500 [facility] Last Admin: 12/13/16 15:00 Dose: 5 mg Ethambutol HCl (Myambutol) 1,200 mg PO DAILY [facility] Last Admin: 12/13/16 09:47 Dose: 1,200 mg Famotidine (Pepcid) 20 mg PO 0800 [facility] Last Admin: 12/14/16 08:00 Dose: 20 mg Gabapentin (Neurontin) 300 mg PO TID [facility] Last Admin: 12/13/16 18:00 Dose: 300 mg Guaifenesin (Mucinex La) 600 mg PO 0800,2000 [facility] Last Admin: 12/14/16 08:01 Dose: 600 mg Heparin Sodium (Porcine) (Heparin) 5,000 units SC Q8 [facility] Last Admin: 12/14/16 05:59 Dose: 5,000 units Insulin Aspart (Novolog) 0 unit SC ACHS [facility] PRN Reason: Protocol Last Admin: 12/14/16 07:59 Dose: 1 unit Isoniazid (Niazid) 300 mg PO DAILY [facility] Last Admin: 12/13/16 09:47 Dose: 300 mg Metformin HCl (Glucophage) 1,000 mg PO 0800,1800 [facility] Last Admin: 12/14/16 08:01 Dose: 1,000 mg Montelukast Sodium (Singulair) 10 mg PO HS [facility] Last Admin: 12/13/16 22:00 Dose: 10 mg Ondansetron HCl (Zofran Inj) 4 mg IVP Q6H PRN PRN Reason: Nausea/Vomiting Last Admin: 12/06/16 12:52 Dose: 4 mg Ondansetron HCl (Zofran Tab) 4 mg PO Q6 PRN Last Admin: 12/14/16 08:00 Dose: 4 mg Pyrazinamide (Pyrazinamide) 1,500 mg PO DAILY [facility] Last Admin: 12/13/16 09:48 Dose: 1,500 mg Pyridoxine HCl (Vitamin B6) 100 mg PO DAILY [facility] Last Admin: 12/13/16 09:48 Dose: 100 mg Rifampin (Rifampin Cap) 600 mg PO DAILY [facility] Last Admin: 12/13/16 09:48 Dose: 600 mg - Labs Labs: 12/12/16 05:57 12/12/16 05:57 PT 13.6 SECONDS (9.7-12.2) H 12/01/16 07:37 INR 1.2 12/01/16 07:37 APTT 28 SECONDS (21-34) 12/01/16 07:37 - Constitutional Appears: Non-toxic, No Acute Distress, Other (hoarse voice on exam ) - Head Exam Head Exam: ATRAUMATIC, NORMAL INSPECTION, NORMOCEPHALIC - Eye Exam Eye Exam: EOMI, Normal appearance, PERRL - ENT Exam ENT Exam: Mucous Membranes Moist, Normal Oropharynx - Neck Exam Neck Exam: Full ROM, Normal Inspection - Respiratory Exam Respiratory Exam: Clear to Ausculation Bilateral, NORMAL BREATHING PATTERN. absent: Rales, Rhonchi, Wheezes - Cardiovascular Exam Cardiovascular Exam: +S1, +S2. absent: Diastolic murmur, Murmur - GI/Abdominal Exam GI & Abdominal Exam: Soft, Normal Bowel Sounds. absent: Firm, Guarding, Rigid, Tenderness - Extremities Exam Extremities Exam: Normal Capillary Refill, Normal Inspection. absent: Pedal Edema, Tenderness - Back Exam Back Exam: NORMAL INSPECTION - Neurological Exam Neurological Exam: Alert, Awake, Normal Gait, Oriented x3 - Psychiatric Exam Psychiatric exam: Normal Affect, Normal Mood - Skin Skin Exam: Dry, Intact, Normal Color, Warm Assessment and Plan - Assessment and Plan (Free Text) Assessment: Tuberculosis, active +AFB's collected, awaiting culture results. Labs q3D. Continue RIPE therapy. Monitor LFTs. - Mycobacterial Sputum Cultures 12/10 AFB: 1+ acid fast bacilli, culture pending 12/09 AFB: 1+ acid fast bacilli, culture pending 12/06 AFB: 2+ acid fast bacilli, culture pending 12/04 AFB: 2+ acid fast bacilli, culture pending 12/02 AFB: 2+ acid fast bacilli, culture pending 12/01 AFB: 1+ acid fast bacilli, culture pending 11/30 AFB: 1+ acid fast bacilli, culture pending -ID consult, Dr. Espinal -> Continue quadruple therapy for TB. 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 WILL LIKELY TAKE SEVERAL WEEKS TO CLEAR SPUTUM ethambutol 1200mg PO daily (started 12/02) isoniazide 300mg PO daily (started 12/02) Prazinamide 1500mg PO daily (started 12/02) (increased 12/08 for weight based dosing) Pyridoxine 100mg PO daily (started 12/02) Rifampin 600mg PO daily (started 12/02) -HIV negative -Quant Gold - negative -Note: Disk containing CT + CXR images is in the physical chart. -Cavitary left upper lobe infiltrate/mass. CT scan may be beneficial in further assessment of this process primarily affecting the posterior segment. The cavitary comes/cystic component is best seen on the lateral view measuring 5.2 x 6.4 cm. -Pulm Consult, Dr. Frazier -> bronchoscopy 12/01 AM cancelled, as CT imaging showed clear TB infection f/u sputum studies and sputum PCR -Continue Mucinex 600mg PO BID; Singulair 10mg PO HS; Duonebs RQ6 PRN Sore Throat likely secondary to cough Start Cepachol Lozenges BID Tachycardia 12/13: Pharmacy reviewed meds and noted tachycardia could be attributed to Isoniazid and Rifampin. 12/07-12/12: persistent tachycardia since 12/07/16 (100's-120's). Pharmacy is looking into this. Duoneb PRN is on, however patient hasn't received a recent dose. -TSH + free T4 - both WNL -> r/o hyperthyroidism -CXR 12/08- Increasing opacity of left lung with cavitation in the left apex and left apical pleural thickening. Likely infectious process. Consider fungal or atypical mycobacterial. 5 mm nodule in right apex. Consider further evaluation with computed tomography. Diabetes Mellitus type II Blood glucose 156 Metformin 1000mg PO BID Novolog RISS Neurontin 300mg PO TID A1c 12.4 FLP grossly WNL; HDL 28 L Glucose 233 on admission Alpha Thalassemia Started IV Ferrlicit MCV 69.7 Ferritin 77.3, B12 950 H, folate 11.2, reticulocyte count 1.0 hemoglobinopathy inerpretation - possible Alpha-thalassemia. Fe 28 L, TIBC 243 L, %Sat 12 L haptoglobin 501 H Monitor outpatient Hypertension normotensive Continue home Enalapril 5mg PO d Electrolyte Imbalance Hypokalemia, K3.5 - Resolved. Will monitor Prophylaxis respiratory isolation Vegetarian Diet, carb consistent, low sodium Pepcid 20mg PO d Lovenox 40 mg SC daily Zofran 4mg PO Q6 PRN SCDs <Reyna Huber V - Last Filed: 12/14/16 17:38> Objective - Vital Signs/Intake and Output Vital Signs (last 24 hours): Temp Pulse Resp BP Pulse Ox 98.5 F 103 H 20 143/92 H 99 12/14/16 15:20 12/14/16 16:20 12/14/16 15:20 12/14/16 15:20 12/14/16 15:20 Intake and Output: 12/14/16 12/14/16 06:59 18:59 Intake Total 550 Balance 550 - Medications Medications: Current Medications Acetaminophen (Tylenol 325mg Tab) 650 mg PO Q6 PRN PRN Reason: Headache Last Admin: 12/04/16 20:53 Dose: 650 mg Albuterol/Ipratropium (Duoneb 3 Mg/0.5 Mg (3 Ml) Ud) 3 ml INH RQ6 PRN PRN Reason: Shortness of Breath Benzocaine/Menthol (Cepacol Sore Throat) 1 liz MT BID PRN PRN Reason: Sore Throat Enalapril Maleate (Vasotec) 5 mg PO 1500 [facility] Last Admin: 12/14/16 14:34 Dose: 5 mg Enoxaparin Sodium (Lovenox) 40 mg SC DAILY [facility] Ethambutol HCl (Myambutol) 1,200 mg PO DAILY [facility] Last Admin: 12/14/16 11:00 Dose: 1,200 mg Famotidine (Pepcid) 20 mg PO 0800 [facility] Last Admin: 12/14/16 08:00 Dose: 20 mg Ferric Sodium Gluconate Complex (Ferrlecit) 125 mg IVPB DAILY [facility] Stop: 12/23/16 10:01 Gabapentin (Neurontin) 300 mg PO TID [facility] Last Admin: 12/14/16 14:34 Dose: 300 mg Guaifenesin (Mucinex La) 600 mg PO 0800,2000 [facility] Last Admin: 12/14/16 08:01 Dose: 600 mg Insulin Aspart (Novolog) 0 unit SC ACHS [facility] PRN Reason: Protocol Last Admin: 12/14/16 12:32 Dose: Not Given Isoniazid (Niazid) 300 mg PO DAILY [facility] Last Admin: 12/14/16 11:00 Dose: 300 mg Metformin HCl (Glucophage) 1,000 mg PO 0800,1800 [facility] Last Admin: 12/14/16 08:01 Dose: 1,000 mg Montelukast Sodium (Singulair) 10 mg PO HS [facility] Last Admin: 12/13/16 22:00 Dose: 10 mg Ondansetron HCl (Zofran Inj) 4 mg IVP Q6H PRN PRN Reason: Nausea/Vomiting Last Admin: 12/06/16 12:52 Dose: 4 mg Ondansetron HCl (Zofran Tab) 4 mg PO Q6 PRN Last Admin: 12/14/16 08:00 Dose: 4 mg Pyrazinamide (Pyrazinamide) 1,500 mg PO DAILY [facility] Last Admin: 12/14/16 11:00 Dose: 1,500 mg Pyridoxine HCl (Vitamin B6) 100 mg PO DAILY [facility] Last Admin: 12/14/16 11:00 Dose: 100 mg Rifampin (Rifampin Cap) 600 mg PO DAILY [facility] Last Admin: 12/14/16 11:00 Dose: 600 mg - Labs Labs: 12/12/16 05:57 12/12/16 05:57 PT 13.6 SECONDS (9.7-12.2) H 12/01/16 07:37 INR 1.2 12/01/16 07:37 APTT 28 SECONDS (21-34) 12/01/16 07:37 Attending/Attestation - Attestation I have personally seen and examined this patient.: Yes I have fully participated in the care of the patient.: Yes I have reviewed all pertinent clinical information, including history, physical exam and plan: Yes Notes (Text): Patient seen, examined and case discussed with day-time resident. patient indicating he has a sore throat. Patient to continue on RIPE therapy and follow-up sputum cultures to indicate if TB is clearing. Patient started on IV Ferrlecet given low iron stores. Patient ordered for serial sputum cultures will continue to monitor. Assessment/Plan 1) Tuberculosis, active * Airborne precautions * Pulmonary (Dr. Frazier) on consult help appreciated * Infectious disease (Dr. Espinal) on consult help appreciated * Ethambutol 1200mg PO daily (started 12/02) Isoniazid 300mg PO daily (started 12/02) Prazinamide 1500mg PO daily (started 12/02) (increased 12/08 for weight based dosing) Pyridoxine 100mg PO daily (started 12/02) Rifampin 600mg PO daily (started 12/02) 12/08: f/u daily AFB cultures until 3 negative cultures result. Refused blood work today. - Mycobacterial Sputum Cultures 12/13 AFB 2+ acid fast bacilli, culture pending 12/12: AFB 2+ acid fast bacilli, culture pending 12/10 AFB: 1+ acid fast bacilli, culture pending 12/09 AFB: 1+ acid fast bacilli, culture pending 12/06 AFB: 2+ acid fast bacilli, culture pending 12/04 AFB: 2+ acid fast bacilli, culture pending 12/02 AFB: 2+ acid fast bacilli, culture pending 12/01 AFB: 1+ acid fast bacilli, culture pending 11/30 AFB: 1+ acid fast bacilli, culture pending * HIV negative * Quant Gold - negative * Note: Disk containing CT + CXR images is in the physical chart. * 12/08/16 CT Chest: extensive small ill defined nodular opacities throughout left upper lobe as well as superior segment left lower lobe with areas of freeman consultation. Extensive cavitation amidst a large area of consolidation in the left apex. Scattered calficied grandulomas bilaterally. 2)Tachycardia * Thyroid studies: within normal * 12/08/16 CT Chest: extensive small ill defined nodular opacities throughout left upper lobe as well as superior segment left lower lobe with areas of freeman consultation. Extensive cavitation amidst a large area of consolidation in the left apex. Scattered calcified grandulomas bilaterally. * likely secondary to acute infection and possible anti-tB therapy 3) Diabetes, type 2; uncontrolled with associated neuropathy * Metformin 1000mg PO bid * Novolog sliding scale sub * Neurontin 300mg PO TID * A1c 12.4 * Enalapril 5mg PO daily 4) Alpha Thalassemia * MCV 69.7 * Ferritin 77.3, B12 950 H, folate 11.2, reticulocyte count 1.0 * hemoglobinopathy inerpretation - possible Alpha-thalassemia. * Fe 28 L, TIBC 243 L, %Sat 12 L * haptoglobin 501 H * Monitor outpatient * Started on Ferrlect IV 5) Hypertension * Enalapril 5mg PO daily 6) Electrolyte Imbalance * Monitor and replete when necessary 7) Prophylaxis * respiratory isolation * Vegetarian Diet, carb consistent, low sodium * Pepcid 20mg PO daily * Heparin 5000 units SC q8H * Zofran 4mg PO Q6 PRN * SCDs
[2016-12-14] MEDS: Pyridoxine 100 mg Tab PO SCH (11:00)
[2016-12-14] MEDS ORDERED: Benzocaine/Menthol (Cepacol) Lozenge MT PRN (14:51)
[2016-12-15 07:23] LABS: BASO % 0.4 % (0.0-2.0); EOS # 0.2 K/uL (0.0-0.7); HEMATOCRIT 39.8 % (35.0-51.0); LYMPH # 1.4 K/uL (1.0-4.3); LYMPH % 17.2 % (20.0-40.0); MEAN CORPUSCULAR HEMOGLOBIN 22.6 pg (27.0-31.0); MEAN CORPUSCULAR HGB CONC 32.3 g/dL (33.0-37.0); MONO # 0.8 K/uL (0.0-0.8); MONO % 9.5 % (0.0-10.0)
[2016-12-15 07:49] LABS: CHLORIDE 91 mmol/L (98-107); POTASSIUM 4.3 mmol/L (3.6-5.2); SODIUM 128 mmol/L (132-148)
[2016-12-15 07:51] LABS: ALB/GLOB RATIO 1.1 (1.0-2.1); ALKALINE PHOSPHATASE 91 U/L (38-126); ALT/SGPT 20 U/L (21-72); AST/SGOT 19 U/L (17-59); BILIRUBIN,TOTAL 0.2 mg/dL (0.2-1.3); BLOOD UREA NITROGEN 6 mg/dL (9-20); CARBON DIOXIDE 23 mmol/L (22-30); GFR AFRICAN-AMERICAN > 60; TOTAL PROTEIN 7.5 g/dL (6.3-8.3)
[2016-12-15 07:52] LABS: CALCIUM 9.5 mg/dl (8.6-10.4); GLUCOSE,RANDOM 155 mg/dL (75-110); PHOSPHOROUS 4.1 mg/dL (2.5-4.5)
[2016-12-15 07:53] LABS: MAGNESIUM 1.7 mg/dL (1.6-2.3)
[2016-12-15] MEDS: guaiFENesin 600 mg ER Tab PO SCH ×2 (08:27→20:00)
[2016-12-15] MEDS: (Novolog) Insulin Aspart, Recombinant 100 u/ml 10 ml vial SC SCH ×4 (08:28→22:00)
[2016-12-15] MEDS: Pyridoxine 100 mg Tab PO SCH (09:13)
[2016-12-15] MEDS: Enoxaparin 40 mg Syringe SC SCH (11:00)
[2016-12-15] MEDS: Ferric Sodium Gluconat Complex 62.5 mg/5 ml Vial IVPB SCH (12:32)
--- NOTE | 2016-12-15 14:02 | CP.PCM.PN ---
<Zahira Vega - Last Filed: 12/15/16 13:58> Subjective - Date & Time of Evaluation Date of Evaluation: 12/15/16 Time of Evaluation: 13:58 - Subjective Subjective: Patient seen and examined at bedside. Patient states he is doing well. He continues to remain active ambulating in room. He complains of sore throat. Patient noted to be tachycardic in 120s but denies feeling palpitations and chest pain. Patient also denies shortness of breath but admits to intermittent cough. He denies abdominal pain, nausea, vomiting, constipation, diarrhea, dysuria and increased urinary frequency. Objective - Vital Signs/Intake and Output Vital Signs (last 24 hours): Temp Pulse Resp BP Pulse Ox 98.1 F 124 H 20 132/96 H 97 12/15/16 08:00 12/15/16 11:51 12/15/16 08:00 12/15/16 08:00 12/15/16 08:00 Intake and Output: 12/15/16 12/15/16 06:59 18:59 Intake Total 550 Balance 550 - Medications Medications: Current Medications Acetaminophen (Tylenol 325mg Tab) 650 mg PO Q6 PRN PRN Reason: Headache Last Admin: 12/04/16 20:53 Dose: 650 mg Benzocaine/Menthol (Cepacol Sore Throat) 1 liz MT BID PRN PRN Reason: Sore Throat Enalapril Maleate (Vasotec) 5 mg PO 1500 [facility] Last Admin: 12/14/16 14:34 Dose: 5 mg Enoxaparin Sodium (Lovenox) 40 mg SC DAILY [facility] Last Admin: 12/15/16 11:00 Dose: 40 mg Ethambutol HCl (Myambutol) 1,200 mg PO DAILY [facility] Last Admin: 12/15/16 09:13 Dose: 1,200 mg Famotidine (Pepcid) 20 mg PO 0800 [facility] Last Admin: 12/15/16 08:28 Dose: 20 mg Ferric Sodium Gluconate Complex (Ferrlecit) 125 mg IVPB DAILY [facility] Stop: 12/23/16 10:01 Last Admin: 12/15/16 12:32 Dose: 125 mg Gabapentin (Neurontin) 300 mg PO TID [facility] Last Admin: 12/15/16 09:14 Dose: 300 mg Guaifenesin (Mucinex La) 600 mg PO 0800,2000 [facility] Last Admin: 12/15/16 08:27 Dose: 600 mg Insulin Aspart (Novolog) 0 unit SC ACHS [facility] PRN Reason: Protocol Last Admin: 12/15/16 12:30 Dose: Not Given Isoniazid (Niazid) 300 mg PO DAILY [facility] Last Admin: 12/15/16 09:14 Dose: 300 mg Metformin HCl (Glucophage) 1,000 mg PO 0800,1800 [facility] Last Admin: 12/15/16 08:27 Dose: 1,000 mg Montelukast Sodium (Singulair) 10 mg PO HS [facility] Last Admin: 12/14/16 21:45 Dose: 10 mg Ondansetron HCl (Zofran Inj) 4 mg IVP Q6H PRN PRN Reason: Nausea/Vomiting Last Admin: 12/06/16 12:52 Dose: 4 mg Ondansetron HCl (Zofran Tab) 4 mg PO Q6 PRN Last Admin: 12/15/16 08:29 Dose: 4 mg Pyrazinamide (Pyrazinamide) 1,500 mg PO DAILY [facility] Last Admin: 12/15/16 09:13 Dose: 1,500 mg Pyridoxine HCl (Vitamin B6) 100 mg PO DAILY [facility] Last Admin: 12/15/16 09:13 Dose: 100 mg Rifampin (Rifampin Cap) 600 mg PO DAILY [facility] Last Admin: 12/15/16 09:13 Dose: 600 mg - Labs Labs: 12/15/16 07:15 12/15/16 07:15 PT 13.6 SECONDS (9.7-12.2) H 12/01/16 07:37 INR 1.2 12/01/16 07:37 APTT 28 SECONDS (21-34) 12/01/16 07:37 - Constitutional Appears: Non-toxic, In Acute Distress - Head Exam Head Exam: ATRAUMATIC, NORMAL INSPECTION, NORMOCEPHALIC - Eye Exam Eye Exam: EOMI, Normal appearance, PERRL - ENT Exam ENT Exam: Mucous Membranes Moist, Normal Exam - Neck Exam Neck Exam: Full ROM, Normal Inspection - Respiratory Exam Respiratory Exam: Clear to Ausculation Bilateral, NORMAL BREATHING PATTERN. absent: Rales, Rhonchi, Wheezes - Cardiovascular Exam Cardiovascular Exam: Tachycardia, +S1, +S2. absent: Murmur - GI/Abdominal Exam GI & Abdominal Exam: Soft, Normal Bowel Sounds. absent: Guarding, Rigid, Tenderness - Extremities Exam Extremities Exam: Full ROM, Normal Capillary Refill, Normal Inspection - Neurological Exam Neurological Exam: Alert, Awake, Oriented x3 Neuro motor strength exam: Left Upper Extremity: 5, Right Upper Extremity: 5, Left Lower Extremity: 5, Right Lower Extremity: 5 - Psychiatric Exam Psychiatric exam: Normal Affect, Normal Mood - Skin Skin Exam: Intact, Normal Color, Warm Assessment and Plan - Assessment and Plan (Free Text) Assessment: Tuberculosis, active +AFB's collected, awaiting culture results. Labs q3D. Continue RIPE therapy. Monitor LFTs. - Mycobacterial Sputum Cultures 12/13 AFB: Few (2+) acid-fast bacilli seen using the fluorochrome method. 12/12 AFB: Few (2+) acid-fast bacilli seen using the fluorochrome method. 12/10 AFB: 1+ acid fast bacilli, culture pending 12/09 AFB: 1+ acid fast bacilli, culture pending 12/06 AFB: 2+ acid fast bacilli, culture prelim: no mycobacterium species isolated after one week incubation 12/04 AFB: 2+ acid fast bacilli, culture prelim: Acid-fast bacilli present in liquid culture medium. Identification to follow. 12/02 AFB: 2+ acid fast bacilli, culture prelim: Acid-fast bacilli present in liquid culture medium. Identification to follow. 12/01 AFB: 1+ acid fast bacilli, culture prelim: Acid-fast bacilli present in liquid culture medium. Identification to follow. 11/30 AFB: 1+ acid fast bacilli, culture prelim: Acid-fast bacilli present in liquid culture medium. Identification to follow. -ID consult, Dr. Espinal -> Continue quadruple therapy for TB. 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 WILL LIKELY TAKE SEVERAL WEEKS TO CLEAR SPUTUM ethambutol 1200mg PO daily (started 12/02) isoniazide 300mg PO daily (started 12/02) Prazinamide 1500mg PO daily (started 12/02) (increased 12/08 for weight based dosing) Pyridoxine 100mg PO daily (started 12/02) Rifampin 600mg PO daily (started 12/02) -HIV negative -Quant Gold - negative -Note: Disk containing CT + CXR images is in the physical chart. -Cavitary left upper lobe infiltrate/mass. CT scan may be beneficial in further assessment of this process primarily affecting the posterior segment. The cavitary comes/cystic component is best seen on the lateral view measuring 5.2 x 6.4 cm. -Pulm Consult, Dr. Frazier -> bronchoscopy 12/01 AM cancelled, as CT imaging showed clear TB infection f/u sputum studies and sputum PCR -Continue Mucinex 600mg PO BID; Singulair 10mg PO HS; Duonebs RQ6 PRN Sore Throat likely secondary to cough Continue Cepachol Lozenges BID Will discontinue Enalapril Tachycardia 12/15: EKG and Echocardiogram ordered to evaluate tachycardia. Cardiology, Neil Spencer, consulted. Help appreciated. 12/13: Pharmacy reviewed meds and noted tachycardia could be attributed to Isoniazid and Rifampin. 12/07-12/12: persistent tachycardia since 12/07/16 (100's-120's). Pharmacy is looking into this. Duoneb PRN is on, however patient hasn't received a recent dose. -TSH + free T4 - both WNL -> r/o hyperthyroidism -CXR 12/08- Increasing opacity of left lung with cavitation in the left apex and left apical pleural thickening. Likely infectious process. Consider fungal or atypical mycobacterial. 5 mm nodule in right apex. Consider further evaluation with computed tomography. Diabetes Mellitus type II Blood glucose 158 Metformin 1000mg PO BID Novolog RISS Neurontin 300mg PO TID A1c 12.4 FLP grossly WNL; HDL 28 L Glucose 233 on admission Alpha Thalassemia Continue IV Ferrlicit MCV 69.7 Ferritin 77.3, B12 950 H, folate 11.2, reticulocyte count 1.0 hemoglobinopathy inerpretation - possible Alpha-thalassemia. Fe 28 L, TIBC 243 L, %Sat 12 L haptoglobin 501 H Monitor outpatient Hypertension normotensive Discontinued Enalapril 5mg PO due to cough Started on Losartan 25 mg po daily Electrolyte Imbalance Resolved Hypokalemia, K3.5 - Resolved. Will monitor Prophylaxis respiratory isolation Vegetarian Diet, carb consistent, low sodium Pepcid 20mg PO d Lovenox 40 mg SC daily Zofran 4mg PO Q6 PRN SCDs <Reyna Huber V - Last Filed: 12/15/16 19:15> Objective - Vital Signs/Intake and Output Vital Signs (last 24 hours): Temp Pulse Resp BP Pulse Ox 98 F 101 H 20 125/85 98 12/15/16 15:25 12/15/16 15:25 12/15/16 15:25 12/15/16 15:25 12/15/16 15:25 - Medications Medications: Current Medications Acetaminophen (Tylenol 325mg Tab) 650 mg PO Q6 PRN PRN Reason: Headache Last Admin: 12/04/16 20:53 Dose: 650 mg Benzocaine/Menthol (Cepacol Sore Throat) 1 liz MT BID PRN PRN Reason: Sore Throat Enoxaparin Sodium (Lovenox) 40 mg SC DAILY [facility] Last Admin: 12/15/16 11:00 Dose: 40 mg Ethambutol HCl (Myambutol) 1,200 mg PO DAILY [facility] Last Admin: 12/15/16 09:13 Dose: 1,200 mg Famotidine (Pepcid) 20 mg PO 0800 [facility] Last Admin: 12/15/16 08:28 Dose: 20 mg Ferric Sodium Gluconate Complex (Ferrlecit) 125 mg IVPB DAILY [facility] Stop: 12/23/16 10:01 Last Admin: 12/15/16 12:32 Dose: 125 mg Gabapentin (Neurontin) 300 mg PO TID [facility] Last Admin: 12/15/16 17:49 Dose: 300 mg Guaifenesin (Mucinex La) 600 mg PO 0800,2000 [facility] Last Admin: 12/15/16 08:27 Dose: 600 mg Insulin Aspart (Novolog) 0 unit SC ACHS [facility] PRN Reason: Protocol Last Admin: 12/15/16 16:30 Dose: 1 unit Isoniazid (Niazid) 300 mg PO DAILY [facility] Last Admin: 12/15/16 09:14 Dose: 300 mg Losartan Potassium (Cozaar) 25 mg PO DAILY [facility] Metformin HCl (Glucophage) 1,000 mg PO 0800,1800 [facility] Last Admin: 12/15/16 17:49 Dose: 1,000 mg Metoprolol Tartrate (Lopressor) 12.5 mg PO BID [facility] Last Admin: 12/15/16 17:49 Dose: 12.5 mg Montelukast Sodium (Singulair) 10 mg PO HS [facility] Last Admin: 12/14/16 21:45 Dose: 10 mg Ondansetron HCl (Zofran Inj) 4 mg IVP Q6H PRN PRN Reason: Nausea/Vomiting Last Admin: 12/06/16 12:52 Dose: 4 mg Ondansetron HCl (Zofran Tab) 4 mg PO Q6 PRN Last Admin: 12/15/16 08:29 Dose: 4 mg Pyrazinamide (Pyrazinamide) 1,500 mg PO DAILY [facility] Last Admin: 12/15/16 09:13 Dose: 1,500 mg Pyridoxine HCl (Vitamin B6) 100 mg PO DAILY [facility] Last Admin: 12/15/16 09:13 Dose: 100 mg Rifampin (Rifampin Cap) 600 mg PO DAILY [facility] Last Admin: 12/15/16 09:13 Dose: 600 mg - Labs Labs: 12/15/16 07:15 12/15/16 07:15 PT 13.6 SECONDS (9.7-12.2) H 12/01/16 07:37 INR 1.2 12/01/16 07:37 APTT 28 SECONDS (21-34) 12/01/16 07:37 Attending/Attestation - Attestation I have personally seen and examined this patient.: Yes I have fully participated in the care of the patient.: Yes I have reviewed all pertinent clinical information, including history, physical exam and plan: Yes Notes (Text): Patient seen, examined, and case discussed with day time resident. patient indicating he has a sore throat. Discontinue crystal-inhibitor and start arb. Patient to continue on RIPE therapy and follow-up sputum cultures about 2x/week to indicate if TB is clearing. Discussed with Salina Willoughby, infectious disease nurse. Cardiology consulted. Patient has persistent tachycardia r/o cardiac causes. Patient ordered for echocardiogram, d-dimer, T3 (prior thyroid studies are WNL) and discuss with cardiology. Assessment/Plan 1) Tuberculosis, active * Airborne precautions * Pulmonary (Dr. Frazier) on consult help appreciated * Infectious disease (Dr. Espinal) on consult help appreciated * Ethambutol 1200mg PO daily (started 12/02) Isoniazid 300mg PO daily (started 12/02) Prazinamide 1500mg PO daily (started 12/02) (increased 4/5 for weight based dosing) Pyridoxine 100mg PO daily (started 12/02) Rifampin 600mg PO daily (started 12/02) f/u AFB/sputum cultures twice a week until 3 negative cultures result. - Mycobacterial Sputum Cultures 12/13 AFB 2+ acid fast bacilli, culture pending 12/12: AFB 2+ acid fast bacilli, culture pending 12/10 AFB: 1+ acid fast bacilli, culture pending 12/09 AFB: 1+ acid fast bacilli, culture pending 12/06 AFB: 2+ acid fast bacilli, culture pending 12/04 AFB: 2+ acid fast bacilli, culture pending 12/02 AFB: 2+ acid fast bacilli, culture pending 12/01 AFB: 1+ acid fast bacilli, culture pending 11/30 AFB: 1+ acid fast bacilli, culture pending * HIV negative * Quant Gold - negative * Note: Disk containing CT + CXR images is in the physical chart. * 12/08/16 CT Chest: extensive small ill defined nodular opacities throughout left upper lobe as well as superior segment left lower lobe with areas of freeman consultation. Extensive cavitation amidst a large area of consolidation in the left apex. Scattered calficied grandulomas bilaterally. 2)Tachycardia * Thyroid studies: within normal * 12/08/16 CT Chest: extensive small ill defined nodular opacities throughout left upper lobe as well as superior segment left lower lobe with areas of freeman consultation. Extensive cavitation amidst a large area of consolidation in the left apex. Scattered calcified grandulomas bilaterally. * likely secondary to acute infection and possible anti-tB therapy * Ordered for d-dimer, echo, T3 * Cardiology (Dr. Trejo) consult-->help appreciated 3) Diabetes, type 2; uncontrolled with associated neuropathy * Metformin 1000mg PO bid * Novolog sliding scale sub * Neurontin 300mg PO TID * A1c 12.4 * discontinue Enalapril given cough; start Losartan 4) Alpha Thalassemia * MCV 69.7 * Ferritin 77.3, B12 950 H, folate 11.2, reticulocyte count 1.0 * hemoglobinopathy inerpretation - possible Alpha-thalassemia. * Fe 28 L, TIBC 243 L, %Sat 12 L * haptoglobin 501 H * Monitor outpatient * Started on Ferrlect IV 5) Hypertension * d/c Enalapril 5mg PO daily * started on Losartan 6) Electrolyte Imbalance * Monitor and replete when necessary 7) Prophylaxis * respiratory isolation * Vegetarian Diet, carb consistent, low sodium * Pepcid 20mg PO daily * Heparin 5000 units SC q8H * Zofran 4mg PO Q6 PRN * SCDs
--- NOTE | 2016-12-15 16:15 | CP.PCM.CON ---
<Javier Mccall - Last Filed: 12/15/16 16:47> History of Present Illness - History of Present Illness History of Present Illness: Cardiology Consultation Note Dr. Trejo CC: Tachycardia HPI: This is a 51M with history of DM and HTN admitted on 11/30/16 for persistent dry cough lasting 4 weeks prior presenting for cardiac evaluation of persistent tachycardia. In addition, patient has had about 40 pound unexplained weight loss in the months prior. At time of admission, patient complained of subjective fevers, easy fatigue, cough. CXR and CT workup revealed evidence of active TB. Rifampin, Isoniazid, Pyrazinamide, Ethambutol were given as protocol. Patient has had recorded tachycardia since 12/04/16. EKG on 11/30/16 revealed sinus tachycardia. Thyroid studies were negative. Patient seen and examined this AM. Complains of dry cough. Patient presently denies fevers, chills, headache, chest pain, palpitations, dyspnea, abdominal pain, N/V /D/C, changes in bowel/bladder, and extremity paresthesias. 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 He chews tobacco and previously drank alcohol but has not in some time. Review of Systems - Constitutional Constitutional: absent: Chills, Fever - EENT Eyes: absent: Blind Spots, Change in Vision Ears: absent: Decreased Hearing, Tinnitus Nose/Mouth/Throat: absent: Facial Pain, Neck Pain - Cardiovascular Cardiovascular: absent: Chest Pain, Palpitations, Syncope - Respiratory Respiratory: Cough (dry). absent: Dyspnea, Hemoptysis, Dyspnea on Exertion - Gastrointestinal Gastrointestinal: absent: Abdominal Pain, Constipation, Diarrhea, Nausea, Vomiting - Genitourinary Genitourinary: absent: Change in Urinary Stream, Difficulty Urinating - Musculoskeletal Musculoskeletal: absent: Muscle Weakness, Stiffness, Tingling - Integumentary Integumentary: absent: Lesions, Rash, Wounds - Neurological Neurological: absent: Tingling, Weakness - Endocrine Endocrine: absent: Cold Intolorance, Heat Intolorance Past Patient History - Past Medical History & Family History Past Medical History?: Yes - Past Social History Smoking Status: Never Smoked - CARDIAC Hx Hypertension: Yes - ENDOCRINE/METABOLIC Hx Endocrine Disorders: Yes Hx Diabetes Mellitus Type 2: Yes - MUSCULOSKELETAL/RHEUMATOLOGICAL Hx Falls: No - PSYCHIATRIC Hx Substance Use: No - SURGICAL HISTORY Hx Surgeries: Yes Other/Comment: CHILDHOOD SX..PT CANNOT REMEMBER WHAT - ANESTHESIA Hx Anesthesia: No Meds Allergies/Adverse Reactions: Allergies Allergy/AdvReac Type Severity Reaction Status Date / Time No Known Allergies Allergy Verified 11/30/16 09:48 - Medications Medications: Current Medications Acetaminophen (Tylenol 325mg Tab) 650 mg PO Q6 PRN PRN Reason: Headache Last Admin: 12/04/16 20:53 Dose: 650 mg Benzocaine/Menthol (Cepacol Sore Throat) 1 liz MT BID PRN PRN Reason: Sore Throat Enoxaparin Sodium (Lovenox) 40 mg SC DAILY ON LICENSE OF [facility] Last Admin: 12/15/16 11:00 Dose: 40 mg Ethambutol HCl (Myambutol) 1,200 mg PO DAILY ON LICENSE OF [facility] Last Admin: 12/15/16 09:13 Dose: 1,200 mg Famotidine (Pepcid) 20 mg PO 0800 ON [facility] OF [facility] Last Admin: 12/15/16 08:28 Dose: 20 mg Ferric Sodium Gluconate Complex (Ferrlecit) 125 mg IVPB DAILY ON LICENSE OF [facility] Stop: 12/23/16 10:01 Last Admin: 12/15/16 12:32 Dose: 125 mg Gabapentin (Neurontin) 300 mg PO TID ON LICENSE OF [facility] Last Admin: 12/15/16 14:24 Dose: 300 mg Guaifenesin (Mucinex La) 600 mg PO 0800,2000 ON LICENSE OF [facility] Last Admin: 12/15/16 08:27 Dose: 600 mg Insulin Aspart (Novolog) 0 unit SC [facility] ON LICENSE OF [facility] PRN Reason: Protocol Last Admin: 12/15/16 12:30 Dose: Not Given Isoniazid (Niazid) 300 mg PO DAILY ON LICENSE OF [facility] Last Admin: 12/15/16 09:14 Dose: 300 mg Losartan Potassium (Cozaar) 25 mg PO DAILY ON LICENSE OF [facility] Metformin HCl (Glucophage) 1,000 mg PO 0800,1800 ON [facility] OF [facility] Last Admin: 12/15/16 08:27 Dose: 1,000 mg Montelukast Sodium (Singulair) 10 mg PO HS ON LICENSE OF [facility] Last Admin: 12/14/16 21:45 Dose: 10 mg Ondansetron HCl (Zofran Inj) 4 mg IVP Q6H PRN PRN Reason: Nausea/Vomiting Last Admin: 12/06/16 12:52 Dose: 4 mg Ondansetron HCl (Zofran Tab) 4 mg PO Q6 PRN Last Admin: 12/15/16 08:29 Dose: 4 mg Pyrazinamide (Pyrazinamide) 1,500 mg PO DAILY ON [facility] Last Admin: 12/15/16 09:13 Dose: 1,500 mg Pyridoxine HCl (Vitamin B6) 100 mg PO DAILY ON LICENSE OF [facility] Last Admin: 12/15/16 09:13 Dose: 100 mg Rifampin (Rifampin Cap) 600 mg PO DAILY ON LICENSE OF [facility] Last Admin: 12/15/16 09:13 Dose: 600 mg Physical Exam - Constitutional Appears: No Acute Distress - Head Exam Head Exam: ATRAUMATIC, NORMAL INSPECTION, NORMOCEPHALIC - Eye Exam Eye Exam: EOMI, Normal appearance, PERRL - ENT Exam ENT Exam: Mucous Membranes Moist, Normal Exam - Neck Exam Neck exam: Positive for: Normal Inspection - Respiratory Exam Respiratory Exam: Clear to Auscultation Bilateral, NORMAL BREATHING PATTERN. absent: Rhonchi, Wheezes, Respiratory Distress - Cardiovascular Exam Cardiovascular Exam: Tachycardia, REGULAR RHYTHM, +S1, +S2. absent: Diastolic murmur, RRR, Systolic Murmur - GI/Abdominal Exam GI & Abdominal Exam: Normal Bowel Sounds, Soft. absent: Distended, Guarding, Tenderness - Extremities Exam Extremities exam: Positive for: normal inspection. Negative for: pedal edema - Neurological Exam Neurological exam: Alert, CN II-XII Intact, Normal Gait, Oriented x3 - Skin Skin Exam: Dry, Intact, Normal Color, Warm Results - Vital Signs Recent Vital Signs: Last Vital Signs Temp 98.1 F 12/15/16 08:00 Pulse 124 H 12/15/16 11:51 Resp 20 12/15/16 08:00 BP 132/96 H 12/15/16 08:00 Pulse Ox 97 12/15/16 08:00 - Labs Result Diagrams: 12/15/16 07:15 12/15/16 07:15 Labs: Laboratory Results - last 24 hr 12/14/16 12/14/16 12/15/16 16:22 21:47 07:15 WBC 8.0 RBC 5.69 Hgb 12.9 Hct 39.8 MCV 70.0 L MCH 22.6 L MCHC 32.3 L RDW 18.0 H Plt Count 411 H MPV 7.0 L Neut % (Auto) 69.9 Lymph % (Auto) 17.2 L Maverick % (Auto) 9.5 Eos % (Auto) 3.0 Baso % (Auto) 0.4 Neut # 5.6 Lymph # 1.4 Maverick # 0.8 Eos # 0.2 Baso # 0.0 D-Dimer, Quantitative Sodium 128 L Potassium 4.3 Chloride 91 L Carbon Dioxide 23 Anion Gap 18 BUN 6 L Creatinine 0.6 L Est GFR ( Amer) > 60 Est GFR (Non-Af Amer) > 60 POC Glucose (mg/dL) 227 H 140 H Random Glucose 155 H Calcium 9.5 Phosphorus 4.1 Magnesium 1.7 Total Bilirubin 0.2 AST 19 ALT 20 L D Alkaline Phosphatase 91 Total Protein 7.5 Albumin 3.8 Globulin 3.6 Albumin/Globulin Ratio 1.1 Total T3 12/15/16 12/15/16 12/15/16 07:34 11:13 11:28 WBC RBC Hgb Hct MCV MCH MCHC RDW Plt Count MPV Neut % (Auto) Lymph % (Auto) Maverick % (Auto) Eos % (Auto) Baso % (Auto) Neut # Lymph # Maverick # Eos # Baso # D-Dimer, Quantitative 226 Sodium Potassium Chloride Carbon Dioxide Anion Gap BUN Creatinine Est GFR ( Amer) Est GFR (Non-Af Amer) POC Glucose (mg/dL) 200 H 108 Random Glucose Calcium Phosphorus Magnesium Total Bilirubin AST ALT Alkaline Phosphatase Total Protein Albumin Globulin Albumin/Globulin Ratio Total T3 2.18 Assessment & Plan - Assessment and Plan (Free Text) Assessment: This is a 51M with history of DM and HTN admitted on 11/30/16 for persistent dry cough lasting 4 weeks prior presenting for cardiac evaluation of persistent tachycardia. 1.) Tachycardia 2.) HTN 3.) DM 4.) TB Plan: 1.) Tachycardia - Repeat EKG shows sinus tachycardia - Echo report pending. will follow - Lopressor 12.5mg PO BID - continue TB treatment - continue Losartan 25mg PO daily Case discussed with Dr. Neil Mccall PGY1 - Date & Time Date: 12/15/16 Time: 16:34 <Natividad Trejo Last Filed: 12/16/16 21:26> Meds - Medications Medications: Current Medications Acetaminophen (Tylenol 325mg Tab) 650 mg PO Q6 PRN PRN Reason: Headache Last Admin: 12/04/16 20:53 Dose: 650 mg Benzocaine/Menthol (Cepacol Sore Throat) 1 liz MT BID PRN PRN Reason: Sore Throat Last Admin: 12/16/16 09:13 Dose: 1 liz Enoxaparin Sodium (Lovenox) 40 mg SC DAILY ON [facility] Last Admin: 12/16/16 09:06 Dose: 40 mg Ethambutol HCl (Myambutol) 1,200 mg PO DAILY ON [facility] Last Admin: 12/16/16 09:10 Dose: 1,200 mg Famotidine (Pepcid) 20 mg PO 0800 ON [facility] Last Admin: 12/16/16 08:41 Dose: 20 mg Ferric Sodium Gluconate Complex (Ferrlecit) 125 mg IVPB DAILY ON [facility] Stop: 12/23/16 10:01 Last Admin: 12/16/16 09:23 Dose: 125 mg Gabapentin (Neurontin) 300 mg PO TID ON [facility] Last Admin: 12/16/16 17:33 Dose: 300 mg Guaifenesin (Mucinex La) 600 mg PO 0800,2000 ON [facility] Last Admin: 12/16/16 08:42 Dose: 600 mg Insulin Aspart (Novolog) 0 unit SC ACHS ON [facility] PRN Reason: Protocol Last Admin: 12/16/16 17:33 Dose: 1 unit Isoniazid (Niazid) 300 mg PO DAILY ON [facility] Last Admin: 12/16/16 09:09 Dose: 300 mg Losartan Potassium (Cozaar) 25 mg PO DAILY ON [facility] Last Admin: 12/16/16 09:11 Dose: 25 mg Metformin HCl (Glucophage) 1,000 mg PO 0800,1800 ON [facility] Last Admin: 12/16/16 17:28 Dose: 1,000 mg Metoprolol Tartrate (Lopressor) 25 mg PO BID ON [facility] Last Admin: 12/16/16 17:32 Dose: 25 mg Montelukast Sodium (Singulair) 10 mg PO HS ON [facility] Last Admin: 12/15/16 21:28 Dose: 10 mg Ondansetron HCl (Zofran Inj) 4 mg IVP Q6H PRN PRN Reason: Nausea/Vomiting Last Admin: 12/06/16 12:52 Dose: 4 mg Ondansetron HCl (Zofran Tab) 4 mg PO Q6 PRN Last Admin: 12/16/16 08:42 Dose: 4 mg Pyrazinamide (Pyrazinamide) 1,500 mg PO DAILY ON [facility] Last Admin: 12/16/16 09:09 Dose: 1,500 mg Pyridoxine HCl (Vitamin B6) 100 mg PO DAILY ON [facility] Last Admin: 12/16/16 09:09 Dose: 100 mg Rifampin (Rifampin Cap) 600 mg PO DAILY ON [facility] Last Admin: 12/16/16 09:10 Dose: 600 mg Results - Vital Signs Recent Vital Signs: Last Vital Signs Temp 98 F 12/16/16 15:15 Pulse 120 H 12/16/16 15:49 Resp 20 12/16/16 15:15 BP 111/74 12/16/16 17:32 Pulse Ox 98 12/16/16 15:15 - Labs Result Diagrams: 12/15/16 07:15 12/15/16 07:15 Labs: Laboratory Results - last 24 hr 12/16/16 12/16/16 12/16/16 07:06 11:18 16:20 POC Glucose (mg/dL) 149 H 171 H 175 H 12/16/16 21:19 POC Glucose (mg/dL) 149 H Attending/Attestation - Attestation I have personally seen and examined this patient.: Yes I have fully participated in the care of the patient.: Yes I have reviewed all pertinent clinical information: Yes Notes (Text): 12/16/16 21:26 ncourage IV fluids betablockers
[2016-12-16] MEDS: (Novolog) Insulin Aspart, Recombinant 100 u/ml 10 ml vial SC SCH ×4 (08:30→21:46)
[2016-12-16] MEDS: guaiFENesin 600 mg ER Tab PO SCH ×2 (08:42→20:00)
[2016-12-16] MEDS: Enoxaparin 40 mg Syringe SC SCH (09:06)
[2016-12-16] MEDS: Pyridoxine 100 mg Tab PO SCH (09:09)
[2016-12-16] MEDS: Ferric Sodium Gluconat Complex 62.5 mg/5 ml Vial IVPB SCH (09:23)
--- NOTE | 2016-12-16 09:26 | CP.PCM.PN ---
<Javier Mccall - Last Filed: 12/16/16 14:20> Subjective - Date & Time of Evaluation Date of Evaluation: 12/16/16 Time of Evaluation: 09:23 - Subjective Subjective: Cardiology Progress Note Dr. Trejo Patient seen and examined at the bedside. No acute distress. No acute events overnight. Nursing staff reports no issues. The patient remians tachycardic. The patient is actively walking about the room without difficulty. The patient notes no palpitations or racing heart sensation. The patient denies all acrdiopulmonary complaints at this time. The patient also denies fever, chills , sputum production, abdominal pain, changes in bowel/bladder habits, and extremity paresthesias. Objective - Vital Signs/Intake and Output Vital Signs (last 24 hours): Temp Pulse Resp BP Pulse Ox 98.5 F 120 H 20 137/90 97 12/16/16 07:56 12/16/16 08:01 12/16/16 07:56 12/16/16 07:56 12/16/16 07:56 Intake and Output: 12/16/16 12/16/16 06:59 18:59 Intake Total 420 Balance 420 - Medications Medications: Current Medications Acetaminophen (Tylenol 325mg Tab) 650 mg PO Q6 PRN PRN Reason: Headache Last Admin: 12/04/16 20:53 Dose: 650 mg Benzocaine/Menthol (Cepacol Sore Throat) 1 liz MT BID PRN PRN Reason: Sore Throat Enoxaparin Sodium (Lovenox) 40 mg SC DAILY [facility] Last Admin: 12/16/16 09:06 Dose: 40 mg Ethambutol HCl (Myambutol) 1,200 mg PO DAILY [facility] Last Admin: 12/16/16 09:10 Dose: 1,200 mg Famotidine (Pepcid) 20 mg PO 0800 [facility] Last Admin: 12/16/16 08:41 Dose: 20 mg Ferric Sodium Gluconate Complex (Ferrlecit) 125 mg IVPB DAILY [facility] Stop: 12/23/16 10:01 Last Admin: 12/15/16 12:32 Dose: 125 mg Gabapentin (Neurontin) 300 mg PO TID [facility] Last Admin: 12/16/16 09:09 Dose: 300 mg Guaifenesin (Mucinex La) 600 mg PO 0800,1999 [facility] Last Admin: 12/16/16 08:42 Dose: 600 mg Insulin Aspart (Novolog) 0 unit SC ACHS [facility] PRN Reason: Protocol Last Admin: 12/16/16 08:30 Dose: Not Given Isoniazid (Niazid) 300 mg PO DAILY [facility] Last Admin: 12/16/16 09:09 Dose: 300 mg Losartan Potassium (Cozaar) 25 mg PO DAILY [facility] Last Admin: 12/16/16 09:11 Dose: 25 mg Metformin HCl (Glucophage) 1,000 mg PO 0800,1800 [facility] Last Admin: 12/16/16 08:41 Dose: 1,000 mg Metoprolol Tartrate (Lopressor) 25 mg PO BID [facility] Montelukast Sodium (Singulair) 10 mg PO HS [facility] Last Admin: 12/15/16 21:28 Dose: 10 mg Ondansetron HCl (Zofran Inj) 4 mg IVP Q6H PRN PRN Reason: Nausea/Vomiting Last Admin: 12/06/16 12:52 Dose: 4 mg Ondansetron HCl (Zofran Tab) 4 mg PO Q6 PRN Last Admin: 12/16/16 08:42 Dose: 4 mg Pyrazinamide (Pyrazinamide) 1,500 mg PO DAILY [facility] Last Admin: 12/16/16 09:09 Dose: 1,500 mg Pyridoxine HCl (Vitamin B6) 100 mg PO DAILY [facility] Last Admin: 12/16/16 09:09 Dose: 100 mg Rifampin (Rifampin Cap) 600 mg PO DAILY [facility] Last Admin: 12/16/16 09:10 Dose: 600 mg - Labs Labs: 12/15/16 07:15 12/15/16 07:15 PT 13.6 SECONDS (9.7-12.2) H 12/01/16 07:37 INR 1.2 12/01/16 07:37 APTT 28 SECONDS (21-34) 12/01/16 07:37 - Constitutional Appears: No Acute Distress, Chronically Ill - Head Exam Head Exam: ATRAUMATIC, NORMAL INSPECTION, NORMOCEPHALIC - Eye Exam Eye Exam: EOMI, Normal appearance - ENT Exam ENT Exam: Mucous Membranes Moist, Normal Exam Additional comments: No carotid bruits - Neck Exam Neck Exam: Full ROM, Normal Inspection. absent: Lymphadenopathy - Respiratory Exam Respiratory Exam: Clear to Ausculation Bilateral, NORMAL BREATHING PATTERN. absent: Rhonchi, Wheezes - Cardiovascular Exam Cardiovascular Exam: Tachycardia, REGULAR RHYTHM, +S1, +S2. absent: Bradycardia , Diastolic murmur, Irregular Rhythm, RRR, Murmur - GI/Abdominal Exam GI & Abdominal Exam: Soft, Normal Bowel Sounds. absent: Tenderness - Extremities Exam Extremities Exam: Full ROM, Normal Capillary Refill, Normal Inspection. absent : Joint Swelling, Pedal Edema - Neurological Exam Neurological Exam: Alert, Awake, CN II-XII Intact, Normal Gait, Oriented x3 - Skin Skin Exam: Dry, Intact, Normal Color, Warm Assessment and Plan - Assessment and Plan (Free Text) Assessment: This is a 51M with history of DM and HTN admitted on 11/30/16 for persistent dry cough lasting 4 weeks prior presenting for cardiac evaluation of persistent tachycardia. 1.) Tachycardia 2.) HTN 3.) DM 4.) TB Plan: 1.) Tachycardia - 12/16/16 EKG- sinus tachy, no ST changes, normal axis (unchanged from previous) - 12/15/16 Echo- LVEF 53% - Lopressor increased from 12.5mg PO BID to 25mg PO BID (Hold if SBP < 100mmHg or Pulse < 60bpm) - 11/30/16 EKG- sinus tachycardia - continue TB treatment - continue Losartan 25mg PO daily Case discussed with Dr. Neil Mccall PGY1 <Natividad Trejo - Last Filed: 01/27/17 10:56> Objective - Vital Signs/Intake and Output Vital Signs (last 24 hours): Temp Pulse Resp BP Pulse Ox 98.3 F 101 H 20 144/94 H 97 12/29/16 08:00 12/29/16 09:45 12/29/16 08:00 12/29/16 09:45 12/29/16 08:00 - Labs Labs: 12/20/16 10:58 12/28/16 10:34 PT 13.6 SECONDS (9.7-12.2) H 12/01/16 07:37 INR 1.2 12/01/16 07:37 APTT 28 SECONDS (21-34) 12/01/16 07:37 Attending/Attestation - Attestation I have personally seen and examined this patient.: Yes I have fully participated in the care of the patient.: Yes I have reviewed all pertinent clinical information, including history, physical exam and plan: Yes Notes (Text): 01/27/17 10:56 pt tachycardic increase metoprolol
--- NOTE | 2016-12-16 13:47 | CP.PCM.PN ---
<GaryZahira - Last Filed: 12/16/16 13:39> Subjective - Date & Time of Evaluation Date of Evaluation: 12/16/16 Time of Evaluation: 13:39 - Subjective Subjective: Patient seen and examined at bedside. Patient continues to be tachycardic in 120s. He denies palpitations, chest pain, and shortness of breath. Patient continues to be active in room and ambulates frequently. He notes cough and sore throat to be improved. He is tolerating po diet well and having normal bowel movement. Objective - Vital Signs/Intake and Output Vital Signs (last 24 hours): Temp Pulse Resp BP Pulse Ox 98.5 F 120 H 20 137/90 97 12/16/16 07:56 12/16/16 08:01 12/16/16 07:56 12/16/16 12:03 12/16/16 07:56 Intake and Output: 12/16/16 12/16/16 06:59 18:59 Intake Total 420 Balance 420 - Medications Medications: Current Medications Acetaminophen (Tylenol 325mg Tab) 650 mg PO Q6 PRN PRN Reason: Headache Last Admin: 12/04/16 20:53 Dose: 650 mg Benzocaine/Menthol (Cepacol Sore Throat) 1 liz MT BID PRN PRN Reason: Sore Throat Last Admin: 12/16/16 09:13 Dose: 1 liz Enoxaparin Sodium (Lovenox) 40 mg SC DAILY [facility] Last Admin: 12/16/16 09:06 Dose: 40 mg Ethambutol HCl (Myambutol) 1,200 mg PO DAILY [facility] Last Admin: 12/16/16 09:10 Dose: 1,200 mg Famotidine (Pepcid) 20 mg PO 0800 [facility] Last Admin: 12/16/16 08:41 Dose: 20 mg Ferric Sodium Gluconate Complex (Ferrlecit) 125 mg IVPB DAILY [facility] Stop: 12/23/16 10:01 Last Admin: 12/16/16 09:23 Dose: 125 mg Gabapentin (Neurontin) 300 mg PO TID [facility] Last Admin: 12/16/16 13:23 Dose: 300 mg Guaifenesin (Mucinex La) 600 mg PO 0800,2000 [facility] Last Admin: 12/16/16 08:42 Dose: 600 mg Insulin Aspart (Novolog) 0 unit SC ACHS [facility] PRN Reason: Protocol Last Admin: 12/16/16 12:06 Dose: 1 unit Isoniazid (Niazid) 300 mg PO DAILY [facility] Last Admin: 12/16/16 09:09 Dose: 300 mg Losartan Potassium (Cozaar) 25 mg PO DAILY [facility] Last Admin: 12/16/16 09:11 Dose: 25 mg Metformin HCl (Glucophage) 1,000 mg PO 0800,1800 [facility] Last Admin: 12/16/16 08:41 Dose: 1,000 mg Metoprolol Tartrate (Lopressor) 25 mg PO BID [facility] Last Admin: 12/16/16 12:03 Dose: 25 mg Montelukast Sodium (Singulair) 10 mg PO HS [facility] Last Admin: 12/15/16 21:28 Dose: 10 mg Ondansetron HCl (Zofran Inj) 4 mg IVP Q6H PRN PRN Reason: Nausea/Vomiting Last Admin: 12/06/16 12:52 Dose: 4 mg Ondansetron HCl (Zofran Tab) 4 mg PO Q6 PRN Last Admin: 12/16/16 08:42 Dose: 4 mg Pyrazinamide (Pyrazinamide) 1,500 mg PO DAILY [facility] Last Admin: 12/16/16 09:09 Dose: 1,500 mg Pyridoxine HCl (Vitamin B6) 100 mg PO DAILY [facility] Last Admin: 12/16/16 09:09 Dose: 100 mg Rifampin (Rifampin Cap) 600 mg PO DAILY [facility] Last Admin: 12/16/16 09:10 Dose: 600 mg - Labs Labs: 12/15/16 07:15 12/15/16 07:15 PT 13.6 SECONDS (9.7-12.2) H 12/01/16 07:37 INR 1.2 12/01/16 07:37 APTT 28 SECONDS (21-34) 12/01/16 07:37 - Constitutional Appears: Non-toxic, No Acute Distress - Head Exam Head Exam: ATRAUMATIC, NORMAL INSPECTION, NORMOCEPHALIC - Eye Exam Eye Exam: EOMI, Normal appearance, PERRL - ENT Exam ENT Exam: Mucous Membranes Moist, Normal Exam - Respiratory Exam Respiratory Exam: Clear to Ausculation Bilateral, NORMAL BREATHING PATTERN. absent: Rales, Rhonchi, Wheezes - Cardiovascular Exam Cardiovascular Exam: Tachycardia, +S1, +S2 - GI/Abdominal Exam GI & Abdominal Exam: Soft, Normal Bowel Sounds. absent: Firm, Guarding, Tenderness - Extremities Exam Extremities Exam: Normal Inspection. absent: Pedal Edema, Tenderness - Back Exam Back Exam: NORMAL INSPECTION - Neurological Exam Neurological Exam: Alert, Awake, Oriented x3 Neuro motor strength exam: Left Upper Extremity: 5, Right Upper Extremity: 5, Left Lower Extremity: 5, Right Lower Extremity: 5 - Psychiatric Exam Psychiatric exam: Normal Affect, Normal Mood - Skin Skin Exam: Intact, Normal Color, Warm Assessment and Plan - Assessment and Plan (Free Text) Assessment: Tuberculosis, active +AFB's collected, awaiting culture results. Labs q3D. Continue RIPE therapy. Monitor LFTs. AFB sputum cultures twice weekly until negative result obtained. - Mycobacterial Sputum Cultures 12/14 AFB: Few (2+) acid-fast bacilli seen using the fluorochrome method. 12/13 AFB: Few (2+) acid-fast bacilli seen using the fluorochrome method. 12/12 AFB: Few (2+) acid-fast bacilli seen using the fluorochrome method. 12/10 AFB: 1+ acid fast bacilli, culture pending 12/09 AFB: 1+ acid fast bacilli, culture pending 12/06 AFB: 2+ acid fast bacilli, culture prelim: no mycobacterium species isolated after one week incubation 12/04 AFB: 2+ acid fast bacilli, culture prelim: Acid-fast bacilli present in liquid culture medium. Identification to follow. 12/02 AFB: 2+ acid fast bacilli, culture prelim: Acid-fast bacilli present in liquid culture medium. Identification to follow. 12/01 AFB: 1+ acid fast bacilli, culture prelim: Acid-fast bacilli present in liquid culture medium. Identification to follow. 11/30 AFB: 1+ acid fast bacilli, culture prelim: Acid-fast bacilli present in liquid culture medium. Identification to follow. -ID consult, Dr. Espinal -> Continue quadruple therapy for TB. 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 WILL LIKELY TAKE SEVERAL WEEKS TO CLEAR SPUTUM ethambutol 1200mg PO daily (started 12/02) isoniazide 300mg PO daily (started 12/02) Prazinamide 1500mg PO daily (started 12/02) (increased 12/08 for weight based dosing) Pyridoxine 100mg PO daily (started 12/02) Rifampin 600mg PO daily (started 12/02) -HIV negative -Quant Gold - negative -Note: Disk containing CT + CXR images is in the physical chart. -Cavitary left upper lobe infiltrate/mass. CT scan may be beneficial in further assessment of this process primarily affecting the posterior segment. The cavitary comes/cystic component is best seen on the lateral view measuring 5.2 x 6.4 cm. -Pulm Consult, Dr. Frazier -> bronchoscopy 12/01 AM cancelled, as CT imaging showed clear TB infection f/u sputum studies and sputum PCR -Continue Mucinex 600mg PO BID; Singulair 10mg PO HS; Duonebs RQ6 PRN Sore Throat 12/16: improving likely secondary to cough Continue Cepachol Lozenges BID Will discontinue Enalapril Tachycardia 12/16: Continues to be tachycardic in 120s today. Patient is asymptomatic Will follow up EKG and official Echo report. Lopressor increased to 25 mg po BID per cardiology. D-dimer 226, thyroid studies normal. 12/15: EKG and Echocardiogram ordered to evaluate tachycardia. Cardiology, Neil Spencer, consulted. Help appreciated. 12/13: Pharmacy reviewed meds and noted tachycardia could be attributed to Isoniazid and Rifampin. 12/07-12/12: persistent tachycardia since 12/07/16 (100's-120's). Pharmacy is looking into this. Duoneb PRN is on, however patient hasn't received a recent dose. -TSH + free T4 - both WNL -> r/o hyperthyroidism -CXR 12/08- Increasing opacity of left lung with cavitation in the left apex and left apical pleural thickening. Likely infectious process. Consider fungal or atypical mycobacterial. 5 mm nodule in right apex. Consider further evaluation with computed tomography. Diabetes Mellitus type II Blood glucose 149 Metformin 1000mg PO BID Novolog RISS Neurontin 300mg PO TID A1c 12.4 FLP grossly WNL; HDL 28 L Glucose 233 on admission Alpha Thalassemia Continue IV Ferrlicit MCV 69.7 Ferritin 77.3, B12 950 H, folate 11.2, reticulocyte count 1.0 hemoglobinopathy inerpretation - possible Alpha-thalassemia. Fe 28 L, TIBC 243 L, %Sat 12 L haptoglobin 501 H Monitor outpatient Hypertension normotensive Discontinued Enalapril 5mg PO due to cough Started on Losartan 25 mg po daily Electrolyte Imbalance Resolved Hypokalemia, K3.5 - Resolved. Will monitor Prophylaxis respiratory isolation Vegetarian Diet, carb consistent, low sodium Pepcid 20mg PO d Lovenox 40 mg SC daily Zofran 4mg PO Q6 PRN SCDs <Reyna Huber V - Last Filed: 12/16/16 17:29> Objective - Vital Signs/Intake and Output Vital Signs (last 24 hours): Temp Pulse Resp BP Pulse Ox 98 F 120 H 20 111/74 98 12/16/16 15:15 12/16/16 15:49 12/16/16 15:15 12/16/16 15:15 12/16/16 15:15 Intake and Output: 12/16/16 12/16/16 06:59 18:59 Intake Total 420 Balance 420 - Medications Medications: Current Medications Acetaminophen (Tylenol 325mg Tab) 650 mg PO Q6 PRN PRN Reason: Headache Last Admin: 12/04/16 20:53 Dose: 650 mg Benzocaine/Menthol (Cepacol Sore Throat) 1 liz MT BID PRN PRN Reason: Sore Throat Last Admin: 12/16/16 09:13 Dose: 1 liz Enoxaparin Sodium (Lovenox) 40 mg SC DAILY [facility] Last Admin: 12/16/16 09:06 Dose: 40 mg Ethambutol HCl (Myambutol) 1,200 mg PO DAILY [facility] Last Admin: 12/16/16 09:10 Dose: 1,200 mg Famotidine (Pepcid) 20 mg PO 0800 [facility] Last Admin: 12/16/16 08:41 Dose: 20 mg Ferric Sodium Gluconate Complex (Ferrlecit) 125 mg IVPB DAILY [facility] Stop: 12/23/16 10:01 Last Admin: 12/16/16 09:23 Dose: 125 mg Gabapentin (Neurontin) 300 mg PO TID [facility] Last Admin: 12/16/16 13:23 Dose: 300 mg Guaifenesin (Mucinex La) 600 mg PO 0800,2000 [facility] Last Admin: 12/16/16 08:42 Dose: 600 mg Insulin Aspart (Novolog) 0 unit SC ACHS [facility] PRN Reason: Protocol Last Admin: 12/16/16 12:06 Dose: 1 unit Isoniazid (Niazid) 300 mg PO DAILY [facility] Last Admin: 12/16/16 09:09 Dose: 300 mg Losartan Potassium (Cozaar) 25 mg PO DAILY [facility] Last Admin: 12/16/16 09:11 Dose: 25 mg Metformin HCl (Glucophage) 1,000 mg PO 0800,1800 [facility] Last Admin: 12/16/16 08:41 Dose: 1,000 mg Metoprolol Tartrate (Lopressor) 25 mg PO BID [facility] Last Admin: 12/16/16 12:03 Dose: 25 mg Montelukast Sodium (Singulair) 10 mg PO HS [facility] Last Admin: 12/15/16 21:28 Dose: 10 mg Ondansetron HCl (Zofran Inj) 4 mg IVP Q6H PRN PRN Reason: Nausea/Vomiting Last Admin: 12/06/16 12:52 Dose: 4 mg Ondansetron HCl (Zofran Tab) 4 mg PO Q6 PRN Last Admin: 12/16/16 08:42 Dose: 4 mg Pyrazinamide (Pyrazinamide) 1,500 mg PO DAILY [facility] Last Admin: 12/16/16 09:09 Dose: 1,500 mg Pyridoxine HCl (Vitamin B6) 100 mg PO DAILY [facility] Last Admin: 12/16/16 09:09 Dose: 100 mg Rifampin (Rifampin Cap) 600 mg PO DAILY [facility] Last Admin: 12/16/16 09:10 Dose: 600 mg - Labs Labs: 12/15/16 07:15 12/15/16 07:15 PT 13.6 SECONDS (9.7-12.2) H 12/01/16 07:37 INR 1.2 12/01/16 07:37 APTT 28 SECONDS (21-34) 12/01/16 07:37 Attending/Attestation - Attestation I have personally seen and examined this patient.: Yes I have fully participated in the care of the patient.: Yes I have reviewed all pertinent clinical information, including history, physical exam and plan: Yes Notes (Text): Patient seen, examined, and case discussed with day time resident. patient indicating he has cough, non-productive. Denies acute complaints. Patient to continue on RIPE therapy. Cardiology consulted. Patient has persistent tachycardia. Echocardiogram is normal. Patient started on beta-brad. F/u sputum culture until 3 consecutive negative Assessment/Plan 1) Tuberculosis, active * Airborne precautions * Pulmonary (Dr. Frazier) on consult help appreciated * Infectious disease (Dr. Espinal) on consult help appreciated * Ethambutol 1200mg PO daily (started 12/02) Isoniazid 300mg PO daily (started 12/02) Prazinamide 1500mg PO daily (started 12/02) (increased 12/08 for weight based dosing) Pyridoxine 100mg PO daily (started 12/02) Rifampin 600mg PO daily (started 12/02) f/u AFB/sputum cultures twice a week until 3 negative cultures result--discused with Salina Willoughby - Mycobacterial Sputum Cultures 12/15 AFB positive acid fast bacilli, culture pending 12/14 AFB: positive acid fast bacilli, culture pending 12/13 AFB 2+ acid fast bacilli, culture pending 12/12: AFB 2+ acid fast bacilli, culture pending 12/10 AFB: 1+ acid fast bacilli, culture pending 12/09 AFB: 1+ acid fast bacilli, culture pending 12/06 AFB: 2+ acid fast bacilli, no isolated in one week 12/04 AFB: 2+ acid fast bacilli, prelim mycobacteria tuberculosis complex 12/02 AFB: 2+ acid fast bacilli, prelim mycobacteria tuberculosis complex 12/01 AFB: 1+ acid fast bacilli, prelim mycobacteria tuberculosis complex 11/30 AFB: 1+ acid fast bacilli, prelim mycobacteria tuberculosis complex * HIV negative * Quant Gold - negative * Note: Disk containing CT + CXR images is in the physical chart. * 12/08/16 CT Chest: extensive small ill defined nodular opacities throughout left upper lobe as well as superior segment left lower lobe with areas of freeman consultation. Extensive cavitation amidst a large area of consolidation in the left apex. Scattered calficied grandulomas bilaterally. 2)Tachycardia * Thyroid studies: within normal * 12/08/16 CT Chest: extensive small ill defined nodular opacities throughout left upper lobe as well as superior segment left lower lobe with areas of freeman consultation. Extensive cavitation amidst a large area of consolidation in the left apex. Scattered calcified grandulomas bilaterally. * likely secondary to acute infection and possible anti-tB therapy * d-dimer: negative * Thyroid studies: normal * Cardiology (Dr. Trejo) consult-->help appreciated * Patient started on Lopressor 25mg PO bid 3) Diabetes, type 2; uncontrolled with associated neuropathy * Metformin 1000mg PO bid * Novolog sliding scale sub * Neurontin 300mg PO TID * A1c 12.4 * Losartan 25mg PO daily 4) Alpha Thalassemia * MCV 69.7 * Ferritin 77.3, B12 950 H, folate 11.2, reticulocyte count 1.0 * hemoglobinopathy inerpretation - possible Alpha-thalassemia. * Fe 28 L, TIBC 243 L, %Sat 12 L * haptoglobin 501 H * Monitor outpatient * Started on Ferrlecit IV (started on 12/15-12/23) 5) Hypertension * d/c Enalapril 5mg PO daily * started on Losartan 25mg PO daily * started on Lopressor 25mg PO bid 6) Electrolyte Imbalance * Monitor and replete when necessary 7) Prophylaxis * respiratory isolation * Vegetarian Diet, carb consistent, low sodium * Pepcid 20mg PO daily * Heparin 5000 units SC q8H * Zofran 4mg PO Q6 PRN * SCDs
--- NOTE | 2016-12-16 14:05 | CARD ---
APPROVED REPORT EXAM: Two-dimensional and M-mode echocardiogram with Doppler and color Doppler. Other Information Quality : LimitedGoodRhythm : NSR RISK FACTORS Hypertension Diabetes M-Mode DIMENSIONS RVDd1.25 (2.1-3.2cm)Left Atrium (MM)3.30 (2.5-4.0cm) IVSd0.83 (0.7-1.1cm)Aortic Root3.02 (2.2-3.7cm) LVDd3.99 (4.0-5.6cm)Aortic Cusp Exc.2.05 (1.5-2.0cm) PWd0.80 (0.7-1.1cm)FS (%) 27 % LVDs2.92 (2.0-3.8cm)LVEF (%)53 (>50%) Aortic Valve AoV Peak Ahlkeygh345.7cm/Ella Peak GR.5mmHg Mitral Valve MV E Dgvshodc29.2cm/sMV A Mxwmzsqr34.7cm/sE/A ratio0.7 TDI E/Lateral E'0.0E/Medial E'0.0 Tricuspid Valve TR Peak Cjivyczx251mv/sTR Peak Gr.[id number] LEFT VENTRICLE The left ventricle is normal size. There is normal left ventricular wall thickness. The left ventricular function is normal. The left ventricular ejection fraction is within the normal range. No regional wall motion abnormalities noted. The left ventricular diastolic function is normal. No left ventricle thrombus noted on this study. There is no ventricular septal defect visualized. There is no left ventricular aneurysm. There is no mass noted in the left ventricle. RIGHT VENTRICLE The right ventricle is normal size. There is normal right ventricular wall thickness. The right ventricular systolic function is normal. ATRIA The left atrium size is normal. The right atrium size is normal. The interatrial septum is intact with no evidence for an atrial septal defect. AORTIC VALVE The aortic valve is normal in structure and function. No aortic regurgitation is present. There is no aortic valvular stenosis. There is no aortic valvular vegetation. MITRAL VALVE The mitral valve is normal in structure and function. There is no evidence of mitral valve prolapse. There is no mitral valve stenosis. There is no mitral valve regurgitation noted. TRICUSPID VALVE The tricuspid valve is normal in structure and function. There is mild tricuspid regurgitation. Right ventricular systolic pressure is estimated at less than 30 mmHg. There is no tricuspid valve prolapse or vegetation. There is no tricuspid valve stenosis. PULMONIC VALVE The pulmonary valve is normal in structure and function. There is no pulmonic valvular regurgitation. There is no pulmonic valvular stenosis. GREAT VESSELS The aortic root is normal in size. The ascending aorta is normal in size. The pulmonary artery is normal. The IVC is normal in size and collapses >50% with inspiration. PERICARDIAL EFFUSION The pericardium appears normal. There is no pleural effusion. <Conclusion> The left ventricular function is normal. The left ventricular ejection fraction is within the normal range. No regional wall motion abnormalities noted.
--- NOTE | 2016-12-17 07:46 | CP.PCM.PN ---
Addendum entered and electronically signed by Mandy Schafer DO 12/17/16 16:16: Hyponatremia of 124- fluid restricted pt, will monitor Original Note: <Mandy Schafer - Last Filed: 12/17/16 15:50> Subjective - Date & Time of Evaluation Date of Evaluation: 12/17/16 Time of Evaluation: 07:00 - Subjective Subjective: Internal medicine progress note for Hospitalist service- Mandy Schafer, PGY-1 Pt S & E at bedside. Pt without complaints overnight, continues with slight cough. Denies N/V/F/C, SOB, CP, abdominal pain, is ambulating around room, tolerating diet, moving bowels, urinating normally. Objective - Vital Signs/Intake and Output Vital Signs (last 24 hours): Temp Pulse Resp BP Pulse Ox 98.2 F 90 19 134/80 97 12/17/16 00:00 12/17/16 00:32 12/17/16 00:00 12/17/16 00:00 12/17/16 00:00 Intake and Output: 12/17/16 12/17/16 06:59 18:59 Intake Total 200 Balance 200 - Medications Medications: Current Medications Acetaminophen (Tylenol 325mg Tab) 650 mg PO Q6 PRN PRN Reason: Headache Last Admin: 12/04/16 20:53 Dose: 650 mg Benzocaine/Menthol (Cepacol Sore Throat) 1 liz MT BID PRN PRN Reason: Sore Throat Last Admin: 12/16/16 09:13 Dose: 1 liz Enoxaparin Sodium (Lovenox) 40 mg SC DAILY [facility] Last Admin: 12/16/16 09:06 Dose: 40 mg Ethambutol HCl (Myambutol) 1,200 mg PO DAILY [facility] Last Admin: 12/16/16 09:10 Dose: 1,200 mg Famotidine (Pepcid) 20 mg PO 0800 [facility] Last Admin: 12/16/16 08:41 Dose: 20 mg Ferric Sodium Gluconate Complex (Ferrlecit) 125 mg IVPB DAILY [facility] Stop: 12/23/16 10:01 Last Admin: 12/16/16 09:23 Dose: 125 mg Gabapentin (Neurontin) 300 mg PO TID [facility] Last Admin: 12/16/16 17:33 Dose: 300 mg Guaifenesin (Mucinex La) 600 mg PO 0800,2000 [facility] Last Admin: 12/16/16 20:00 Dose: 600 mg Insulin Aspart (Novolog) 0 unit SC ACHS [facility] PRN Reason: Protocol Last Admin: 12/16/16 21:46 Dose: Not Given Isoniazid (Niazid) 300 mg PO DAILY [facility] Last Admin: 12/16/16 09:09 Dose: 300 mg Losartan Potassium (Cozaar) 25 mg PO DAILY [facility] Last Admin: 12/16/16 09:11 Dose: 25 mg Metformin HCl (Glucophage) 1,000 mg PO 0800,1800 [facility] Last Admin: 12/16/16 17:28 Dose: 1,000 mg Metoprolol Tartrate (Lopressor) 25 mg PO BID [facility] Last Admin: 12/16/16 17:32 Dose: 25 mg Montelukast Sodium (Singulair) 10 mg PO HS [facility] Last Admin: 12/16/16 21:46 Dose: 10 mg Ondansetron HCl (Zofran Inj) 4 mg IVP Q6H PRN PRN Reason: Nausea/Vomiting Last Admin: 12/06/16 12:52 Dose: 4 mg Ondansetron HCl (Zofran Tab) 4 mg PO Q6 PRN Last Admin: 12/16/16 08:42 Dose: 4 mg Pyrazinamide (Pyrazinamide) 1,500 mg PO DAILY [facility] Last Admin: 12/16/16 09:09 Dose: 1,500 mg Pyridoxine HCl (Vitamin B6) 100 mg PO DAILY [facility] Last Admin: 12/16/16 09:09 Dose: 100 mg Rifampin (Rifampin Cap) 600 mg PO DAILY [facility] Last Admin: 12/16/16 09:10 Dose: 600 mg - Labs Labs: 12/15/16 07:15 12/15/16 07:15 PT 13.6 SECONDS (9.7-12.2) H 12/01/16 07:37 INR 1.2 12/01/16 07:37 APTT 28 SECONDS (21-34) 12/01/16 07:37 - Constitutional Appears: Non-toxic, No Acute Distress - Head Exam Head Exam: ATRAUMATIC, NORMAL INSPECTION, NORMOCEPHALIC - Eye Exam Eye Exam: EOMI, Normal appearance, PERRL Pupil Exam: NORMAL ACCOMODATION, PERRL - ENT Exam ENT Exam: Mucous Membranes Moist, Normal Exam - Neck Exam Neck Exam: Full ROM, Normal Inspection - Respiratory Exam Respiratory Exam: Clear to Ausculation Bilateral, NORMAL BREATHING PATTERN - Cardiovascular Exam Cardiovascular Exam: REGULAR RHYTHM, +S1, +S2 - GI/Abdominal Exam GI & Abdominal Exam: Soft, Normal Bowel Sounds. absent: Tenderness - Extremities Exam Extremities Exam: Full ROM, Normal Inspection. absent: Pedal Edema, Tenderness - Back Exam Back Exam: Full ROM, NORMAL INSPECTION - Neurological Exam Neurological Exam: Alert, Awake, CN II-XII Intact, Oriented x3 - Psychiatric Exam Psychiatric exam: Normal Affect, Normal Mood - Skin Skin Exam: Dry, Intact, Normal Color, Warm Assessment and Plan - Assessment and Plan (Free Text) Assessment: Tuberculosis, active +AFB's collected, awaiting culture results. Labs q3D. Continue RIPE therapy. Monitor LFTs. AFB sputum cultures twice weekly until negative result obtained. - Mycobacterial Sputum Cultures 12/15: FU AFB sputum cxr 12/14 AFB: Few (2+) acid-fast bacilli seen using the fluorochrome method. 12/13 AFB: Few (2+) acid-fast bacilli seen using the fluorochrome method. 12/12 AFB: Few (2+) acid-fast bacilli seen using the fluorochrome method. 12/10 AFB: 1+ acid fast bacilli, culture pending 12/09 AFB: 1+ acid fast bacilli, culture pending 12/06 AFB: 2+ acid fast bacilli, culture prelim: no mycobacterium species isolated after one week incubation 12/04 AFB: 2+ acid fast bacilli, culture prelim: Acid-fast bacilli present in liquid culture medium. Identification to follow. 12/02 AFB: 2+ acid fast bacilli, culture prelim: Acid-fast bacilli present in liquid culture medium. Identification to follow. 12/01 AFB: 1+ acid fast bacilli, culture prelim: Acid-fast bacilli present in liquid culture medium. Identification to follow. 11/30 AFB: 1+ acid fast bacilli, culture prelim: Acid-fast bacilli present in liquid culture medium. Identification to follow. -ID consult, Dr. Espinal -> Continue quadruple therapy for TB. 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 WILL LIKELY TAKE SEVERAL WEEKS TO CLEAR SPUTUM ethambutol 1200mg PO daily (started 12/02) isoniazide 300mg PO daily (started 12/02) Prazinamide 1500mg PO daily (started 12/02) (increased 12/08 for weight based dosing) Pyridoxine 100mg PO daily (started 12/02) Rifampin 600mg PO daily (started 12/02) -HIV negative -Quant Gold - negative -Note: Disk containing CT + CXR images is in the physical chart. -Cavitary left upper lobe infiltrate/mass. CT scan may be beneficial in further assessment of this process primarily affecting the posterior segment. The cavitary comes/cystic component is best seen on the lateral view measuring 5.2 x 6.4 cm. -Pulm Consult, Dr. Frazier -> bronchoscopy 12/01 AM cancelled, as CT imaging showed clear TB infection f/u sputum studies and sputum PCR -Continue Mucinex 600mg PO BID; Singulair 10mg PO HS; Duonebs RQ6 PRN Sore Throat 12/17: No sore throat reported 12/16: improving likely secondary to cough Continue Cepachol Lozenges BID Will discontinue Enalapril Tachycardia 12/17: fewer episodes of tachycardia over last 24H, asx, Echo with normal EF >53% , negative for abnormalities; cont Lopressor 25mg BID 12/16: Continues to be tachycardic in 120s today. Patient is asymptomatic Will follow up EKG and official Echo report. Lopressor increased to 25 mg po BID per cardiology. D-dimer 226, thyroid studies normal. 12/15: EKG and Echocardiogram ordered to evaluate tachycardia. Cardiology, Neil Spencer, consulted. Help appreciated. 12/13: Pharmacy reviewed meds and noted tachycardia could be attributed to Isoniazid and Rifampin. 12/07-12/12: persistent tachycardia since 12/07/16 (100's-120's). Pharmacy is looking into this. Duoneb PRN is on, however patient hasn't received a recent dose. -TSH + free T4 - both WNL -> r/o hyperthyroidism -CXR 12/08- Increasing opacity of left lung with cavitation in the left apex and left apical pleural thickening. Likely infectious process. Consider fungal or atypical mycobacterial. 5 mm nodule in right apex. Consider further evaluation with computed tomography. Diabetes Mellitus type II Blood glucose 162 Metformin 1000mg PO BID Novolog RISS Neurontin 300mg PO TID A1c 12.4 FLP grossly WNL; HDL 28 L Glucose 233 on admission Alpha Thalassemia Continue IV Ferrlicit MCV 69.7 Ferritin 77.3, B12 950 H, folate 11.2, reticulocyte count 1.0 hemoglobinopathy inerpretation - possible Alpha-thalassemia. Fe 28 L, TIBC 243 L, %Sat 12 L haptoglobin 501 H Monitor outpatient Hypertension normotensive Discontinued Enalapril 5mg PO due to cough Started on Losartan 25 mg po daily Prophylaxis respiratory isolation Vegetarian Diet, carb consistent, low sodium Pepcid 20mg PO d Lovenox 40 mg SC daily Zofran 4mg PO Q6 PRN SCDs Dispo Continue med mgmt DW attending <Reyna Huber V - Last Filed: 12/17/16 21:37> Objective - Vital Signs/Intake and Output Vital Signs (last 24 hours): Temp Pulse Resp BP Pulse Ox 97.6 F 90 20 108/69 96 12/17/16 15:15 12/17/16 15:15 12/17/16 15:15 12/17/16 18:50 12/17/16 15:15 Intake and Output: 12/17/16 12/18/16 18:59 06:59 Intake Total 600 Balance 600 - Medications Medications: Current Medications Acetaminophen (Tylenol 325mg Tab) 650 mg PO Q6 PRN PRN Reason: Headache Last Admin: 12/04/16 20:53 Dose: 650 mg Benzocaine/Menthol (Cepacol Sore Throat) 1 liz MT BID PRN PRN Reason: Sore Throat Last Admin: 12/16/16 09:13 Dose: 1 liz Enoxaparin Sodium (Lovenox) 40 mg SC DAILY [facility] Last Admin: 12/17/16 09:44 Dose: 40 mg Ethambutol HCl (Myambutol) 1,200 mg PO DAILY [facility] Last Admin: 12/17/16 09:43 Dose: 1,200 mg Famotidine (Pepcid) 20 mg PO 0800 [facility] Last Admin: 12/17/16 08:29 Dose: 20 mg Ferric Sodium Gluconate Complex (Ferrlecit) 125 mg IVPB DAILY [facility] Stop: 12/23/16 10:01 Last Admin: 12/17/16 09:42 Dose: 125 mg Gabapentin (Neurontin) 300 mg PO TID [facility] Last Admin: 12/17/16 18:50 Dose: 300 mg Guaifenesin (Mucinex La) 600 mg PO 0800,2000 [facility] Last Admin: 12/17/16 08:29 Dose: 600 mg Insulin Aspart (Novolog) 0 unit SC ACHS [facility] PRN Reason: Protocol Last Admin: 12/17/16 17:10 Dose: 1 unit Isoniazid (Niazid) 300 mg PO DAILY [facility] Last Admin: 12/17/16 09:44 Dose: 300 mg Losartan Potassium (Cozaar) 25 mg PO DAILY [facility] Last Admin: 12/17/16 09:41 Dose: 25 mg Metformin HCl (Glucophage) 1,000 mg PO 0800,1800 [facility] Last Admin: 12/17/16 18:50 Dose: 1,000 mg Metoprolol Tartrate (Lopressor) 25 mg PO BID [facility] Last Admin: 12/17/16 18:50 Dose: 25 mg Montelukast Sodium (Singulair) 10 mg PO HS [facility] Last Admin: 12/16/16 21:46 Dose: 10 mg Ondansetron HCl (Zofran Inj) 4 mg IVP Q6H PRN PRN Reason: Nausea/Vomiting Last Admin: 12/06/16 12:52 Dose: 4 mg Ondansetron HCl (Zofran Tab) 4 mg PO Q6 PRN Last Admin: 12/16/16 08:42 Dose: 4 mg Pyrazinamide (Pyrazinamide) 1,500 mg PO DAILY [facility] Last Admin: 12/17/16 09:43 Dose: 1,500 mg Pyridoxine HCl (Vitamin B6) 100 mg PO DAILY [facility] Last Admin: 12/17/16 09:43 Dose: 100 mg Rifampin (Rifampin Cap) 600 mg PO DAILY [facility] Last Admin: 12/17/16 09:44 Dose: 600 mg - Labs Labs: 12/17/16 11:24 12/17/16 11:24 PT 13.6 SECONDS (9.7-12.2) H 12/01/16 07:37 INR 1.2 12/01/16 07:37 APTT 28 SECONDS (21-34) 12/01/16 07:37 Attending/Attestation - Attestation I have personally seen and examined this patient.: Yes I have fully participated in the care of the patient.: Yes I have reviewed all pertinent clinical information, including history, physical exam and plan: Yes Notes (Text): Patient seen, examined, and case discussed with day time resident. patient indicating he has cough, non-productive. Denies acute complaints. Patient to continue on RIPE therapy for tuberculosis Nephrology consulted for hyponatremia. Ordered for serum osmolarity, urine osmolarity, urine sodium, uric acid. Patient is currently off IV fluids. Disposition: Patient is pending three negative sputum/AFB and clearance by state given active tuberculosis. Assessment/Plan 1) Tuberculosis, active * Airborne precautions * Pulmonary (Dr. Frazier) on consult help appreciated * Infectious disease (Dr. Espinal) on consult help appreciated * Ethambutol 1200mg PO daily (started 12/02) Isoniazid 300mg PO daily (started 12/02) Prazinamide 1500mg PO daily (started 12/02) (increased 12/08 for weight based dosing) Pyridoxine 100mg PO daily (started 12/02) Rifampin 600mg PO daily (started 12/02) f/u AFB/sputum cultures twice a week until 3 negative cultures result-- discussed with Salina Willoughby - Mycobacterial Sputum Cultures 12/15 AFB positive acid fast bacilli, culture pending 12/14 AFB: positive acid fast bacilli, culture pending 12/13 AFB 2+ acid fast bacilli, culture pending 12/12: AFB 2+ acid fast bacilli, culture pending 12/10 AFB: 1+ acid fast bacilli, culture pending 12/09 AFB: 1+ acid fast bacilli, culture pending 12/06 AFB: 2+ acid fast bacilli, no isolated in one week 12/04 AFB: 2+ acid fast bacilli, prelim mycobacteria tuberculosis complex 12/02 AFB: 2+ acid fast bacilli, prelim mycobacteria tuberculosis complex 12/01 AFB: 1+ acid fast bacilli, prelim mycobacteria tuberculosis complex 11/30 AFB: 1+ acid fast bacilli, prelim mycobacteria tuberculosis complex * HIV negative * Quant Gold - negative * Note: Disk containing CT + CXR images is in the physical chart. * 12/08/16 CT Chest: extensive small ill defined nodular opacities throughout left upper lobe as well as superior segment left lower lobe with areas of freeman consultation. Extensive cavitation amidst a large area of consolidation in the left apex. Scattered calficied grandulomas bilaterally. 2)Tachycardia * Thyroid studies: within normal * 12/08/16 CT Chest: extensive small ill defined nodular opacities throughout left upper lobe as well as superior segment left lower lobe with areas of freeman consultation. Extensive cavitation amidst a large area of consolidation in the left apex. Scattered calcified grandulomas bilaterally. * likely secondary to acute infection and possible anti-tB therapy * d-dimer: negative * Thyroid studies: normal * Cardiology (Dr. Trejo) consult-->help appreciated * Patient started on Lopressor 25mg PO bid 3) Diabetes, type 2; uncontrolled with associated neuropathy * Metformin 1000mg PO bid * Novolog sliding scale sub * Neurontin 300mg PO TID * A1c 12.4 * Losartan 25mg PO daily 4) Alpha Thalassemia * MCV 69.7 * Ferritin 77.3, B12 950 H, folate 11.2, reticulocyte count 1.0 * hemoglobinopathy inerpretation - possible Alpha-thalassemia. * Fe 28 L, TIBC 243 L, %Sat 12 L * haptoglobin 501 H * Monitor outpatient * Started on Ferrlecit IV (started on 12/15-12/23) 5) Hypertension * d/c Enalapril 5mg PO daily * started on Losartan 25mg PO daily * started on Lopressor 25mg PO bid 6) Electrolyte Imbalance * Monitor and replete when necessary 7) Hyponatremia * low sodium: 124 * serum osmolarity, urine osmolarity, urine sodium, uric acid * fluid restriction * Nephrology: Dr Moralez on board 8) Prophylaxis * respiratory isolation * Vegetarian Diet, carb consistent, low sodium * Pepcid 20mg PO daily * Heparin 5000 units SC q8H * Zofran 4mg PO Q6 PRN * SCDs
[2016-12-17] MEDS: (Novolog) Insulin Aspart, Recombinant 100 u/ml 10 ml vial SC SCH ×4 (08:24→22:11)
[2016-12-17] MEDS: guaiFENesin 600 mg ER Tab PO SCH ×2 (08:29→20:50)
[2016-12-17] MEDS: Ferric Sodium Gluconat Complex 62.5 mg/5 ml Vial IVPB SCH (09:42)
[2016-12-17] MEDS: Pyridoxine 100 mg Tab PO SCH (09:43)
[2016-12-17] MEDS: Enoxaparin 40 mg Syringe SC SCH (09:44)
--- NOTE | 2016-12-17 11:32 | CP.PCM.PN ---
<Javier Mccall - Last Filed: 12/17/16 11:29> Subjective - Date & Time of Evaluation Date of Evaluation: 12/17/16 Time of Evaluation: 11:29 - Subjective Subjective: Cardiology Progress Note Dr. Trejo Patient seen and examined at the bedside. No acute distress. No acute events overnight. Nursing staff reports no issues. The patient's tachycardia has resolved. The patient reports no change in his cardiopulmonary condition subjectively. The patient denies all acrdiopulmonary complaints at this time. The patient also denies fever, chills, sputum production, abdominal pain, changes in bowel/bladder habits, and extremity paresthesias. Objective - Vital Signs/Intake and Output Vital Signs (last 24 hours): Temp Pulse Resp BP Pulse Ox 98.6 F 98 H 20 139/88 99 12/17/16 08:02 12/17/16 08:02 12/17/16 08:02 12/17/16 09:41 12/17/16 08:02 Intake and Output: 12/17/16 12/17/16 06:59 18:59 Intake Total 200 Balance 200 - Medications Medications: Current Medications Acetaminophen (Tylenol 325mg Tab) 650 mg PO Q6 PRN PRN Reason: Headache Last Admin: 12/04/16 20:53 Dose: 650 mg Benzocaine/Menthol (Cepacol Sore Throat) 1 liz MT BID PRN PRN Reason: Sore Throat Last Admin: 12/16/16 09:13 Dose: 1 liz Enoxaparin Sodium (Lovenox) 40 mg SC DAILY [facility] Last Admin: 12/17/16 09:44 Dose: 40 mg Ethambutol HCl (Myambutol) 1,200 mg PO DAILY [facility] Last Admin: 12/17/16 09:43 Dose: 1,200 mg Famotidine (Pepcid) 20 mg PO 0800 [facility] Last Admin: 12/17/16 08:29 Dose: 20 mg Ferric Sodium Gluconate Complex (Ferrlecit) 125 mg IVPB DAILY [facility] Stop: 12/23/16 10:01 Last Admin: 12/17/16 09:42 Dose: 125 mg Gabapentin (Neurontin) 300 mg PO TID [facility] Last Admin: 12/17/16 09:41 Dose: 300 mg Guaifenesin (Mucinex La) 600 mg PO 0800,1999 [facility] Last Admin: 12/17/16 08:29 Dose: 600 mg Insulin Aspart (Novolog) 0 unit SC ACHS [facility] PRN Reason: Protocol Last Admin: 12/17/16 08:24 Dose: Not Given Isoniazid (Niazid) 300 mg PO DAILY [facility] Last Admin: 12/17/16 09:44 Dose: 300 mg Losartan Potassium (Cozaar) 25 mg PO DAILY [facility] Last Admin: 12/17/16 09:41 Dose: 25 mg Metformin HCl (Glucophage) 1,000 mg PO 0800,1800 [facility] Last Admin: 12/17/16 08:29 Dose: 1,000 mg Metoprolol Tartrate (Lopressor) 25 mg PO BID [facility] Last Admin: 12/17/16 09:41 Dose: 25 mg Montelukast Sodium (Singulair) 10 mg PO HS [facility] Last Admin: 12/16/16 21:46 Dose: 10 mg Ondansetron HCl (Zofran Inj) 4 mg IVP Q6H PRN PRN Reason: Nausea/Vomiting Last Admin: 12/06/16 12:52 Dose: 4 mg Ondansetron HCl (Zofran Tab) 4 mg PO Q6 PRN Last Admin: 12/16/16 08:42 Dose: 4 mg Pyrazinamide (Pyrazinamide) 1,500 mg PO DAILY [facility] Last Admin: 12/17/16 09:43 Dose: 1,500 mg Pyridoxine HCl (Vitamin B6) 100 mg PO DAILY [facility] Last Admin: 12/17/16 09:43 Dose: 100 mg Rifampin (Rifampin Cap) 600 mg PO DAILY [facility] Last Admin: 12/17/16 09:44 Dose: 600 mg - Labs Labs: 12/15/16 07:15 12/15/16 07:15 PT 13.6 SECONDS (9.7-12.2) H 12/01/16 07:37 INR 1.2 12/01/16 07:37 APTT 28 SECONDS (21-34) 12/01/16 07:37 - Constitutional Appears: No Acute Distress, Chronically Ill - Head Exam Head Exam: ATRAUMATIC, NORMAL INSPECTION, NORMOCEPHALIC - Eye Exam Eye Exam: EOMI, Normal appearance - ENT Exam ENT Exam: Mucous Membranes Moist - Respiratory Exam Respiratory Exam: Clear to Ausculation Bilateral, NORMAL BREATHING PATTERN. absent: Rhonchi, Wheezes - Cardiovascular Exam Cardiovascular Exam: REGULAR RHYTHM, RRR, +S1, +S2. absent: Tachycardia, Diastolic murmur, Murmur - GI/Abdominal Exam GI & Abdominal Exam: Soft, Normal Bowel Sounds. absent: Distended, Guarding, Tenderness - Extremities Exam Extremities Exam: Full ROM, Normal Capillary Refill, Normal Inspection. absent : Joint Swelling, Pedal Edema - Neurological Exam Neurological Exam: Alert, Awake, CN II-XII Intact, Normal Gait, Oriented x3 - Skin Skin Exam: Dry, Intact, Normal Color, Warm Assessment and Plan - Assessment and Plan (Free Text) Assessment: This is a 51M with history of DM and HTN admitted on 11/30/16 for persistent dry cough lasting 4 weeks prior presenting for cardiac evaluation of persistent tachycardia. 1.) Tachycardia 2.) HTN 3.) DM 4.) TB Plan: 1.) Tachycardia - Lopressor 25mg PO BID (Hold if SBP <100mmHg or Pulse < 60bpm) - 12/16/16 EKG- sinus tachy, no ST changes, normal axis (unchanged from previous) - 12/15/16 Echo- LVEF 53% - 11/30/16 EKG- sinus tachycardia - continue TB treatment - continue Losartan 25mg PO daily Case discussed with Dr. Neil Mccall PGY1 <Natividad Trejo - Last Filed: 01/27/17 10:58> Objective - Vital Signs/Intake and Output Vital Signs (last 24 hours): Temp Pulse Resp BP Pulse Ox 98.3 F 101 H 20 144/94 H 97 12/29/16 08:00 12/29/16 09:45 12/29/16 08:00 12/29/16 09:45 12/29/16 08:00 - Labs Labs: 12/20/16 10:58 12/28/16 10:34 PT 13.6 SECONDS (9.7-12.2) H 12/01/16 07:37 INR 1.2 12/01/16 07:37 APTT 28 SECONDS (21-34) 12/01/16 07:37 Attending/Attestation - Attestation I have personally seen and examined this patient.: Yes I have fully participated in the care of the patient.: Yes I have reviewed all pertinent clinical information, including history, physical exam and plan: Yes Notes (Text): 01/27/17 10:58 tachycardia resoled with metoprolol
[2016-12-17 11:35] LABS: BASO % 0.2 % (0.0-2.0); EOS # 0.4 K/uL (0.0-0.7); EOS % 3.4 % (0.0-4.0); HEMATOCRIT 37.9 % (35.0-51.0); LYMPH # 1.2 K/uL (1.0-4.3); LYMPH % 11.4 % (20.0-40.0); MEAN CELL VOLUME 69.7 fL (80.0-94.0); MEAN CORPUSCULAR HEMOGLOBIN 23.1 pg (27.0-31.0); MEAN CORPUSCULAR HGB CONC 33.1 g/dL (33.0-37.0); MEAN PLATELET VOLUME 7.1 fL (7.2-11.7); MONO % 9.6 % (0.0-10.0); NRBC % 0.1 % (0.0-2.0); WHITE BLOOD COUNT 10.6 K/uL (4.8-10.8)
[2016-12-17 12:01] LABS: CHLORIDE 91 mmol/L (98-107); SODIUM 124 mmol/L (132-148)
[2016-12-17 12:03] LABS: ALB/GLOB RATIO 1.1 (1.0-2.1); ALKALINE PHOSPHATASE 73 U/L (38-126); ALT/SGPT 20 U/L (21-72); AST/SGOT 25 U/L (17-59); BILIRUBIN,TOTAL 0.5 mg/dL (0.2-1.3); BLOOD UREA NITROGEN 6 mg/dL (9-20); CARBON DIOXIDE 21 mmol/L (22-30); GFR AFRICAN-AMERICAN > 60; TOTAL PROTEIN 7.2 g/dL (6.3-8.3)
[2016-12-17 12:04] LABS: CALCIUM 9.3 mg/dl (8.6-10.4); GLUCOSE,RANDOM 162 mg/dL (75-110); MAGNESIUM 1.8 mg/dL (1.6-2.3)
--- NOTE | 2016-12-18 00:51 | CP.PCM.PN ---
<Zahira Vega - Last Filed: 12/18/16 00:49> Subjective - Date & Time of Evaluation Date of Evaluation: 12/18/16 Time of Evaluation: 00:49 - Subjective Subjective: Patient seen and examined. Tachycardia has resolved. Patient resting comfortably and has no complaints. He continues to have cough. Patient reports ambulating often. He is tolerating diet well without complaints of nausea/ vomiting and having normal bowel movements. He denies chest pain, palpitations, and shortness of breath. Objective - Vital Signs/Intake and Output Vital Signs (last 24 hours): Temp Pulse Resp BP Pulse Ox 97.6 F 90 20 108/69 96 12/17/16 15:15 12/18/16 00:42 12/17/16 15:15 12/17/16 18:50 12/17/16 15:15 Intake and Output: 12/17/16 12/18/16 18:59 06:59 Intake Total 600 300 Balance 600 300 - Medications Medications: Current Medications Acetaminophen (Tylenol 325mg Tab) 650 mg PO Q6 PRN PRN Reason: Headache Last Admin: 12/04/16 20:53 Dose: 650 mg Benzocaine/Menthol (Cepacol Sore Throat) 1 liz MT BID PRN PRN Reason: Sore Throat Last Admin: 12/16/16 09:13 Dose: 1 liz Enoxaparin Sodium (Lovenox) 40 mg SC DAILY [facility] Last Admin: 12/17/16 09:44 Dose: 40 mg Ethambutol HCl (Myambutol) 1,200 mg PO DAILY [facility] Last Admin: 12/17/16 09:43 Dose: 1,200 mg Famotidine (Pepcid) 20 mg PO 0800 [facility] Last Admin: 12/17/16 08:29 Dose: 20 mg Ferric Sodium Gluconate Complex (Ferrlecit) 125 mg IVPB DAILY [facility] Stop: 12/23/16 10:01 Last Admin: 12/17/16 09:42 Dose: 125 mg Gabapentin (Neurontin) 300 mg PO TID [facility] Last Admin: 12/17/16 18:50 Dose: 300 mg Guaifenesin (Mucinex La) 600 mg PO 0800,2000 [facility] Last Admin: 12/17/16 20:50 Dose: 600 mg Insulin Aspart (Novolog) 0 unit SC ACHS [facility] PRN Reason: Protocol Last Admin: 12/17/16 22:11 Dose: Not Given Isoniazid (Niazid) 300 mg PO DAILY [facility] Last Admin: 12/17/16 09:44 Dose: 300 mg Losartan Potassium (Cozaar) 25 mg PO DAILY [facility] Last Admin: 12/17/16 09:41 Dose: 25 mg Metformin HCl (Glucophage) 1,000 mg PO 0800,1800 [facility] Last Admin: 12/17/16 18:50 Dose: 1,000 mg Metoprolol Tartrate (Lopressor) 25 mg PO BID [facility] Last Admin: 12/17/16 18:50 Dose: 25 mg Montelukast Sodium (Singulair) 10 mg PO HS [facility] Last Admin: 12/17/16 22:12 Dose: 10 mg Ondansetron HCl (Zofran Inj) 4 mg IVP Q6H PRN PRN Reason: Nausea/Vomiting Last Admin: 12/06/16 12:52 Dose: 4 mg Ondansetron HCl (Zofran Tab) 4 mg PO Q6 PRN Last Admin: 12/16/16 08:42 Dose: 4 mg Pyrazinamide (Pyrazinamide) 1,500 mg PO DAILY [facility] Last Admin: 12/17/16 09:43 Dose: 1,500 mg Pyridoxine HCl (Vitamin B6) 100 mg PO DAILY [facility] Last Admin: 12/17/16 09:43 Dose: 100 mg Rifampin (Rifampin Cap) 600 mg PO DAILY [facility] Last Admin: 12/17/16 09:44 Dose: 600 mg - Labs Labs: 12/17/16 11:24 12/17/16 11:24 PT 13.6 SECONDS (9.7-12.2) H 12/01/16 07:37 INR 1.2 12/01/16 07:37 APTT 28 SECONDS (21-34) 12/01/16 07:37 - Constitutional Appears: Non-toxic, No Acute Distress - Head Exam Head Exam: ATRAUMATIC, NORMAL INSPECTION, NORMOCEPHALIC - Eye Exam Eye Exam: EOMI, Normal appearance, PERRL - ENT Exam ENT Exam: Mucous Membranes Moist - Respiratory Exam Respiratory Exam: Clear to Ausculation Bilateral, NORMAL BREATHING PATTERN. absent: Rales, Rhonchi, Wheezes - Cardiovascular Exam Cardiovascular Exam: +S1, +S2 - GI/Abdominal Exam GI & Abdominal Exam: Soft, Normal Bowel Sounds. absent: Tenderness - Extremities Exam Extremities Exam: Full ROM, Normal Inspection - Neurological Exam Neurological Exam: Alert, Awake, Oriented x3 - Psychiatric Exam Psychiatric exam: Normal Affect, Normal Mood - Skin Skin Exam: Intact, Normal Color, Warm Assessment and Plan - Assessment and Plan (Free Text) Assessment: Tuberculosis, active +AFB's collected, awaiting culture results. Labs q3D. Continue RIPE therapy. Monitor LFTs. AFB sputum cultures twice weekly until negative result obtained. - Mycobacterial Sputum Cultures 12/15: FU AFB sputum cxr 12/14 AFB: Few (2+) acid-fast bacilli seen using the fluorochrome method. 12/13 AFB: Few (2+) acid-fast bacilli seen using the fluorochrome method. 12/12 AFB: Few (2+) acid-fast bacilli seen using the fluorochrome method. 12/10 AFB: 1+ acid fast bacilli, culture pending 12/09 AFB: 1+ acid fast bacilli, culture pending 12/06 AFB: 2+ acid fast bacilli, culture prelim: no mycobacterium species isolated after one week incubation 12/04 AFB: 2+ acid fast bacilli, culture prelim: Acid-fast bacilli present in liquid culture medium. Identification to follow. 12/02 AFB: 2+ acid fast bacilli, culture prelim: Acid-fast bacilli present in liquid culture medium. Identification to follow. 12/01 AFB: 1+ acid fast bacilli, culture prelim: Acid-fast bacilli present in liquid culture medium. Identification to follow. 11/30 AFB: 1+ acid fast bacilli, culture prelim: Acid-fast bacilli present in liquid culture medium. Identification to follow. -ID consult, Dr. Espinal -> Continue quadruple therapy for TB. 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 WILL LIKELY TAKE SEVERAL WEEKS TO CLEAR SPUTUM ethambutol 1200mg PO daily (started 12/02) isoniazide 300mg PO daily (started 12/02) Prazinamide 1500mg PO daily (started 12/02) (increased 12/08 for weight based dosing) Pyridoxine 100mg PO daily (started 12/02) Rifampin 600mg PO daily (started 12/02) -HIV negative -Quant Gold - negative -Note: Disk containing CT + CXR images is in the physical chart. -Cavitary left upper lobe infiltrate/mass. CT scan may be beneficial in further assessment of this process primarily affecting the posterior segment. The cavitary comes/cystic component is best seen on the lateral view measuring 5.2 x 6.4 cm. -Pulm Consult, Dr. Frazier -> bronchoscopy 12/01 AM cancelled, as CT imaging showed clear TB infection f/u sputum studies and sputum PCR -Continue Mucinex 600mg PO BID; Singulair 10mg PO HS; Duonebs RQ6 PRN Hyponatremia Sodium 124 Patient currently fluid restricted. Will follow-up serum osmolarity, urine osmolarity, urine sodium and uric acid Nephrology, Dr. Gunn, consulted. Help appreciated. Monitor Sore Throat 12/17: No sore throat reported 12/16: improving likely secondary to cough Continue Cepachol Lozenges BID Will discontinue Enalapril Tachycardia 12/18: currently resolved. Continue Lopressor 25 mg po BID. 12/17: fewer episodes of tachycardia over last 24H, asx, Echo with normal EF >53% , negative for abnormalities; cont Lopressor 25mg BID 12/16: Continues to be tachycardic in 120s today. Patient is asymptomatic Will follow up EKG and official Echo report. Lopressor increased to 25 mg po BID per cardiology. D-dimer 226, thyroid studies normal. 12/15: EKG and Echocardiogram ordered to evaluate tachycardia. Cardiology, Neil Spencer, consulted. Help appreciated. 12/13: Pharmacy reviewed meds and noted tachycardia could be attributed to Isoniazid and Rifampin. 12/07-12/12: persistent tachycardia since 12/07/16 (100's-120's). Pharmacy is looking into this. Duoneb PRN is on, however patient hasn't received a recent dose. -TSH + free T4 - both WNL -> r/o hyperthyroidism -CXR 12/08- Increasing opacity of left lung with cavitation in the left apex and left apical pleural thickening. Likely infectious process. Consider fungal or atypical mycobacterial. 5 mm nodule in right apex. Consider further evaluation with computed tomography. Diabetes Mellitus type II Blood glucose 103 Metformin 1000mg PO BID Novolog RISS Neurontin 300mg PO TID A1c 12.4 FLP grossly WNL; HDL 28 L Glucose 233 on admission Alpha Thalassemia Continue IV Ferrlicit MCV 69.7 Ferritin 77.3, B12 950 H, folate 11.2, reticulocyte count 1.0 hemoglobinopathy inerpretation - possible Alpha-thalassemia. Fe 28 L, TIBC 243 L, %Sat 12 L haptoglobin 501 H Monitor outpatient Hypertension normotensive Discontinued Enalapril 5mg PO due to cough Started on Losartan 25 mg po daily Prophylaxis respiratory isolation Vegetarian Diet, carb consistent, low sodium Pepcid 20mg PO d Lovenox 40 mg SC daily Zofran 4mg PO Q6 PRN SCDs Dispo Continue med mgmt <Reyna Huber V - Last Filed: 12/18/16 14:51> Objective - Vital Signs/Intake and Output Vital Signs (last 24 hours): Temp Pulse Resp BP Pulse Ox 98.0 F 106 H 20 120/70 98 12/18/16 08:00 12/18/16 08:00 12/18/16 08:00 12/18/16 09:36 12/18/16 08:00 Intake and Output: 12/18/16 12/18/16 06:59 18:59 Intake Total 550 Balance 550 - Medications Medications: Current Medications Acetaminophen (Tylenol 325mg Tab) 650 mg PO Q6 PRN PRN Reason: Headache Last Admin: 12/04/16 20:53 Dose: 650 mg Benzocaine/Menthol (Cepacol Sore Throat) 1 liz MT BID PRN PRN Reason: Sore Throat Last Admin: 12/16/16 09:13 Dose: 1 liz Enoxaparin Sodium (Lovenox) 40 mg SC DAILY [facility] Last Admin: 12/18/16 09:25 Dose: 40 mg Ethambutol HCl (Myambutol) 1,200 mg PO DAILY [facility] Last Admin: 12/18/16 09:29 Dose: 1,200 mg Famotidine (Pepcid) 20 mg PO 0800 [facility] Last Admin: 12/18/16 08:00 Dose: 20 mg Ferric Sodium Gluconate Complex (Ferrlecit) 125 mg IVPB DAILY [facility] Stop: 12/23/16 10:01 Last Admin: 12/18/16 09:35 Dose: 125 mg Gabapentin (Neurontin) 300 mg PO TID [facility] Last Admin: 12/18/16 09:26 Dose: 300 mg Guaifenesin (Mucinex La) 600 mg PO 0800,1999 [facility] Last Admin: 12/18/16 08:00 Dose: 600 mg Insulin Aspart (Novolog) 0 unit SC ACHS [facility] PRN Reason: Protocol Last Admin: 12/18/16 07:30 Dose: 1 unit Isoniazid (Niazid) 300 mg PO DAILY [facility] Last Admin: 12/18/16 09:28 Dose: 300 mg Losartan Potassium (Cozaar) 25 mg PO DAILY [facility] Last Admin: 12/18/16 09:27 Dose: 25 mg Metformin HCl (Glucophage) 1,000 mg PO 0800,1800 [facility] Last Admin: 12/18/16 08:00 Dose: 1,000 mg Metoprolol Tartrate (Lopressor) 25 mg PO BID [facility] Last Admin: 12/18/16 09:36 Dose: 25 mg Montelukast Sodium (Singulair) 10 mg PO HS [facility] Last Admin: 12/17/16 22:12 Dose: 10 mg Ondansetron HCl (Zofran Inj) 4 mg IVP Q6H PRN PRN Reason: Nausea/Vomiting Last Admin: 12/06/16 12:52 Dose: 4 mg Ondansetron HCl (Zofran Tab) 4 mg PO Q6 PRN Last Admin: 12/16/16 08:42 Dose: 4 mg Pyrazinamide (Pyrazinamide) 1,500 mg PO DAILY [facility] Last Admin: 12/18/16 09:28 Dose: 1,500 mg Pyridoxine HCl (Vitamin B6) 100 mg PO DAILY [facility] Last Admin: 12/18/16 09:30 Dose: 100 mg Rifampin (Rifampin Cap) 600 mg PO DAILY [facility] Last Admin: 12/18/16 09:29 Dose: 600 mg - Labs Labs: 12/18/16 06:59 12/18/16 06:59 PT 13.6 SECONDS (9.7-12.2) H 12/01/16 07:37 INR 1.2 12/01/16 07:37 APTT 28 SECONDS (21-34) 12/01/16 07:37 Attending/Attestation - Attestation I have personally seen and examined this patient.: Yes I have fully participated in the care of the patient.: Yes I have reviewed all pertinent clinical information, including history, physical exam and plan: Yes Notes (Text): Patient seen, examined, and case discussed with day time resident. patient indicating he has cough, non-productive. Denies acute complaints. Assisted in translation by respiratory therapist, Avery in Gujarati language. Patient to continue on RIPE therapy for tuberculosis Nephrology consulted for hyponatremia. Sodium improved on fluid restriction. Continue to monitor. Disposition: Patient is pending three negative sputum/AFB, clearance by state given active tuberculosis as per ID, concern for MDR-TB given ethnicity of the patient will require isolation and will need to monitor sputum to see if therapy is effective for the patient. Assessment/Plan 1) Tuberculosis, active * Airborne precautions * Pulmonary (Dr. Frazier) on consult help appreciated * Infectious disease (Dr. Espinal) on consult help appreciated * Ethambutol 1200mg PO daily (started 12/02) Isoniazid 300mg PO daily (started 12/02) Prazinamide 1500mg PO daily (started 12/02) (increased 12/08 for weight based dosing) Pyridoxine 100mg PO daily (started 12/02) Rifampin 600mg PO daily (started 12/02) f/u AFB/sputum cultures twice a week until 3 negative cultures result-- discussed with Salina Willoughby - Mycobacterial Sputum Cultures 12/15 AFB positive acid fast bacilli, culture pending 12/14 AFB: positive acid fast bacilli, culture pending 12/13 AFB 2+ acid fast bacilli, culture pending 12/12: AFB 2+ acid fast bacilli, culture pending 12/10 AFB: 1+ acid fast bacilli, No isolated in one week 12/09 AFB: 1+ acid fast bacilli, No isolated in one week 12/06 AFB: 2+ acid fast bacilli, no isolated in one week 12/04 AFB: 2+ acid fast bacilli, prelim mycobacteria tuberculosis complex 12/02 AFB: 2+ acid fast bacilli, prelim mycobacteria tuberculosis complex 12/01 AFB: 1+ acid fast bacilli, prelim mycobacteria tuberculosis complex 11/30 AFB: 1+ acid fast bacilli, prelim mycobacteria tuberculosis complex * HIV negative * Quant Gold - negative * Note: Disk containing CT + CXR images is in the physical chart. * 12/08/16 CT Chest: extensive small ill defined nodular opacities throughout left upper lobe as well as superior segment left lower lobe with areas of freeman consultation. Extensive cavitation amidst a large area of consolidation in the left apex. Scattered calficied grandulomas bilaterally. 2)Tachycardia * Thyroid studies: within normal * 12/08/16 CT Chest: extensive small ill defined nodular opacities throughout left upper lobe as well as superior segment left lower lobe with areas of freeman consultation. Extensive cavitation amidst a large area of consolidation in the left apex. Scattered calcified grandulomas bilaterally. * likely secondary to acute infection and possible anti-tB therapy * d-dimer: negative * Thyroid studies: normal * Cardiology (Dr. Trejo) consult-->help appreciated * Patient started on Lopressor 25mg PO bid 3) Diabetes, type 2; uncontrolled with associated neuropathy * Metformin 1000mg PO bid * Novolog sliding scale sub * Neurontin 300mg PO TID * A1c 12.4 * Losartan 25mg PO daily 4) Alpha Thalassemia * MCV 69.7 * Ferritin 77.3, B12 950 H, folate 11.2, reticulocyte count 1.0 * hemoglobinopathy inerpretation - possible Alpha-thalassemia. * Fe 28 L, TIBC 243 L, %Sat 12 L * haptoglobin 501 H * Monitor outpatient * Started on Ferrlecit IV (started on 12/15-12/23) 5) Hypertension * d/c Enalapril 5mg PO daily * started on Losartan 25mg PO daily * started on Lopressor 25mg PO bid 6) Electrolyte Imbalance * Monitor and replete when necessary 7) Hyponatremia * Improved to 129 on fluid restriction * serum osmolarity: 275 urine osmolarity, urine sodium, uric acid-pending * fluid restriction * Nephrology: Dr Moralez on board 8) Prophylaxis * respiratory isolation * Vegetarian Diet, carb consistent, low sodium * Pepcid 20mg PO daily * Heparin 5000 units SC q8H * Zofran 4mg PO Q6 PRN * SCDs
[2016-12-18 07:23] LABS: CHLORIDE 93 mmol/L (98-107)
[2016-12-18 07:24] LABS: BASO % 0.2 % (0.0-2.0); EOS # 0.5 K/uL (0.0-0.7); EOS % 5.9 % (0.0-4.0); HEMATOCRIT 40.3 % (35.0-51.0); LYMPH # 1.6 K/uL (1.0-4.3); LYMPH % 20.4 % (20.0-40.0); MEAN CELL VOLUME 70.6 fL (80.0-94.0); MEAN CORPUSCULAR HEMOGLOBIN 23.4 pg (27.0-31.0); MEAN CORPUSCULAR HGB CONC 33.2 g/dL (33.0-37.0); MEAN PLATELET VOLUME 7.2 fL (7.2-11.7); MONO % 12.8 % (0.0-10.0); RED CELL DISTRIBUTION WIDTH 17.9 % (11.5-14.5); SODIUM 129 mmol/L (132-148); WHITE BLOOD COUNT 7.8 K/uL (4.8-10.8)
[2016-12-18 07:26] LABS: ALKALINE PHOSPHATASE 101 U/L (38-126); ALT/SGPT 22 U/L (21-72); AST/SGOT 18 U/L (17-59); BILIRUBIN,TOTAL 0.5 mg/dL (0.2-1.3); BLOOD UREA NITROGEN 8 mg/dL (9-20); CARBON DIOXIDE 25 mmol/L (22-30); GFR AFRICAN-AMERICAN > 60; GLUCOSE,RANDOM 142 mg/dL (75-110); TOTAL PROTEIN 7.4 g/dL (6.3-8.3)
[2016-12-18 07:27] LABS: CALCIUM 9.1 mg/dl (8.6-10.4); MAGNESIUM 1.8 mg/dL (1.6-2.3); URIC ACID 6.8 mg/dL (3.5-8.5)
[2016-12-18] MEDS: (Novolog) Insulin Aspart, Recombinant 100 u/ml 10 ml vial SC SCH ×4 (07:30→21:53)
[2016-12-18] MEDS: guaiFENesin 600 mg ER Tab PO SCH ×2 (08:00→20:00)
[2016-12-18] MEDS: Enoxaparin 40 mg Syringe SC SCH (09:25)
[2016-12-18] MEDS: Pyridoxine 100 mg Tab PO SCH (09:30)
[2016-12-18] MEDS: Ferric Sodium Gluconat Complex 62.5 mg/5 ml Vial IVPB SCH (09:35)
--- NOTE | 2016-12-18 13:26 | CP.PCM.PN ---
Subjective - Date & Time of Evaluation Date of Evaluation: 12/18/16 Time of Evaluation: 09:00 - Subjective Subjective: PATIENT WITH HEAVY BACTERIAL BURDEN OF TB BASED ON CXR , WELL HISTORY OF CHRONICITY BECAUSE OF THE ABOVE WILL LIKELY TAKE SEVERAL WEEKS TO CLEAR SPUTUM BECAUSE OF ETHNICITY MUST BE CONCERNED FOR MDR-TB , THUS THE NEED FOR ISOLATION Objective - Vital Signs/Intake and Output Vital Signs (last 24 hours): Temp Pulse Resp BP Pulse Ox 98.0 F 106 H 20 120/70 98 12/18/16 08:00 12/18/16 08:00 12/18/16 08:00 12/18/16 09:36 12/18/16 08:00 Intake and Output: 12/18/16 12/18/16 06:59 18:59 Intake Total 550 Balance 550 - Medications Medications: Current Medications Acetaminophen (Tylenol 325mg Tab) 650 mg PO Q6 PRN PRN Reason: Headache Last Admin: 12/04/16 20:53 Dose: 650 mg Benzocaine/Menthol (Cepacol Sore Throat) 1 liz MT BID PRN PRN Reason: Sore Throat Last Admin: 12/16/16 09:13 Dose: 1 liz Enoxaparin Sodium (Lovenox) 40 mg SC DAILY [facility] Last Admin: 12/18/16 09:25 Dose: 40 mg Ethambutol HCl (Myambutol) 1,200 mg PO DAILY [facility] Last Admin: 12/18/16 09:29 Dose: 1,200 mg Famotidine (Pepcid) 20 mg PO 0800 [facility] Last Admin: 12/18/16 08:00 Dose: 20 mg Ferric Sodium Gluconate Complex (Ferrlecit) 125 mg IVPB DAILY [facility] Stop: 12/23/16 10:01 Last Admin: 12/18/16 09:35 Dose: 125 mg Gabapentin (Neurontin) 300 mg PO TID [facility] Last Admin: 12/18/16 09:26 Dose: 300 mg Guaifenesin (Mucinex La) 600 mg PO 0800,1999 [facility] Last Admin: 12/18/16 08:00 Dose: 600 mg Insulin Aspart (Novolog) 0 unit SC ACHS [facility] PRN Reason: Protocol Last Admin: 12/18/16 07:30 Dose: 1 unit Isoniazid (Niazid) 300 mg PO DAILY [facility] Last Admin: 04/15/17 09:28 Dose: 300 mg Losartan Potassium (Cozaar) 25 mg PO DAILY [facility] Last Admin: 12/18/16 09:27 Dose: 25 mg Metformin HCl (Glucophage) 1,000 mg PO 0800,1800 [facility] Last Admin: 12/18/16 08:00 Dose: 1,000 mg Metoprolol Tartrate (Lopressor) 25 mg PO BID [facility] Last Admin: 12/18/16 09:36 Dose: 25 mg Montelukast Sodium (Singulair) 10 mg PO HS [facility] Last Admin: 12/17/16 22:12 Dose: 10 mg Ondansetron HCl (Zofran Inj) 4 mg IVP Q6H PRN PRN Reason: Nausea/Vomiting Last Admin: 12/06/16 12:52 Dose: 4 mg Ondansetron HCl (Zofran Tab) 4 mg PO Q6 PRN Last Admin: 12/16/16 08:42 Dose: 4 mg Pyrazinamide (Pyrazinamide) 1,500 mg PO DAILY [facility] Last Admin: 12/18/16 09:28 Dose: 1,500 mg Pyridoxine HCl (Vitamin B6) 100 mg PO DAILY [facility] Last Admin: 12/18/16 09:30 Dose: 100 mg Rifampin (Rifampin Cap) 600 mg PO DAILY [facility] Last Admin: 12/18/16 09:29 Dose: 600 mg - Labs Labs: 12/18/16 06:59 12/18/16 06:59 PT 13.6 SECONDS (9.7-12.2) H 12/01/16 07:37 INR 1.2 12/01/16 07:37 APTT 28 SECONDS (21-34) 12/01/16 07:37 Assessment and Plan (1) Pulmonary tuberculosis with cavitation Status: Acute (2) Tuberculosis Status: Acute (3) Pneumonia Status: Acute (4) Diabetes Status: Acute
--- NOTE | 2016-12-19 02:50 | CP.PCM.PN ---
<Zahira Vega - Last Filed: 12/19/16 02:46> Subjective - Date & Time of Evaluation Date of Evaluation: 12/19/16 Time of Evaluation: 02:46 - Subjective Subjective: Patient seen and examined. Patient resting comfortably and has no complaints. He continues to have cough. Patient reports ambulating often. He is tolerating diet well without complaints of nausea/vomiting and having normal bowel movements. He denies chest pain, palpitations, and shortness of breath. Objective - Vital Signs/Intake and Output Vital Signs (last 24 hours): Temp Pulse Resp BP Pulse Ox 98.3 F 93 H 20 113/79 96 12/19/16 00:00 12/19/16 00:00 12/19/16 00:00 12/19/16 00:00 12/19/16 00:00 - Medications Medications: Current Medications Acetaminophen (Tylenol 325mg Tab) 650 mg PO Q6 PRN PRN Reason: Headache Last Admin: 12/04/16 20:53 Dose: 650 mg Benzocaine/Menthol (Cepacol Sore Throat) 1 liz MT BID PRN PRN Reason: Sore Throat Last Admin: 12/16/16 09:13 Dose: 1 liz Enoxaparin Sodium (Lovenox) 40 mg SC DAILY [facility] Last Admin: 12/18/16 09:25 Dose: 40 mg Ethambutol HCl (Myambutol) 1,200 mg PO DAILY [facility] Last Admin: 12/18/16 09:29 Dose: 1,200 mg Famotidine (Pepcid) 20 mg PO 0800 [facility] Last Admin: 12/18/16 08:00 Dose: 20 mg Ferric Sodium Gluconate Complex (Ferrlecit) 125 mg IVPB DAILY [facility] Stop: 12/23/16 10:01 Last Admin: 12/18/16 09:35 Dose: 125 mg Gabapentin (Neurontin) 300 mg PO TID [facility] Last Admin: 12/18/16 18:01 Dose: 300 mg Guaifenesin (Mucinex La) 600 mg PO 0800,2000 [facility] Last Admin: 12/18/16 20:00 Dose: 600 mg Insulin Aspart (Novolog) 0 unit SC ACHS [facility] PRN Reason: Protocol Last Admin: 12/18/16 21:53 Dose: Not Given Isoniazid (Niazid) 300 mg PO DAILY [facility] Last Admin: 12/18/16 09:28 Dose: 300 mg Losartan Potassium (Cozaar) 25 mg PO DAILY [facility] Last Admin: 12/18/16 09:27 Dose: 25 mg Metformin HCl (Glucophage) 1,000 mg PO 0800,1800 [facility] Last Admin: 12/18/16 18:00 Dose: 1,000 mg Metoprolol Tartrate (Lopressor) 25 mg PO BID [facility] Last Admin: 12/18/16 18:00 Dose: 25 mg Montelukast Sodium (Singulair) 10 mg PO HS [facility] Last Admin: 12/18/16 21:26 Dose: 10 mg Ondansetron HCl (Zofran Inj) 4 mg IVP Q6H PRN PRN Reason: Nausea/Vomiting Last Admin: 12/06/16 12:52 Dose: 4 mg Ondansetron HCl (Zofran Tab) 4 mg PO Q6 PRN Last Admin: 12/16/16 08:42 Dose: 4 mg Pyrazinamide (Pyrazinamide) 1,500 mg PO DAILY [facility] Last Admin: 12/18/16 09:28 Dose: 1,500 mg Pyridoxine HCl (Vitamin B6) 100 mg PO DAILY [facility] Last Admin: 12/18/16 09:30 Dose: 100 mg Rifampin (Rifampin Cap) 600 mg PO DAILY [facility] Last Admin: 12/18/16 09:29 Dose: 600 mg - Labs Labs: 12/18/16 06:59 12/18/16 06:59 PT 13.6 SECONDS (9.7-12.2) H 12/01/16 07:37 INR 1.2 12/01/16 07:37 APTT 28 SECONDS (21-34) 12/01/16 07:37 - Head Exam Head Exam: ATRAUMATIC, NORMOCEPHALIC - Eye Exam Eye Exam: EOMI, Normal appearance, PERRL - ENT Exam ENT Exam: Mucous Membranes Moist - Neck Exam Neck Exam: Normal Inspection - Respiratory Exam Respiratory Exam: Clear to Ausculation Bilateral, NORMAL BREATHING PATTERN. absent: Rales, Rhonchi, Wheezes - Cardiovascular Exam Cardiovascular Exam: +S1, +S2 - GI/Abdominal Exam GI & Abdominal Exam: Soft, Normal Bowel Sounds - Extremities Exam Extremities Exam: Full ROM, Normal Inspection - Back Exam Back Exam: NORMAL INSPECTION - Neurological Exam Neurological Exam: Alert, Awake, Oriented x3 - Psychiatric Exam Psychiatric exam: Normal Affect, Normal Mood - Skin Skin Exam: Intact, Normal Color Assessment and Plan - Assessment and Plan (Free Text) Assessment: Tuberculosis, active +AFB's collected, awaiting culture results. Labs q3D. Continue RIPE therapy. Monitor LFTs. AFB sputum cultures twice weekly until negative result obtained. - Mycobacterial Sputum Cultures 12/17: Few (2+) acid-fast bacilli seen using the fluorochrome method. 12/15: Few (2+) acid-fast bacilli seen using the fluorochrome method. 12/14 AFB: Few (2+) acid-fast bacilli seen using the fluorochrome method. 12/13 AFB: Few (2+) acid-fast bacilli seen using the fluorochrome method. 12/12 AFB: Few (2+) acid-fast bacilli seen using the fluorochrome method. 12/10 AFB: 1+ acid fast bacilli, culture prelim: no mycobacterium species isolated after one week incubation 12/09 AFB: 1+ acid fast bacilli, culture prelim: no mycobacterium species isolated after one week incubation 12/06 AFB: 2+ acid fast bacilli, culture prelim: no mycobacterium species isolated after one week incubation 12/04 AFB: 2+ acid fast bacilli, culture prelim: Acid-fast bacilli present in liquid culture medium. Identification to follow. 12/02 AFB: 2+ acid fast bacilli, culture prelim: Acid-fast bacilli present in liquid culture medium. Identification to follow. 12/01 AFB: 1+ acid fast bacilli, culture prelim: Acid-fast bacilli present in liquid culture medium. Identification to follow. 11/30 AFB: 1+ acid fast bacilli, culture prelim: Acid-fast bacilli present in liquid culture medium. Identification to follow. -ID consult, Dr. Espinal -> Continue quadruple therapy for TB. 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 WILL LIKELY TAKE SEVERAL WEEKS TO CLEAR SPUTUM ethambutol 1200mg PO daily (started 12/02) isoniazide 300mg PO daily (started 12/02) Prazinamide 1500mg PO daily (started 12/02) (increased 4/5 for weight based dosing) Pyridoxine 100mg PO daily (started 12/02) Rifampin 600mg PO daily (started 12/02) -HIV negative -Quant Gold - negative -Note: Disk containing CT + CXR images is in the physical chart. -Cavitary left upper lobe infiltrate/mass. CT scan may be beneficial in further assessment of this process primarily affecting the posterior segment. The cavitary comes/cystic component is best seen on the lateral view measuring 5.2 x 6.4 cm. -Pulm Consult, Dr. Frazier -> bronchoscopy 12/01 AM cancelled, as CT imaging showed clear TB infection f/u sputum studies and sputum PCR -Continue Mucinex 600mg PO BID; Singulair 10mg PO HS; Duonebs RQ6 PRN Hyponatremia Sodium increased to 129 Patient currently fluid restricted. Will follow-up serum osmolarity, urine osmolarity, urine sodium and uric acid Nephrology, Dr. Gunn, consulted. Help appreciated. Monitor Sore Throat 12/17: No sore throat reported 12/16: improving likely secondary to cough Continue Cepachol Lozenges BID Will discontinue Enalapril Tachycardia 12/19: resolved 12/18: currently resolved. Continue Lopressor 25 mg po BID. 12/17: fewer episodes of tachycardia over last 24H, asx, Echo with normal EF >53% , negative for abnormalities; cont Lopressor 25mg BID 12/16: Continues to be tachycardic in 120s today. Patient is asymptomatic Will follow up EKG and official Echo report. Lopressor increased to 25 mg po BID per cardiology. D-dimer 226, thyroid studies normal. 12/15: EKG and Echocardiogram ordered to evaluate tachycardia. Cardiology, Neil Spencer, consulted. Help appreciated. 12/13: Pharmacy reviewed meds and noted tachycardia could be attributed to Isoniazid and Rifampin. 12/07-12/12: persistent tachycardia since 12/07/16 (100's-120's). Pharmacy is looking into this. Duoneb PRN is on, however patient hasn't received a recent dose. -TSH + free T4 - both WNL -> r/o hyperthyroidism -CXR 12/08- Increasing opacity of left lung with cavitation in the left apex and left apical pleural thickening. Likely infectious process. Consider fungal or atypical mycobacterial. 5 mm nodule in right apex. Consider further evaluation with computed tomography. Diabetes Mellitus type II Blood glucose 159 Metformin 1000mg PO BID Novolog RISS Neurontin 300mg PO TID A1c 12.4 FLP grossly WNL; HDL 28 L Glucose 233 on admission Alpha Thalassemia Continue IV Ferrlicit MCV 69.7 Ferritin 77.3, B12 950 H, folate 11.2, reticulocyte count 1.0 hemoglobinopathy inerpretation - possible Alpha-thalassemia. Fe 28 L, TIBC 243 L, %Sat 12 L haptoglobin 501 H Monitor outpatient Hypertension normotensive Discontinued Enalapril 5mg PO due to cough Started on Losartan 25 mg po daily Prophylaxis respiratory isolation Vegetarian Diet, carb consistent, low sodium Pepcid 20mg PO d Lovenox 40 mg SC daily Zofran 4mg PO Q6 PRN SCDs <Reyna Huber V - Last Filed: 12/19/16 20:10> Objective - Vital Signs/Intake and Output Vital Signs (last 24 hours): Temp Pulse Resp BP Pulse Ox 97.7 F 93 H 20 147/87 98 12/19/16 15:10 12/19/16 16:15 12/19/16 15:10 12/19/16 17:12 12/19/16 15:10 Intake and Output: 12/19/16 12/20/16 18:59 06:59 Intake Total 580 Balance 580 - Medications Medications: Current Medications Acetaminophen (Tylenol 325mg Tab) 650 mg PO Q6 PRN PRN Reason: Headache Last Admin: 12/04/16 20:53 Dose: 650 mg Benzocaine/Menthol (Cepacol Sore Throat) 1 liz MT BID PRN PRN Reason: Sore Throat Last Admin: 12/16/16 09:13 Dose: 1 liz Enoxaparin Sodium (Lovenox) 40 mg SC DAILY [facility] Last Admin: 12/19/16 09:19 Dose: 40 mg Ethambutol HCl (Myambutol) 1,200 mg PO DAILY [facility] Last Admin: 12/19/16 09:20 Dose: 1,200 mg Famotidine (Pepcid) 20 mg PO 0800 [facility] Last Admin: 12/19/16 07:54 Dose: 20 mg Ferric Sodium Gluconate Complex (Ferrlecit) 125 mg IVPB DAILY [facility] Stop: 12/23/16 10:01 Last Admin: 12/19/16 11:10 Dose: 125 mg Gabapentin (Neurontin) 300 mg PO TID [facility] Last Admin: 12/19/16 17:12 Dose: 300 mg Guaifenesin (Mucinex La) 600 mg PO 0800,2000 [facility] Last Admin: 12/19/16 07:54 Dose: 600 mg Insulin Aspart (Novolog) 0 unit SC ACHS [facility] PRN Reason: Protocol Last Admin: 12/19/16 17:11 Dose: 2 unit Isoniazid (Niazid) 300 mg PO DAILY [facility] Last Admin: 12/19/16 09:21 Dose: 300 mg Losartan Potassium (Cozaar) 25 mg PO DAILY [facility] Last Admin: 12/19/16 09:20 Dose: 25 mg Metformin HCl (Glucophage) 1,000 mg PO 0800,1800 [facility] Last Admin: 12/19/16 17:12 Dose: 1,000 mg Metoprolol Tartrate (Lopressor) 25 mg PO BID [facility] Last Admin: 12/19/16 17:12 Dose: 25 mg Montelukast Sodium (Singulair) 10 mg PO HS [facility] Last Admin: 12/18/16 21:26 Dose: 10 mg Ondansetron HCl (Zofran Inj) 4 mg IVP Q6H PRN PRN Reason: Nausea/Vomiting Last Admin: 12/06/16 12:52 Dose: 4 mg Ondansetron HCl (Zofran Tab) 4 mg PO Q6 PRN Last Admin: 12/19/16 07:54 Dose: 4 mg Pyrazinamide (Pyrazinamide) 1,500 mg PO DAILY [facility] Last Admin: 12/19/16 09:20 Dose: 1,500 mg Pyridoxine HCl (Vitamin B6) 100 mg PO DAILY [facility] Last Admin: 12/19/16 09:20 Dose: 100 mg Rifampin (Rifampin Cap) 600 mg PO DAILY [facility] Last Admin: 12/19/16 09:20 Dose: 600 mg - Labs Labs: 12/18/16 06:59 12/18/16 06:59 PT 13.6 SECONDS (9.7-12.2) H 12/01/16 07:37 INR 1.2 12/01/16 07:37 APTT 28 SECONDS (21-34) 12/01/16 07:37 Attending/Attestation - Attestation I have personally seen and examined this patient.: Yes I have fully participated in the care of the patient.: Yes I have reviewed all pertinent clinical information, including history, physical exam and plan: Yes Notes (Text): Patient seen, examined, and case discussed with day time resident. patient indicating that difficult to cough up sputum but reports he tries. Denies other complaints. Patient to continue on RIPE therapy for tuberculosis Nephrology consulted for hyponatremia. Sodium improved on fluid restriction yesterday; will order labs for tomorrow. Disposition: Patient is pending three negative sputum/AFB, clearance by state given active tuberculosis as per ID, concern for MDR-TB given ethnicity of the patient will require isolation and will need to monitor sputum to see if therapy is effective for the patient. Assessment/Plan 1) Tuberculosis, active * Airborne precautions * Pulmonary (Dr. Frazier) on consult help appreciated * Infectious disease (Dr. Espinal) on consult help appreciated * Ethambutol 1200mg PO daily (started 12/02) Isoniazid 300mg PO daily (started 12/02) Prazinamide 1500mg PO daily (started 12/02) (increased 12/08 for weight based dosing) Pyridoxine 100mg PO daily (started 12/02) Rifampin 600mg PO daily (started 12/02) f/u AFB/sputum cultures twice a week until 3 negative cultures result-- discussed with Salina Willoughby - Mycobacterial Sputum Cultures 12/15 AFB positive acid fast bacilli, culture pending 12/14 AFB: positive acid fast bacilli, culture pending 12/13 AFB 2+ acid fast bacilli, culture pending 12/12: AFB 2+ acid fast bacilli, culture pending 12/10 AFB: 1+ acid fast bacilli, No isolated in one week 12/09 AFB: 1+ acid fast bacilli, No isolated in one week 12/06 AFB: 2+ acid fast bacilli, no isolated in one week 12/04 AFB: 2+ acid fast bacilli, prelim mycobacteria tuberculosis complex 12/02 AFB: 2+ acid fast bacilli, prelim mycobacteria tuberculosis complex 12/01 AFB: 1+ acid fast bacilli, prelim mycobacteria tuberculosis complex 11/30 AFB: 1+ acid fast bacilli, prelim mycobacteria tuberculosis complex * HIV negative * Quant Gold - negative * Note: Disk containing CT + CXR images is in the physical chart. * 12/08/16 CT Chest: extensive small ill defined nodular opacities throughout left upper lobe as well as superior segment left lower lobe with areas of freeman consultation. Extensive cavitation amidst a large area of consolidation in the left apex. Scattered calficied grandulomas bilaterally. 2)Tachycardia * Thyroid studies: within normal * 12/08/16 CT Chest: extensive small ill defined nodular opacities throughout left upper lobe as well as superior segment left lower lobe with areas of freeman consultation. Extensive cavitation amidst a large area of consolidation in the left apex. Scattered calcified grandulomas bilaterally. * likely secondary to acute infection and possible anti-tB therapy * d-dimer: negative * Thyroid studies: normal * Cardiology (Dr. Trejo) consult-->help appreciated * Patient started on Lopressor 25mg PO bid 3) Diabetes, type 2; uncontrolled with associated neuropathy * Metformin 1000mg PO bid * Novolog sliding scale sub * Neurontin 300mg PO TID * A1c 12.4 * Losartan 25mg PO daily 4) Alpha Thalassemia * MCV 69.7 * Ferritin 77.3, B12 950 H, folate 11.2, reticulocyte count 1.0 * hemoglobinopathy inerpretation - possible Alpha-thalassemia. * Fe 28 L, TIBC 243 L, %Sat 12 L * haptoglobin 501 H * Monitor outpatient * Started on Ferrlecit IV (started on 12/15-12/23) 5) Hypertension * d/c Enalapril 5mg PO daily * started on Losartan 25mg PO daily * started on Lopressor 25mg PO bid 6) Electrolyte Imbalance * Monitor and replete when necessary 7) Hyponatremia * Improved to 129 on fluid restriction * serum osmolarity: 275 urine osmolarity, urine sodium, uric acid-pending * fluid restriction * Nephrology: Dr Moralez on board 8) Prophylaxis * respiratory isolation * Vegetarian Diet, carb consistent, low sodium * Pepcid 20mg PO daily * Heparin 5000 units SC q8H * Zofran 4mg PO Q6 PRN * SCDs
[2016-12-19] MEDS: (Novolog) Insulin Aspart, Recombinant 100 u/ml 10 ml vial SC SCH ×4 (07:43→21:15)
[2016-12-19] MEDS: guaiFENesin 600 mg ER Tab PO SCH ×2 (07:54→20:14)
[2016-12-19] MEDS: Enoxaparin 40 mg Syringe SC SCH (09:19)
[2016-12-19] MEDS: Pyridoxine 100 mg Tab PO SCH (09:20)
[2016-12-19] MEDS: Ferric Sodium Gluconat Complex 62.5 mg/5 ml Vial IVPB SCH (11:10)
--- NOTE | 2016-12-19 13:01 | CON ---
DATE: 12/18/2016 CONSULTATION REQUESTED BY: Dr. Katy Huber REASON FOR CONSULTATION: Hyponatremia. The patient is a patient previously unknown to me. This 51-year-old gentleman originally referred to [facility] on 11/30 with a complaint of cough, easy fatigue and a chest x-ray that showed a left upper lobe infiltrate with subsequent CT scan revealing cavities as well. There was a concern about active tuberculosis, especially since the patient had experienced some subjective weight loss. On arrival to the ED, he was noted to be hyponatremic at 131 and chest x-ray did in fact confirm a left upper lobe cavitary lesion. The patient was admitted for further evaluation and management. Over the course of this hospitalization, he has been seen by infectious disease as well as pulmonary. A CT scan of his chest without contrast revealed extensive small ill-defined nodular opacities throughout the left upper lobe as well as areas of freeman consolidation and extensive cavitation as well. He was also noted to have scattered calcified granulomas bilaterally. The patient has been noted to be HIV negative and to have a negative QuantiFERON test for tuberculosis as well. Since having been admitted, the patient has been persistently hyponatremic to as low as 124 on 12/17. In speaking with the patient, he denies any nausea or vomiting, but states that he has been drinking approximately 4 liters of water per day. His initial urine specific gravity was 1.008 and urine osmolarity was 228. Other laboratory studies have revealed a uric acid that was initially low on admission at 2.0, but has since then, a second time, been as high as 6.8 and TSH has been within normal limits. The patient has not had any hyperkalemia to suggest adrenal insufficiency and in fact, he has actually been hypokalemic on occasion. He has on occasion had a decreased bicarbonate level as low as 18, but other than that, his bicarbonate level has not been low (had it been low, it also would have suggested adrenal insufficiency). There has been no documented hemodynamic instability. He continues to complain of cough. There were plans for a bronchoscopy, but this has subsequently been canceled. At present, the patient does remain on therapy for tuberculosis. REVIEW OF SYSTEMS: Taken across all 10 systems and 14 points, and is negative unless stated otherwise above. PAST MEDICAL HISTORY: Significant for type 2 diabetes mellitus as well as hypertension. MEDICATIONS: The patient was taking at home and prior to admission were unknown by the patient, but at present, he is noted to be on losartan 25 mg orally daily, Ferrlecit 125 mg intravenously daily, metformin 1000 mg orally twice daily, metoprolol tartrate 25 mg orally twice daily, Lovenox 40 mg subcutaneously daily, ethambutol 1200 mg orally daily, gabapentin 300 mg orally 3 times a day, INH 200 mg orally daily, famotidine 20 mg orally daily, pyrazinamide 1500 mg orally daily, rifampin 600 mg orally daily, Singulair 10 mg orally nightly, pyridoxine 100 mg orally daily and Zofran 4 mg orally every 6 hours as needed. ALLERGIES: There are no known drug allergies. SOCIAL HISTORY: Notable for the patient having immigrated to the [place] approximately 10 years ago from [place]. 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 He does not smoke, but he does admit to chewing tobacco prior to admission. He has a prior history of social alcohol abuse, but denies any illicit drug use. FAMILY HISTORY: Notable for the patient's father having of tuberculosis when the patient was 5 years old. PHYSICAL EXAMINATION: GENERAL: I saw the patient while he was in an isolation room. He was in no acute distress and appeared to be quite comfortable. VITAL SIGNS: Blood pressure is 127/81, heart rate 93, oral temperature is 98.5 , respiratory rate is 18, oxygen saturation was 98% on room air. HEENT: The patient was normocephalic and atraumatic without any sinus tenderness. Neck was supple with a full range of motion. Trachea was midline and freely movable. The thyroid was nontender nor was it enlarged. There was no jugular venous distention. Conjunctivae were neither pale nor were they icteric. CHEST: Lung benz on my exam had some scattered rales in both lung benz, but most prominently on the left. There was no wheezing or rhonchi. Diaphragmatic excursion as well as airflow into both lung benz appeared to be bilaterally symmetrical. CARDIAC: Had a regular rate and rhythm without any rubs or gallops. There were no heaves and the PMI was not displaced laterally. ABDOMEN: Soft, mildly protuberant, but nontender, without any rebounding, guarding or rigidity. There was no hepatosplenomegaly noted. EXTREMITIES: Had no dependent edema. There was no palpable cord. Homans sign was negative. NEUROLOGIC: The patient was nonfocal. VASCULAR: Had no bruits. SKIN: Appeared to be intact. GENITOURINARY: Had no CVA tenderness nor was there any suprapubic tenderness. LABORATORY STUDIES: White count is 7.8, H and H is 13.3/40.3 with a platelet count of 420,000. MCV was low at 71. There are 61% neutrophils, 20% lymphocytes, 13% monocytes, 6% eosinophils. Coagulation studies were within normal limits and D-dimer was within normal at 226. Sodium is 129, potassium is 4.0, chloride 93, bicarbonate 25, BUN/creatinine is 8/0.6 with a glucose of 142. Serum osmolarity is 275. Total protein/albumin is 7.4/3.8. Uric acid was 6.8, although earlier it had been 2.0. Magnesium is 1.8. TSH was within normal limits at 3.05. Triglycerides are 116 and LDL was only 93. Urinalysis earlier during the admission was yellow, clear with a pH of 7, specific gravity of 1.008 with a glucose of 3+, urine osmolarity is 228. QuantiFERON test was negative on admission. Sputum culture has revealed acid fast bacilli with Mycobacterium tuberculosis complex being noted on culture. IMPRESSION AND PLAN: The patient is a 51-year-old gentleman with type 2 diabetes mellitus that is insulin-dependent, hypertension, who is admitted with cough, weight loss and cavitary lesions on CT scan as an outpatient, worrisome for tuberculosis. Since having been admitted, his sputum has in fact grown tuberculosis, although his QuantiFERON test was negative and the patient currently remains on therapy for tuberculosis with ethambutol, isoniazid, pyrazinamide and rifampin as well as pyridoxine. Of note, he was hyponatremic on admission and at that time was noted to have a low uric acid level which was suspicious for syndrome of inappropriate antidiuretic hormone, perhaps secondary to his underlying active tuberculosis. His hyponatremia improved, but since has recurred, and now in the setting of a uric acid that is not low ( it is 6.8). In speaking with the patient, he appears to be drinking at least 4 liters of water per day and given the fact that his tuberculosis is currently being treated, I suspect that this new bout of hyponatremia may represent polydipsia. Typically in such patients, urine osmolarity is even lower than his is and thus, there may still be some residual effect of an elevated antidiuretic hormone from his tuberculosis, but I do believe that polydipsia is the larger etiology of his hyponatremia at present. We will impose a 2 liter fluid restriction on this patient for now (roughly a 50% decrease from what he is having). I do not believe the patient requires any intravenous fluids since he is in fact hemodynamically stable. Of note, he is receiving intravenous iron for microcytosis, although he is not anemic. He has had a hemoglobin electrophoresis during this hospitalization, which suggests the possibility of alpha thalassemia and in this regard, I do not believe he will benefit from any further intravenous iron and we should discontinue this. I will be following this complex patient closely for the above complex medical problems and I thank you very much for the courtesy of this consultation. Marco Howard MD, KIM cc: [id number] TT: 12/19/2016 13:00:47 Confirmation # [id number] Dictation # [id number] en MTDD
[2016-12-20] MEDS: guaiFENesin 600 mg ER Tab PO SCH ×2 (08:32→19:39)
[2016-12-20] MEDS: (Novolog) Insulin Aspart, Recombinant 100 u/ml 10 ml vial SC SCH ×4 (08:34→22:02)
[2016-12-20] MEDS: Pyridoxine 100 mg Tab PO SCH (09:50)
[2016-12-20] MEDS: Ferric Sodium Gluconat Complex 62.5 mg/5 ml Vial IVPB SCH (09:51)
[2016-12-20] MEDS: Enoxaparin 40 mg Syringe SC SCH (09:51)
[2016-12-20 11:10] LABS: BASO % 0.1 % (0.0-2.0); EOS # 0.5 K/uL (0.0-0.7); EOS % 4.5 % (0.0-4.0); HEMATOCRIT 40.3 % (35.0-51.0); LYMPH # 1.5 K/uL (1.0-4.3); LYMPH % 13.3 % (20.0-40.0); MEAN CELL VOLUME 71.7 fL (80.0-94.0); MEAN CORPUSCULAR HEMOGLOBIN 23.1 pg (27.0-31.0); MEAN CORPUSCULAR HGB CONC 32.2 g/dL (33.0-37.0); MEAN PLATELET VOLUME 7.2 fL (7.2-11.7); MONO # 1.1 K/uL (0.0-0.8); RED CELL DISTRIBUTION WIDTH 18.8 % (11.5-14.5); WHITE BLOOD COUNT 11.2 K/uL (4.8-10.8)
[2016-12-20 11:13] LABS: CHLORIDE 94 mmol/L (98-107)
[2016-12-20 11:14] LABS: POTASSIUM 3.9 mmol/L (3.6-5.2); SODIUM 130 mmol/L (132-148)
[2016-12-20 11:16] LABS: AST/SGOT 32 U/L (17-59); BILIRUBIN,TOTAL 0.4 mg/dL (0.2-1.3); CARBON DIOXIDE 22 mmol/L (22-30); GFR AFRICAN-AMERICAN > 60
[2016-12-20 11:17] LABS: ALB/GLOB RATIO 1.1 (1.0-2.1); ALKALINE PHOSPHATASE 82 U/L (38-126); ALT/SGPT 16 U/L (21-72); BLOOD UREA NITROGEN 5 mg/dL (9-20); CALCIUM 9.5 mg/dl (8.6-10.4); GLUCOSE,RANDOM 183 mg/dL (75-110); TOTAL PROTEIN 7.7 g/dL (6.3-8.3)
--- NOTE | 2016-12-20 11:32 | CP.PCM.PN ---
<Javier Mccall - Last Filed: 12/20/16 16:22> Subjective - Date & Time of Evaluation Date of Evaluation: 12/20/16 Time of Evaluation: 11:29 - Subjective Subjective: Cardiology Progress Note Dr. Trejo Patient seen and examined at the bedside. No acute distress. No acute events overnight. Nursing staff reports no issues. The patient's tachycardia is largely controlled with lopressor 25mg po bid. The patient reports no change in his cardiopulmonary condition subjectively. The patient denies all cardiopulmonary complaints at this time. Patient does note an intermittent, dry cough. The patient also denies fever, chills, sputum production, abdominal pain, changes in bowel/bladder habits, and extremity paresthesias. Objective - Vital Signs/Intake and Output Vital Signs (last 24 hours): Temp Pulse Resp BP Pulse Ox 98 F 108 H 20 124/88 97 12/20/16 08:00 12/20/16 08:00 12/20/16 08:00 12/20/16 09:54 12/20/16 08:00 Intake and Output: 12/20/16 12/20/16 06:59 18:59 Intake Total 360 Balance 360 - Medications Medications: Current Medications Acetaminophen (Tylenol 325mg Tab) 650 mg PO Q6 PRN PRN Reason: Headache Last Admin: 12/04/16 20:53 Dose: 650 mg Benzocaine/Menthol (Cepacol Sore Throat) 1 liz MT BID PRN PRN Reason: Sore Throat Last Admin: 12/16/16 09:13 Dose: 1 liz Enoxaparin Sodium (Lovenox) 40 mg SC DAILY [facility] Last Admin: 12/20/16 09:51 Dose: 40 mg Ethambutol HCl (Myambutol) 1,200 mg PO DAILY [facility] Last Admin: 12/20/16 09:50 Dose: 1,200 mg Famotidine (Pepcid) 20 mg PO 0800 [facility] Last Admin: 12/20/16 08:31 Dose: 20 mg Ferric Sodium Gluconate Complex (Ferrlecit) 125 mg IVPB DAILY [facility] Stop: 12/23/16 10:01 Last Admin: 12/20/16 09:51 Dose: 125 mg Gabapentin (Neurontin) 300 mg PO TID [facility] Last Admin: 12/20/16 09:49 Dose: 300 mg Guaifenesin (Mucinex La) 600 mg PO 0800,2000 [facility] Last Admin: 12/20/16 08:32 Dose: 600 mg Insulin Aspart (Novolog) 0 unit SC ACHS [facility] PRN Reason: Protocol Last Admin: 12/20/16 08:34 Dose: Not Given Isoniazid (Niazid) 300 mg PO DAILY [facility] Last Admin: 12/20/16 09:49 Dose: 300 mg Losartan Potassium (Cozaar) 25 mg PO DAILY [facility] Last Admin: 12/20/16 09:50 Dose: 25 mg Metformin HCl (Glucophage) 1,000 mg PO 0800,1800 [facility] Last Admin: 12/20/16 08:31 Dose: 1,000 mg Metoprolol Tartrate (Lopressor) 25 mg PO BID [facility] Last Admin: 12/20/16 09:54 Dose: 25 mg Montelukast Sodium (Singulair) 10 mg PO HS [facility] Last Admin: 12/19/16 20:59 Dose: 10 mg Ondansetron HCl (Zofran Inj) 4 mg IVP Q6H PRN PRN Reason: Nausea/Vomiting Last Admin: 12/06/16 12:52 Dose: 4 mg Ondansetron HCl (Zofran Tab) 4 mg PO Q6 PRN Last Admin: 12/19/16 07:54 Dose: 4 mg Pyrazinamide (Pyrazinamide) 1,500 mg PO DAILY [facility] Last Admin: 12/20/16 09:51 Dose: 1,500 mg Pyridoxine HCl (Vitamin B6) 100 mg PO DAILY [facility] Last Admin: 12/20/16 09:50 Dose: 100 mg Rifampin (Rifampin Cap) 600 mg PO DAILY [facility] Last Admin: 12/20/16 09:49 Dose: 600 mg - Labs Labs: 12/20/16 10:58 12/20/16 10:58 PT 13.6 SECONDS (9.7-12.2) H 12/01/16 07:37 INR 1.2 12/01/16 07:37 APTT 28 SECONDS (21-34) 12/01/16 07:37 - Additional Findings Additional findings: - Constitutional Appears: No Acute Distress, Chronically Ill - Head Exam Head Exam: ATRAUMATIC, NORMAL INSPECTION, NORMOCEPHALIC - Eye Exam Eye Exam: EOMI, Normal appearance - ENT Exam ENT Exam: Mucous Membranes Moist - Respiratory Exam Respiratory Exam: Clear to Ausculation Bilateral, NORMAL BREATHING PATTERN. absent: Rhonchi, Wheezes - Cardiovascular Exam Cardiovascular Exam: REGULAR RHYTHM, RRR, +S1, +S2. absent: Tachycardia, Diastolic murmur, Murmur - GI/Abdominal Exam GI & Abdominal Exam: Soft, Normal Bowel Sounds. absent: Distended, Guarding, Tenderness - Extremities Exam Extremities Exam: Full ROM, Normal Capillary Refill, Normal Inspection. absent : Joint Swelling, Pedal Edema - Neurological Exam Neurological Exam: Alert, Awake, CN II-XII Intact, Normal Gait, Oriented x3 - Skin Skin Exam: Dry, Intact, Normal Color, Warm Assessment and Plan - Assessment and Plan (Free Text) Assessment: This is a 51M with history of DM and HTN admitted on 11/30/16 for persistent dry cough lasting 4 weeks prior presenting for cardiac evaluation of persistent tachycardia. 1.) Tachycardia 2.) HTN 3.) DM 4.) TB Plan: 1.) Tachycardia- controlled - Lopressor 25mg PO BID (Hold if SBP <100mmHg or Pulse < 60bpm) - 12/16/16 EKG- sinus tachy, no ST changes, normal axis (unchanged from previous) - 12/15/16 Echo- LVEF 53% - 11/30/16 EKG- sinus tachycardia - continue TB treatment - continue Losartan 25mg PO daily - Dr. Trejo and the cardiology service will sign off at this time. Please reconsult as necessary. Thank you. Case discussed with Dr. Neil Mccall PGY1 <Natividad Trejo - Last Filed: 01/27/17 10:57> Objective - Vital Signs/Intake and Output Vital Signs (last 24 hours): Temp Pulse Resp BP Pulse Ox 98.3 F 101 H 20 144/94 H 97 12/29/16 08:00 12/29/16 09:45 12/29/16 08:00 12/29/16 09:45 12/29/16 08:00 - Labs Labs: 12/20/16 10:58 12/28/16 10:34 PT 13.6 SECONDS (9.7-12.2) H 12/01/16 07:37 INR 1.2 12/01/16 07:37 APTT 28 SECONDS (21-34) 12/01/16 07:37 Attending/Attestation - Attestation I have personally seen and examined this patient.: Yes I have fully participated in the care of the patient.: Yes I have reviewed all pertinent clinical information, including history, physical exam and plan: Yes Notes (Text): 01/27/17 10:57 tachycardia slowly improving
--- NOTE | 2016-12-20 17:26 | CP.PCM.PN ---
<GaryZahira - Last Filed: 12/20/16 17:21> Subjective - Date & Time of Evaluation Date of Evaluation: 12/20/16 Time of Evaluation: 17:21 - Subjective Subjective: Patient seen and examined at bedside. Patient continues to have no complaints. He admits to cough. He denies fever, chills, chest pain, tachycardia, abdominal pain, nausea, vomiting, diarrhea, constipation, or dysuria. Objective - Vital Signs/Intake and Output Vital Signs (last 24 hours): Temp Pulse Resp BP Pulse Ox 98.3 F 108 H 18 112/75 98 12/20/16 16:29 12/20/16 16:57 12/20/16 16:29 12/20/16 16:29 12/20/16 16:29 Intake and Output: 12/20/16 12/20/16 06:59 18:59 Intake Total 360 Balance 360 - Medications Medications: Current Medications Acetaminophen (Tylenol 325mg Tab) 650 mg PO Q6 PRN PRN Reason: Headache Last Admin: 12/04/16 20:53 Dose: 650 mg Benzocaine/Menthol (Cepacol Sore Throat) 1 liz MT BID PRN PRN Reason: Sore Throat Last Admin: 12/16/16 09:13 Dose: 1 liz Enoxaparin Sodium (Lovenox) 40 mg SC DAILY [facility] Last Admin: 12/20/16 09:51 Dose: 40 mg Ethambutol HCl (Myambutol) 1,200 mg PO DAILY [facility] Last Admin: 12/20/16 09:50 Dose: 1,200 mg Famotidine (Pepcid) 20 mg PO 0800 [facility] Last Admin: 12/20/16 08:31 Dose: 20 mg Ferric Sodium Gluconate Complex (Ferrlecit) 125 mg IVPB DAILY [facility] Stop: 12/23/16 10:01 Last Admin: 12/20/16 09:51 Dose: 125 mg Gabapentin (Neurontin) 300 mg PO TID [facility] Last Admin: 12/20/16 13:23 Dose: 300 mg Guaifenesin (Mucinex La) 600 mg PO 0800,2000 [facility] Last Admin: 12/20/16 08:32 Dose: 600 mg Insulin Aspart (Novolog) 0 unit SC ACHS [facility] PRN Reason: Protocol Last Admin: 12/20/16 17:20 Dose: Not Given Isoniazid (Niazid) 300 mg PO DAILY [facility] Last Admin: 12/20/16 09:49 Dose: 300 mg Losartan Potassium (Cozaar) 25 mg PO DAILY [facility] Last Admin: 12/20/16 09:50 Dose: 25 mg Metformin HCl (Glucophage) 1,000 mg PO 0800,1800 [facility] Last Admin: 12/20/16 08:31 Dose: 1,000 mg Metoprolol Tartrate (Lopressor) 25 mg PO BID [facility] Last Admin: 12/20/16 09:54 Dose: 25 mg Montelukast Sodium (Singulair) 10 mg PO HS [facility] Last Admin: 12/19/16 20:59 Dose: 10 mg Ondansetron HCl (Zofran Inj) 4 mg IVP Q6H PRN PRN Reason: Nausea/Vomiting Last Admin: 12/06/16 12:52 Dose: 4 mg Ondansetron HCl (Zofran Tab) 4 mg PO Q6 PRN Last Admin: 12/19/16 07:54 Dose: 4 mg Pyrazinamide (Pyrazinamide) 1,500 mg PO DAILY [facility] Last Admin: 12/20/16 09:51 Dose: 1,500 mg Pyridoxine HCl (Vitamin B6) 100 mg PO DAILY [facility] Last Admin: 12/20/16 09:50 Dose: 100 mg Rifampin (Rifampin Cap) 600 mg PO DAILY [facility] Last Admin: 12/20/16 09:49 Dose: 600 mg - Labs Labs: 12/20/16 10:58 12/20/16 10:58 PT 13.6 SECONDS (9.7-12.2) H 12/01/16 07:37 INR 1.2 12/01/16 07:37 APTT 28 SECONDS (21-34) 12/01/16 07:37 - Constitutional Appears: Non-toxic, No Acute Distress - Head Exam Head Exam: ATRAUMATIC, NORMAL INSPECTION, NORMOCEPHALIC - Eye Exam Eye Exam: EOMI, Normal appearance, PERRL - ENT Exam ENT Exam: Mucous Membranes Moist - Neck Exam Neck Exam: Full ROM, Normal Inspection - Respiratory Exam Respiratory Exam: Clear to Ausculation Bilateral, NORMAL BREATHING PATTERN - Cardiovascular Exam Cardiovascular Exam: Tachycardia, +S1, +S2 - GI/Abdominal Exam GI & Abdominal Exam: Soft, Normal Bowel Sounds. absent: Firm, Tenderness - Extremities Exam Extremities Exam: Normal Inspection. absent: Pedal Edema, Tenderness - Back Exam Back Exam: CVA tenderness (L) - Neurological Exam Neurological Exam: Alert, Awake, Oriented x3 - Psychiatric Exam Psychiatric exam: Normal Affect, Normal Mood - Skin Skin Exam: Intact, Normal Color, Warm Assessment and Plan - Assessment and Plan (Free Text) Assessment: Tuberculosis, active +AFB's collected, awaiting culture results. Labs q3D. Continue RIPE therapy. Monitor LFTs. AFB sputum cultures twice weekly until negative result obtained. 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 12/17 AFB: Few (2+) acid-fast bacilli seen using the fluorochrome method. 12/15 AFB: Few (2+) acid-fast bacilli seen using the fluorochrome method. 12/14 AFB: Few (2+) acid-fast bacilli seen using the fluorochrome method. 12/13 AFB: Few (2+) acid-fast bacilli seen using the fluorochrome method. 12/12 AFB: Few (2+) acid-fast bacilli seen using the fluorochrome method. 12/10 AFB: 1+ acid fast bacilli, culture pending 12/09 AFB: 1+ acid fast bacilli, culture pending 12/06 AFB: 2+ acid fast bacilli, culture prelim: no mycobacterium species isolated after one week incubation 12/04 AFB: 2+ acid fast bacilli, culture prelim: Acid-fast bacilli present in liquid culture medium. Identification to follow. 12/02 AFB: 2+ acid fast bacilli, culture prelim: Acid-fast bacilli present in liquid culture medium. Identification to follow. 12/01 AFB: 1+ acid fast bacilli, culture prelim: Acid-fast bacilli present in liquid culture medium. Identification to follow. 11/30 AFB: 1+ acid fast bacilli, culture prelim: Acid-fast bacilli present in liquid culture medium. Identification to follow. -ID consult, Dr. Espinal -> Continue quadruple therapy for TB. 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 WILL LIKELY TAKE SEVERAL WEEKS TO CLEAR SPUTUM ethambutol 1200mg PO daily (started 12/02) isoniazide 300mg PO daily (started 12/02) Prazinamide 1500mg PO daily (started 12/02) (increased 12/08 for weight based dosing) Pyridoxine 100mg PO daily (started 12/02) Rifampin 600mg PO daily (started 12/02) -HIV negative -Quant Gold - negative -Note: Disk containing CT + CXR images is in the physical chart. -Cavitary left upper lobe infiltrate/mass. CT scan may be beneficial in further assessment of this process primarily affecting the posterior segment. The cavitary comes/cystic component is best seen on the lateral view measuring 5.2 x 6.4 cm. -Pulm Consult, Dr. Frazier -> bronchoscopy 12/[address] imaging showed clear TB infection f/u sputum studies and sputum PCR -Continue Mucinex 600mg PO BID; Singulair 10mg PO HS; Duonebs RQ6 PRN Hyponatremia 12/20: Sodium 130 Patient currently fluid restricted. Will follow-up serum osmolarity, urine osmolarity, urine sodium and uric acid Nephrology, Dr. Gunn, consulted. Help appreciated. Monitor Sore Throat 12/17: No sore throat reported 12/16: improving likely secondary to cough Continue Cepachol Lozenges BID Will discontinue Enalapril Tachycardia 12/20: continue management 12/18: currently resolved. Continue Lopressor 25 mg po BID. 12/17: fewer episodes of tachycardia over last 24H, asx, Echo with normal EF >53% , negative for abnormalities; cont Lopressor 25mg BID 12/16: Continues to be tachycardic in 120s today. Patient is asymptomatic Will follow up EKG and official Echo report. Lopressor increased to 25 mg po BID per cardiology. D-dimer 226, thyroid studies normal. 12/15: EKG and Echocardiogram ordered to evaluate tachycardia. Cardiology, Neil Spencer, consulted. Help appreciated. 12/13: Pharmacy reviewed meds and noted tachycardia could be attributed to Isoniazid and Rifampin. 12/07-12/12: persistent tachycardia since 12/07/16 (100's-120's). Pharmacy is looking into this. Duoneb PRN is on, however patient hasn't received a recent dose. -TSH + free T4 - both WNL -> r/o hyperthyroidism -CXR 12/08- Increasing opacity of left lung with cavitation in the left apex and left apical pleural thickening. Likely infectious process. Consider fungal or atypical mycobacterial. 5 mm nodule in right apex. Consider further evaluation with computed tomography. Diabetes Mellitus type II Blood glucose 163 Metformin 1000mg PO BID Novolog RISS Neurontin 300mg PO TID A1c 12.4 FLP grossly WNL; HDL 28 L Glucose 233 on admission Alpha Thalassemia Continue IV Ferrlicit MCV 69.7 Ferritin 77.3, B12 950 H, folate 11.2, reticulocyte count 1.0 hemoglobinopathy inerpretation - possible Alpha-thalassemia. Fe 28 L, TIBC 243 L, %Sat 12 L haptoglobin 501 H Monitor outpatient Hypertension normotensive Discontinued Enalapril 5mg PO due to cough Started on Losartan 25 mg po daily Prophylaxis respiratory isolation Vegetarian Diet, carb consistent, low sodium Pepcid 20mg PO d Lovenox 40 mg SC daily Zofran 4mg PO Q6 PRN SCDs <Darien Armendariz H - Last Filed: 12/20/16 17:53> Objective - Vital Signs/Intake and Output Vital Signs (last 24 hours): Temp Pulse Resp BP Pulse Ox 98.3 F 108 H 18 112/75 98 12/20/16 16:29 12/20/16 16:57 12/20/16 16:29 12/20/16 17:36 12/20/16 16:29 Intake and Output: 12/20/16 12/20/16 06:59 18:59 Intake Total 360 Balance 360 - Medications Medications: Current Medications Acetaminophen (Tylenol 325mg Tab) 650 mg PO Q6 PRN PRN Reason: Headache Last Admin: 12/04/16 20:53 Dose: 650 mg Benzocaine/Menthol (Cepacol Sore Throat) 1 liz MT BID PRN PRN Reason: Sore Throat Last Admin: 12/16/16 09:13 Dose: 1 liz Enoxaparin Sodium (Lovenox) 40 mg SC DAILY [facility] Last Admin: 12/20/16 09:51 Dose: 40 mg Ethambutol HCl (Myambutol) 1,200 mg PO DAILY [facility] Last Admin: 12/20/16 09:50 Dose: 1,200 mg Famotidine (Pepcid) 20 mg PO 0800 [facility] Last Admin: 12/20/16 08:31 Dose: 20 mg Ferric Sodium Gluconate Complex (Ferrlecit) 125 mg IVPB DAILY [facility] Stop: 12/23/16 10:01 Last Admin: 12/20/16 09:51 Dose: 125 mg Gabapentin (Neurontin) 300 mg PO TID [facility] Last Admin: 12/20/16 17:37 Dose: 300 mg Guaifenesin (Mucinex La) 600 mg PO 0800,2000 [facility] Last Admin: 12/20/16 08:32 Dose: 600 mg Insulin Aspart (Novolog) 0 unit SC ACHS [facility] PRN Reason: Protocol Last Admin: 12/20/16 17:20 Dose: Not Given Isoniazid (Niazid) 300 mg PO DAILY [facility] Last Admin: 12/20/16 09:49 Dose: 300 mg Losartan Potassium (Cozaar) 25 mg PO DAILY [facility] Last Admin: 12/20/16 09:50 Dose: 25 mg Metformin HCl (Glucophage) 1,000 mg PO 0800,1800 [facility] Last Admin: 12/20/16 17:35 Dose: 1,000 mg Metoprolol Tartrate (Lopressor) 25 mg PO BID [facility] Last Admin: 12/20/16 17:36 Dose: 25 mg Montelukast Sodium (Singulair) 10 mg PO HS [facility] Last Admin: 12/19/16 20:59 Dose: 10 mg Ondansetron HCl (Zofran Inj) 4 mg IVP Q6H PRN PRN Reason: Nausea/Vomiting Last Admin: 12/06/16 12:52 Dose: 4 mg Ondansetron HCl (Zofran Tab) 4 mg PO Q6 PRN Last Admin: 12/19/16 07:54 Dose: 4 mg Pyrazinamide (Pyrazinamide) 1,500 mg PO DAILY [facility] Last Admin: 12/20/16 09:51 Dose: 1,500 mg Pyridoxine HCl (Vitamin B6) 100 mg PO DAILY [facility] Last Admin: 12/20/16 09:50 Dose: 100 mg Rifampin (Rifampin Cap) 600 mg PO DAILY [facility] Last Admin: 12/20/16 09:49 Dose: 600 mg - Labs Labs: 12/20/16 10:58 12/20/16 10:58 PT 13.6 SECONDS (9.7-12.2) H 12/01/16 07:37 INR 1.2 12/01/16 07:37 APTT 28 SECONDS (21-34) 12/01/16 07:37 Attending/Attestation - Attestation I have personally seen and examined this patient.: Yes I have fully participated in the care of the patient.: Yes I have reviewed all pertinent clinical information, including history, physical exam and plan: Yes Notes (Text): Medical Attending: Patient was seen and examined by me, agree with the above note by the resident. Continue with current regimen. Check AFBs, Check LFTs Darien Armendariz
--- NOTE | 2016-12-20 21:59 | PN ---
DATE: 12/20/2016 NEPHROLOGY FOLLOWUP NOTE The patient is a 51-year-old male with history of diabetes and hypertension admitted with pulmonary t uberculosis. The patient reports feeling well. Reports ambulating frequently while in his room. De nies any shortness of breath or cough. Denies any dizziness on standing up. Reports feeling 90% bet ter than when he was first admitted. PHYSICAL EXAMINATION: VITAL SIGNS: This afternoon: Blood pressure 112/75, heart rate 94, respirations 18, temperature 98. 3, O2 sat 98% on room air. GENERAL: No distress. The patient conversing coherently in full sentences. HEENT: Moist mucous membranes. Nonicteric. CHEST: Clear to auscultation bilaterally. No rales. No rhonchi. No wheezes. HEART: S1, S2 positive. No murmurs. No gallops. No rubs. No JVD. ABDOMEN: Soft, nontender, nondistended. EXTREMITIES: No leg edema. Normal capillary refill. LABORATORY DATA: This morning: CBC: WBC 11.2, hemoglobin 13.0, hematocrit 40.3, platelets 383. Ch emistry panel: Sodium 130, potassium 3.9, chloride 94, bicarb 22, BUN 5, creatinine 0.6, glucose 183 , albumin 4.1. Hemoglobin A1c on admission 12.4%. ASSESSMENT: 1. Hyponatremia. The patient euvolemic on exam. No overt orthostatic changes, although blood press ure did drop from 128/84 to 118/83 with heart rate increasing from 87 to 105 when going from lying to standing position. Urine indices show increased urine osmolality in the setting of hyponatremia. L ow uric acid on admission, most likely etiology is syndrome of inappropriate antidiuretic hormone sec ondary to pulmonary tuberculosis; however, should still look for possibly of superimposed adrenal ins ufficiency which can occur in the setting of rifampin use. Increasing uric acid subsequently is like ly reflective of changes induced by rifampin and ethambutol therapy, which can cause increased uric a mook levels. The patient also reports still drinking 4 pitchers of water. The patient counseled to c ut water and fluid intake in half and consume no more than 2 pitchers of water. We will check a.m. c ortisol level. Otherwise, hyponatremia is already improving, possibly reflecting adequate treatment of pulmonary tuberculosis. 2. Hypertension. Currently normotensive, but with some degree of orthostatic changes. Currently on losartan 25 mg daily and metoprolol 25 mg b.i.d. We will hold metoprolol and repeat orthostatic alvaro surements. 3. Diabetes. Hemoglobin A1c consistent with severely uncontrolled blood sugars; however, may have b een exacerbated by active pulmonary tuberculosis. Urinalysis negative for dipstick albuminuria. We will check urine microalbumin and creatinine; however, it should be noted that the patient is on an A RB and this can mask a low level of proteinuria. 4. Pulmonary tuberculosis on RIPE therapy with symptoms much improved despite patient still having p ositive AFB in sputum. Monitor for side effects of RIPE therapy, which can include hyperuricemia. Ed Gunn MD cc: [id number] TT: 12/20/2016 21:59:14 Confirmation # [id number] Dictation # [id number] tn
[2016-12-21] MEDS: (Novolog) Insulin Aspart, Recombinant 100 u/ml 10 ml vial SC SCH ×4 (08:12→21:57)
[2016-12-21] MEDS: guaiFENesin 600 mg ER Tab PO SCH ×2 (08:43→19:48)
[2016-12-21] MEDS: Pyridoxine 100 mg Tab PO SCH (10:35)
[2016-12-21] MEDS: Enoxaparin 40 mg Syringe SC SCH (10:35)
[2016-12-21] MEDS: Ferric Sodium Gluconat Complex 62.5 mg/5 ml Vial IVPB SCH (10:36)
--- NOTE | 2016-12-21 17:57 | CP.PCM.PN ---
Subjective - Date & Time of Evaluation Date of Evaluation: 12/21/16 Time of Evaluation: 17:55 - Subjective Subjective: Patient seen and examined at bedside. Patient complaining about IV which infiltrated his right hand. He states he was unable to sleep due to pain. Patient denies all other complaints. He continues to provide sputum samples. Patient ambulating the room often. Denies nausea, vomiting, and diarrhea. Objective - Vital Signs/Intake and Output Vital Signs (last 24 hours): Temp Pulse Resp BP Pulse Ox 97.9 F 110 H 20 140/90 97 12/21/16 07:38 12/21/16 17:14 12/21/16 07:38 12/21/16 07:38 12/21/16 07:38 Intake and Output: 12/21/16 12/21/16 06:59 18:59 Intake Total 400 Balance 400 - Medications Medications: Current Medications Acetaminophen (Tylenol 325mg Tab) 650 mg PO Q6 PRN PRN Reason: Headache Last Admin: 12/04/16 20:53 Dose: 650 mg Benzocaine/Menthol (Cepacol Sore Throat) 1 liz MT BID PRN PRN Reason: Sore Throat Last Admin: 12/16/16 09:13 Dose: 1 liz Enoxaparin Sodium (Lovenox) 40 mg SC DAILY [facility] Last Admin: 12/21/16 10:35 Dose: 40 mg Ethambutol HCl (Myambutol) 1,200 mg PO DAILY [facility] Last Admin: 12/21/16 10:34 Dose: 1,200 mg Famotidine (Pepcid) 20 mg PO 0800 [facility] Last Admin: 12/21/16 08:43 Dose: 20 mg Ferric Sodium Gluconate Complex (Ferrlecit) 125 mg IVPB DAILY [facility] Stop: 12/23/16 10:01 Last Admin: 12/21/16 10:36 Dose: Not Given Gabapentin (Neurontin) 300 mg PO TID [facility] Last Admin: 12/21/16 17:51 Dose: 300 mg Guaifenesin (Mucinex La) 600 mg PO 0800,1999 [facility] Last Admin: 12/21/16 08:43 Dose: 600 mg Insulin Aspart (Novolog) 0 unit SC ACHS [facility] PRN Reason: Protocol Last Admin: 12/21/16 16:41 Dose: 1 unit Isoniazid (Niazid) 300 mg PO DAILY [facility] Last Admin: 12/21/16 10:35 Dose: 300 mg Losartan Potassium (Cozaar) 25 mg PO DAILY [facility] Last Admin: 12/21/16 10:35 Dose: 25 mg Metformin HCl (Glucophage) 1,000 mg PO 0800,1800 [facility] Last Admin: 12/21/16 17:50 Dose: 1,000 mg Metoprolol Tartrate (Lopressor) 25 mg PO BID [facility] Last Admin: 12/20/16 17:36 Dose: 25 mg Montelukast Sodium (Singulair) 10 mg PO HS [facility] Last Admin: 12/20/16 22:03 Dose: 10 mg Ondansetron HCl (Zofran Inj) 4 mg IVP Q6H PRN PRN Reason: Nausea/Vomiting Last Admin: 12/06/16 12:52 Dose: 4 mg Ondansetron HCl (Zofran Tab) 4 mg PO Q6 PRN Last Admin: 12/19/16 07:54 Dose: 4 mg Pyrazinamide (Pyrazinamide) 1,500 mg PO DAILY [facility] Last Admin: 12/21/16 10:33 Dose: 1,500 mg Pyridoxine HCl (Vitamin B6) 100 mg PO DAILY [facility] Last Admin: 12/21/16 10:35 Dose: 100 mg Rifampin (Rifampin Cap) 600 mg PO DAILY [facility] Last Admin: 12/21/16 10:35 Dose: 600 mg - Labs Labs: 12/20/16 10:58 12/20/16 10:58 PT 13.6 SECONDS (9.7-12.2) H 12/01/16 07:37 INR 1.2 12/01/16 07:37 APTT 28 SECONDS (21-34) 12/01/16 07:37 - Constitutional Appears: Non-toxic, No Acute Distress - Head Exam Head Exam: ATRAUMATIC, NORMAL INSPECTION, NORMOCEPHALIC - Eye Exam Eye Exam: EOMI, Normal appearance, PERRL - ENT Exam ENT Exam: Mucous Membranes Moist, Normal Exam - Neck Exam Neck Exam: Full ROM, Normal Inspection - Respiratory Exam Respiratory Exam: Clear to Ausculation Bilateral, NORMAL BREATHING PATTERN. absent: Rales, Rhonchi, Wheezes - Cardiovascular Exam Cardiovascular Exam: +S1, +S2. absent: Tachycardia - GI/Abdominal Exam GI & Abdominal Exam: Soft, Normal Bowel Sounds. absent: Guarding, Rigid, Tenderness - Extremities Exam Extremities Exam: Full ROM, Normal Inspection - Neurological Exam Neurological Exam: Alert, Awake, Oriented x3 - Psychiatric Exam Psychiatric exam: Normal Affect, Normal Mood - Skin Skin Exam: Intact, Normal Color, Warm Assessment and Plan - Assessment and Plan (Free Text) Assessment: Tuberculosis, active +AFB's collected, awaiting culture results. Labs q3D. Continue RIPE therapy. Monitor LFTs. AFB sputum cultures twice weekly until negative result obtained. 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 12/17 AFB: Few (2+) acid-fast bacilli seen using the fluorochrome method. 12/15 AFB: Few (2+) acid-fast bacilli seen using the fluorochrome method. 12/14 AFB: Few (2+) acid-fast bacilli seen using the fluorochrome method. 12/13 AFB: Few (2+) acid-fast bacilli seen using the fluorochrome method. No mycobacterium species isolated after one week incubation 12/12 AFB: Few (2+) acid-fast bacilli seen using the fluorochrome method. No mycobacterium species isolated after one week incubation 12/10 AFB: 1+ acid fast bacilli, culture pending. No mycobacterium species isolated after one week incubation 12/09 AFB: 1+ acid fast bacilli, culture pending. No mycobacterium species isolated after one week incubation 12/06 AFB: 2+ acid fast bacilli, culture prelim: no mycobacterium species isolated after one week incubation 12/04 AFB: 2+ acid fast bacilli, culture prelim: Acid-fast bacilli present in liquid culture medium. Identification to follow. 12/02 AFB: 2+ acid fast bacilli, culture prelim: Acid-fast bacilli present in liquid culture medium. Identification to follow. 12/01 AFB: 1+ acid fast bacilli, culture prelim: Acid-fast bacilli present in liquid culture medium. Identification to follow. 11/30 AFB: 1+ acid fast bacilli, culture prelim: Acid-fast bacilli present in liquid culture medium. Identification to follow. -ID consult, Dr. Espinal -> Continue quadruple therapy for TB. 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 WILL LIKELY TAKE SEVERAL WEEKS TO CLEAR SPUTUM ethambutol 1200mg PO daily (started 12/02) isoniazide 300mg PO daily (started 12/02) Prazinamide 1500mg PO daily (started 12/02) (increased 12/08 for weight based dosing) Pyridoxine 100mg PO daily (started 12/02) Rifampin 600mg PO daily (started 12/02) -HIV negative -Quant Gold - negative -Note: Disk containing CT + CXR images is in the physical chart. -Cavitary left upper lobe infiltrate/mass. CT scan may be beneficial in further assessment of this process primarily affecting the posterior segment. The cavitary comes/cystic component is best seen on the lateral view measuring 5.2 x 6.4 cm. -Pulm Consult, Dr. Frazier -> bronchoscopy 12/[address], [address] imaging showed clear TB infection f/u sputum studies and sputum PCR -Continue Mucinex 600mg PO BID; Singulair 10mg PO HS; Duonebs RQ6 PRN Hyponatremia 12/20: Sodium 130 Patient currently fluid restricted. Will follow-up serum osmolarity, urine osmolarity, urine sodium and uric acid Nephrology, Dr. Gunn, consulted. Help appreciated. Monitor Sore Throat 12/17: No sore throat reported 12/16: improving likely secondary to cough Continue Cepachol Lozenges BID Will discontinue Enalapril Tachycardia 12/20: continue management 12/18: currently resolved. Continue Lopressor 25 mg po BID. 12/17: fewer episodes of tachycardia over last 24H, asx, Echo with normal EF >53% , negative for abnormalities; cont Lopressor 25mg BID 12/16: Continues to be tachycardic in 120s today. Patient is asymptomatic Will follow up EKG and official Echo report. Lopressor increased to 25 mg po BID per cardiology. D-dimer 226, thyroid studies normal. 12/15: EKG and Echocardiogram ordered to evaluate tachycardia. Cardiology, Neil Spencer, consulted. Help appreciated. 12/13: Pharmacy reviewed meds and noted tachycardia could be attributed to Isoniazid and Rifampin. 12/07-12/12: persistent tachycardia since 12/07/16 (100's-120's). Pharmacy is looking into this. Duoneb PRN is on, however patient hasn't received a recent dose. -TSH + free T4 - both WNL -> r/o hyperthyroidism -CXR 4/5- Increasing opacity of left lung with cavitation in the left apex and left apical pleural thickening. Likely infectious process. Consider fungal or atypical mycobacterial. 5 mm nodule in right apex. Consider further evaluation with computed tomography. Diabetes Mellitus type II Blood glucose 163 Metformin 1000mg PO BID Novolog RISS Neurontin 300mg PO TID A1c 12.4 FLP grossly WNL; HDL 28 L Glucose 233 on admission Alpha Thalassemia Discontinue IV Ferrlicit MCV 69.7 Ferritin 77.3, B12 950 H, folate 11.2, reticulocyte count 1.0 hemoglobinopathy inerpretation - possible Alpha-thalassemia. Fe 28 L, TIBC 243 L, %Sat 12 L haptoglobin 501 H Monitor outpatient Hypertension normotensive Discontinued Enalapril 5mg PO due to cough Started on Losartan 25 mg po daily Prophylaxis respiratory isolation Vegetarian Diet, carb consistent, low sodium Pepcid 20mg PO d Lovenox 40 mg SC daily Zofran 4mg PO Q6 PRN SCDs
--- NOTE | 2016-12-21 22:27 | PN ---
DATE: 12/21/2016 HISTORY OF PRESENT ILLNESS: The patient is a 51-year-old male with history of diabetes and hypertens ion, admitted with pulmonary TB. The patient today reports feeling well. Cough has improved. Denie s any fevers or sweats. Tolerating diet. No shortness of breath. PHYSICAL EXAMINATION: VITAL SIGNS: This afternoon, blood pressure 135/89, heart rate 115, respirations 20, temperature 98. 0, O2 sat 99% on room air. Orthostatics: Lying down: Blood pressure 126/83, heart rate 109. Stand ing up: Blood pressure 128/82, heart rate 137. GENERAL: No distress, speaking coherently in full sentences. HEENT: Moist mucous membranes. No scleral icterus. CHEST: Clear to auscultation bilaterally. No rales, no rhonchi, no wheezes. HEART: S1, S2 positive, no murmurs, no gallops, no rubs. Tachycardic. ABDOMEN: Soft, nontender, nondistended. EXTREMITIES: No leg edema. Normal capillary refill. LABORATORY DATA: No new labs available today. ASSESSMENT: 1. Hyponatremia. The patient appears euvolemic on exam, off of beta brad since yesterday. The p atient does have orthostatic changes with no blood pressure drop, but does have increase of heart rat e by just under 30 be per minute when going from lying to standing position; although, etiology is st ill most likely hyponatremia due to SIADH and, while patient appears euvolemic on exam and adrenal in sufficiency has been effectively ruled out with a.m. cortisol level being normal, nevertheless, would treat for possible component of intravascularly volume depletion, starting salt tabs 2 mg t.i.d. for the next 2 days. The patient again counseled on cutting back p.o. free water intake, which he says he has tolerated done. 2. Hypertension, currently normotensive, but with the orthostatic changes as mentioned above, on los rocky 25 mg daily, metoprolol being held. If tachycardia does not improve after being on salt tabs f or the next 1-2 days, should restart metoprolol. 3. Diabetes. Hemoglobin A1c consistent with severely uncontrolled blood sugars. Random urine micro albumin to creatinine ratio consistent with microalbuminuria with just over 300 milligrams per gram o f albumin in the urine. The patient is already on losartan 25 mg daily. Should be titrated upward a s tolerated. 4. Pulmonary TB, on ripe therapy and symptoms much improved. Monitor for side effects of ripe thera py, which can include hyperuricemia. Ed Gunn MD cc: [id number] TT: 12/21/2016 22:27:00 Confirmation # [id number] Dictation # [id number] mn
--- NOTE | 2016-12-22 07:47 | CP.PCM.PN ---
Subjective - Date & Time of Evaluation Date of Evaluation: 12/22/16 Time of Evaluation: 07:47 - Subjective Subjective: Patient seen and examined at bedside. Patient complaining of pain to left hand due to IV infiltration yesterday. He otherwise has no complaints and denies chest pain, palpitations, and shortness of breath. He is tolerating diet well and denies nausea, vomiting, abdominal pain, constipation and diarrhea. Objective - Vital Signs/Intake and Output Vital Signs (last 24 hours): Temp Pulse Resp BP Pulse Ox 98.3 F 114 H 20 113/77 96 12/22/16 01:05 12/22/16 01:52 12/22/16 01:05 12/22/16 01:05 12/22/16 01:05 - Medications Medications: Current Medications Acetaminophen (Tylenol 325mg Tab) 650 mg PO Q6 PRN PRN Reason: Headache Last Admin: 12/04/16 20:53 Dose: 650 mg Benzocaine/Menthol (Cepacol Sore Throat) 1 liz MT BID PRN PRN Reason: Sore Throat Last Admin: 12/16/16 09:13 Dose: 1 liz Enoxaparin Sodium (Lovenox) 40 mg SC DAILY [facility] Last Admin: 12/21/16 10:35 Dose: 40 mg Ethambutol HCl (Myambutol) 1,200 mg PO DAILY [facility] Last Admin: 12/21/16 10:34 Dose: 1,200 mg Famotidine (Pepcid) 20 mg PO 0800 [facility] Last Admin: 12/21/16 08:43 Dose: 20 mg Gabapentin (Neurontin) 300 mg PO TID [facility] Last Admin: 12/21/16 17:51 Dose: 300 mg Guaifenesin (Mucinex La) 600 mg PO 0800,2000 [facility] Last Admin: 12/21/16 19:48 Dose: 600 mg Insulin Aspart (Novolog) 0 unit SC ACHS [facility] PRN Reason: Protocol Last Admin: 12/21/16 21:57 Dose: Not Given Isoniazid (Niazid) 300 mg PO DAILY [facility] Last Admin: 12/21/16 10:35 Dose: 300 mg Losartan Potassium (Cozaar) 25 mg PO DAILY [facility] Last Admin: 12/21/16 10:35 Dose: 25 mg Metformin HCl (Glucophage) 1,000 mg PO 0800,1800 [facility] Last Admin: 12/21/16 17:50 Dose: 1,000 mg Metoprolol Tartrate (Lopressor) 25 mg PO BID [facility] Last Admin: 12/20/16 17:36 Dose: 25 mg Montelukast Sodium (Singulair) 10 mg PO HS [facility] Last Admin: 12/21/16 21:48 Dose: 10 mg Ondansetron HCl (Zofran Inj) 4 mg IVP Q6H PRN PRN Reason: Nausea/Vomiting Last Admin: 12/06/16 12:52 Dose: 4 mg Ondansetron HCl (Zofran Tab) 4 mg PO Q6 PRN Last Admin: 12/19/16 07:54 Dose: 4 mg Pyrazinamide (Pyrazinamide) 1,500 mg PO DAILY [facility] Last Admin: 12/21/16 10:33 Dose: 1,500 mg Pyridoxine HCl (Vitamin B6) 100 mg PO DAILY [facility] Last Admin: 12/21/16 10:35 Dose: 100 mg Rifampin (Rifampin Cap) 600 mg PO DAILY [facility] Last Admin: 12/21/16 10:35 Dose: 600 mg Sodium Chloride (Sodium Chloride Tab) 2 gm PO TID [facility] Stop: 12/23/16 10:01 Last Admin: 12/21/16 19:00 Dose: 2 gm - Labs Labs: 12/20/16 10:58 12/20/16 10:58 PT 13.6 SECONDS (9.7-12.2) H 12/01/16 07:37 INR 1.2 12/01/16 07:37 APTT 28 SECONDS (21-34) 12/01/16 07:37 - Constitutional Appears: Non-toxic, No Acute Distress - Head Exam Head Exam: ATRAUMATIC, NORMAL INSPECTION, NORMOCEPHALIC - Eye Exam Eye Exam: EOMI, Normal appearance, PERRL - ENT Exam ENT Exam: Mucous Membranes Moist - Neck Exam Neck Exam: Full ROM, Normal Inspection - Respiratory Exam Respiratory Exam: Clear to Ausculation Bilateral, NORMAL BREATHING PATTERN. absent: Rales, Rhonchi, Wheezes - Cardiovascular Exam Cardiovascular Exam: +S1, +S2. absent: Tachycardia - GI/Abdominal Exam GI & Abdominal Exam: Soft, Normal Bowel Sounds - Extremities Exam Additional comments: mild edema and ecchymosis to left wrist - Neurological Exam Neurological Exam: Alert, Awake, Oriented x3 - Psychiatric Exam Psychiatric exam: Normal Affect, Normal Mood - Skin Skin Exam: Dry, Intact, Normal Color Assessment and Plan - Assessment and Plan (Free Text) Assessment: Tuberculosis, active +AFB's collected, awaiting culture results. Labs q3D. Continue RIPE therapy. Monitor LFTs. AFB sputum cultures twice weekly until negative result obtained. 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 12/17 AFB: Few (2+) acid-fast bacilli seen using the fluorochrome method. 12/15 AFB: Few (2+) acid-fast bacilli seen using the fluorochrome method. 12/14 AFB: Few (2+) acid-fast bacilli seen using the fluorochrome method. No mycobacterium species isolated after one week incubation 12/13 AFB: Few (2+) acid-fast bacilli seen using the fluorochrome method. No mycobacterium species isolated after one week incubation 12/12 AFB: Few (2+) acid-fast bacilli seen using the fluorochrome method. No mycobacterium species isolated after one week incubation 12/10 AFB: 1+ acid fast bacilli, culture pending. No mycobacterium species isolated after one week incubation 12/09 AFB: 1+ acid fast bacilli, culture pending. No mycobacterium species isolated after one week incubation 12/06 AFB: 2+ acid fast bacilli, culture prelim: no mycobacterium species isolated after one week incubation 12/04 AFB: 2+ acid fast bacilli, culture prelim: Acid-fast bacilli present in liquid culture medium. Identification to follow. 12/02 AFB: 2+ acid fast bacilli, culture prelim: Acid-fast bacilli present in liquid culture medium. Identification to follow. 12/01 AFB: 1+ acid fast bacilli, culture prelim: Acid-fast bacilli present in liquid culture medium. Identification to follow. 11/30 AFB: 1+ acid fast bacilli, culture prelim: Acid-fast bacilli present in liquid culture medium. Identification to follow. -ID consult, Dr. Espinal -> Continue quadruple therapy for TB. 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 WILL LIKELY TAKE SEVERAL WEEKS TO CLEAR SPUTUM ethambutol 1200mg PO daily (started 12/02) isoniazide 300mg PO daily (started 12/02) Prazinamide 1500mg PO daily (started 12/02) (increased 12/08 for weight based dosing) Pyridoxine 100mg PO daily (started 12/02) Rifampin 600mg PO daily (started 12/02) -HIV negative -Quant Gold - negative -Note: Disk containing CT + CXR images is in the physical chart. -Cavitary left upper lobe infiltrate/mass. CT scan may be beneficial in further assessment of this process primarily affecting the posterior segment. The cavitary comes/cystic component is best seen on the lateral view measuring 5.2 x 6.4 cm. -Pulm Consult, Dr. Frazier -> bronchoscopy 12/[address], [address] imaging showed clear TB infection f/u sputum studies and sputum PCR -Continue Mucinex 600mg PO BID; Singulair 10mg PO HS; Duonebs RQ6 PRN Hyponatremia 12/22: Continue current management 12/20: Sodium 130 Patient currently fluid restricted. Will follow-up serum osmolarity, urine osmolarity, urine sodium and uric acid Nephrology, Dr. Gunn, consulted. Help appreciated. Monitor Sore Throat 12/17: No sore throat reported 12/16: improving likely secondary to cough Continue Cepachol Lozenges BID Will discontinue Enalapril Tachycardia 12/20: continue management 12/18: currently resolved. Continue Lopressor 25 mg po BID. 12/17: fewer episodes of tachycardia over last 24H, asx, Echo with normal EF >53% , negative for abnormalities; cont Lopressor 25mg BID 12/16: Continues to be tachycardic in 120s today. Patient is asymptomatic Will follow up EKG and official Echo report. Lopressor increased to 25 mg po BID per cardiology. D-dimer 226, thyroid studies normal. 12/15: EKG and Echocardiogram ordered to evaluate tachycardia. Cardiology, Neil Spencer, consulted. Help appreciated. 12/13: Pharmacy reviewed meds and noted tachycardia could be attributed to Isoniazid and Rifampin. 12/07-12/12: persistent tachycardia since 12/07/16 (100's-120's). Pharmacy is looking into this. Duoneb PRN is on, however patient hasn't received a recent dose. -TSH + free T4 - both WNL -> r/o hyperthyroidism -CXR 4/5- Increasing opacity of left lung with cavitation in the left apex and left apical pleural thickening. Likely infectious process. Consider fungal or atypical mycobacterial. 5 mm nodule in right apex. Consider further evaluation with computed tomography. Diabetes Mellitus type II Blood glucose 143 Metformin 1000mg PO BID Novolog RISS Neurontin 300mg PO TID A1c 12.4 FLP grossly WNL; HDL 28 L Glucose 233 on admission Alpha Thalassemia Discontinue IV Ferrlicit MCV 69.7 Ferritin 77.3, B12 950 H, folate 11.2, reticulocyte count 1.0 hemoglobinopathy inerpretation - possible Alpha-thalassemia. Fe 28 L, TIBC 243 L, %Sat 12 L haptoglobin 501 H Monitor outpatient Hypertension normotensive Discontinued Enalapril 5mg PO due to cough Started on Losartan 25 mg po daily Left Hand Edema Continue warm compresses Prophylaxis respiratory isolation Vegetarian Diet, carb consistent, low sodium Pepcid 20mg PO d Lovenox 40 mg SC daily Zofran 4mg PO Q6 PRN SCDs
[2016-12-22] MEDS: (Novolog) Insulin Aspart, Recombinant 100 u/ml 10 ml vial SC SCH ×4 (08:35→21:34)
[2016-12-22] MEDS: Pyridoxine 100 mg Tab PO SCH (11:25)
[2016-12-22] MEDS: Enoxaparin 40 mg Syringe SC SCH (11:27)
[2016-12-22] MEDS: guaiFENesin 600 mg ER Tab PO SCH ×2 (12:48→19:57)
[2016-12-23] MEDS: (Novolog) Insulin Aspart, Recombinant 100 u/ml 10 ml vial SC SCH ×4 (08:02→22:52)
[2016-12-23] MEDS: Enoxaparin 40 mg Syringe SC SCH (09:17)
[2016-12-23] MEDS: guaiFENesin 600 mg ER Tab PO SCH ×2 (09:17→19:56)
[2016-12-23] MEDS: Pyridoxine 100 mg Tab PO SCH (09:18)
--- NOTE | 2016-12-23 16:05 | CP.PCM.PN ---
<Zahira Vega - Last Filed: 12/23/16 16:02> Subjective - Date & Time of Evaluation Date of Evaluation: 12/23/16 Time of Evaluation: 16:02 - Subjective Subjective: Patient seen and examined at bedside. Patient notes pain to left hand due to IV infiltration is resolving after warm compresses applied to area. Patient denies chest pain, palpitations, and shortness of breath. He is tolerating diet well and denies nausea, vomiting, abdominal pain, constipation and diarrhea. Objective - Vital Signs/Intake and Output Vital Signs (last 24 hours): Temp Pulse Resp BP Pulse Ox 97.9 F 120 H 20 122/79 98 12/23/16 09:23 12/23/16 09:23 12/23/16 09:23 12/23/16 09:23 12/23/16 09:23 Intake and Output: 12/23/16 12/23/16 06:59 18:59 Intake Total 240 Balance 240 - Medications Medications: Current Medications Acetaminophen (Tylenol 325mg Tab) 650 mg PO Q6 PRN PRN Reason: Headache Last Admin: 12/04/16 20:53 Dose: 650 mg Benzocaine/Menthol (Cepacol Sore Throat) 1 liz MT BID PRN PRN Reason: Sore Throat Last Admin: 12/16/16 09:13 Dose: 1 liz Enoxaparin Sodium (Lovenox) 40 mg SC DAILY [facility] Last Admin: 12/23/16 09:17 Dose: 40 mg Ethambutol HCl (Myambutol) 1,200 mg PO DAILY [facility] Last Admin: 12/23/16 09:16 Dose: 1,200 mg Famotidine (Pepcid) 20 mg PO 0800 [facility] Last Admin: 12/23/16 09:16 Dose: 20 mg Gabapentin (Neurontin) 300 mg PO TID [facility] Last Admin: 12/23/16 13:53 Dose: 300 mg Guaifenesin (Mucinex La) 600 mg PO 0800,1999 [facility] Last Admin: 12/23/16 09:17 Dose: 600 mg Insulin Aspart (Novolog) 0 unit SC ACHS [facility] PRN Reason: Protocol Last Admin: 12/23/16 13:54 Dose: Not Given Isoniazid (Niazid) 300 mg PO DAILY [facility] Last Admin: 12/23/16 09:16 Dose: 300 mg Losartan Potassium (Cozaar) 25 mg PO DAILY [facility] Last Admin: 12/23/16 09:16 Dose: 25 mg Metformin HCl (Glucophage) 1,000 mg PO 0800,1800 [facility] Last Admin: 12/23/16 09:16 Dose: 1,000 mg Metoprolol Tartrate (Lopressor) 25 mg PO BID [facility] Last Admin: 12/20/16 17:36 Dose: 25 mg Montelukast Sodium (Singulair) 10 mg PO HS [facility] Last Admin: 12/22/16 21:35 Dose: 10 mg Ondansetron HCl (Zofran Inj) 4 mg IVP Q6H PRN PRN Reason: Nausea/Vomiting Last Admin: 12/06/16 12:52 Dose: 4 mg Ondansetron HCl (Zofran Tab) 4 mg PO Q6 PRN Last Admin: 12/23/16 09:22 Dose: 4 mg Pyrazinamide (Pyrazinamide) 1,500 mg PO DAILY [facility] Last Admin: 12/23/16 09:17 Dose: 1,500 mg Pyridoxine HCl (Vitamin B6) 100 mg PO DAILY [facility] Last Admin: 12/23/16 09:18 Dose: 100 mg Rifampin (Rifampin Cap) 600 mg PO DAILY [facility] Last Admin: 12/23/16 09:16 Dose: 600 mg - Labs Labs: 12/20/16 10:58 12/20/16 10:58 PT 13.6 SECONDS (9.7-12.2) H 12/01/16 07:37 INR 1.2 12/01/16 07:37 APTT 28 SECONDS (21-34) 12/01/16 07:37 - Constitutional Appears: Non-toxic, No Acute Distress - Head Exam Head Exam: ATRAUMATIC, NORMAL INSPECTION, NORMOCEPHALIC - Eye Exam Eye Exam: EOMI, Normal appearance, PERRL - ENT Exam ENT Exam: Mucous Membranes Moist - Neck Exam Neck Exam: Full ROM, Normal Inspection. absent: Lymphadenopathy - Respiratory Exam Respiratory Exam: Clear to Ausculation Bilateral, NORMAL BREATHING PATTERN - Cardiovascular Exam Cardiovascular Exam: +S1, +S2. absent: Tachycardia - GI/Abdominal Exam GI & Abdominal Exam: Soft, Normal Bowel Sounds - Extremities Exam Extremities Exam: Full ROM, Normal Inspection - Back Exam Back Exam: NORMAL INSPECTION - Neurological Exam Neurological Exam: Alert, Awake, Oriented x3 - Psychiatric Exam Psychiatric exam: Normal Affect, Normal Mood - Skin Skin Exam: Intact, Normal Color Assessment and Plan - Assessment and Plan (Free Text) Assessment: Tuberculosis, active +AFB's collected, awaiting culture results. Labs q3D. Continue RIPE therapy. Monitor LFTs. AFB sputum cultures twice weekly until negative result obtained. 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 4/ AFB: Few (2+) acid-fast bacilli seen using the fluorochrome method. 4 AFB: Few (2+) acid-fast bacilli seen using the fluorochrome method. 4 AFB: Few (2+) acid-fast bacilli seen using the fluorochrome method. 4 AFB: Few (2+) acid-fast bacilli seen using the fluorochrome method. No mycobacterium species isolated after one week incubation 12/13 AFB: Few (2+) acid-fast bacilli seen using the fluorochrome method. No mycobacterium species isolated after one week incubation 12/12 AFB: Few (2+) acid-fast bacilli seen using the fluorochrome method. No mycobacterium species isolated after one week incubation 12/10 AFB: 1+ acid fast bacilli, culture pending. No mycobacterium species isolated after one week incubation 12/09 AFB: 1+ acid fast bacilli, culture pending. No mycobacterium species isolated after one week incubation 12/06 AFB: 2+ acid fast bacilli, culture prelim: no mycobacterium species isolated after one week incubation 12/04 AFB: 2+ acid fast bacilli, culture prelim: Acid-fast bacilli present in liquid culture medium. Identification to follow. 12/02 AFB: 2+ acid fast bacilli, culture prelim: Acid-fast bacilli present in liquid culture medium. Identification to follow. 12/01 AFB: 1+ acid fast bacilli, culture prelim: Acid-fast bacilli present in liquid culture medium. Identification to follow. 11/30 AFB: 1+ acid fast bacilli, culture prelim: Acid-fast bacilli present in liquid culture medium. Identification to follow. -ID consult, Dr. Espinal -> Continue quadruple therapy for TB. 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 WILL LIKELY TAKE SEVERAL WEEKS TO CLEAR SPUTUM ethambutol 1200mg PO daily (started 12/02) isoniazide 300mg PO daily (started 12/02) Prazinamide 1500mg PO daily (started 12/02) (increased 12/08 for weight based dosing) Pyridoxine 100mg PO daily (started 12/02) Rifampin 600mg PO daily (started 12/02) -HIV negative -Quant Gold - negative -Note: Disk containing CT + CXR images is in the physical chart. -Cavitary left upper lobe infiltrate/mass. CT scan may be beneficial in further assessment of this process primarily affecting the posterior segment. The cavitary comes/cystic component is best seen on the lateral view measuring 5.2 x 6.4 cm. -Pulm Consult, Dr. Frazier -> bronchoscopy 12/01 AM cancelled, as CT imaging showed clear TB infection f/u sputum studies and sputum PCR -Continue Mucinex 600mg PO BID; Singulair 10mg PO HS; Duonebs RQ6 PRN Hyponatremia 12/22: Continue current management 12/20: Sodium 130 Patient currently fluid restricted. Will follow-up serum osmolarity, urine osmolarity, urine sodium and uric acid Nephrology, Dr. Gunn, consulted. Help appreciated. Monitor Sore Throat 12/17: No sore throat reported 12/16: improving likely secondary to cough Continue Cepachol Lozenges BID Will discontinue Enalapril Tachycardia 12/20: continue management 12/18: currently resolved. Continue Lopressor 25 mg po BID. 12/17: fewer episodes of tachycardia over last 24H, asx, Echo with normal EF >53% , negative for abnormalities; cont Lopressor 25mg BID 12/16: Continues to be tachycardic in 120s today. Patient is asymptomatic Will follow up EKG and official Echo report. Lopressor increased to 25 mg po BID per cardiology. D-dimer 226, thyroid studies normal. 12/15: EKG and Echocardiogram ordered to evaluate tachycardia. Cardiology, Neil Spencer, consulted. Help appreciated. 12/13: Pharmacy reviewed meds and noted tachycardia could be attributed to Isoniazid and Rifampin. 12/07-12/12: persistent tachycardia since 12/07/16 (100's-120's). Pharmacy is looking into this. Duoneb PRN is on, however patient hasn't received a recent dose. -TSH + free T4 - both WNL -> r/o hyperthyroidism -CXR 12/08- Increasing opacity of left lung with cavitation in the left apex and left apical pleural thickening. Likely infectious process. Consider fungal or atypical mycobacterial. 5 mm nodule in right apex. Consider further evaluation with computed tomography. Diabetes Mellitus type II Blood glucose 155 Metformin 1000mg PO BID Novolog RISS Neurontin 300mg PO TID A1c 12.4 FLP grossly WNL; HDL 28 L Glucose 233 on admission Alpha Thalassemia Discontinue IV Ferrlicit MCV 69.7 Ferritin 77.3, B12 950 H, folate 11.2, reticulocyte count 1.0 hemoglobinopathy inerpretation - possible Alpha-thalassemia. Fe 28 L, TIBC 243 L, %Sat 12 L haptoglobin 501 H Monitor outpatient Hypertension normotensive Discontinued Enalapril 5mg PO due to cough Started on Losartan 25 mg po daily Left Hand Edema 12/23: improved Continue warm compresses Prophylaxis respiratory isolation Vegetarian Diet, carb consistent, low sodium Pepcid 20mg PO d Lovenox 40 mg SC daily Zofran 4mg PO Q6 PRN SCDs <Darien Armendariz H - Last Filed: 12/23/16 16:22> Objective - Vital Signs/Intake and Output Vital Signs (last 24 hours): Temp Pulse Resp BP Pulse Ox 97.9 F 120 H 20 122/79 98 12/23/16 09:23 12/23/16 09:23 12/23/16 09:23 12/23/16 09:23 12/23/16 09:23 Intake and Output: 12/23/16 12/23/16 06:59 18:59 Intake Total 240 Balance 240 - Medications Medications: Current Medications Acetaminophen (Tylenol 325mg Tab) 650 mg PO Q6 PRN PRN Reason: Headache Last Admin: 12/04/16 20:53 Dose: 650 mg Benzocaine/Menthol (Cepacol Sore Throat) 1 liz MT BID PRN PRN Reason: Sore Throat Last Admin: 12/16/16 09:13 Dose: 1 liz Enoxaparin Sodium (Lovenox) 40 mg SC DAILY [facility] Last Admin: 12/23/16 09:17 Dose: 40 mg Ethambutol HCl (Myambutol) 1,200 mg PO DAILY [facility] Last Admin: 04/20/17 09:16 Dose: 1,200 mg Famotidine (Pepcid) 20 mg PO 0800 [facility] Last Admin: 12/23/16 09:16 Dose: 20 mg Gabapentin (Neurontin) 300 mg PO TID [facility] Last Admin: 12/23/16 13:53 Dose: 300 mg Guaifenesin (Mucinex La) 600 mg PO 0800,2000 [facility] Last Admin: 12/23/16 09:17 Dose: 600 mg Insulin Aspart (Novolog) 0 unit SC ACHS [facility] PRN Reason: Protocol Last Admin: 12/23/16 13:54 Dose: Not Given Isoniazid (Niazid) 300 mg PO DAILY [facility] Last Admin: 12/23/16 09:16 Dose: 300 mg Losartan Potassium (Cozaar) 25 mg PO DAILY [facility] Last Admin: 12/23/16 09:16 Dose: 25 mg Metformin HCl (Glucophage) 1,000 mg PO 0800,1800 [facility] Last Admin: 12/23/16 09:16 Dose: 1,000 mg Metoprolol Tartrate (Lopressor) 25 mg PO BID [facility] Last Admin: 12/20/16 17:36 Dose: 25 mg Montelukast Sodium (Singulair) 10 mg PO HS [facility] Last Admin: 12/22/16 21:35 Dose: 10 mg Ondansetron HCl (Zofran Inj) 4 mg IVP Q6H PRN PRN Reason: Nausea/Vomiting Last Admin: 12/06/16 12:52 Dose: 4 mg Ondansetron HCl (Zofran Tab) 4 mg PO Q6 PRN Last Admin: 12/23/16 09:22 Dose: 4 mg Pyrazinamide (Pyrazinamide) 1,500 mg PO DAILY [facility] Last Admin: 12/23/16 09:17 Dose: 1,500 mg Pyridoxine HCl (Vitamin B6) 100 mg PO DAILY [facility] Last Admin: 12/23/16 09:18 Dose: 100 mg Rifampin (Rifampin Cap) 600 mg PO DAILY [facility] Last Admin: 12/23/16 09:16 Dose: 600 mg - Labs Labs: 12/20/16 10:58 12/20/16 10:58 PT 13.6 SECONDS (9.7-12.2) H 12/01/16 07:37 INR 1.2 12/01/16 07:37 APTT 28 SECONDS (21-34) 12/01/16 07:37 Attending/Attestation - Attestation I have personally seen and examined this patient.: Yes I have fully participated in the care of the patient.: Yes I have reviewed all pertinent clinical information, including history, physical exam and plan: Yes Notes (Text): Medical attending: Patient was seen and examined by me, agree with the above note by biomedical manager. The patient reported that he is feeling okay, when we reviewed his most recent AFB studies these are still positive. Also examined the patient's left arm, in the area where the IV had been causing a lot of pain is resolved at this time - he says it's good now. We did apply warm compresses to this area Thank you very much, Darien Armendariz
--- NOTE | 2016-12-23 20:55 | CP.PCM.PN ---
Subjective - Date & Time of Evaluation Date of Evaluation: 12/23/16 Time of Evaluation: 20:53 - Subjective Subjective: nephrology follow-up note Patient with history of hypertension, diabetes, admitted for pulmonary tuberculosis; Patient reports feeling well, denies any cough, no palpitations; Objective - Vital Signs/Intake and Output Vital Signs (last 24 hours): Temp Pulse Resp BP Pulse Ox 98.2 F 111 H 20 128/85 98 12/23/16 15:30 12/23/16 15:30 12/23/16 15:30 12/23/16 15:30 12/23/16 15:30 - Medications Medications: Current Medications Acetaminophen (Tylenol 325mg Tab) 650 mg PO Q6 PRN PRN Reason: Headache Last Admin: 12/04/16 20:53 Dose: 650 mg Benzocaine/Menthol (Cepacol Sore Throat) 1 liz MT BID PRN PRN Reason: Sore Throat Last Admin: 12/16/16 09:13 Dose: 1 liz Enoxaparin Sodium (Lovenox) 40 mg SC DAILY [facility] Last Admin: 12/23/16 09:17 Dose: 40 mg Ethambutol HCl (Myambutol) 1,200 mg PO DAILY [facility] Last Admin: 12/23/16 09:16 Dose: 1,200 mg Famotidine (Pepcid) 20 mg PO 0800 [facility] Last Admin: 12/23/16 09:16 Dose: 20 mg Gabapentin (Neurontin) 300 mg PO TID [facility] Last Admin: 12/23/16 17:45 Dose: 300 mg Guaifenesin (Mucinex La) 600 mg PO 0800,2000 [facility] Last Admin: 12/23/16 19:56 Dose: 600 mg Insulin Aspart (Novolog) 0 unit SC [facility] PRN Reason: Protocol Last Admin: 12/23/16 17:45 Dose: 1 unit Isoniazid (Niazid) 300 mg PO DAILY [facility] Last Admin: 12/23/16 09:16 Dose: 300 mg Losartan Potassium (Cozaar) 25 mg PO DAILY [facility] Last Admin: 12/23/16 09:16 Dose: 25 mg Metformin HCl (Glucophage) 1,000 mg PO 0800,1800 [facility] Last Admin: 12/23/16 17:45 Dose: 1,000 mg Metoprolol Tartrate (Lopressor) 25 mg PO BID [facility] Last Admin: 12/20/16 17:36 Dose: 25 mg Montelukast Sodium (Singulair) 10 mg PO HS [facility] Last Admin: 12/22/16 21:35 Dose: 10 mg Ondansetron HCl (Zofran Inj) 4 mg IVP Q6H PRN PRN Reason: Nausea/Vomiting Last Admin: 12/06/16 12:52 Dose: 4 mg Ondansetron HCl (Zofran Tab) 4 mg PO Q6 PRN Last Admin: 12/23/16 09:22 Dose: 4 mg Pyrazinamide (Pyrazinamide) 1,500 mg PO DAILY [facility] Last Admin: 12/23/16 09:17 Dose: 1,500 mg Pyridoxine HCl (Vitamin B6) 100 mg PO DAILY [facility] Last Admin: 12/23/16 09:18 Dose: 100 mg Rifampin (Rifampin Cap) 600 mg PO DAILY [facility] Last Admin: 12/23/16 09:16 Dose: 600 mg - Labs Labs: 12/20/16 10:58 12/20/16 10:58 PT 13.6 SECONDS (9.7-12.2) H 12/01/16 07:37 INR 1.2 12/01/16 07:37 APTT 28 SECONDS (21-34) 12/01/16 07:37 - Constitutional Appears: Well, No Acute Distress - Head Exam Head Exam: NORMAL INSPECTION - Eye Exam Eye Exam: Normal appearance - ENT Exam ENT Exam: Mucous Membranes Moist - Neck Exam Neck Exam: Normal Inspection - Respiratory Exam Respiratory Exam: Clear to Ausculation Bilateral, NORMAL BREATHING PATTERN. absent: Rales, Rhonchi, Wheezes - Cardiovascular Exam Cardiovascular Exam: Tachycardia, RRR, +S1, +S2 - GI/Abdominal Exam GI & Abdominal Exam: Soft. absent: Distended, Tenderness - Extremities Exam Extremities Exam: Normal Inspection Additional comments: no leg edema - Neurological Exam Neurological Exam: Alert, Awake - Psychiatric Exam Psychiatric exam: Normal Affect Additional comments: observed having a heated conversation over the phone - Skin Skin Exam: Normal Color, Warm. absent: Cyanosis Assessment and Plan - Assessment and Plan (Free Text) Assessment: 1. 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 Tachycardia sinus tachycardia etiology unclear; had some orthostatic changes earlier with significant increase in tachycardia on standing, less prominent changes today after salt loading patient (but still present with pulse increasing from 108 to 123); -Continue with low dose beta brad 3. Hypertension controlled; continue with losartan 25 mg daily; 4. Diabetes with microalbuminuria; ensure adequate glycemic control;
--- NOTE | 2016-12-24 07:37 | CP.PCM.PN ---
<Denny Vegaelle - Last Filed: 12/24/16 17:04> Subjective - Date & Time of Evaluation Date of Evaluation: 12/24/16 Time of Evaluation: 07:35 - Subjective Subjective: Patient seen and examined at bedside. Patient states he has a sore throat. He denies other complaints including chest pain, palpitations, fever, chills, nausea, vomiting, and diarrhea. Patient is refusing blood work as his hand was infiltrated via IV earlier in the week. May need to consider mid-line if he continues to refuse. Objective - Vital Signs/Intake and Output Vital Signs (last 24 hours): Temp Pulse Resp BP Pulse Ox 99 F 102 H 20 126/81 97 12/24/16 00:00 12/24/16 00:00 12/24/16 00:00 12/24/16 00:00 12/24/16 00:00 Intake and Output: 12/24/16 12/24/16 06:59 18:59 Intake Total 600 Balance 600 - Medications Medications: Current Medications Acetaminophen (Tylenol 325mg Tab) 650 mg PO Q6 PRN PRN Reason: Headache Last Admin: 12/04/16 20:53 Dose: 650 mg Benzocaine/Menthol (Cepacol Sore Throat) 1 liz MT BID PRN PRN Reason: Sore Throat Last Admin: 12/16/16 09:13 Dose: 1 liz Enoxaparin Sodium (Lovenox) 40 mg SC DAILY [facility] Last Admin: 12/23/16 09:17 Dose: 40 mg Ethambutol HCl (Myambutol) 1,200 mg PO DAILY [facility] Last Admin: 12/23/16 09:16 Dose: 1,200 mg Famotidine (Pepcid) 20 mg PO 0800 [facility] Last Admin: 12/23/16 09:16 Dose: 20 mg Gabapentin (Neurontin) 300 mg PO TID [facility] Last Admin: 12/23/16 17:45 Dose: 300 mg Guaifenesin (Mucinex La) 600 mg PO 0800,1999 [facility] Last Admin: 12/23/16 19:56 Dose: 600 mg Insulin Aspart (Novolog) 0 unit SC ACHS [facility] PRN Reason: Protocol Last Admin: 12/23/16 22:52 Dose: Not Given Isoniazid (Niazid) 300 mg PO DAILY [facility] Last Admin: 12/23/16 09:16 Dose: 300 mg Losartan Potassium (Cozaar) 25 mg PO DAILY [facility] Last Admin: 12/23/16 09:16 Dose: 25 mg Metformin HCl (Glucophage) 1,000 mg PO 0800,1800 [facility] Last Admin: 12/23/16 17:45 Dose: 1,000 mg Metoprolol Tartrate (Lopressor) 25 mg PO BID [facility] Last Admin: 12/20/16 17:36 Dose: 25 mg Montelukast Sodium (Singulair) 10 mg PO HS [facility] Last Admin: 12/23/16 21:13 Dose: 10 mg Ondansetron HCl (Zofran Inj) 4 mg IVP Q6H PRN PRN Reason: Nausea/Vomiting Last Admin: 12/06/16 12:52 Dose: 4 mg Ondansetron HCl (Zofran Tab) 4 mg PO Q6 PRN Last Admin: 12/23/16 09:22 Dose: 4 mg Pyrazinamide (Pyrazinamide) 1,500 mg PO DAILY [facility] Last Admin: 12/23/16 09:17 Dose: 1,500 mg Pyridoxine HCl (Vitamin B6) 100 mg PO DAILY [facility] Last Admin: 12/23/16 09:18 Dose: 100 mg Rifampin (Rifampin Cap) 600 mg PO DAILY [facility] Last Admin: 12/23/16 09:16 Dose: 600 mg - Labs Labs: 12/20/16 10:58 12/20/16 10:58 PT 13.6 SECONDS (9.7-12.2) H 12/01/16 07:37 INR 1.2 12/01/16 07:37 APTT 28 SECONDS (21-34) 12/01/16 07:37 - Constitutional Appears: Non-toxic, No Acute Distress - Head Exam Head Exam: ATRAUMATIC, NORMAL INSPECTION, NORMOCEPHALIC - Eye Exam Eye Exam: EOMI, Normal appearance, PERRL - ENT Exam ENT Exam: Mucous Membranes Moist - Respiratory Exam Respiratory Exam: Clear to Ausculation Bilateral, NORMAL BREATHING PATTERN. absent: Rales, Rhonchi, Wheezes - Cardiovascular Exam Cardiovascular Exam: +S1, +S2. absent: Tachycardia - GI/Abdominal Exam GI & Abdominal Exam: Soft, Normal Bowel Sounds. absent: Tenderness - Extremities Exam Extremities Exam: Normal Inspection. absent: Pedal Edema, Tenderness - Back Exam Back Exam: NORMAL INSPECTION - Neurological Exam Neurological Exam: Alert, Awake, Oriented x3 - Skin Skin Exam: Intact, Normal Color, Warm Assessment and Plan - Assessment and Plan (Free Text) Assessment: Tuberculosis, active +AFB's collected, awaiting culture results. Labs q3D. Continue RIPE therapy. Monitor LFTs. AFB sputum cultures twice weekly until negative result obtained. 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 12/19 AFB: Few (2+) acid-fast bacilli seen using the fluorochrome method. 12/17 AFB: Few (2+) acid-fast bacilli seen using the fluorochrome method. 12/15 AFB: Few (2+) acid-fast bacilli seen using the fluorochrome method. No mycobacterium species isolated after one week incubation 12/14 AFB: Few (2+) acid-fast bacilli seen using the fluorochrome method. No mycobacterium species isolated after one week incubation 12/13 AFB: Few (2+) acid-fast bacilli seen using the fluorochrome method. No mycobacterium species isolated after one week incubation 12/12 AFB: Few (2+) acid-fast bacilli seen using the fluorochrome method. No mycobacterium species isolated after one week incubation 12/10 AFB: 1+ acid fast bacilli, culture pending. No mycobacterium species isolated after one week incubation 12/09 AFB: 1+ acid fast bacilli, culture pending. No mycobacterium species isolated after one week incubation 12/06 AFB: 2+ acid fast bacilli, culture prelim: no mycobacterium species isolated after one week incubation 12/04 AFB: 2+ acid fast bacilli, culture prelim: Acid-fast bacilli present in liquid culture medium. Identification to follow. 12/02 AFB: 2+ acid fast bacilli, culture prelim: Acid-fast bacilli present in liquid culture medium. Identification to follow. 12/01 AFB: 1+ acid fast bacilli, culture prelim: Acid-fast bacilli present in liquid culture medium. Identification to follow. 11/30 AFB: 1+ acid fast bacilli, culture prelim: Acid-fast bacilli present in liquid culture medium. Identification to follow. -ID consult, Dr. Espinal -> Continue quadruple therapy for TB. 4/7: PATIENT WITH HEAVY BACTERIAL BURDEN OF TB BASED ON CXR AND CHRONICITY. WILL LIKELY TAKE SEVERAL WEEKS TO CLEAR SPUTUM ethambutol 1200mg PO daily (started 12/02) isoniazide 300mg PO daily (started 12/02) Prazinamide 1500mg PO daily (started 12/02) (increased 12/08 for weight based dosing) Pyridoxine 100mg PO daily (started 12/02) Rifampin 600mg PO daily (started 12/02) -HIV negative -Quant Gold - negative -Note: Disk containing CT + CXR images is in the physical chart. -Cavitary left upper lobe infiltrate/mass. CT scan may be beneficial in further assessment of this process primarily affecting the posterior segment. The cavitary comes/cystic component is best seen on the lateral view measuring 5.2 x 6.4 cm. -Pulm Consult, Dr. Frazier -> bronchoscopy 12/01 AM cancelled, as CT imaging showed clear TB infection f/u sputum studies and sputum PCR -Continue Mucinex 600mg PO BID; Singulair 10mg PO HS; Duonebs RQ6 PRN Hyponatremia 12/24: Per nephrology consult, Dr. 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 Will follow-up serum osmolarity, urine osmolarity, urine sodium and uric acid Nephrology, Dr. Gunn, consulted. Help appreciated. Monitor Sore Throat 12/17: No sore throat reported 12/16: improving likely secondary to cough Continue Cepachol Lozenges BID Will discontinue Enalapril Tachycardia 12/20: continue management 12/18: currently resolved. Continue Lopressor 25 mg po BID. 12/17: fewer episodes of tachycardia over last 24H, asx, Echo with normal EF >53% , negative for abnormalities; cont Lopressor 25mg BID 12/16: Continues to be tachycardic in 120s today. Patient is asymptomatic Will follow up EKG and official Echo report. Lopressor increased to 25 mg po BID per cardiology. D-dimer 226, thyroid studies normal. 12/15: EKG and Echocardiogram ordered to evaluate tachycardia. Cardiology, Neil Spencer, consulted. Help appreciated. 12/13: Pharmacy reviewed meds and noted tachycardia could be attributed to Isoniazid and Rifampin. 12/07-12/12: persistent tachycardia since 12/07/16 (100's-120's). Pharmacy is looking into this. Duoneb PRN is on, however patient hasn't received a recent dose. -TSH + free T4 - both WNL -> r/o hyperthyroidism -CXR 12/08- Increasing opacity of left lung with cavitation in the left apex and left apical pleural thickening. Likely infectious process. Consider fungal or atypical mycobacterial. 5 mm nodule in right apex. Consider further evaluation with computed tomography. Diabetes Mellitus type II Blood glucose 155 Metformin 1000mg PO BID Novolog RISS Neurontin 300mg PO TID A1c 12.4 FLP grossly WNL; HDL 28 L Glucose 233 on admission Alpha Thalassemia Discontinue IV Ferrlicit MCV 69.7 Ferritin 77.3, B12 950 H, folate 11.2, reticulocyte count 1.0 hemoglobinopathy inerpretation - possible Alpha-thalassemia. Fe 28 L, TIBC 243 L, %Sat 12 L haptoglobin 501 H Monitor outpatient Hypertension normotensive Discontinued Enalapril 5mg PO due to cough Started on Losartan 25 mg po daily Left Hand Edema 12/23: improved Continue warm compresses Prophylaxis respiratory isolation Vegetarian Diet, carb consistent, low sodium Pepcid 20mg PO d Lovenox 40 mg SC daily Zofran 4mg PO Q6 PRN SCDs <Darien Armendariz H - Last Filed: 12/24/16 17:23> Objective - Vital Signs/Intake and Output Vital Signs (last 24 hours): Temp Pulse Resp BP Pulse Ox 98 F 106 H 19 114/73 99 12/24/16 15:37 12/24/16 15:37 12/24/16 15:37 12/24/16 15:37 12/24/16 15:37 Intake and Output: 12/24/16 12/24/16 06:59 18:59 Intake Total 600 500 Balance 600 500 - Medications Medications: Current Medications Acetaminophen (Tylenol 325mg Tab) 650 mg PO Q6 PRN PRN Reason: Headache Last Admin: 12/04/16 20:53 Dose: 650 mg Benzocaine/Menthol (Cepacol Sore Throat) 1 liz MT BID PRN PRN Reason: Sore Throat Last Admin: 12/16/16 09:13 Dose: 1 liz Enoxaparin Sodium (Lovenox) 40 mg SC DAILY [facility] Last Admin: 12/24/16 09:07 Dose: 40 mg Ethambutol HCl (Myambutol) 1,200 mg PO DAILY [facility] Last Admin: 12/24/16 09:05 Dose: 1,200 mg Famotidine (Pepcid) 20 mg PO 0800 [facility] Last Admin: 12/24/16 08:55 Dose: 20 mg Gabapentin (Neurontin) 300 mg PO TID [facility] Last Admin: 12/24/16 12:59 Dose: Not Given Guaifenesin (Mucinex La) 600 mg PO 0800,2000 [facility] Last Admin: 12/24/16 08:55 Dose: 600 mg Insulin Aspart (Novolog) 0 unit SC [facility] PRN Reason: Protocol Last Admin: 12/24/16 12:06 Dose: Not Given Isoniazid (Niazid) 300 mg PO DAILY [facility] Last Admin: 12/24/16 09:07 Dose: 300 mg Losartan Potassium (Cozaar) 25 mg PO DAILY [facility] Last Admin: 12/24/16 09:07 Dose: 25 mg Metformin HCl (Glucophage) 1,000 mg PO 0800,1800 [facility] Last Admin: 12/24/16 08:55 Dose: 1,000 mg Metoprolol Tartrate (Lopressor) 25 mg PO BID [facility] Last Admin: 12/20/16 17:36 Dose: 25 mg Montelukast Sodium (Singulair) 10 mg PO HS [facility] Last Admin: 12/23/16 21:13 Dose: 10 mg Ondansetron HCl (Zofran Inj) 4 mg IVP Q6H PRN PRN Reason: Nausea/Vomiting Last Admin: 12/06/16 12:52 Dose: 4 mg Ondansetron HCl (Zofran Tab) 4 mg PO Q6 PRN Last Admin: 12/23/16 09:22 Dose: 4 mg Pyrazinamide (Pyrazinamide) 1,500 mg PO DAILY [facility] Last Admin: 12/24/16 09:06 Dose: 1,500 mg Pyridoxine HCl (Vitamin B6) 100 mg PO DAILY [facility] Last Admin: 12/24/16 09:06 Dose: 100 mg Rifampin (Rifampin Cap) 600 mg PO DAILY [facility] Last Admin: 12/24/16 09:06 Dose: 600 mg - Labs Labs: 12/20/16 10:58 12/20/16 10:58 PT 13.6 SECONDS (9.7-12.2) H 12/01/16 07:37 INR 1.2 12/01/16 07:37 APTT 28 SECONDS (21-34) 12/01/16 07:37 Attending/Attestation - Attestation I have personally seen and examined this patient.: Yes I have fully participated in the care of the patient.: Yes I have reviewed all pertinent clinical information, including history, physical exam and plan: Yes Notes (Text): Medical Attending: Patient was seen and examined by me. Agree with the above note by the resident. The patient most recent AFB studies continue to show + In other news he also explained the warm compresses on his left hand have helped with the area of thrombophelbitis he was having Darien Armendariz
[2016-12-24] MEDS: (Novolog) Insulin Aspart, Recombinant 100 u/ml 10 ml vial SC SCH ×4 (08:00→23:04)
[2016-12-24] MEDS: guaiFENesin 600 mg ER Tab PO SCH ×2 (08:55→20:14)
[2016-12-24] MEDS: Pyridoxine 100 mg Tab PO SCH (09:06)
[2016-12-24] MEDS: Enoxaparin 40 mg Syringe SC SCH (09:07)
--- NOTE | 2016-12-24 18:33 | CP.PCM.PN ---
Subjective - Date & Time of Evaluation Date of Evaluation: 12/24/16 Time of Evaluation: 08:00 - Subjective Subjective: still with + afb smears cont isolation Objective - Vital Signs/Intake and Output Vital Signs (last 24 hours): Temp Pulse Resp BP Pulse Ox 98 F 106 H 19 114/73 99 12/24/16 15:37 12/24/16 15:37 12/24/16 15:37 12/24/16 15:37 12/24/16 15:37 Intake and Output: 12/24/16 12/24/16 06:59 18:59 Intake Total 600 500 Balance 600 500 - Medications Medications: Current Medications Acetaminophen (Tylenol 325mg Tab) 650 mg PO Q6 PRN PRN Reason: Headache Last Admin: 12/04/16 20:53 Dose: 650 mg Benzocaine/Menthol (Cepacol Sore Throat) 1 liz MT BID PRN PRN Reason: Sore Throat Last Admin: 12/16/16 09:13 Dose: 1 liz Enoxaparin Sodium (Lovenox) 40 mg SC DAILY [facility] Last Admin: 12/24/16 09:07 Dose: 40 mg Ethambutol HCl (Myambutol) 1,200 mg PO DAILY [facility] Last Admin: 12/24/16 09:05 Dose: 1,200 mg Famotidine (Pepcid) 20 mg PO 0800 [facility] Last Admin: 12/24/16 08:55 Dose: 20 mg Gabapentin (Neurontin) 300 mg PO TID [facility] Last Admin: 12/24/16 12:59 Dose: Not Given Guaifenesin (Mucinex La) 600 mg PO 0800,2000 [facility] Last Admin: 12/24/16 08:55 Dose: 600 mg Insulin Aspart (Novolog) 0 unit SC [facility] PRN Reason: Protocol Last Admin: 12/24/16 12:06 Dose: Not Given Isoniazid (Niazid) 300 mg PO DAILY [facility] Last Admin: 12/24/16 09:07 Dose: 300 mg Losartan Potassium (Cozaar) 25 mg PO DAILY [facility] Last Admin: 12/24/16 09:07 Dose: 25 mg Metformin HCl (Glucophage) 1,000 mg PO 0800,1800 [facility] Last Admin: 12/24/16 08:55 Dose: 1,000 mg Metoprolol Tartrate (Lopressor) 25 mg PO BID [facility] Last Admin: 12/20/16 17:36 Dose: 25 mg Montelukast Sodium (Singulair) 10 mg PO HS [facility] Last Admin: 12/23/16 21:13 Dose: 10 mg Ondansetron HCl (Zofran Inj) 4 mg IVP Q6H PRN PRN Reason: Nausea/Vomiting Last Admin: 12/06/16 12:52 Dose: 4 mg Ondansetron HCl (Zofran Tab) 4 mg PO Q6 PRN Last Admin: 12/23/16 09:22 Dose: 4 mg Pyrazinamide (Pyrazinamide) 1,500 mg PO DAILY [facility] Last Admin: 12/24/16 09:06 Dose: 1,500 mg Pyridoxine HCl (Vitamin B6) 100 mg PO DAILY [facility] Last Admin: 12/24/16 09:06 Dose: 100 mg Rifampin (Rifampin Cap) 600 mg PO DAILY [facility] Last Admin: 12/24/16 09:06 Dose: 600 mg - Labs Labs: 12/20/16 10:58 12/20/16 10:58 PT 13.6 SECONDS (9.7-12.2) H 12/01/16 07:37 INR 1.2 12/01/16 07:37 APTT 28 SECONDS (21-34) 12/01/16 07:37 - Constitutional Appears: Non-toxic, Cachectic, Chronically Ill - Head Exam Head Exam: NORMOCEPHALIC - Eye Exam Eye Exam: PERRL. absent: Scleral icterus - ENT Exam ENT Exam: Mucous Membranes Dry - Neck Exam Neck Exam: absent: Lymphadenopathy - Respiratory Exam Respiratory Exam: Decreased Breath Sounds, Rhonchi - Cardiovascular Exam Cardiovascular Exam: REGULAR RHYTHM, +S1, +S2 - GI/Abdominal Exam GI & Abdominal Exam: Distended, Soft Assessment and Plan (1) Pulmonary tuberculosis with cavitation Status: Acute (2) Tuberculosis Status: Acute (3) Pneumonia Status: Acute (4) Diabetes Status: Acute - Assessment and Plan (Free Text) Assessment: cont tb meds
--- NOTE | 2016-12-25 00:51 | CP.PCM.PN ---
<Mandy Schafer - Last Filed: 12/25/16 00:53> Subjective - Date & Time of Evaluation Date of Evaluation: 12/25/16 Time of Evaluation: 00:46 - Subjective Subjective: Internal medicine progress note for Hospitalist service- Mandy Schafer, PGY-1 Pt S & E at bedside. Pt continues with cough- reports it is non productive, no blood. Denies N/V/F/C , SOB, CP, abdominal pain. Is eating/sleeping/urinating/moving bowels ok. No complaints. Objective - Vital Signs/Intake and Output Vital Signs (last 24 hours): Temp Pulse Resp BP Pulse Ox 97.6 F 96 H 18 124/84 97 12/24/16 23:46 12/24/16 23:46 12/24/16 23:46 12/24/16 23:46 12/24/16 23:46 Intake and Output: 12/24/16 12/25/16 18:59 06:59 Intake Total 500 Balance 500 - Medications Medications: Current Medications Acetaminophen (Tylenol 325mg Tab) 650 mg PO Q6 PRN PRN Reason: Headache Last Admin: 12/04/16 20:53 Dose: 650 mg Benzocaine/Menthol (Cepacol Sore Throat) 1 liz MT BID PRN PRN Reason: Sore Throat Last Admin: 12/16/16 09:13 Dose: 1 liz Enoxaparin Sodium (Lovenox) 40 mg SC DAILY [facility] Last Admin: 12/24/16 09:07 Dose: 40 mg Ethambutol HCl (Myambutol) 1,200 mg PO DAILY [facility] Last Admin: 12/24/16 09:05 Dose: 1,200 mg Famotidine (Pepcid) 20 mg PO 0800 [facility] Last Admin: 12/24/16 08:55 Dose: 20 mg Gabapentin (Neurontin) 300 mg PO TID [facility] Last Admin: 12/24/16 20:14 Dose: 300 mg Guaifenesin (Mucinex La) 600 mg PO 0800,1999 [facility] Last Admin: 12/24/16 20:14 Dose: 600 mg Insulin Aspart (Novolog) 0 unit SC ACHS [facility] PRN Reason: Protocol Last Admin: 12/24/16 23:04 Dose: Not Given Isoniazid (Niazid) 300 mg PO DAILY [facility] Last Admin: 12/24/16 09:07 Dose: 300 mg Losartan Potassium (Cozaar) 25 mg PO DAILY [facility] Last Admin: 12/24/16 09:07 Dose: 25 mg Metformin HCl (Glucophage) 1,000 mg PO 0800,1800 [facility] Last Admin: 12/24/16 20:14 Dose: 1,000 mg Metoprolol Tartrate (Lopressor) 25 mg PO BID [facility] Last Admin: 12/20/16 17:36 Dose: 25 mg Montelukast Sodium (Singulair) 10 mg PO HS [facility] Last Admin: 12/24/16 21:07 Dose: 10 mg Ondansetron HCl (Zofran Inj) 4 mg IVP Q6H PRN PRN Reason: Nausea/Vomiting Last Admin: 12/06/16 12:52 Dose: 4 mg Ondansetron HCl (Zofran Tab) 4 mg PO Q6 PRN Last Admin: 12/23/16 09:22 Dose: 4 mg Pyrazinamide (Pyrazinamide) 1,500 mg PO DAILY [facility] Last Admin: 12/24/16 09:06 Dose: 1,500 mg Pyridoxine HCl (Vitamin B6) 100 mg PO DAILY [facility] Last Admin: 12/24/16 09:06 Dose: 100 mg Rifampin (Rifampin Cap) 600 mg PO DAILY [facility] Last Admin: 12/24/16 09:06 Dose: 600 mg - Labs Labs: 12/20/16 10:58 12/20/16 10:58 PT 13.6 SECONDS (9.7-12.2) H 12/01/16 07:37 INR 1.2 12/01/16 07:37 APTT 28 SECONDS (21-34) 12/01/16 07:37 - Constitutional Appears: Non-toxic, No Acute Distress - Head Exam Head Exam: ATRAUMATIC, NORMAL INSPECTION, NORMOCEPHALIC - Eye Exam Eye Exam: EOMI, Normal appearance, PERRL - ENT Exam ENT Exam: Mucous Membranes Moist, Normal Exam - Neck Exam Neck Exam: Full ROM, Normal Inspection. absent: Lymphadenopathy - Respiratory Exam Respiratory Exam: Clear to Ausculation Bilateral, NORMAL BREATHING PATTERN - Cardiovascular Exam Cardiovascular Exam: REGULAR RHYTHM, +S1, +S2. absent: Murmur - GI/Abdominal Exam GI & Abdominal Exam: Soft, Normal Bowel Sounds. absent: Tenderness, Hernia, Mass - Extremities Exam Extremities Exam: Full ROM, Normal Capillary Refill, Normal Inspection. absent : Joint Swelling, Pedal Edema - Neurological Exam Neurological Exam: Alert, Awake, CN II-XII Intact, Oriented x3 - Psychiatric Exam Psychiatric exam: Normal Affect, Normal Mood - Skin Skin Exam: Dry, Intact, Normal Color, Warm Assessment and Plan - Assessment and Plan (Free Text) Assessment: Tuberculosis, active +AFB's collected, awaiting culture results. Labs q3D. Continue RIPE therapy. Monitor LFTs. AFB sputum cultures twice weekly until negative result obtained. 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 12/19 AFB: Few (2+) acid-fast bacilli seen using the fluorochrome method. 12/17 AFB: Few (2+) acid-fast bacilli seen using the fluorochrome method. 12/15 AFB: Few (2+) acid-fast bacilli seen using the fluorochrome method. No mycobacterium species isolated after one week incubation 12/14 AFB: Few (2+) acid-fast bacilli seen using the fluorochrome method. No mycobacterium species isolated after one week incubation 12/13 AFB: Few (2+) acid-fast bacilli seen using the fluorochrome method. No mycobacterium species isolated after one week incubation 12/12 AFB: Few (2+) acid-fast bacilli seen using the fluorochrome method. No mycobacterium species isolated after one week incubation 12/10 AFB: 1+ acid fast bacilli, culture pending. No mycobacterium species isolated after one week incubation 12/09 AFB: 1+ acid fast bacilli, culture pending. No mycobacterium species isolated after one week incubation 12/06 AFB: 2+ acid fast bacilli, culture prelim: no mycobacterium species isolated after one week incubation 12/04 AFB: 2+ acid fast bacilli, culture prelim: Acid-fast bacilli present in liquid culture medium. Identification to follow. 12/02 AFB: 2+ acid fast bacilli, culture prelim: Acid-fast bacilli present in liquid culture medium. Identification to follow. 12/01 AFB: 1+ acid fast bacilli, culture prelim: Acid-fast bacilli present in liquid culture medium. Identification to follow. 11/30 AFB: 1+ acid fast bacilli, culture prelim: Acid-fast bacilli present in liquid culture medium. Identification to follow. -ID consult, Dr. Espinal -> Continue quadruple therapy for TB. 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 WILL LIKELY TAKE SEVERAL WEEKS TO CLEAR SPUTUM ethambutol 1200mg PO daily (started 12/02) isoniazide 300mg PO daily (started 12/02) Prazinamide 1500mg PO daily (started 12/02) (increased 12/08 for weight based dosing) Pyridoxine 100mg PO daily (started 12/02) Rifampin 600mg PO daily (started 12/02) -HIV negative -Quant Gold - negative -Note: Disk containing CT + CXR images is in the physical chart. -Cavitary left upper lobe infiltrate/mass. CT scan may be beneficial in further assessment of this process primarily affecting the posterior segment. The cavitary comes/cystic component is best seen on the lateral view measuring 5.2 x 6.4 cm. -Pulm Consult, Dr. Frazier -> bronchoscopy 12/01 AM cancelled, as CT imaging showed clear TB infection f/u sputum studies and sputum PCR -Continue Mucinex 600mg PO BID; Singulair 10mg PO HS; Duonebs RQ6 PRN Hyponatremia 12/24: Per nephrology consult, Dr. 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 Will follow-up serum osmolarity, urine osmolarity, urine sodium and uric acid Nephrology, Dr. Gunn, consulted. Help appreciated. Monitor Tachycardia 12/25: still with tachycardia into 120s, cont current mgmt 12/20: continue management 12/18: currently resolved. Continue Lopressor 25 mg po BID. 12/17: fewer episodes of tachycardia over last 24H, asx, Echo with normal EF >53% , negative for abnormalities; cont Lopressor 25mg BID 12/16: Continues to be tachycardic in 120s today. Patient is asymptomatic Will follow up EKG and official Echo report. Lopressor increased to 25 mg po BID per cardiology. D-dimer 226, thyroid studies normal. 12/15: EKG and Echocardiogram ordered to evaluate tachycardia. Cardiology, Neil Spencer, consulted. Help appreciated. 12/13: Pharmacy reviewed meds and noted tachycardia could be attributed to Isoniazid and Rifampin. 12/07-12/12: persistent tachycardia since 12/07/16 (100's-120's). Pharmacy is looking into this. Duoneb PRN is on, however patient hasn't received a recent dose. -TSH + free T4 - both WNL -> r/o hyperthyroidism -CXR 12/08- Increasing opacity of left lung with cavitation in the left apex and left apical pleural thickening. Likely infectious process. Consider fungal or atypical mycobacterial. 5 mm nodule in right apex. Consider further evaluation with computed tomography. Diabetes Mellitus type II Blood glucose 230 Metformin 1000mg PO BID Novolog RISS Neurontin 300mg PO TID A1c 12.4 FLP grossly WNL; HDL 28 L Glucose 233 on admission Alpha Thalassemia Discontinued IV Ferrlicit MCV 69.7 Ferritin 77.3, B12 950 H, folate 11.2, reticulocyte count 1.0 hemoglobinopathy inerpretation - possible Alpha-thalassemia. Fe 28 L, TIBC 243 L, %Sat 12 L haptoglobin 501 H Monitor outpatient Hypertension normotensive Discontinued Enalapril 5mg PO due to cough Started on Losartan 25 mg po daily Left Hand Edema 12/25: None noted 12/23: improved Continue warm compresses Sore Throat - resolved 12/25: No sore throat reported 12/17: No sore throat reported 12/16: improving likely secondary to cough Continue Cepachol Lozenges BID Will discontinue Enalapril Prophylaxis respiratory isolation Vegetarian Diet, carb consistent, low sodium Pepcid 20mg PO d Lovenox 40 mg SC daily Zofran 4mg PO Q6 PRN SCDs <Darien Armendariz H - Last Filed: 12/25/16 10:49> Objective - Vital Signs/Intake and Output Vital Signs (last 24 hours): Temp Pulse Resp BP Pulse Ox 98.1 F 122 H 21 142/97 H 98 12/25/16 08:05 12/25/16 08:05 12/25/16 08:05 12/25/16 08:05 12/25/16 08:05 - Medications Medications: Current Medications Acetaminophen (Tylenol 325mg Tab) 650 mg PO Q6 PRN PRN Reason: Headache Last Admin: 12/04/16 20:53 Dose: 650 mg Benzocaine/Menthol (Cepacol Sore Throat) 1 liz MT BID PRN PRN Reason: Sore Throat Last Admin: 12/16/16 09:13 Dose: 1 liz Enoxaparin Sodium (Lovenox) 40 mg SC DAILY [facility] Last Admin: 12/25/16 09:04 Dose: 40 mg Ethambutol HCl (Myambutol) 1,200 mg PO DAILY [facility] Last Admin: 12/25/16 09:04 Dose: 1,200 mg Famotidine (Pepcid) 20 mg PO 0800 [facility] Last Admin: 12/25/16 08:47 Dose: 20 mg Gabapentin (Neurontin) 300 mg PO TID [facility] Last Admin: 12/25/16 09:04 Dose: 300 mg Guaifenesin (Mucinex La) 600 mg PO 0800,2000 [facility] Last Admin: 12/25/16 08:47 Dose: 600 mg Insulin Aspart (Novolog) 0 unit SC ACHS [facility] PRN Reason: Protocol Last Admin: 12/25/16 08:29 Dose: Not Given Isoniazid (Niazid) 300 mg PO DAILY [facility] Last Admin: 12/25/16 09:04 Dose: 300 mg Losartan Potassium (Cozaar) 25 mg PO DAILY [facility] Last Admin: 12/25/16 09:04 Dose: 25 mg Metformin HCl (Glucophage) 1,000 mg PO 0800,1800 [facility] Last Admin: 12/25/16 08:47 Dose: 1,000 mg Metoprolol Tartrate (Lopressor) 25 mg PO BID [facility] Last Admin: 12/20/16 17:36 Dose: 25 mg Montelukast Sodium (Singulair) 10 mg PO HS [facility] Last Admin: 12/24/16 21:07 Dose: 10 mg Ondansetron HCl (Zofran Inj) 4 mg IVP Q6H PRN PRN Reason: Nausea/Vomiting Last Admin: 12/06/16 12:52 Dose: 4 mg Ondansetron HCl (Zofran Tab) 4 mg PO Q6 PRN Last Admin: 12/25/16 09:03 Dose: 4 mg Pyrazinamide (Pyrazinamide) 1,500 mg PO DAILY [facility] Last Admin: 12/25/16 09:04 Dose: 1,500 mg Pyridoxine HCl (Vitamin B6) 100 mg PO DAILY [facility] Last Admin: 12/25/16 09:04 Dose: 100 mg Rifampin (Rifampin Cap) 600 mg PO DAILY [facility] Last Admin: 12/25/16 09:04 Dose: 600 mg - Labs Labs: 12/20/16 10:58 12/20/16 10:58 PT 13.6 SECONDS (9.7-12.2) H 12/01/16 07:37 INR 1.2 12/01/16 07:37 APTT 28 SECONDS (21-34) 12/01/16 07:37 Attending/Attestation - Attestation I have personally seen and examined this patient.: Yes I have fully participated in the care of the patient.: Yes I have reviewed all pertinent clinical information, including history, physical exam and plan: Yes Notes (Text): 12/25/16 10:49 Medical Attending: Patient was seen and examined by me. Agree with the above. As of now no new acute changes. AFB situation is still few positive.
[2016-12-25] MEDS: (Novolog) Insulin Aspart, Recombinant 100 u/ml 10 ml vial SC SCH ×4 (08:29→21:56)
[2016-12-25] MEDS: guaiFENesin 600 mg ER Tab PO SCH ×2 (08:47→19:52)
[2016-12-25] MEDS: Pyridoxine 100 mg Tab PO SCH (09:04)
[2016-12-25] MEDS: Enoxaparin 40 mg Syringe SC SCH (09:04)
--- NOTE | 2016-12-26 00:44 | CP.PCM.PN ---
Subjective - Date & Time of Evaluation Date of Evaluation: 12/26/16 Time of Evaluation: 00:42 - Subjective Subjective: Internal medicine progress note for Hospitalist service- Mandy Schafer, PGY-1 Pt S & E at bedside Pt c/o cough, sometimes with productive mucus- small amount of blood streaks. Now with chest pain with coughing only. Pt reports taking cough medicine. Denies N/V/F/C, SOB, abdominal pain. Is tolerating diet, ambulating around room , urinating ok/moving bowels ok. Objective - Vital Signs/Intake and Output Vital Signs (last 24 hours): Temp Pulse Resp BP Pulse Ox 98.2 F 108 H 18 124/82 98 12/25/16 22:00 12/25/16 22:00 12/25/16 22:00 12/25/16 22:00 12/25/16 16:00 Intake and Output: 12/25/16 12/26/16 18:59 06:59 Intake Total 480 Balance 480 - Medications Medications: Current Medications Acetaminophen (Tylenol 325mg Tab) 650 mg PO Q6 PRN PRN Reason: Headache Last Admin: 12/04/16 20:53 Dose: 650 mg Benzocaine/Menthol (Cepacol Sore Throat) 1 liz MT BID PRN PRN Reason: Sore Throat Last Admin: 12/16/16 09:13 Dose: 1 liz Enoxaparin Sodium (Lovenox) 40 mg SC DAILY [facility] Last Admin: 12/25/16 09:04 Dose: 40 mg Ethambutol HCl (Myambutol) 1,200 mg PO DAILY [facility] Last Admin: 12/25/16 09:04 Dose: 1,200 mg Famotidine (Pepcid) 20 mg PO 0800 [facility] Last Admin: 12/25/16 08:47 Dose: 20 mg Gabapentin (Neurontin) 300 mg PO TID [facility] Last Admin: 12/25/16 17:49 Dose: 300 mg Guaifenesin (Mucinex La) 600 mg PO 0800,1999 [facility] Last Admin: 12/25/16 19:52 Dose: 600 mg Insulin Aspart (Novolog) 0 unit SC ACHS [facility] PRN Reason: Protocol Last Admin: 12/25/16 21:56 Dose: Not Given Isoniazid (Niazid) 300 mg PO DAILY [facility] Last Admin: 12/25/16 09:04 Dose: 300 mg Losartan Potassium (Cozaar) 25 mg PO DAILY [facility] Last Admin: 12/25/16 09:04 Dose: 25 mg Metformin HCl (Glucophage) 1,000 mg PO 0800,1800 [facility] Last Admin: 12/25/16 17:49 Dose: 1,000 mg Metoprolol Tartrate (Lopressor) 25 mg PO BID [facility] Last Admin: 12/20/16 17:36 Dose: 25 mg Montelukast Sodium (Singulair) 10 mg PO HS [facility] Last Admin: 12/25/16 21:59 Dose: 10 mg Ondansetron HCl (Zofran Inj) 4 mg IVP Q6H PRN PRN Reason: Nausea/Vomiting Last Admin: 12/06/16 12:52 Dose: 4 mg Ondansetron HCl (Zofran Tab) 4 mg PO Q6 PRN Last Admin: 12/25/16 09:03 Dose: 4 mg Pyrazinamide (Pyrazinamide) 1,500 mg PO DAILY [facility] Last Admin: 12/25/16 09:04 Dose: 1,500 mg Pyridoxine HCl (Vitamin B6) 100 mg PO DAILY [facility] Last Admin: 12/25/16 09:04 Dose: 100 mg Rifampin (Rifampin Cap) 600 mg PO DAILY [facility] Last Admin: 12/25/16 09:04 Dose: 600 mg - Labs Labs: 12/20/16 10:58 12/20/16 10:58 PT 13.6 SECONDS (9.7-12.2) H 12/01/16 07:37 INR 1.2 12/01/16 07:37 APTT 28 SECONDS (21-34) 12/01/16 07:37 - Constitutional Appears: Well, Non-toxic, No Acute Distress - Head Exam Head Exam: ATRAUMATIC, NORMAL INSPECTION, NORMOCEPHALIC - Eye Exam Eye Exam: EOMI, Normal appearance, PERRL Pupil Exam: NORMAL ACCOMODATION, PERRL - ENT Exam ENT Exam: Mucous Membranes Moist, Normal Exam - Respiratory Exam Respiratory Exam: Clear to Ausculation Bilateral, NORMAL BREATHING PATTERN Additional comments: dry cough - Cardiovascular Exam Cardiovascular Exam: REGULAR RHYTHM, +S1, +S2. absent: Murmur - GI/Abdominal Exam GI & Abdominal Exam: Soft, Normal Bowel Sounds. absent: Tenderness - Extremities Exam Extremities Exam: Full ROM, Normal Capillary Refill, Normal Inspection. absent : Joint Swelling, Pedal Edema - Neurological Exam Neurological Exam: Alert, Awake, CN II-XII Intact, Oriented x3 - Psychiatric Exam Psychiatric exam: Normal Affect, Normal Mood - Skin Skin Exam: Dry, Intact, Normal Color, Warm Assessment and Plan - Assessment and Plan (Free Text) Assessment: Tuberculosis, active +AFB's collected, awaiting culture results. Labs q3D. Continue RIPE therapy. Monitor LFTs. AFB sputum cultures twice weekly until negative result obtained. 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 12/19 AFB: Few (2+) acid-fast bacilli seen using the fluorochrome method. 12/17 AFB: Few (2+) acid-fast bacilli seen using the fluorochrome method. 12/15 AFB: Few (2+) acid-fast bacilli seen using the fluorochrome method. No mycobacterium species isolated after one week incubation 12/14 AFB: Few (2+) acid-fast bacilli seen using the fluorochrome method. No mycobacterium species isolated after one week incubation 12/13 AFB: Few (2+) acid-fast bacilli seen using the fluorochrome method. No mycobacterium species isolated after one week incubation 12/12 AFB: Few (2+) acid-fast bacilli seen using the fluorochrome method. No mycobacterium species isolated after one week incubation 12/10 AFB: 1+ acid fast bacilli, culture pending. No mycobacterium species isolated after one week incubation 12/09 AFB: 1+ acid fast bacilli, culture pending. No mycobacterium species isolated after one week incubation 12/06 AFB: 2+ acid fast bacilli, culture prelim: no mycobacterium species isolated after one week incubation 12/04 AFB: 2+ acid fast bacilli, culture prelim: Acid-fast bacilli present in liquid culture medium. Identification to follow. 12/02 AFB: 2+ acid fast bacilli, culture prelim: Acid-fast bacilli present in liquid culture medium. Identification to follow. 12/01 AFB: 1+ acid fast bacilli, culture prelim: Acid-fast bacilli present in liquid culture medium. Identification to follow. 11/30 AFB: 1+ acid fast bacilli, culture prelim: Acid-fast bacilli present in liquid culture medium. Identification to follow. -ID consult, Dr. Espinal -> Continue quadruple therapy for TB. 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 WILL LIKELY TAKE SEVERAL WEEKS TO CLEAR SPUTUM ethambutol 1200mg PO daily (started 12/02) isoniazide 300mg PO daily (started 12/02) Prazinamide 1500mg PO daily (started 12/02) (increased 12/08 for weight based dosing) Pyridoxine 100mg PO daily (started 12/02) Rifampin 600mg PO daily (started 12/02) -HIV negative -Quant Gold - negative -Note: Disk containing CT + CXR images is in the physical chart. -Cavitary left upper lobe infiltrate/mass. CT scan may be beneficial in further assessment of this process primarily affecting the posterior segment. The cavitary comes/cystic component is best seen on the lateral view measuring 5.2 x 6.4 cm. -Pulm Consult, Dr. Frazier -> bronchoscopy 12/[address], [address] imaging showed clear TB infection f/u sputum studies and sputum PCR -Continue Mucinex 600mg PO BID; Singulair 10mg PO HS; Duonebs RQ6 PRN Hyponatremia 12/26: On 1500 cc fluid restriction 12/24: Per nephrology consult, Dr. 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 Will follow-up serum osmolarity, urine osmolarity, urine sodium and uric acid Nephrology, Dr. Gunn, consulted. Help appreciated. Monitor Tachycardia 12/26: Continues with tachycardia- cont current mgmt/monitor 12/25: still with tachycardia into 120s, cont current mgmt 12/20: continue management 12/18: currently resolved. Continue Lopressor 25 mg po BID. 12/17: fewer episodes of tachycardia over last 24H, asx, Echo with normal EF >53% , negative for abnormalities; cont Lopressor 25mg BID 12/16: Continues to be tachycardic in 120s today. Patient is asymptomatic Will follow up EKG and official Echo report. Lopressor increased to 25 mg po BID per cardiology. D-dimer 226, thyroid studies normal. 12/15: EKG and Echocardiogram ordered to evaluate tachycardia. Cardiology, Neil Spencer, consulted. Help appreciated. 12/13: Pharmacy reviewed meds and noted tachycardia could be attributed to Isoniazid and Rifampin. 12/07-12/12: persistent tachycardia since 12/07/16 (100's-120's). Pharmacy is looking into this. Duoneb PRN is on, however patient hasn't received a recent dose. -TSH + free T4 - both WNL -> r/o hyperthyroidism -CXR 12/08- Increasing opacity of left lung with cavitation in the left apex and left apical pleural thickening. Likely infectious process. Consider fungal or atypical mycobacterial. 5 mm nodule in right apex. Consider further evaluation with computed tomography. Diabetes Mellitus type II Blood glucose range: 98-230 over last 24H Metformin 1000mg PO BID Novolog RISS Neurontin 300mg PO TID A1c 12.4 FLP grossly WNL; HDL 28 L Glucose 233 on admission Alpha Thalassemia MCV 69.7 Ferritin 77.3, B12 950 H, folate 11.2, reticulocyte count 1.0 hemoglobinopathy inerpretation - possible Alpha-thalassemia. Fe 28 L, TIBC 243 L, %Sat 12 L haptoglobin 501 H Monitor outpatient Hypertension BP WNL Discontinued Enalapril 5mg PO due to cough Started on Losartan 25 mg po daily Left Hand Edema 12/26: No L hand edema noted on exam 12/25: None noted 12/23: improved Continue warm compresses Sore Throat - resolved 12/26: See below 12/25: No sore throat reported 12/17: No sore throat reported 12/16: improving likely secondary to cough Continue Cepachol Lozenges BID Will discontinue Enalapril Prophylaxis respiratory isolation Vegetarian Diet, carb consistent, low sodium Pepcid 20mg PO d Lovenox 40 mg SC daily Zofran 4mg PO Q6 PRN SCDs Encourage pt to ambulate around room Encourage pt to ask for cough syrup
[2016-12-26] MEDS: (Novolog) Insulin Aspart, Recombinant 100 u/ml 10 ml vial SC SCH ×4 (09:38→21:28)
[2016-12-26] MEDS: guaiFENesin 600 mg ER Tab PO SCH ×2 (09:40→20:52)
[2016-12-26] MEDS: Enoxaparin 40 mg Syringe SC SCH (09:44)
[2016-12-26] MEDS: Pyridoxine 100 mg Tab PO SCH (09:45)
[2016-12-27] MEDS: (Novolog) Insulin Aspart, Recombinant 100 u/ml 10 ml vial SC SCH ×4 (08:50→21:49)
--- NOTE | 2016-12-27 09:05 | CP.PCM.PN ---
Subjective - Date & Time of Evaluation Date of Evaluation: 12/27/16 Time of Evaluation: 09:04 - Subjective Subjective: Patient seen and examined at bedside. Per nursing, patient continues to refuse lab work. Patient is complaining about being on fluid restriction. He denies cough or shortness of breath, chest pain and palpitations. Patient is tolerating diet well and having normal bowel movements. He continues to ambulate frequently. Objective - Vital Signs/Intake and Output Vital Signs (last 24 hours): Temp Pulse Resp BP Pulse Ox 98.4 F 124 H 20 133/90 97 12/27/16 08:55 12/27/16 08:55 12/27/16 08:55 12/27/16 08:55 12/27/16 08:55 - Medications Medications: Current Medications Acetaminophen (Tylenol 325mg Tab) 650 mg PO Q6 PRN PRN Reason: Headache Last Admin: 12/04/16 20:53 Dose: 650 mg Benzocaine/Menthol (Cepacol Sore Throat) 1 liz MT BID PRN PRN Reason: Sore Throat Last Admin: 12/16/16 09:13 Dose: 1 liz Enoxaparin Sodium (Lovenox) 40 mg SC DAILY [facility] Last Admin: 12/26/16 09:44 Dose: 40 mg Ethambutol HCl (Myambutol) 1,200 mg PO DAILY [facility] Last Admin: 12/26/16 09:44 Dose: 1,200 mg Famotidine (Pepcid) 20 mg PO 0800 [facility] Last Admin: 12/26/16 09:00 Dose: 20 mg Gabapentin (Neurontin) 300 mg PO TID [facility] Last Admin: 12/26/16 17:39 Dose: 300 mg Guaifenesin (Mucinex La) 600 mg PO 0800,2000 [facility] Last Admin: 12/26/16 20:52 Dose: 600 mg Insulin Aspart (Novolog) 0 unit SC ACHS [facility] PRN Reason: Protocol Last Admin: 12/27/16 08:50 Dose: Not Given Isoniazid (Niazid) 300 mg PO DAILY [facility] Last Admin: 12/26/16 09:44 Dose: 300 mg Losartan Potassium (Cozaar) 25 mg PO DAILY [facility] Last Admin: 12/26/16 09:41 Dose: 25 mg Metformin HCl (Glucophage) 1,000 mg PO 0800,1800 [facility] Last Admin: 12/26/16 17:39 Dose: 1,000 mg Metoprolol Tartrate (Lopressor) 25 mg PO BID [facility] Last Admin: 12/20/16 17:36 Dose: 25 mg Montelukast Sodium (Singulair) 10 mg PO HS [facility] Last Admin: 12/26/16 21:27 Dose: 10 mg Ondansetron HCl (Zofran Inj) 4 mg IVP Q6H PRN PRN Reason: Nausea/Vomiting Last Admin: 12/06/16 12:52 Dose: 4 mg Pyrazinamide (Pyrazinamide) 1,500 mg PO DAILY [facility] Last Admin: 12/26/16 09:44 Dose: 1,500 mg Pyridoxine HCl (Vitamin B6) 100 mg PO DAILY [facility] Last Admin: 12/26/16 09:45 Dose: 100 mg Rifampin (Rifampin Cap) 600 mg PO DAILY [facility] Last Admin: 12/26/16 09:44 Dose: 600 mg - Labs Labs: 12/20/16 10:58 12/20/16 10:58 PT 13.6 SECONDS (9.7-12.2) H 12/01/16 07:37 INR 1.2 12/01/16 07:37 APTT 28 SECONDS (21-34) 12/01/16 07:37 - Constitutional Appears: Non-toxic, No Acute Distress - Head Exam Head Exam: ATRAUMATIC, NORMAL INSPECTION, NORMOCEPHALIC - Eye Exam Eye Exam: EOMI, Normal appearance, PERRL - ENT Exam ENT Exam: Mucous Membranes Moist - Neck Exam Neck Exam: Full ROM, Normal Inspection - Respiratory Exam Respiratory Exam: Clear to Ausculation Bilateral, NORMAL BREATHING PATTERN. absent: Rales, Rhonchi, Wheezes - Cardiovascular Exam Cardiovascular Exam: +S1, +S2. absent: Tachycardia - GI/Abdominal Exam GI & Abdominal Exam: Soft, Normal Bowel Sounds. absent: Firm, Rigid, Tenderness - Extremities Exam Extremities Exam: Normal Inspection. absent: Pedal Edema, Tenderness - Back Exam Back Exam: NORMAL INSPECTION - Neurological Exam Neurological Exam: Alert, Awake, Oriented x3 - Psychiatric Exam Psychiatric exam: Normal Affect, Normal Mood - Skin Skin Exam: Intact, Normal Color Assessment and Plan - Assessment and Plan (Free Text) Assessment: Tuberculosis, active +AFB's collected, awaiting culture results. Labs q3D. Continue RIPE therapy. Monitor LFTs. AFB sputum cultures twice weekly until negative result obtained. 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 12/19 AFB: Few (2+) acid-fast bacilli seen using the fluorochrome method. 12/17 AFB: Few (2+) acid-fast bacilli seen using the fluorochrome method. 12/15 AFB: Few (2+) acid-fast bacilli seen using the fluorochrome method. No mycobacterium species isolated after one week incubation 12/14 AFB: Few (2+) acid-fast bacilli seen using the fluorochrome method. No mycobacterium species isolated after one week incubation 12/13 AFB: Few (2+) acid-fast bacilli seen using the fluorochrome method. No mycobacterium species isolated after one week incubation 12/12 AFB: Few (2+) acid-fast bacilli seen using the fluorochrome method. No mycobacterium species isolated after one week incubation 12/10 AFB: 1+ acid fast bacilli, culture pending. No mycobacterium species isolated after one week incubation 12/09 AFB: 1+ acid fast bacilli, culture pending. No mycobacterium species isolated after one week incubation 12/06 AFB: 2+ acid fast bacilli, culture prelim: no mycobacterium species isolated after one week incubation 12/04 AFB: 2+ acid fast bacilli, culture prelim: Acid-fast bacilli present in liquid culture medium. Identification to follow. 12/02 AFB: 2+ acid fast bacilli, culture prelim: Acid-fast bacilli present in liquid culture medium. Identification to follow. 12/01 AFB: 1+ acid fast bacilli, culture prelim: Acid-fast bacilli present in liquid culture medium. Identification to follow. 11/30 AFB: 1+ acid fast bacilli, culture prelim: Acid-fast bacilli present in liquid culture medium. Identification to follow. -ID consult, Dr. Espinal -> Continue quadruple therapy for TB. 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 WILL LIKELY TAKE SEVERAL WEEKS TO CLEAR SPUTUM ethambutol 1200mg PO daily (started 12/02) isoniazide 300mg PO daily (started 12/02) Prazinamide 1500mg PO daily (started 12/02) (increased 4/ for weight based dosing) Pyridoxine 100mg PO daily (started 12/02) Rifampin 600mg PO daily (started 12/02) -HIV negative -Quant Gold - negative -Note: Disk containing CT + CXR images is in the physical chart. -Cavitary left upper lobe infiltrate/mass. CT scan may be beneficial in further assessment of this process primarily affecting the posterior segment. The cavitary comes/cystic component is best seen on the lateral view measuring 5.2 x 6.4 cm. -Pulm Consult, Dr. Frazier -> bronchoscopy 12/[address] imaging showed clear TB infection f/u sputum studies and sputum PCR -Continue Mucinex 600mg PO BID; Singulair 10mg PO HS; Duonebs RQ6 PRN Hyponatremia 12/27: Patient refusing lab work but agreeable to having labs done tomorrow. 12/24: Per nephrology consult, Dr. 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 Will follow-up serum osmolarity, urine osmolarity, urine sodium and uric acid Nephrology, Dr. Gunn, consulted. Help appreciated. Monitor Sore Throat 12/17: No sore throat reported 12/16: improving likely secondary to cough Continue Cepachol Lozenges BID Will discontinue Enalapril Tachycardia 12.27: tachycardic 124 12/20: continue management 12/18: currently resolved. Continue Lopressor 25 mg po BID. 12/17: fewer episodes of tachycardia over last 24H, asx, Echo with normal EF >53% , negative for abnormalities; cont Lopressor 25mg BID 12/16: Continues to be tachycardic in 120s today. Patient is asymptomatic Will follow up EKG and official Echo report. Lopressor increased to 25 mg po BID per cardiology. D-dimer 226, thyroid studies normal. 12/15: EKG and Echocardiogram ordered to evaluate tachycardia. Cardiology, Neil Spencer, consulted. Help appreciated. 12/13: Pharmacy reviewed meds and noted tachycardia could be attributed to Isoniazid and Rifampin. 12/07-12/12: persistent tachycardia since 12/07/16 (100's-120's). Pharmacy is looking into this. Duoneb PRN is on, however patient hasn't received a recent dose. -TSH + free T4 - both WNL -> r/o hyperthyroidism -CXR 12/08- Increasing opacity of left lung with cavitation in the left apex and left apical pleural thickening. Likely infectious process. Consider fungal or atypical mycobacterial. 5 mm nodule in right apex. Consider further evaluation with computed tomography. Diabetes Mellitus type II Blood glucose 143 Metformin 1000mg PO BID Novolog RISS Neurontin 300mg PO TID A1c 12.4 FLP grossly WNL; HDL 28 L Glucose 233 on admission Alpha Thalassemia Discontinue IV Ferrlicit MCV 69.7 Ferritin 77.3, B12 950 H, folate 11.2, reticulocyte count 1.0 hemoglobinopathy inerpretation - possible Alpha-thalassemia. Fe 28 L, TIBC 243 L, %Sat 12 L haptoglobin 501 H Monitor outpatient Hypertension normotensive Discontinued Enalapril 5mg PO due to cough Started on Losartan 25 mg po daily Left Hand Edema 12/23: improved Continue warm compresses Prophylaxis respiratory isolation Vegetarian Diet, carb consistent, low sodium Pepcid 20mg PO d Lovenox 40 mg SC daily Zofran 4mg PO Q6 PRN SCDs
[2016-12-27] MEDS: guaiFENesin 600 mg ER Tab PO SCH ×2 (09:17→21:05)
[2016-12-27] MEDS: Pyridoxine 100 mg Tab PO SCH (10:27)
[2016-12-27] MEDS: Enoxaparin 40 mg Syringe SC SCH (10:28)
[2016-12-28] MEDS: (Novolog) Insulin Aspart, Recombinant 100 u/ml 10 ml vial SC SCH ×3 (08:23→17:06)
[2016-12-28] MEDS: guaiFENesin 600 mg ER Tab PO SCH ×2 (09:39→19:55)
[2016-12-28] MEDS: Pyridoxine 100 mg Tab PO SCH (09:41)
[2016-12-28] MEDS: Enoxaparin 40 mg Syringe SC SCH (09:43)
--- NOTE | 2016-12-28 10:14 | CP.PCM.PN ---
<Zahira Vega - Last Filed: 12/28/16 13:13> Subjective - Date & Time of Evaluation Date of Evaluation: 12/28/16 Time of Evaluation: 10:12 - Subjective Subjective: Patient seen and examined at bedside. Patient is agreeable to blood work twice weekly. He expresses doubts in regards to the efficacy of TB medications. Patient states he feels well and cough with sputum production has subsided. He denies other symptoms including chest pain, palpitations, shortness of breath, abdominal pain, constipation and diarrhea. Patient admits to mild nausea with medications and per nursing had an episode of emesis yesterday. Objective - Vital Signs/Intake and Output Vital Signs (last 24 hours): Temp Pulse Resp BP Pulse Ox 97.9 F 107 H 20 138/90 98 12/28/16 08:16 12/28/16 08:16 12/28/16 08:16 12/28/16 08:16 12/28/16 08:16 - Medications Medications: Current Medications Acetaminophen (Tylenol 325mg Tab) 650 mg PO Q6 PRN PRN Reason: Headache Last Admin: 12/04/16 20:53 Dose: 650 mg Benzocaine/Menthol (Cepacol Sore Throat) 1 liz MT BID PRN PRN Reason: Sore Throat Last Admin: 12/16/16 09:13 Dose: 1 liz Enoxaparin Sodium (Lovenox) 40 mg SC DAILY [facility] Last Admin: 12/28/16 09:43 Dose: 40 mg Ethambutol HCl (Myambutol) 1,200 mg PO DAILY [facility] Last Admin: 12/28/16 09:40 Dose: 1,200 mg Famotidine (Pepcid) 20 mg PO 0800 [facility] Last Admin: 12/28/16 09:40 Dose: 20 mg Gabapentin (Neurontin) 300 mg PO TID [facility] Last Admin: 12/28/16 09:41 Dose: 300 mg Guaifenesin (Mucinex La) 600 mg PO 0800,1999 [facility] Last Admin: 12/28/16 09:39 Dose: 600 mg Insulin Aspart (Novolog) 0 unit SC ACHS [facility] PRN Reason: Protocol Last Admin: 12/28/16 08:23 Dose: Not Given Isoniazid (Niazid) 300 mg PO DAILY [facility] Last Admin: 12/28/16 09:41 Dose: 300 mg Losartan Potassium (Cozaar) 25 mg PO DAILY [facility] Last Admin: 12/28/16 09:39 Dose: 25 mg Metformin HCl (Glucophage) 1,000 mg PO 0800,1800 [facility] Last Admin: 12/28/16 09:38 Dose: 1,000 mg Metoprolol Tartrate (Lopressor) 25 mg PO BID [facility] Last Admin: 12/20/16 17:36 Dose: 25 mg Montelukast Sodium (Singulair) 10 mg PO HS [facility] Last Admin: 12/27/16 21:05 Dose: 10 mg Ondansetron HCl (Zofran Inj) 4 mg IVP Q6H PRN PRN Reason: Nausea/Vomiting Last Admin: 12/06/16 12:52 Dose: 4 mg Pyrazinamide (Pyrazinamide) 1,500 mg PO DAILY [facility] Last Admin: 12/27/16 10:27 Dose: 1,500 mg Pyridoxine HCl (Vitamin B6) 100 mg PO DAILY [facility] Last Admin: 12/28/16 09:41 Dose: 100 mg Rifampin (Rifampin Cap) 600 mg PO DAILY [facility] Last Admin: 12/28/16 09:41 Dose: 600 mg - Labs Labs: 12/20/16 10:58 12/20/16 10:58 PT 13.6 SECONDS (9.7-12.2) H 12/01/16 07:37 INR 1.2 12/01/16 07:37 APTT 28 SECONDS (21-34) 12/01/16 07:37 - Constitutional Appears: Non-toxic, No Acute Distress - Head Exam Head Exam: ATRAUMATIC, NORMAL INSPECTION, NORMOCEPHALIC - Eye Exam Eye Exam: EOMI, Normal appearance, PERRL - ENT Exam ENT Exam: Mucous Membranes Moist, Normal Exam - Neck Exam Neck Exam: Full ROM, Normal Inspection - Respiratory Exam Respiratory Exam: Clear to Ausculation Bilateral, NORMAL BREATHING PATTERN - Cardiovascular Exam Cardiovascular Exam: Tachycardia, +S1, +S2 - GI/Abdominal Exam GI & Abdominal Exam: Soft, Normal Bowel Sounds. absent: Firm, Tenderness - Neurological Exam Neurological Exam: Alert, Awake, Oriented x3 - Psychiatric Exam Psychiatric exam: Normal Affect, Normal Mood - Skin Skin Exam: Intact, Normal Color, Warm Assessment and Plan - Assessment and Plan (Free Text) Assessment: Tuberculosis, active +AFB's collected, awaiting culture results. Labs q3D. Continue RIPE therapy. Monitor LFTs. AFB sputum cultures twice weekly until negative result obtained. 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 12/21 AFB: Few (1+) acid-fast bacilli seen using the fluorochrome method. 12/19 AFB: Few (2+) acid-fast bacilli seen using the fluorochrome method. 12/17 AFB: Few (2+) acid-fast bacilli seen using the fluorochrome method. / AFB: Few (2+) acid-fast bacilli seen using the fluorochrome method. No mycobacterium species isolated after one week incubation 12/14 AFB: Few (2+) acid-fast bacilli seen using the fluorochrome method. No mycobacterium species isolated after one week incubation 12/13 AFB: Few (2+) acid-fast bacilli seen using the fluorochrome method. No mycobacterium species isolated after one week incubation 12/12 AFB: Few (2+) acid-fast bacilli seen using the fluorochrome method. No mycobacterium species isolated after one week incubation 12/10 AFB: 1+ acid fast bacilli, culture pending. No mycobacterium species isolated after one week incubation 12/09 AFB: 1+ acid fast bacilli, culture pending. No mycobacterium species isolated after one week incubation 12/06 AFB: 2+ acid fast bacilli, culture prelim: no mycobacterium species isolated after one week incubation 12/04 AFB: 2+ acid fast bacilli, culture prelim: Acid-fast bacilli present in liquid culture medium. Identification to follow. 12/02 AFB: 2+ acid fast bacilli, culture prelim: Acid-fast bacilli present in liquid culture medium. Identification to follow. 12/01 AFB: 1+ acid fast bacilli, culture prelim: Acid-fast bacilli present in liquid culture medium. Identification to follow. 11/30 AFB: 1+ acid fast bacilli, culture prelim: Acid-fast bacilli present in liquid culture medium. Identification to follow. -ID consult, Dr. Espinal -> Continue quadruple therapy for TB. 12/27: Will discuss with Dr. Espinal additional antibiotics in light of multidrug resistance. Will order PCR for Rifampin sensitivity. 4/7: PATIENT WITH HEAVY BACTERIAL BURDEN OF TB BASED ON CXR AND CHRONICITY. WILL LIKELY TAKE SEVERAL WEEKS TO CLEAR SPUTUM ethambutol 1200mg PO daily (started 12/02) isoniazide 300mg PO daily (started 12/02) Prazinamide 1500mg PO daily (started 12/02) (increased 12/08 for weight based dosing) Pyridoxine 100mg PO daily (started 12/02) Rifampin 600mg PO daily (started 12/02) -HIV negative -Quant Gold - negative -Note: Disk containing CT + CXR images is in the physical chart. -Cavitary left upper lobe infiltrate/mass. CT scan may be beneficial in further assessment of this process primarily affecting the posterior segment. The cavitary comes/cystic component is best seen on the lateral view measuring 5.2 x 6.4 cm. -Pulm Consult, Dr. Frazier -> bronchoscopy 12/01 AM cancelled, as CT imaging showed clear TB infection f/u sputum studies and sputum PCR -Continue Mucinex 600mg PO BID; Singulair 10mg PO HS; Duonebs RQ6 PRN Hyponatremia 12/28: Sodium of 131. Continue to fluid restrict to less than 2 L per day. 12/27: Patient refusing lab work but agreeable to having labs done tomorrow. 12/24: Per nephrology consult, Dr. 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 Will follow-up serum osmolarity, urine osmolarity, urine sodium and uric acid Nephrology, Dr. Gunn, consulted. Help appreciated. Monitor Sore Throat 12/17: No sore throat reported 12/16: improving likely secondary to cough Continue Cepachol Lozenges BID Will discontinue Enalapril Tachycardia 12/28: HR 107 12/27: tachycardic 124 12/20: continue management 12/18: currently resolved. Continue Lopressor 25 mg po BID. 12/17: fewer episodes of tachycardia over last 24H, asx, Echo with normal EF >53% , negative for abnormalities; cont Lopressor 25mg BID 12/16: Continues to be tachycardic in 120s today. Patient is asymptomatic Will follow up EKG and official Echo report. Lopressor increased to 25 mg po BID per cardiology. D-dimer 226, thyroid studies normal. 12/15: EKG and Echocardiogram ordered to evaluate tachycardia. Cardiology, Neil Spencer, consulted. Help appreciated. 12/13: Pharmacy reviewed meds and noted tachycardia could be attributed to Isoniazid and Rifampin. 12/07-12/12: persistent tachycardia since 12/07/16 (100's-120's). Pharmacy is looking into this. Duoneb PRN is on, however patient hasn't received a recent dose. -TSH + free T4 - both WNL -> r/o hyperthyroidism -CXR 12/08- Increasing opacity of left lung with cavitation in the left apex and left apical pleural thickening. Likely infectious process. Consider fungal or atypical mycobacterial. 5 mm nodule in right apex. Consider further evaluation with computed tomography. Diabetes Mellitus type II Blood glucose 226 Metformin 1000mg PO BID Novolog 5 U SC TIDAC Lantus 15 U SC HS Neurontin 300mg PO TID A1c 12.4 FLP grossly WNL; HDL 28 L Glucose 233 on admission Alpha Thalassemia Discontinue IV Ferrlicit MCV 69.7 Ferritin 77.3, B12 950 H, folate 11.2, reticulocyte count 1.0 hemoglobinopathy inerpretation - possible Alpha-thalassemia. Fe 28 L, TIBC 243 L, %Sat 12 L haptoglobin 501 H Monitor outpatient Hypertension normotensive Discontinued Enalapril 5mg PO due to cough Started on Losartan 25 mg po daily Left Hand Edema 12/23: improved Continue warm compresses Prophylaxis respiratory isolation Vegetarian Diet, carb consistent, low sodium Pepcid 20mg PO d Lovenox 40 mg SC daily Zofran 4mg PO Q6 PRN SCDs <Reyna Huber V - Last Filed: 12/28/16 23:41> Objective - Vital Signs/Intake and Output Vital Signs (last 24 hours): Temp Pulse Resp BP Pulse Ox 97.5 F L 104 H 18 123/82 96 12/28/16 21:50 12/28/16 21:50 12/28/16 21:50 12/28/16 21:50 12/28/16 21:50 Intake and Output: 12/28/16 12/29/16 18:59 06:59 Intake Total 480 200 Output Total 1 Balance 480 199 - Medications Medications: Current Medications Acetaminophen (Tylenol 325mg Tab) 650 mg PO Q6 PRN PRN Reason: Headache Last Admin: 12/04/16 20:53 Dose: 650 mg Benzocaine/Menthol (Cepacol Sore Throat) 1 liz MT BID PRN PRN Reason: Sore Throat Last Admin: 12/16/16 09:13 Dose: 1 liz Enoxaparin Sodium (Lovenox) 40 mg SC DAILY [facility] Last Admin: 12/28/16 09:43 Dose: 40 mg Ethambutol HCl (Myambutol) 1,200 mg PO DAILY [facility] Last Admin: 12/28/16 09:40 Dose: 1,200 mg Famotidine (Pepcid) 20 mg PO 0800 [facility] Last Admin: 12/28/16 09:40 Dose: 20 mg Gabapentin (Neurontin) 300 mg PO TID [facility] Last Admin: 12/28/16 17:30 Dose: 300 mg Guaifenesin (Mucinex La) 600 mg PO 0800,2000 [facility] Last Admin: 12/28/16 19:55 Dose: 600 mg Insulin Aspart (Novolog) 5 unit SC TIDAC [facility] Last Admin: 12/28/16 17:06 Dose: Not Given Insulin Glargine (Lantus) 15 unit SC [facility] Last Admin: 12/28/16 21:45 Dose: Not Given Isoniazid (Niazid) 300 mg PO DAILY [facility] Last Admin: 12/28/16 09:41 Dose: 300 mg Losartan Potassium (Cozaar) 25 mg PO DAILY [facility] Last Admin: 12/28/16 09:39 Dose: 25 mg Metformin HCl (Glucophage) 1,000 mg PO 0800,1800 [facility] Last Admin: 12/28/16 17:30 Dose: 1,000 mg Metoprolol Tartrate (Lopressor) 25 mg PO BID [facility] Last Admin: 12/20/16 17:36 Dose: 25 mg Montelukast Sodium (Singulair) 10 mg PO HS [facility] Last Admin: 12/28/16 21:44 Dose: 10 mg Ondansetron HCl (Zofran Inj) 4 mg IVP Q6H PRN PRN Reason: Nausea/Vomiting Last Admin: 12/06/16 12:52 Dose: 4 mg Pyrazinamide (Pyrazinamide) 1,500 mg PO DAILY [facility] Last Admin: 12/28/16 10:53 Dose: 1,500 mg Pyridoxine HCl (Vitamin B6) 100 mg PO DAILY [facility] Last Admin: 12/28/16 09:41 Dose: 100 mg Rifampin (Rifampin Cap) 600 mg PO DAILY [facility] Last Admin: 12/28/16 09:41 Dose: 600 mg - Labs Labs: 12/20/16 10:58 12/28/16 10:34 PT 13.6 SECONDS (9.7-12.2) H 12/01/16 07:37 INR 1.2 12/01/16 07:37 APTT 28 SECONDS (21-34) 12/01/16 07:37 Attending/Attestation - Attestation I have personally seen and examined this patient.: Yes I have fully participated in the care of the patient.: Yes I have reviewed all pertinent clinical information, including history, physical exam and plan: Yes Notes (Text): Patient seen, examined, and case discussed with day-time resident. Patient seen at bedside this morning. Patient denies acute complaints. Spoke with patient's friend Gama over the phone who assisted in translation. Explained to the patient he still has persistent infection of tuberculosis and will need to coordinate with case management and infectious disease to determine effectiveness of current therapy before we can considering discharging him. Patient appeared sad following this conversation but reported understanding. Assessment/Plan 1) Tuberculosis, active * Airborne precautions * Pulmonary (Dr. Frazier) on consult help appreciated * Infectious disease (Dr. Espinal) on consult help appreciated * Ethambutol 1200mg PO daily (started 12/02) Isoniazid 300mg PO daily (started 12/02) Prazinamide 1500mg PO daily (started 12/02) (increased 12/08 for weight based dosing) Pyridoxine 100mg PO daily (started 12/02) Rifampin 600mg PO daily (started 12/02) f/u AFB/sputum cultures twice a week until 3 negative cultures result-- discussed with Salina Willoughby - Mycobacterial Sputum Cultures 12/26 AFB positive acid fast bacilli, 12/21 AFB positive acid fast bacilli, 4 AFB positive acid fast bacilli, 4/ AFB positive acid fast bacilli, /12 AFB positive acid fast bacilli, no for one week 12/14 AFB: positive acid fast bacilli, no for one week 12/13 AFB 2+ acid fast bacilli, culture pending 12/12: AFB 2+ acid fast bacilli, culture pending 12/10 AFB: 1+ acid fast bacilli, No isolated in one week 12/09 AFB: 1+ acid fast bacilli, No isolated in one week 12/06 AFB: 2+ acid fast bacilli, no isolated in one week 12/04 AFB: 2+ acid fast bacilli, prelim mycobacteria tuberculosis complex 12/02 AFB: 2+ acid fast bacilli, prelim mycobacteria tuberculosis complex, sensitive to Rifampin, Streptomycin, Pyranzamide; awaiting isoniziad sensitivitiy 12/01 AFB: 1+ acid fast bacilli, prelim mycobacteria tuberculosis complex, negative Myco avium 11/30 AFB: 1+ acid fast bacilli, prelim mycobacteria tuberculosis complexv negative Myco avium * HIV negative * Quant Gold - negative * Note: Disk containing CT + CXR images is in the physical chart. * 12/08/16 CT Chest: extensive small ill defined nodular opacities throughout left upper lobe as well as superior segment left lower lobe with areas of freeman consultation. Extensive cavitation amidst a large area of consolidation in the left apex. Scattered calficied grandulomas bilaterally. 2)Tachycardia * Thyroid studies: within normal * 12/08/16 CT Chest: extensive small ill defined nodular opacities throughout left upper lobe as well as superior segment left lower lobe with areas of freeman consultation. Extensive cavitation amidst a large area of consolidation in the left apex. Scattered calcified grandulomas bilaterally. * likely secondary to acute infection and possible anti-tB therapy * d-dimer: negative * Thyroid studies: normal * Cardiology (Dr. Trejo) consult-->help appreciated * Patient started on Lopressor 25mg PO bid 3) Diabetes, type 2; uncontrolled with associated neuropathy * Metformin 1000mg PO bid * Novolog sliding scale sub * Neurontin 300mg PO TID * A1c 12.4 * Losartan 25mg PO daily 4) Alpha Thalassemia * MCV 69.7 * Ferritin 77.3, B12 950 H, folate 11.2, reticulocyte count 1.0 * hemoglobinopathy inerpretation - possible Alpha-thalassemia. * Fe 28 L, TIBC 243 L, %Sat 12 L * haptoglobin 501 H * Monitor outpatient * Started on Ferrlecit IV (started on 12/15-12/23); finished 5) Hypertension * d/c Enalapril 5mg PO daily * started on Losartan 25mg PO daily * started on Lopressor 25mg PO bid 6) Electrolyte Imbalance * Monitor and replete when necessary 7) Hyponatremia * Improved to 131 on fluid restriction * serum osmolarity: 275 urine osmolarity, urine sodium, uric acid-pending * fluid restriction * Nephrology: Dr Moralez on board 8) Prophylaxis * respiratory isolation * Vegetarian Diet, carb consistent, low sodium * Pepcid 20mg PO daily * Heparin 5000 units SC q8H * Zofran 4mg PO Q6 PRN * SCDs
[2016-12-28 11:16] LABS: CHLORIDE 96 mmol/L (98-107); SODIUM 131 mmol/L (132-148)
[2016-12-28 11:17] LABS: POTASSIUM 3.8 mmol/L (3.6-5.2)
[2016-12-28 11:19] LABS: ALB/GLOB RATIO 1.2 (1.0-2.1); ALKALINE PHOSPHATASE 82 U/L (38-126); ALT/SGPT 21 U/L (21-72); AST/SGOT 24 U/L (17-59); BILIRUBIN,TOTAL 0.2 mg/dL (0.2-1.3); BLOOD UREA NITROGEN 6 mg/dL (9-20); CARBON DIOXIDE 23 mmol/L (22-30); GFR AFRICAN-AMERICAN > 60; GLUCOSE,RANDOM 226 mg/dL (75-110); TOTAL PROTEIN 7.3 g/dL (6.3-8.3)
[2016-12-28 11:20] LABS: CALCIUM 9.2 mg/dl (8.6-10.4)
[2016-12-28] MEDS ORDERED: (Novolog) Insulin Aspart, Recombinant 100 u/ml 10 ml vial SC SCH (13:16)
[2016-12-28] MEDS ORDERED: (Lantus) Insulin Glargine, Recombinant SC SCH (22:00)
[2016-12-28 23:45] VITALS: TEMP 98.3
[2016-12-29] MEDS: (Novolog) Insulin Aspart, Recombinant 100 u/ml 10 ml vial SC SCH ×2 (08:45→12:20)
[2016-12-29 08:53] VITALS: RESP 20; O2SAT 97
[2016-12-29] MEDS: Pyridoxine 100 mg Tab PO SCH (09:45)
[2016-12-29] MEDS: guaiFENesin 600 mg ER Tab PO SCH (09:46)
[2016-12-29] MEDS: Enoxaparin 40 mg Syringe SC SCH (09:46)
[2016-12-29 17:24] VITALS: BP 144/94; PULSE 101
--- NOTE | 2016-12-29 19:43 | CP.PCM.DIS ---
<Zahira Vega - Last Filed: 12/29/16 20:08> Provider - Provider Date of Admission: 11/30/16 10:23 Attending physician: Reyna Huber DO Primary care physician: Dr. Johan Cardoso Consults: Pulmonology: Dr. Frazier ID: Dr. Espinal Cardiology: Dr. Trejo Nephrology: Dr. Gunn Time Spent in preparation of Discharge (in minutes): 31 Diagnosis - Discharge Diagnosis (1) Pulmonary tuberculosis with cavitation Status: Acute Comment: please see hospital course (2) Tachycardia Status: Acute Comment: please see hospital course (3) Hyponatremia Status: Acute Comment: please see hospital course (4) Hypertension Status: Acute Comment: please see hospital course (5) Iron (Fe) deficiency anemia Status: Acute (6) Diabetes Status: Chronic Comment: please see hospital course Hospital Course - Lab Results Lab Results: Micro Results 12/27/16 09:56 Other: Please Indicate Mycobacterial Culture - Preliminary 12/21/16 08:48 Other: Please Indicate Mycobacterial Culture - Preliminary 12/12/16 08:14 Other: Please Indicate Mycobacterial Culture - Preliminary 12/13/16 06:49 Other: Please Indicate Mycobacterial Culture - Preliminary 12/10/16 11:11 Other: Please Indicate Mycobacterial Culture - Preliminary 12/26/16 08:10 Other: Please Indicate Mycobacterial Culture - Preliminary 12/19/16 12:25 Other: Please Indicate Mycobacterial Culture - Preliminary 12/02/16 08:20 Other: Please Indicate Mycobacterial Culture - Preliminary 12/17/16 14:53 Other: Please Indicate Mycobacterial Culture - Preliminary 12/15/16 06:15 Other: Please Indicate Mycobacterial Culture - Preliminary 12/09/16 07:13 Other: Please Indicate Mycobacterial Culture - Preliminary 12/14/16 13:37 Other: Please Indicate Mycobacterial Culture - Preliminary 12/06/16 14:42 Other: Please Indicate Mycobacterial Culture - Preliminary 12/04/16 09:53 Other: Please Indicate Mycobacterial Culture - Preliminary 12/01/16 12:21 Other: Please Indicate Mycobacterial Culture - Preliminary 12/04/16 Unknown Sputum Gram Stain - Final 12/04/16 Unknown Sputum Sputum Culture - Final NORMAL ORAL MICAELA 11/30/16 11:15 Blood Blood Culture - Final NO GROWTH AFTER 5 DAYS 11/30/16 11:15 Blood Gram Stain - Final TEST NOT PERFORMED Most Recent Lab Values WBC 11.2 K/uL (4.8-10.8) H 12/20/16 10:58 RBC 5.63 Mil/uL (4.40-5.90) 12/20/16 10:58 Hgb 13.0 g/dL (12.0-18.0) 12/20/16 10:58 Hct 40.3 % (35.0-51.0) 12/20/16 10:58 MCV 71.7 fL (80.0-94.0) L 12/20/16 10:58 MCH 23.1 pg (27.0-31.0) L 12/20/16 10:58 MCHC 32.2 g/dL (33.0-37.0) L 12/20/16 10:58 RDW 18.8 % (11.5-14.5) H 12/20/16 10:58 Plt Count 383 K/uL (130-400) 12/20/16 10:58 MPV 7.2 fL (7.2-11.7) 12/20/16 10:58 Neut % (Auto) 72.1 % (50.0-75.0) 12/20/16 10:58 Lymph % (Auto) 13.3 % (20.0-40.0) L 12/20/16 10:58 [place] % (Auto) 10.0 % (0.0-10.0) 12/20/16 10:58 Eos % (Auto) 4.5 % (0.0-4.0) H 12/20/16 10:58 Baso % (Auto) 0.1 % (0.0-2.0) 12/20/16 10:58 Neut # 8.1 K/uL (1.8-7.0) H 12/20/16 10:58 Lymph # 1.5 K/uL (1.0-4.3) 12/20/16 10:58 [place] # 1.1 K/uL (0.0-0.8) H 12/20/16 10:58 Eos # 0.5 K/uL (0.0-0.7) 12/20/16 10:58 Baso # 0.0 K/uL (0.0-0.2) 12/20/16 10:58 Neutrophils % (Manual) 81 % (50-75) H 11/30/16 10:53 Band Neutrophils % 2 % (0-2) 11/30/16 10:53 Lymphocytes % (Manual) 11 % (20-40) L 11/30/16 10:53 Monocytes % (Manual) 5 % (0-10) 11/30/16 10:53 Eosinophils % (Manual) 1 % (0-4) 11/30/16 10:53 Differential Comment 12/05/16 07:01 Platelet Estimate Normal (NORMAL) 11/30/16 10:53 Polychromasia Slight 11/30/16 10:53 Hypochromasia (manual) Slight 11/30/16 10:53 Anisocytosis (manual) Slight 11/30/16 10:53 Tear Drop Cells Slight 11/30/16 10:53 Crawford Cells Slight 11/30/16 10:53 Retic Count 1.0 % (0.5-1.5) 12/01/16 07:37 Hemoglobin A 97.0 Percent (>96.0) 12/01/16 07:37 Hemoglobin A2 2.0 Percent (1.8-3.5) 12/01/16 07:37 Hemoglobin C 0.0 Percent (0.0-0.0) 12/01/16 07:37 Hemoglobin F () <1.0 Percent (<2.0) 12/01/16 07:37 Hemoglobin S 0.0 Percent (0.0-0.0) 12/01/16 07:37 Variant Hemoglobin 0.0 Percent (0.0-0.0) 12/01/16 07:37 Hemoglobinopathy Red Blood Count 5.57 Mill/mcL (4.20-5.80) 12/01/16 07:37 Hemoglobinopathy Hct 39.2 % (38.5-50.0) 12/01/16 07:37 Hemoglobinopathy Hgb 12.6 g/dL (13.2-17.1) L 12/01/16 07:37 Hemoglobinopathy MCV 70.4 fL (80.0-100.0) L 12/01/16 07:37 Hemoglobinopathy MCH 22.6 pg (27.0-33.0) L 12/01/16 07:37 Hemoglobinopathy RDW 17.2 % (11.0-15.0) H 12/01/16 07:37 Hemoglobinopathy Interp See note (()) 12/01/16 07:37 Haptoglobin 501 mg/dL (43-212) H 12/01/16 07:37 PT 13.6 SECONDS (9.7-12.2) H 12/01/16 07:37 INR 1.2 12/01/16 07:37 APTT 28 SECONDS (21-34) 12/01/16 07:37 D-Dimer, Quantitative 226 ng/mlDDU (0-243) 12/15/16 11:13 Sodium 131 mmol/L (132-148) L 12/28/16 10:34 Potassium 3.8 mmol/L (3.6-5.2) 12/28/16 10:34 Chloride 96 mmol/L (98-107) L 12/28/16 10:34 Carbon Dioxide 23 mmol/L (22-30) 12/28/16 10:34 Anion Gap 15 (10-20) 12/28/16 10:34 BUN 6 mg/dL (9-20) L 12/28/16 10:34 Creatinine 0.5 MG/DL (0.8-1.5) L 12/28/16 10:34 Est GFR ( Amer) > 60 12/28/16 10:34 Est GFR (Non-Af Amer) > 60 12/28/16 10:34 POC Glucose (mg/dL) 105 mg/dL (65-110) 12/29/16 12:24 Random Glucose 226 mg/dL (75-110) H 12/28/16 10:34 Hemoglobin A1c 12.4 % (4.2-6.5) H 12/01/16 07:37 Serum Osmolality 275 mosm/kg (272-300) 12/18/16 06:59 Uric Acid 6.8 mg/dL (3.5-8.5) 12/18/16 06:59 Calcium 9.2 mg/dl (8.6-10.4) 12/28/16 10:34 Phosphorus 4.0 mg/dL (2.5-4.5) 12/17/16 11:24 Magnesium 1.8 mg/dL (1.6-2.3) 12/18/16 06:59 Iron 28 ug/dL (49-181) L 12/02/16 04:00 TIBC 243 ug/dL (250-450) L 12/02/16 04:00 % Saturation 12 (20-55) L 12/02/16 04:00 Ferritin 77.3 ng/mL 12/01/16 07:37 Total Bilirubin 0.2 mg/dL (0.2-1.3) 12/28/16 10:34 AST 24 U/L (17-59) 12/28/16 10:34 ALT 21 U/L (21-72) D 12/28/16 10:34 Alkaline Phosphatase 82 U/L (38-126) 12/28/16 10:34 Total Protein 7.3 g/dL (6.3-8.3) 12/28/16 10:34 Albumin 3.9 g/dL (3.5-5.0) 12/28/16 10:34 Globulin 3.4 gm/dL (2.2-3.9) 12/28/16 10:34 Albumin/Globulin Ratio 1.2 (1.0-2.1) 12/28/16 10:34 Triglycerides 116 mg/dL (0-149) 12/01/16 07:37 Cholesterol 157 mg/dL (0-199) 12/01/16 07:37 LDL Cholesterol Direct 93 mg/dL (0-129) 12/01/16 07:37 HDL Cholesterol 28 mg/dL (30-70) L 12/01/16 07:37 Vitamin B12 950 pg/mL (239-931) H 12/01/16 07:37 Folate 11.2 ng/mL 12/01/16 07:37 Free T4 1.57 ng/dL (0.78-2.19) 12/09/16 06:25 Total T3 2.18 nmol/L (1.49-2.60) 12/15/16 11:13 TSH 3rd Generation 3.05 mIU/L (0.46-4.68) 12/19/16 08:32 Cortisol AM Sample 13.7 ug/dL (4.46-22.7) 12/21/16 08:12 Urine Color Yellow (YELLOW) 11/30/16 10:53 Urine Clarity Clear (Clear) 11/30/16 10:53 Urine pH 7.0 (5.0-8.0) 11/30/16 10:53 Ur Specific [place] 1.008 (1.003-1.030) 11/30/16 10:53 Urine Protein Negative mg/dL (NEGATIVE) 11/30/16 10:53 Urine Glucose (UA) 3+ mg/dL (Normal) H 11/30/16 10:53 Urine Ketones Negative mg/dL (NEGATIVE) 11/30/16 10:53 Urine Blood Negative (NEGATIVE) 11/30/16 10:53 Urine Nitrate Negative (NEGATIVE) 11/30/16 10:53 Urine Bilirubin Negative (NEGATIVE) 11/30/16 10:53 Urine Urobilinogen Normal mg/dL (0.2-1.0) 11/30/16 10:53 Ur Leukocyte Esterase Neg Prakash/uL (Negative) 11/30/16 10:53 Urine WBC (Auto) 1 /hpf (0-5) 11/30/16 10:53 Urine RBC (Auto) < 1 /hpf (0-3) 11/30/16 10:53 Urine Osmolality 212 mosm/kg (300-1000) L 12/21/16 23:00 Ur Random Creatinine 20.5 mg/dL 12/20/16 22:36 U Random Total Protein 15.0 mg/dL (0.0-12.0) H 12/20/16 22:36 Ur Random Sodium 41 mmol/L 12/21/16 23:00 Ur Random Potassium 29.0 mmol/L 12/19/16 07:29 Ur Random Uric Acid 16.9 mg/dL 12/19/16 07:29 Urine Microalbumin 6.2 mg/L (0.0-16.6) 12/20/16 22:36 HIV 1&2 Antibody Screen Negative (NEGATIVE) 12/02/16 13:04 Ur L.pneumophila Ag Negative (NEGATIVE) 12/04/16 Unknown TB Test (QFT) Nil 0.18 IU/mL (()) 12/01/16 07:37 TB Test Mitogen - Nil 3.07 IU/mL (()) 12/01/16 07:37 TB Test TB - Nil 0.02 IU/mL (()) 12/01/16 07:37 TB Test (QFT) Negative (Negative) 12/01/16 07:37 - Hospital Course Hospital Course: On hospital admission: CC: "Cough" HPI: 51 year old male presents to the ED after being sent by his PMD for possible active TB. Patient has been seen several times by his PMD for cough and easy fatigue for the past month. The cough progressively got worse and CXR showed left upper lobe lesions. CT showed infiltrate with cavities. The PMD advised the pt to seek admission to [facility] for potentially active TB. The patient was unaware of ever being tested for TB previously. He admits to subjective fevers, fatigue, cough, LE weakness and pain. Patient denies hemoptysis, night sweats, weight loss, abdominal pain, change in appetite, n/v, LE edema, or any additional complaints at this time. 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 He chews tobacco and previously drank alcohol but has not in some time. During hospital course: Imagin12/15/16: Echocardiogram: The left ventricular function is normal. The left ventricular ejection fraction is within normal range. No regional wall motion abnormalities noted. 12/08/16 CT Chest: extensive small ill defined nodular opacities throughout left upper lobe as well as superior segment left lower lobe with areas of freeman consolidation. Extensive cavitation amidst a large area of consolidation in the left apex. Scattered calficied grandulomas bilaterally. 12/08/16: Chest Portable: Increasing opacity throughout left lung. There remains apparent cavitation in the left apex. There is left apical pleural thickening. There is no right-sided opacity. There is 5 mm nodule in right lung apex, just inferior to the 1st rib. 11/30/16: Chest PA/LAT: Cavitary left upper lobe infiltrate/mass. The cavitary comes/cystic component is best seen on lateral view measuring 5.2 x 6.4 cm. 11/30/16: EKG: sinus tachycardia, otherwise normal EKG Tuberculosis, active * Per evaluation by TB clinic, patient was granted permission to be discharged home after agreeing to remain isolated in home with his and continue taking all anti-tuberculosis medications daily. Patient signed all documentations provided. Patient will be required to follow-up at the TB Clinic. * Airborne precautions * Pulmonary (Dr. Frazier) was consulted * Infectious disease (Dr. Espinal) consulted * Ethambutol 1200mg PO daily (started 12/02) Isoniazid 300mg PO daily (started 12/02) Prazinamide 1500mg PO daily (started 12/02) (increased 12/08 for weight based dosing) Pyridoxine 100mg PO daily (started 12/02) Rifampin 600mg PO daily (started 12/02) AFB/sputum cultures were taken twice a week. Per [facility] Willoughby, would require to continue collecting as such until 3 negative readings obtained. - Mycobacterial Sputum Cultures 12/26 AFB positive acid fast bacilli 12/21 AFB positive acid fast bacilli 12/19 AFB positive acid fast bacilli 12/17 AFB positive acid fast bacilli 12/15 AFB positive acid fast bacilli, no for one week 12/14 AFB: positive acid fast bacilli, no for one week 12/13 AFB 2+ acid fast bacilli, culture pending 12/12: AFB 2+ acid fast bacilli, culture pending 12/10 AFB: 1+ acid fast bacilli, No isolated in one week 12/09 AFB: 1+ acid fast bacilli, No isolated in one week 12/06 AFB: 2+ acid fast bacilli, no isolated in one week 12/04 AFB: 2+ acid fast bacilli, prelim mycobacteria tuberculosis complex 12/02 AFB: 2+ acid fast bacilli, prelim mycobacteria tuberculosis complex, sensitive to Rifampin, Streptomycin, Pyranzamide; awaiting isoniziad sensitivitiy 12/01 AFB: 1+ acid fast bacilli, prelim mycobacteria tuberculosis complex, negative Myco avium 11/30 AFB: 1+ acid fast bacilli, prelim mycobacteria tuberculosis complexv negative Myco avium * HIV negative * Quant Gold - negative * Note: Disk containing CT + CXR images is in the physical chart. Tachycardia * Thyroid studies: within normal * likely secondary to acute infection and possible anti-tuberculosis therapy * d-dimer: negative * Cardiology (Dr. Trejo) was consulted. * Patient started on Lopressor 25mg PO bid Diabetes, type 2; uncontrolled with associated neuropathy * Metformin 1000mg PO bid * Novolog sliding scale sub * Neurontin 300mg PO TID * Hemoglobin A1c 12.4 * Started on Losartan 25mg PO daily Alpha Thalassemia * MCV 69.7 * Ferritin 77.3, B12 950 H, folate 11.2, reticulocyte count 1.0 * hemoglobinopathy inerpretation - possible Alpha-thalassemia. * Fe 28 L, TIBC 243 L, %Sat 12 L * haptoglobin 501 H * Monitor as an outpatient * Started on Ferrlecit IV (started on 12/15-12/23) Hypertension * started on Losartan 25mg PO daily * started on Lopressor 25mg PO bid Electrolyte Imbalance * Monitored and repleted when necessary Hyponatremia * Improved to 131 on fluid restriction * serum osmolarity: 275 urine osmolarity, urine sodium, uric acid-pending * fluid restriction * Nephrology: Dr Moralez was consulted Prophylaxis * respiratory isolation * Vegetarian Diet, carb consistent, low sodium * Pepcid 20mg PO daily * Heparin 5000 units SC q8H --> q12h * Zofran 4mg PO Q6 PRN * SCDs Please note this is a summary of the hospital course. For full details, please see patient chart. Discharge Instructions: Patient medically stable for discharge home. Patient instructed to take the following medications as prescribed: Rifampin 600 mg by mouth daily Isoniazid 300 mg by mouth daily Pyrazinamide 1500 mg by mouth daily Ethambutol 1200 mg by mouth daily Pyridoxine 100 mg by mouth daily Metformin 1000 mg by mouth twice daily Gabapentin 300 mg by mouth three times daily Metoprolol 25 mg by mouth twice daily Losartan 25 mg by mouth daily Patient instructed to remain isolated in the home. Patient sent home with box of N-95 masks. Patient instructed to follow-up with the Tuberculosis Clinic tomorrow, 12/29/16, at 8:00 am. Patient given detailed instructions at bedside. Patient understands and agrees. - Date & Time of H&P Date of H&P: 11/30/16 Time of H&P: 13:13 Discharge Exam - Head Exam Head Exam: ATRAUMATIC, NORMAL INSPECTION, NORMOCEPHALIC - Eye Exam Eye Exam: EOMI, Normal appearance, PERRL. absent: Scleral icterus Pupil Exam: PERRL - ENT Exam ENT Exam: Mucous Membranes Moist - Respiratory Exam Respiratory Exam: Clear to PA & Lateral, NORMAL BREATHING PATTERN, UNREMARKABLE. absent: Rales, Rhonchi, Wheezes - Cardiovascular Exam Cardiovascular Exam: Tachycardia, +S1, +S2 - GI/Abdominal Exam GI & Abdominal Exam: Normal Bowel Sounds. absent: Distended, Firm - Extremities Exam Extremities exam: full ROM, pedal pulses present - Neurological Exam Neurological exam: Alert, Normal Gait, Oriented x3 - Psychiatric Exam Psychiatric exam: Depressed - Skin Skin Exam: Intact, Normal Color, Warm Discharge Plan - Discharge Medications Prescriptions: RX: Ethambutol [Myambutol] 1,200 mg PO DAILY #30 tab RX: Gabapentin [Neurontin] 300 mg PO TID #90 cap RX: Isoniazid [Niazid] 300 mg PO DAILY #30 tab RX: Losartan [Cozaar] 25 mg PO DAILY #30 tab RX: metFORMIN [glucOPHAGE] 1,000 mg PO 0800,1800 #60 tab RX: Metoprolol Tartrate [Lopressor] 25 mg PO BID #60 tab RX: Pyrazinamide 1,500 mg PO DAILY #30 tab RX: Pyridoxine [Vitamin B6] 100 mg PO DAILY #30 tab RX: rifAMPin [Rifampin Cap] 600 mg PO DAILY #30 cap - Follow Up Plan Condition: GOOD Disposition: HOME/ ROUTINE Instructions: Pyrazinamide (By mouth), Pyridoxine (Vitamin B-6) (By mouth), Rifampin (By mouth), Ethambutol (By mouth), Isoniazid (By mouth), Tuberculosis ( GEN) Additional Instructions: Patient medically stable for discharge home. Patient instructed to take the following medications as prescribed: Rifampin 600 mg by mouth daily Isoniazid 300 mg by mouth daily Pyrazinamide 1500 mg by mouth daily Ethambutol 1200 mg by mouth daily Pyridoxine 100 mg by mouth daily Metformin 1000 mg by mouth twice daily Gabapentin 300 mg by mouth three times daily Metoprolol 25 mg by mouth twice daily Losartan 25 mg by mouth daily Patient instructed to remain isolated in the home. Patient sent home with box of N-95 masks. Patient instructed to follow-up with the Tuberculosis Clinic tomorrow, 12/29/16, at 8:00 am. Patient given detailed instructions at bedside. Patient understands and agrees. <Reyna Huber V - Last Filed: 12/29/16 21:00> Provider - Provider Date of Admission: 11/30/16 10:23 Attending physician: Reyna Huber, Hospital Course - Lab Results Lab Results: Micro Results 12/27/16 09:56 Other: Please Indicate Mycobacterial Culture - Preliminary 12/21/16 08:48 Other: Please Indicate Mycobacterial Culture - Preliminary 12/12/16 08:14 Other: Please Indicate Mycobacterial Culture - Preliminary 12/13/16 06:49 Other: Please Indicate Mycobacterial Culture - Preliminary 12/10/16 11:11 Other: Please Indicate Mycobacterial Culture - Preliminary 12/26/16 08:10 Other: Please Indicate Mycobacterial Culture - Preliminary 12/19/16 12:25 Other: Please Indicate Mycobacterial Culture - Preliminary 12/02/16 08:20 Other: Please Indicate Mycobacterial Culture - Preliminary 12/17/16 14:53 Other: Please Indicate Mycobacterial Culture - Preliminary 12/15/16 06:15 Other: Please Indicate Mycobacterial Culture - Preliminary 12/09/16 07:13 Other: Please Indicate Mycobacterial Culture - Preliminary 12/14/16 13:37 Other: Please Indicate Mycobacterial Culture - Preliminary 12/06/16 14:42 Other: Please Indicate Mycobacterial Culture - Preliminary 12/04/16 09:53 Other: Please Indicate Mycobacterial Culture - Preliminary 12/01/16 12:21 Other: Please Indicate Mycobacterial Culture - Preliminary 12/04/16 Unknown Sputum Gram Stain - Final 12/04/16 Unknown Sputum Sputum Culture - Final NORMAL ORAL MICAELA 11/30/16 11:15 Blood Blood Culture - Final NO GROWTH AFTER 5 DAYS 11/30/16 11:15 Blood Gram Stain - Final TEST NOT PERFORMED Most Recent Lab Values WBC 11.2 K/uL (4.8-10.8) H 12/20/16 10:58 RBC 5.63 Mil/uL (4.40-5.90) 12/20/16 10:58 Hgb 13.0 g/dL (12.0-18.0) 12/20/16 10:58 Hct 40.3 % (35.0-51.0) 12/20/16 10:58 MCV 71.7 fL (80.0-94.0) L 12/20/16 10:58 MCH 23.1 pg (27.0-31.0) L 12/20/16 10:58 MCHC 32.2 g/dL (33.0-37.0) L 12/20/16 10:58 RDW 18.8 % (11.5-14.5) H 12/20/16 10:58 Plt Count 383 K/uL (130-400) 12/20/16 10:58 MPV 7.2 fL (7.2-11.7) 12/20/16 10:58 Neut % (Auto) 72.1 % (50.0-75.0) 12/20/16 10:58 Lymph % (Auto) 13.3 % (20.0-40.0) L 12/20/16 10:58 [place] % (Auto) 10.0 % (0.0-10.0) 12/20/16 10:58 Eos % (Auto) 4.5 % (0.0-4.0) H 12/20/16 10:58 Baso % (Auto) 0.1 % (0.0-2.0) 12/20/16 10:58 Neut # 8.1 K/uL (1.8-7.0) H 12/20/16 10:58 Lymph # 1.5 K/uL (1.0-4.3) 12/20/16 10:58 [place] # 1.1 K/uL (0.0-0.8) H 12/20/16 10:58 Eos # 0.5 K/uL (0.0-0.7) 12/20/16 10:58 Baso # 0.0 K/uL (0.0-0.2) 12/20/16 10:58 Neutrophils % (Manual) 81 % (50-75) H 11/30/16 10:53 Band Neutrophils % 2 % (0-2) 11/30/16 10:53 Lymphocytes % (Manual) 11 % (20-40) L 11/30/16 10:53 Monocytes % (Manual) 5 % (0-10) 11/30/16 10:53 Eosinophils % (Manual) 1 % (0-4) 11/30/16 10:53 Differential Comment 12/05/16 07:01 Platelet Estimate Normal (NORMAL) 11/30/16 10:53 Polychromasia Slight 11/30/16 10:53 Hypochromasia (manual) Slight 11/30/16 10:53 Anisocytosis (manual) Slight 11/30/16 10:53 Tear Drop Cells Slight 11/30/16 10:53 Crawford Cells Slight 11/30/16 10:53 Retic Count 1.0 % (0.5-1.5) 12/01/16 07:37 Hemoglobin A 97.0 Percent (>96.0) 12/01/16 07:37 Hemoglobin A2 2.0 Percent (1.8-3.5) 12/01/16 07:37 Hemoglobin C 0.0 Percent (0.0-0.0) 12/01/16 07:37 Hemoglobin F () <1.0 Percent (<2.0) 12/01/16 07:37 Hemoglobin S 0.0 Percent (0.0-0.0) 12/01/16 07:37 Variant Hemoglobin 0.0 Percent (0.0-0.0) 12/01/16 07:37 Hemoglobinopathy Red Blood Count 5.57 Mill/mcL (4.20-5.80) 12/01/16 07:37 Hemoglobinopathy Hct 39.2 % (38.5-50.0) 12/01/16 07:37 Hemoglobinopathy Hgb 12.6 g/dL (13.2-17.1) L 12/01/16 07:37 Hemoglobinopathy MCV 70.4 fL (80.0-100.0) L 12/01/16 07:37 Hemoglobinopathy MCH 22.6 pg (27.0-33.0) L 12/01/16 07:37 Hemoglobinopathy RDW 17.2 % (11.0-15.0) H 12/01/16 07:37 Hemoglobinopathy Interp See note (()) 12/01/16 07:37 Haptoglobin 501 mg/dL (43-212) H 12/01/16 07:37 PT 13.6 SECONDS (9.7-12.2) H 12/01/16 07:37 INR 1.2 12/01/16 07:37 APTT 28 SECONDS (21-34) 12/01/16 07:37 D-Dimer, Quantitative 226 ng/mlDDU (0-243) 12/15/16 11:13 Sodium 131 mmol/L (132-148) L 12/28/16 10:34 Potassium 3.8 mmol/L (3.6-5.2) 12/28/16 10:34 Chloride 96 mmol/L (98-107) L 12/28/16 10:34 Carbon Dioxide 23 mmol/L (22-30) 12/28/16 10:34 Anion Gap 15 (10-20) 12/28/16 10:34 BUN 6 mg/dL (9-20) L 12/28/16 10:34 Creatinine 0.5 MG/DL (0.8-1.5) L 12/28/16 10:34 Est GFR ( Amer) > 60 12/28/16 10:34 Est GFR (Non-Af Amer) > 60 12/28/16 10:34 POC Glucose (mg/dL) 105 mg/dL (65-110) 12/29/16 12:24 Random Glucose 226 mg/dL (75-110) H 12/28/16 10:34 Hemoglobin A1c 12.4 % (4.2-6.5) H 12/01/16 07:37 Serum Osmolality 275 mosm/kg (272-300) 12/18/16 06:59 Uric Acid 6.8 mg/dL (3.5-8.5) 12/18/16 06:59 Calcium 9.2 mg/dl (8.6-10.4) 12/28/16 10:34 Phosphorus 4.0 mg/dL (2.5-4.5) 12/17/16 11:24 Magnesium 1.8 mg/dL (1.6-2.3) 12/18/16 06:59 Iron 28 ug/dL (49-181) L 12/02/16 04:00 TIBC 243 ug/dL (250-450) L 12/02/16 04:00 % Saturation 12 (20-55) L 12/02/16 04:00 Ferritin 77.3 ng/mL 12/01/16 07:37 Total Bilirubin 0.2 mg/dL (0.2-1.3) 12/28/16 10:34 AST 24 U/L (17-59) 12/28/16 10:34 ALT 21 U/L (21-72) D 12/28/16 10:34 Alkaline Phosphatase 82 U/L (38-126) 12/28/16 10:34 Total Protein 7.3 g/dL (6.3-8.3) 12/28/16 10:34 Albumin 3.9 g/dL (3.5-5.0) 12/28/16 10:34 Globulin 3.4 gm/dL (2.2-3.9) 12/28/16 10:34 Albumin/Globulin Ratio 1.2 (1.0-2.1) 12/28/16 10:34 Triglycerides 116 mg/dL (0-149) 12/01/16 07:37 Cholesterol 157 mg/dL (0-199) 12/01/16 07:37 LDL Cholesterol Direct 93 mg/dL (0-129) 12/01/16 07:37 HDL Cholesterol 28 mg/dL (30-70) L 12/01/16 07:37 Vitamin B12 950 pg/mL (239-931) H 12/01/16 07:37 Folate 11.2 ng/mL 12/01/16 07:37 Free T4 1.57 ng/dL (0.78-2.19) 12/09/16 06:25 Total T3 2.18 nmol/L (1.49-2.60) 12/15/16 11:13 TSH 3rd Generation 3.05 mIU/L (0.46-4.68) 12/19/16 08:32 Cortisol AM Sample 13.7 ug/dL (4.46-22.7) 12/21/16 08:12 Urine Color Yellow (YELLOW) 11/30/16 10:53 Urine Clarity Clear (Clear) 11/30/16 10:53 Urine pH 7.0 (5.0-8.0) 11/30/16 10:53 Ur Specific [place] 1.008 (1.003-1.030) 11/30/16 10:53 Urine Protein Negative mg/dL (NEGATIVE) 11/30/16 10:53 Urine Glucose (UA) 3+ mg/dL (Normal) H 11/30/16 10:53 Urine Ketones Negative mg/dL (NEGATIVE) 11/30/16 10:53 Urine Blood Negative (NEGATIVE) 11/30/16 10:53 Urine Nitrate Negative (NEGATIVE) 11/30/16 10:53 Urine Bilirubin Negative (NEGATIVE) 11/30/16 10:53 Urine Urobilinogen Normal mg/dL (0.2-1.0) 11/30/16 10:53 Ur Leukocyte Esterase Neg Prakash/uL (Negative) 11/30/16 10:53 Urine WBC (Auto) 1 /hpf (0-5) 11/30/16 10:53 Urine RBC (Auto) < 1 /hpf (0-3) 11/30/16 10:53 Urine Osmolality 212 mosm/kg (300-1000) L 12/21/16 23:00 Ur Random Creatinine 20.5 mg/dL 12/20/16 22:36 U Random Total Protein 15.0 mg/dL (0.0-12.0) H 12/20/16 22:36 Ur Random Sodium 41 mmol/L 12/21/16 23:00 Ur Random Potassium 29.0 mmol/L 12/19/16 07:29 Ur Random Uric Acid 16.9 mg/dL 12/19/16 07:29 Urine Microalbumin 6.2 mg/L (0.0-16.6) 12/20/16 22:36 HIV 1&2 Antibody Screen Negative (NEGATIVE) 12/02/16 13:04 Ur L.pneumophila Ag Negative (NEGATIVE) 12/04/16 Unknown TB Test (QFT) Nil 0.18 IU/mL (()) 12/01/16 07:37 TB Test Mitogen - Nil 3.07 IU/mL (()) 12/01/16 07:37 TB Test TB - Nil 0.02 IU/mL (()) 12/01/16 07:37 TB Test (QFT) Negative (Negative) 12/01/16 07:37 Attending/Attestation - Attestation I have personally seen and examined this patient.: Yes I have fully participated in the care of the patient.: Yes I have reviewed all pertinent clinical information, including history, physical exam and plan: Yes Notes (Text): Patient seen, examined, and case discussed with day-time resident. Patient denies acute complaints at bedside. Spoke with community service representative from the state, who reports patient is stable for discharge from hospital per state, but remain on isolation at home. She reports she discussed with patient who verbalized understanding and agrees to remain isolation. Arrangements have been made for patient to have transportation from home to TB clinic in [place], first appointment tomorrow at 8AM. Provided prescription of current anti-TB therapy and cost will be covered and monitored as patient maintains compliance with the TB clinic. Reinforced with patient, must wear N95 mask and cannot use public transportation which he has reported understanding. Discussed with infectious disease, pulmonary, and nephrology, patient is stable for discharge given that he is cleared by the state to be discharge from the hospital and follow-up with the TB clinic. Patient also provided scripts for Metformin 1000mg PO bid for his uncontrolled diabetes, Losartan, Gabapentin 300mg PO tid, and Lopressor 25mg PO bid (one month supply) and patient to follow-up with his PMD for refills. Spoke with patient's friend Gama who translated discharge instructions to the patient who reports understanding and agrees with the plan. Discharge order and discharge instructions discussed with day-time resident. This is a summary of patient's hospitalization. Please see EMR for further details. Assessment/Plan 1) Tuberculosis, active * Per state, patient is stable for discharge. Patient is setup for TB clinic in [place], first appointment tomorrow 8am. Script provided of current TB therapy. Patient to continue therapy and surveillance per TB clinic. * Discussed with ID and ID nurse, who are aware patient to be discharge. * Airborne precautions * Pulmonary (Dr. Frazier) on consult help appreciated * Infectious disease (Dr. Espinal) on consult help appreciated * Scripts provided to TB clinic include: Ethambutol 1200mg PO daily Isoniazid 300mg PO daily Prazinamide 1500mg PO daily Pyridoxine 100mg PO daily Rifampin 600mg PO daily - Mycobacterial Sputum Cultures 12/26 AFB positive acid fast bacilli, 12/21 AFB positive acid fast bacilli, 12/19 AFB positive acid fast bacilli, 12/17 AFB positive acid fast bacilli, 12/15 AFB positive acid fast bacilli, no for one week 12/14 AFB: positive acid fast bacilli, no for one week 12/13 AFB 2+ acid fast bacilli, culture pending 12/12: AFB 2+ acid fast bacilli, culture pending 12/10 AFB: 1+ acid fast bacilli, No isolated in one week 12/09 AFB: 1+ acid fast bacilli, No isolated in one week 12/06 AFB: 2+ acid fast bacilli, no isolated in one week 12/04 AFB: 2+ acid fast bacilli, prelim mycobacteria tuberculosis complex 12/02 AFB: 2+ acid fast bacilli, prelim mycobacteria tuberculosis complex, sensitive to Rifampin, Streptomycin, Pyranzamide; awaiting isoniziad sensitivitiy 12/01 AFB: 1+ acid fast bacilli, prelim mycobacteria tuberculosis complex, negative Myco avium 11/30 AFB: 1+ acid fast bacilli, prelim mycobacteria tuberculosis complexv negative Myco avium * HIV negative * Quant Gold - negative * Note: Disk containing CT + CXR images is in the physical chart. * 12/08/16 CT Chest: extensive small ill defined nodular opacities throughout left upper lobe as well as superior segment left lower lobe with areas of freeman consultation. Extensive cavitation amidst a large area of consolidation in the left apex. Scattered calficied grandulomas bilaterally. 2)Tachycardia * Thyroid studies: within normal * 12/08/16 CT Chest: extensive small ill defined nodular opacities throughout left upper lobe as well as superior segment left lower lobe with areas of freeman consultation. Extensive cavitation amidst a large area of consolidation in the left apex. Scattered calcified grandulomas bilaterally. * likely secondary to acute infection and possible anti-tB therapy * d-dimer: negative * Thyroid studies: normal * Cardiology (Dr. Trejo) consult-->help appreciated * Patient started on Lopressor 25mg PO bid-->one month supply on discharge 3) Diabetes, type 2; uncontrolled with associated neuropathy * Metformin 1000mg PO bid--->one month supply on discharge * Novolog sliding scale sub * Neurontin 300mg PO TID-->one month supply on discharge * A1c 12.4 * Losartan 25mg PO daily-->one month supply on discharge 4) Alpha Thalassemia * MCV 69.7 * Ferritin 77.3, B12 950 H, folate 11.2, reticulocyte count 1.0 * hemoglobinopathy inerpretation - possible Alpha-thalassemia. * Fe 28 L, TIBC 243 L, %Sat 12 L * haptoglobin 501 H * Monitor outpatient * Started on Ferrlecit IV (started on 12/15-12/23); finished 5) Hypertension * d/c Enalapril 5mg PO daily * started on Losartan 25mg PO daily-->given one month supply on discharge * started on Lopressor 25mg PO bid--->given one month supply on discharged 6) Electrolyte Imbalance * Monitor and replete when necessary 7) Hyponatremia * Improved to 131 on fluid restriction * serum osmolarity: 275 urine osmolarity, urine sodium, uric acid-pending * fluid restriction * Nephrology: Dr Moralez on board * Per nephrology, patient stable for discharge 8) Prophylaxis * respiratory isolation * Vegetarian Diet, carb consistent, low sodium * Pepcid 20mg PO daily * Heparin 5000 units SC q8H * Zofran 4mg PO Q6 PRN * SCDs
== END 2016-12-29 15:48 | disposition home or self-care (01) | DRG 800 ==
LOC: C.ER 09:11 → C.9E 10:23 → C.3T 14:02 → C.5T 12-19 21:55
PROVIDERS: ADMIT Hospitalist; ATTEND Hospitalist
DX: A15.0 Tuberculosis of lung (principal); E11.40 Type 2 diabetes mellitus with diabetic neuropathy, unspecified; E22.2 Syndrome of inappropriate secretion of antidiuretic hormone; D56.0 Alpha thalassemia; E11.65 Type 2 diabetes mellitus with hyperglycemia; E27.40 Unspecified adrenocortical insufficiency; E87.1 Hypo-osmolality and hyponatremia; E87.6 Hypokalemia; J18.9 Pneumonia, unspecified organism; D50.9 Iron deficiency anemia, unspecified; I10 Essential (primary) hypertension; Z83.1 Family history of other infectious and parasitic diseases; Z72.0 Tobacco use; Z79.4 Long term (current) use of insulin; Z79.84 Long term (current) use of oral hypoglycemic drugs; Z79.899 Other long term (current) drug therapy; R00.0 Tachycardia, unspecified